=== PATIENT | female | born 1955 | race Caucasian/White ===

== ENCOUNTER 2020-09-27 16:06 | Outpatient (RCR) | payer OTHER, SELFPAY ==
[2015-06-11 10:28] VITALS: BMI 24.3
[2020-09-28] MEDS: COVID-19 VACC, MRNA(PFIZER)/PF 30 MCG/0.3 ML SYRINGE IM (13:00)
[2020-10-18] MEDS: COVID-19 VACC, MRNA(PFIZER)/PF 30 MCG/0.3 ML SYRINGE IM (11:33)
== END 2020-09-27 23:59 ==
LOC: IMMUN 16:06
PROVIDERS: Referring Provider Family Medicine; Visit Provider Family Medicine
DX: Z23 Encounter for immunization (principal)
CPT/HCPCS: 0001A; 0002A; 91300

== ENCOUNTER → 2022-02-03 | Outpatient (CLI) | payer MEDICARE, OTHER, SELFPAY ==
--- NOTE | 2022-02-03 18:32 | RAD_ITS ---
STUDY: X-RAY - LUMBAR SPINE REASON FOR EXAM: Female, 66 years old. Lower back pain for 3 weeks. Injured back while bulging [place]. Left radiculopathy. TECHNIQUE: 2 view(s) of the lumbar spine were obtained. COMPARISON: None FINDINGS: Mild exaggeration of lumbar lordosis. There is a mild levoscoliosis with the convexity at L3. There is a normal alignment of the vertebrae. There is multilevel endplate spondylosis of the lumbar vertebrae. There is multi-level degenerative disc disease with multi-level disc space narrowing. There is no evidence of acute fracture or loss of vertebral axial height. The soft tissue structures are unremarkable. RAD/Lumbar Spine 2 or 3 Views IMPRESSION: Degenerative changes and scoliosis of the lumbar spine. Electronically Signed: Zander Louis DO at 23:51 EDT ,
== END | disposition home or self-care (01) ==
LOC: RAD 18:23
PROVIDERS: Visit Provider Anesthesiology Pain Medicine
DX: M41.86 Other forms of scoliosis, lumbar region (principal); M51.36 Other intervertebral disc degeneration, lumbar region; M47.816 Spondylosis without myelopathy or radiculopathy, lumbar region; M54.16 Radiculopathy, lumbar region
CPT/HCPCS: 72100

== ENCOUNTER → 2022-02-11 | Outpatient (CLI) | payer MEDICARE, OTHER, SELFPAY ==
--- NOTE | 2022-02-11 14:22 | MRI_ITS ---
STUDY: MRI LUMBAR SPINE WITHOUT CONTRAST REASON FOR EXAM: Female, 66 years old. LBP TECHNIQUE: Standardized fat and water weighted pulse sequences were obtained in the sagittal and axial planes. COMPARISON: None FINDINGS: Mild grade 1 anterolisthesis of L4 on L5. Minimal retrolisthesis of L2 on L3 and L3-L4. Visualized spinal cord demonstrates no evidence of cord edema. Conus terminates at approximately L1 level. Cauda equina nerve roots follow spinal curvature. No evidence for spondylolysis. Heterogeneity of the marrow signal on T1-weighted imaging likely relate with osteopenia. No suspicious focal marrow lesions on STIR imaging. Minimal anterior wedging of the lower thoracic vertebrae. No evidence for acute lumbar spine compression fractures. Hypertrophy of this process processes. Anterior and posterior osteophytic spurring. Level by level segmental analysis: L1-L2 level: No significant central canal stenosis or neural foraminal narrowing. Mild facet arthrosis. L2-L3 level: Shallow disc bulge with bilateral facet arthrosis and mild left-sided neural foraminal narrowing without significant central canal stenosis. L3-4 level: Bilateral facet arthrosis with broad-based is bulge and a superimposed right paracentral disc herniation with caudal migration into the right lateral recess resulting in impingement of the descending right L4 nerve root and deformity of the right ventrolateral thecal sac. Overall size of the disc herniation below the disc margin is approximately 2.1 cm. Mild canal stenosis. Mild left-sided and moderate right-sided neural foraminal narrowing. L4-5 level: Grade 1 anterolisthesis of L4 on L5 with extensive facet arthrosis and ligamentum flavum thickening resulting in moderate bilateral neural foraminal narrowing. The L3-L4 disc herniation extends into the right neural foramen. Mild narrowing of the central canal. L5-S1 level: Bilateral facet arthrosis with broad-based disc bulge and grade 1 anterolisthesis of L5 on S1 with mild flattening of the ventral thecal sac. Left foraminal and extraforaminal disc herniation also seen resulting in impingement of the left L5 nerve root. No paraspinal soft tissue mass or fluid collections. MRI/Spine Lumbar (Routine) IMPRESSION: Lumbar spondylotic changes with a large disc herniation at L3-L4 with impingement of the right-sided L4 nerve root and a disc herniation at L5-S1 level with impingement of the left-sided L5 nerve root. Please see above level by level complete analysis and details No evidence for acute lumbar spine compression fractures. Electronically Signed: Jay Nascimento MD at 16:45 EDT ,
== END | disposition home or self-care (01) ==
LOC: MRI 14:15
PROVIDERS: Visit Provider Anesthesiology Pain Medicine
DX: M54.16 Radiculopathy, lumbar region (principal)
CPT/HCPCS: 72148

== ENCOUNTER → 2022-02-26 | Outpatient (CLI) | payer MEDICARE, OTHER, SELFPAY ==
--- NOTE | 2022-02-26 16:51 | RAD_ITS ---
EXAM: XR CHEST, 2 VIEWS CLINICAL INDICATION: SOB TECHNIQUE: Frontal and lateral views of the chest. This report was created using [employer] report generation technology. COMPARISON: None. FINDINGS: LUNGS AND PLEURAL SPACES: Unremarkable. No consolidation or edema. No pneumothorax. No effusion. HEART: Unremarkable. Cardiac silhouette not enlarged. MEDIASTINUM: Central airways and mediastinal contour are unremarkable. BONES/JOINTS: Unremarkable. SOFT TISSUES: Unremarkable. RAD/Chest PA and Lateral IMPRESSION: No radiographic evidence of acute cardiopulmonary disease. Electronically Signed: Dung Powers MD at 7:14 EDT ,
[2022-02-26 18:09] LABS: Absolute Lymphocyte Count 2.72 X10^3/uL (0.83-4.51); Absolute Neutrophil Count 6.4 X10^3/uL (2.0-7.7); Basophil# 0.05 X10^3/uL; Basophil% 0.5 % (0-1); Eosinophil# 0.06 X10^3/uL; Eosinophils% 0.6 % (0-5); Hematocrit 45.7 % (37-47); Hemoglobin 14.5 g/dL (12.0-15.0); Lymphocyte # 2.72 X10^3/ul (0.83-4.51); Mean Corp Hgb Conc 31.7 g/dL (32-36); Mean Corpuscular Hgb 30.1 pg (27.0-32.0); Mean Platelet Vol. 11.3 fl (6.2-12.0); Monocyte# 0.83 X10^3/uL; Monocyte% 8.2 % (0-10); NRBC Flagged by Analyzer 0 % (0-5); Neutrophil # 6.35 X10^3/uL (2.7-7.7); Neutrophil % 63.1 % (47-70); Platelet Count 249 K/mm3 (150-450); RBC Distribution Width CV 15.9 % (11.6-14.6); RBC Distribution Width SD 55.7 fl (35.1-43.9); Red Blood Count 4.81 M/mm3 (4.2-5.4); White Blood Count 10.1 K/mm3 (4.4-11.0)
[2022-02-26 18:18] LABS: International Normalized Ratio 0.9; Partial Thromboplast Time 23.1 Seconds (24.1-36.2); Prothrombin Time (Protime)PT. 11.8 SECONDS (11.7-14.9)
[2022-02-26 18:31] LABS: Color, Urine Yellow (Yellow); Glucose, Dipstick Normal (Normal); Ketone-Dipstick Negative (Negative); Leukocyte Esterase-Dipstick 25 /ul (Negative); Nitrite-Dipstick Negative (Negative); Occult Blood-Urine Negative /ul (Negative); Protein-Dipstick 15 mg/dl (Negative); Specific Gravity, Urine 1.015 (1.002-1.030); Urine Bilirubin Dipstick Negative (Negative); Urine Clarity Sl. Cloudy (Clear); Urine Urobilinogen Normal (Normal)
[2022-02-26 18:43] LABS: AST(SGOT) 32 U/L (15-37); Alanine Aminotransfer ALT/SGPT 52 U/L (13-56); Albumin, Serum 3.8 g/dL (3.2-5.0); Alkaline Phosphatase 74 U/L (45-117); Anion Gap 7 (5-15); BUN 17 mg/dL (7-18); BUN/Creat Ratio 18.7 RATIO (10-20); Calcium,Total 9.2 mg/dL (8.5-10.1); Chloride 102 mmol/L (98-107); Cholesterol 233 mg/dL (200); Creatinine, Serum 0.91 mg/dL (0.55-1.02); EST Glomerular Filtration Rate 66 mL/min (>60); Est Glom Filt Rate - Afr Amer 80 mL/min (>60); Globulin 3.7 g/dL (2.2-4.2); Glucose 93 mg/dL (74-106); High Density Lipoprotein 92 mg/dL; Potassium 3.6 mmol/L (3.5-5.1); Protein, Total 7.5 g/dL (6.4-8.2); Sodium Level 137 mmol/L (136-145); Thyroid Stim Hormone (TSH) 1.34 uIU/mL (0.358-3.74); Triglycerides 107 mg/dL; Very Low Density Lipoprotein 21 mg/dL (5-40)
[2022-02-26 18:54] LABS: Hemoglobin A1c 5.5 % (3.8-5.6)
== END | disposition home or self-care (01) ==
PROVIDERS: Referring Provider Family Medicine; Visit Provider Family Medicine
DX: Z01.818 Encounter for other preprocedural examination (principal); Z13.1 Encounter for screening for diabetes mellitus; Z13.29 Encounter for screening for other suspected endocrine disorder; Z13.220 Encounter for screening for lipoid disorders; K21.9 Gastro-esophageal reflux disease without esophagitis; M48.062 Spinal stenosis, lumbar region with neurogenic claudication; I10 Essential (primary) hypertension; R06.02 Shortness of breath
CPT/HCPCS: 71046; 80053; 80061; 81002; 83036; 84443; 85025; 85610; 85730

== ENCOUNTER → 2022-06-17 | Outpatient (CLI) | payer MEDICARE, OTHER, SELFPAY ==
--- NOTE | 2022-06-17 12:31 | CT_ITS ---
EXAM: CT LUMBAR SPINE WITH INTRAVENOUS CONTRAST CLINICAL INDICATION: HERNIATED DISC LSPINE TECHNIQUE: Helically acquired images were obtained of the lumbar spine with intravenous contrast. 2D reformats were reviewed. This CT exam was performed using one or more of the following dose reduction techniques: automated exposure control, adjustment of the mA and/or kV according to patient size, and/or use of iterative reconstruction technique. This report was created using [employer] report generation technology. CONTRAST: IV 100mL Isovue-300 COMPARISON: None. FINDINGS: VERTEBRAE: There is a right-sided laminectomy at L4. No fracture. No traumatic subluxation. No discrete lytic or blastic abnormality. Normal alignment. DISCS/SPINAL CANAL/NEURAL FORAMINA: There are postsurgical changes with posterior fusion of L4 and L5. There is dense material in the disc space at L4-5 possibly from a prior discogram. No critical stenosis. VASCULATURE: Visualized abdominal aorta is not dilated. LYMPH NODES: Unremarkable. No retroperitoneal adenopathy. OTHER FINDINGS: Hardware is in good position. CT/Spine Lumbar WITH Contrast IMPRESSION: Postsurgical changes at L4-5. Hardware is in good position. There are no acute osseous abnormalities identified. Electronically Signed: Miguel Osborn MD at 18:06 EST ,
[2022-06-17 12:55] LABS: CREATININE FINGERSTICK < 0.9 mg/dL (0.55-1.02); EGFR FINGERSTICK > 60.0000 mL/min (>60)
== END | disposition home or self-care (01) ==
LOC: CT 12:28
PROVIDERS: Referring Provider Orthopaedic Surgery; Visit Provider Orthopaedic Surgery
DX: M51.26 Other intervertebral disc displacement, lumbar region (principal)
CPT/HCPCS: 72132; Q9967

== ENCOUNTER → 2022-08-07 | Outpatient (CLI) | payer MEDICARE, OTHER, SELFPAY ==
--- NOTE | 2022-08-07 12:46 | MRI_ITS ---
EXAM: MR LUMBAR SPINE WITHOUT AND WITH INTRAVENOUS CONTRAST CLINICAL INDICATION: SPINAL STENOSIS TECHNIQUE: Multiplanar and multisequence MR images of the lumbar spine without and with intravenous contrast. This report was created using [employer] technology. CONTRAST: IV 13 cc clariscn COMPARISON: 02/11/2022. FINDINGS: VERTEBRAE: Unremarkable. Vertebral body heights are preserved. Normal vertebral bodies and posterior elements. Normal alignment. No spondylolisthesis. There is preservation of the normal lumbar lordosis. SPINAL CORD: Unremarkable. Normal position and signal intensity of the conus medullaris. SOFT TISSUES: Unremarkable. DISCS/SPINAL CANAL/NEURAL FORAMINA: No demonstrated fracture. Vertebral bodies are normal in height. T12-L1: Marked disc space narrowing. Normal bilateral facet joints. Normal central canal. Normal bilateral lateral recesses. Normal intervertebral neural foramina. L1-2: Disc dehydration and mild disc space narrowing. Normal bilateral facet joints. Normal central canal. Normal bilateral lateral recesses. Normal intervertebral neural foramina. L2-3: Disc dehydration. Normal bilateral facet joints. Normal central canal. Normal bilateral lateral recesses. Small, noncompressive left inferior foraminal disc protrusion. L3-4: Disc dehydration and moderate disc space narrowing. Normal bilateral facet joints. Normal central canal. Normal bilateral lateral recesses. Small, noncompressive inferior foraminal disc protrusions. L4-5: Disc spacer. Prior right laminectomy with posterior instrumentation. Normal central canal. Foramina are patent. L5-S1: Disc dehydration. Normal bilateral facet joints. Normal central canal. Normal bilateral lateral recesses. Small left inferior foraminal disc protrusion touches the exiting L5 nerve root. No enhancing lesion following the administration of contrast. MRI/Spine Lumbar W/WO Contrast IMPRESSION: L5-S1 left foraminal disc protrusion touching the L5 nerve root. Noncompressive foraminal disc protrusions at L2-3 and L3-4. Postsurgical changes at L4-5. Electronically Signed: Yamel Vidal MD at 23:01 EST Reading Location ID and State: [id number] / Tel , Service support ,
[2022-08-07 13:21] LABS: CREATININE FINGERSTICK < 0.9 mg/dL (0.55-1.02); EGFR FINGERSTICK > 60.0000 mL/min (>60)
== END | disposition home or self-care (01) ==
PROVIDERS: Referring Provider Orthopaedic Surgery; Visit Provider Orthopaedic Surgery
DX: M51.35 Other intervertebral disc degeneration, thoracolumbar region (principal); M51.26 Other intervertebral disc displacement, lumbar region; M48.062 Spinal stenosis, lumbar region with neurogenic claudication
CPT/HCPCS: 72158; A9575

== ENCOUNTER → 2023-05-19 | Outpatient (CLI) | payer MEDICARE, OTHER, SELFPAY ==
--- NOTE | 2023-05-18 17:11 | MRI_ITS ---
STUDY: MRI LUMBAR SPINE WITH AND WITHOUT CONTRAST REASON FOR EXAM: Female, 67 years old. Postlaminectomy syndrome, left leg pain,tingling, hx 2 prev surgeries- most recent 08/2022 TECHNIQUE: Standardized fat and water weighted pulse sequences were obtained in the sagittal and axial planes. IV 13cc clariscan was administered for the contrast portion of the examination. COMPARISON: August 07, 2022 FINDINGS: T12-L1: Normal endplates. Narrowed disc space with desiccation of disc and minimal annular bulge. Normal bilateral facet joints. Normal central canal and bilateral lateral recesses. Normal bilateral intervertebral neural foramina. Normal lumbar lordosis. There is mild levo scoliosis. Normal conus medullaris that terminates at T12-L1 L1-2: Schmorl''s node superior endplate of L2. Normal disc height, desiccation and minimal annular bulge.. Normal bilateral facet joints. Normal central canal and bilateral lateral recesses. Normal bilateral intervertebral neural foramina. L2-3: Normal endplates. Normal disc height, desiccation and minimal annular bulge with small tiny left foraminal disc protrusion. Normal bilateral facet joints. Normal central canal and bilateral lateral recesses. Mild left neural foraminal encroachment L3-4: Normal endplates. Narrowed disc space with desiccation of the disc and mild annular bulge.. Facet arthropathy and thickening of ligamenta flava. Normal central canal and bilateral lateral recesses. Mild to moderate bilateral neural foraminal encroachment L4-5: Postop change status post laminectomy and posterior fusion Normal endplates. Normal disc height, desiccation and normal morphology. Mild facet arthropathy and thickening of ligamenta flava more pronounced on the left mildly compressing the left posterior lateral thecal sac which is displaced slightly anteriorly and towards the right Normal central canal.. Normal bilateral intervertebral neural foramina. L5-S1: Normal endplates. Normal disc height, desiccation and small left posterolateral/foraminal disc protrusion. Facet arthropathy more pronounced on the left. Normal central canal and bilateral lateral recesses. Severe left neural foraminal stenosis. Normal visualized sacral ala. Normal visualized paraspinous soft tissue structures. No abnormal enhancement following contrast demonstrates MRI/Spine Lumbar W/WO Contrast IMPRESSION: Mild scoliosis and degenerative change.. Postop change status post laminectomy and posterior fusion at L4-5 No acute fracture or other significant bony pathology Spinal stenosis at L4-5 largely due to facet arthropathy and thickening of ligamenta flava which is more pronounced on the lef Severe left neural foraminal stenosis at L5-S1 secondary to small left posterolateral/foraminal disc protrusion and facet arthropathy t Electronically Signed: Mathieu Jalloh MD at 20:20 EDT ,
== END | disposition home or self-care (01) ==
LOC: MRI 11:48
PROVIDERS: Referring Provider Anesthesiology Pain Medicine; Visit Provider Anesthesiology Pain Medicine
DX: M96.1 Postlaminectomy syndrome, not elsewhere classified (principal)
CPT/HCPCS: 72158

== ENCOUNTER 2023-08-13 14:47 | Outpatient (CLI) | payer MEDICARE, OTHER, SELFPAY ==
[2023-08-13 18:02] LABS: Vitamin B12 331 pg/mL (211-911); Vitamin D,25 Hydroxy 62.5 ng/mL
[2023-08-13 18:14] LABS: ALB/GLOB Ratio 1.1 RATIO (0.9-2.4); AST(SGOT) 30 U/L (15-37); Alanine Aminotransfer ALT/SGPT 23 U/L (13-56); Albumin, Serum 3.6 g/dL (3.2-5.0); Alkaline Phosphatase 56 U/L (45-117); Anion Gap 6 (5-15); BUN 13 mg/dL (7-18); Calcium,Total 9.3 mg/dL (8.5-10.1); Chloride 106 mmol/L (98-107); Cholesterol 219 mg/dL (200); Creatinine, Serum 0.81 mg/dL (0.55-1.02); EST Glomerular Filtration Rate 75 mL/min (>60); Est Glom Filt Rate - Afr Amer 91 mL/min (>60); Globulin 3.3 g/dL (2.2-4.2); Glucose 77 mg/dL (74-106); High Density Lipoprotein 88 mg/dL; Potassium 4.1 mmol/L (3.5-5.1); Protein, Total 6.9 g/dL (6.4-8.2); Sodium Level 139 mmol/L (136-145); Triglycerides 62 mg/dL; Very Low Density Lipoprotein 12 mg/dL (5-40)
[2023-08-13 18:34] LABS: Microalbumin,Random Urine 9.1 mg/L (NO RANGE EST.); Microalbumin:Creatinine Ratio 10.2 mg/g CRE (<30 mg/g CRE)
== END 2023-08-13 23:59 | disposition home or self-care (01) ==
LOC: MFPLAB 14:48
PROVIDERS: PCP Family Medicine; Visit Provider Family Medicine
DX: I10 Essential (primary) hypertension (principal); E78.2 Mixed hyperlipidemia; K21.9 Gastro-esophageal reflux disease without esophagitis; E55.9 Vitamin D deficiency, unspecified
CPT/HCPCS: 36415; 80053; 80061; 82043; 82306; 82570; 82607

== ENCOUNTER → 2024-07-15 | Outpatient (CLI) | payer MEDICARE, OTHER, SELFPAY ==
--- NOTE | 2024-07-15 16:35 | MRI_ITS ---
HISTORY: Postlaminectomy syndrome. TECHNIQUE: Multiplanar and multisequence MR images of the lumbar spine were obtained before and after the intravenous administration of 13 cc Clariscan. 201 images. COMPARISON: 05/18/2023. FINDINGS: VERTEBRAE: Vertebral body heights maintained. Artifact from L4-5 posterior spinal fusion hardware. Mild degenerative endplate changes at multiple levels. ALIGNMENT: Chronic minimal anterolisthesis of L4-5. SPINAL CANAL: Normal morphology and position of the conus medullaris at L1. No gross epidural collection. INTERVERTEBRAL DISCS: T12-L1: Mild disc bulge and facet arthropathy without significant central canal stenosis or foraminal narrowing L1-2: Mild disc bulge and facet arthropathy without significant central canal stenosis or foraminal narrowing. L2-3: Mild disc bulge with a left foraminal component and facet arthropathy resulting in minimal narrowing of the thecal sac and mild left greater than right foraminal narrowing, similar to prior L3-4: Mild disc bulge and facet arthropathy resulting in minimal narrowing of the thecal sac and mild right greater than left foraminal narrowing, similar to prior. L4-5: Interbody fusion material and right decompressive laminectomy. No significant recurrent posterior disc protrusion or central canal stenosis. Residual degenerative change and facet arthropathy resulting in mild bilateral foraminal narrowing, similar to prior. L5-S1: Increased left paracentral/foraminal disc extrusion with superior migration abutting the left S1 nerve root in the lateral recess and the left L5 nerve root in the foramen with increased severe left foraminal narrowing. No significant central canal stenosis. Correlate with surgical history for left laminotomy. SOFT TISSUES: No paraspinal fluid collection. MRI/Spine Lumbar W/WO Contrast IMPRESSION: No significant interval change in appearance of L4-5 posterior spinal fusion. Increased size of left paracentral/foraminal disc extrusion with superior migration at L5-S1 resulting in nerve root abutment and severe left foraminal narrowing without significant spinal canal stenosis. Electronically Signed: Erika Schwartz MD at 15:27 EST ,
== END | disposition home or self-care (01) ==
PROVIDERS: PCP Family Medicine; Referring Provider Anesthesiology Pain Medicine; Visit Provider Anesthesiology Pain Medicine
DX: M96.1 Postlaminectomy syndrome, not elsewhere classified (principal)
CPT/HCPCS: 72158; A9575

== ENCOUNTER → 2024-09-03 | Outpatient (CLI) | payer MEDICARE, OTHER, SELFPAY ==
--- NOTE | 2024-09-03 08:21 | CT_ITS ---
PROCEDURE: SPINE LUMBAR WITHOUT CONTRAST REASON FOR EXAM: Pain TECHNIQUE: Lumbar spine CT without contrast. COMPARISON: Correlation made to more recent lumbar spine MRI from June 2024. FINDINGS: Vertebrae: Normal lumbar vertebral body heights. No evidence of fracture. No spondylolysis. Moderate multilevel degenerative changes with associated bilateral facet arthropathy more severe inferiorly with 3 mm anterolisthesis of L4 relative to L5. Intact posterior spinal fusion hardware traversing L4-L5 with unchanged severe left foraminal narrowing at L5-S1 unstable anterolisthesis of L4 relative to L5. Vertebral body heights are preserved. No acute fracture. Sacrum: Visualized upper sacrum and SI joints are unremarkable. Visualized retroperitoneal structures are unremarkable. CT/Spine Lumbar without Contrast IMPRESSION: No acute CT process. Intact relatively stable L4-5 posterior spinal fusion bishop nayeli. One or more dose reduction techniques were used (e.g., Automated exposure contr ol, adjustment of the mA and/or kV according to patient size, use of iterative reconstruction technique). Reading Location: [facility]
== END | disposition home or self-care (01) ==
LOC: CT 08:20
PROVIDERS: PCP Family Medicine; Referring Provider Orthopaedic Surgery Orthopaedic Surgery of the Spine; Visit Provider Orthopaedic Surgery Orthopaedic Surgery of the Spine
DX: Z98.1 Arthrodesis status (principal)
CPT/HCPCS: 72131

== ENCOUNTER 2024-10-25 13:35 | Inpatient (IN) | payer MEDICARE, OTHER, SELFPAY ==
--- NOTE | 2024-10-13 09:31 | EKG12_ITS ---
Test Reason : PREOP Blood Pressure : */* mmHG Vent. Rate : 71 BPM Atrial Rate : 71 BPM P-R Int : 178 ms QRS Dur : 78 ms QT Int : 380 ms P-R-T Axes : 52 33 41 degrees QTcB Int : 412 ms Normal sinus rhythm Possible Left atrial enlargement Low voltage QRS Septal infarct , age undetermined Abnormal ECG Confirmed by HALLIE LOPEZ, ROSSY ([id number]), assistant production editor ANGELA JIN ([id number]) on 10/14/2024 5:48:48 AM Referred By: JAZMYN Confirmed By: ROSSY STERLING MD
[2024-10-13 10:22] LABS: Absolute Lymphocyte Count 2.43 X10^3/uL (0.83-4.51); Absolute Neutrophil Count 2.5 X10^3/uL (2.0-7.7); Basophil# 0.05 X10^3/uL; Basophil% 0.9 % (0-1); Eosinophil# 0.12 X10^3/uL; Eosinophils% 2.2 % (0-5); Hematocrit 40.1 % (37-47); Hemoglobin 13.1 g/dL (12.0-15.0); Lymphocyte # 2.43 X10^3/ul (0.83-4.51); Lymphocyte % 43.7 % (19-41); Mean Corp Hgb Conc 32.7 g/dL (32-36); Mean Corpuscular Hgb 29.8 pg (27.0-32.0); Mean Corpuscular Volume 91.3 fL (81-99); Mean Platelet Vol. 11.5 fl (6.2-12.0); Monocyte# 0.48 X10^3/uL; Monocyte% 8.6 % (0-10); NRBC Flagged by Analyzer 0 % (0-5); Neutrophil # 2.46 X10^3/uL (2.7-7.7); Neutrophil % 44.2 % (47-70); Platelet Count 194 K/mm3 (150-450); RBC Distribution Width CV 14.4 % (11.6-14.6); RBC Distribution Width SD 48.2 fl (35.1-43.9); Red Blood Count 4.39 M/mm3 (4.2-5.4); White Blood Count 5.6 K/mm3 (4.4-11.0)
[2024-10-13 11:24] LABS: Anion Gap 10 (5-15); BUN 16 mg/dL (4-19); BUN/Creat Ratio 22.4 RATIO (10-20); Calcium,Total 9.4 mg/dL (7.6-11.0); Carbon Dioxide 24.9 mmol/L (21.0-32.0); Chloride 104 mmol/L (98-108); Creatinine, Serum 0.71 mg/dL (0.70-1.20); EST Glomerular Filtration Rate 93 (>60); Glucose 98 mg/dL (70-99); Magnesium 1.9 mg/dL (1.5-2.2); Potassium 4.4 mmol/L (3.3-5.1); Sodium Level 139 mmol/L (133-145)
[2024-10-13 11:44] LABS: Hepatitis B Surface Antibody REAC; Hepatitis C Antibody Nonreactive (Nonreactive)
[2024-10-14 05:07] LABS: Hepatitis A AB, Total Positive (Negative)
--- NOTE | 2024-10-14 08:20 | PAT.ANESEVAL ---
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 When Was Last Pacemaker Check QUESTION #4 FULL TEXT: You/Your Family Experience fever (hyperthermia) with Anesthesia Last Oral Intake Last Oral intake: Last Oral Intake NPO since Meds taken in AM with sips of water? 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 Female Yes 10/11/24 13:17 HX of Motion Sickness Yes 10/11/24 13:17 HX of N/V After Surgery Yes 10/11/24 13:17 Non-Smoker Yes 10/11/24 13:17 Duration of Surgery greater Yes 10/11/24 13:17 than 60 minutes Number of Risk Factors 5 10/11/24 13:17 PONV Score Severe Risk 10/11/24 13:17 Height & Weight Height & Weight: Anesthesia: Height & Weight Height 5 ft 3 in 08/19/24 07:34 Respiratory Assessment Respiratory Assessment - tube cleaning operator: Respiratory Tract Infection Hx - tube cleaning operator Hx Respiratory Tract Infection No 10/11/24 13:17 STOP Sleep Apnea STOP Sleep Apnea - tube cleaning operator: STOP Sleep Apnea - tube cleaning operator Hx Hypertension Yes: CONTROLLED WITH MED 10/11/24 13:17 Hx Sleep Apnea No 10/11/24 13:17 CPAP BIPAP Do you snore loudly (louder No 10/11/24 13:17 than talking or can be heard Do you often feel tired/ No 10/11/24 13:17 fatigued/ sleepy during daytime? Has anyone observed you stop No 10/11/24 13:17 breathing during sleep? STOP Results Negative 10/11/24 13:17 QUESTION #5 FULL TEXT : Do you snore loudly (louder than talking or can be heard through closed doors)? 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 Specify any problems Hx of Preganancy in last 3 N/A 10/11/24 13:17 Months Nurse Filling Out Transfusion NBUCHER 10/11/24 13:17 & Questions: Date: 10/11/24 10/11/24 13:17 Time: 13:23 10/11/24 13:17 Patient unable to answer at this time (ie. confused, unrespo /Reproduction History /Reproductive History - tube cleaning operator: /Reproductive Hx- tube cleaning operator Hx Now Gestational Age (in weeks): EDC: Hx Hx Para Hx Section SAB PFSH Medical History (Updated 10/11/24 @ 13:34 by Jessica Condon) Wears glasses Cancer Depression Anxiety Migraine headache GERD (gastroesophageal reflux disease) Microscopic colitis History of Mohs micrographic surgery for skin cancer (~2021) Non-smoker PONV (postoperative nausea and vomiting) Hypertension Home Medications ?Medication ?Instructions ?Recorded ?Last Taken ?Type duloxetine 30 mg capsule,delayed 30 - 60 mg PO QDAY ANTIDEPRESSENT 08/19/24 Unknown History release lisinopril 20 mg tablet 20 mg PO DAILY HTN 08/19/24 Unknown History pantoprazole 20 mg tablet,delayed 20 mg PO QDAY GERD 08/19/24 Unknown History release calcium 500 mg (as 2 tab PO DAILY SUPPLEMENT 10/11/24 Unknown History carbonate)-vitamin D3 3.125 mcg (125 unit) tablet gabapentin 100 mg capsule 200 - 300 mg PO TID PRN PAIN 10/11/24 Unknown History hydrocodone-acetaminophen 5-325mg 0.5 tab PO QHS PRN pain 03/18/25 Unknown History 5mg-325mg Allergy/AdvReac Type Severity Reaction Status Date / Time No Known Allergies Allergy Verified 10/11/24 13:12 Family History (Updated 08/19/24 @ 08:07 by Kalie Garcia) Mother Hypertension Lung cancer Scoliosis DJD (degenerative joint disease) Father COPD (chronic obstructive pulmonary disease) Surgical History (Updated 10/11/24 @ 13:34 by Jessica Condon) History of colonoscopy History of right hip replacement (~01/2011) S/P lumbar fusion Status post breast reduction History of lumbar laminectomy History of lumbar fusion Social History (Updated 08/19/24 @ 08:06 by Kalie Garcia) Smoking Status: Never smoker alcohol intake: current alcohol intake frequency: 0-2 drinks per day what type of physical activity do you participate in: other details: elias Audit: Pertinent Findings Pertinent Findings EKG Perinent findings: 10/13/24: Normal sinus rhythm Possible Left atrial enlargement Low voltage QRS Septal infarct , age undetermined Recommendation Anesthesia Recommendation Anesthesia recommendation: OPTIMIZED for anesthesia
[2024-10-21 04:07] LABS: HIV-1 RNA by PCR, Quant. < 20 copies/mL (.)
[2024-10-25] VITALS (18 sets, daily range): BP systolic 94–124; BP diastolic 57–82; PULSE 78–100; RESP 16–18; TEMP 36.2–37.2; O2SAT 18–100; BMI 26.5
[2024-10-25] MEDS: 0.9% Normal Saline (1000mL) 1,000 ML 15 ML IV (06:21)
[2024-10-25] MEDS: Acetaminophen 500 MG Tablet 1000 MG PO ×3 (06:22→21:10)
[2024-10-25] MEDS: Magnesium 2 GM for ERAS IV (06:22)
--- NOTE | 2024-10-25 06:32 | PCM.PRE.AN2 ---
ASA Classification* ASA Classification ASA Classification: 2 Assessment & Plan Anesthesia* Anesthesia Assessment Anesthesia Assessment: Discussed sedation and/or anesthesia options, risks, benefits, and alternatives with patient/parents/legal guardian/POA. Questions invited. The patient/parents/legal guardian/POA seems to understand and agrees to proceed with anesthesia plan. Reviewed the physical assessment, medical history, allergy history and patient home medications list prior to surgery/procedure/anesthetic and documented any changes. Performed airway and anesthesia risk assessments. Anesthesia Type Anesthesia Type: General (Consider GlideScope intubation) History Source History Obtained from:: Patient and Chart Anesthesia Focused Assessment* Temperature: 97.8 F Pulse Rate: 78 Blood Pressure: 121/77 Respiratory Rate: 16 Pulse Ox: 99 Oxygen Delivery Method: Room Air Airway Assessment Mouth opens: >3 cm Mallampati Score: IV Teeth Condition: Caps/Crowns (Patient has several crowns. They are all tight.) Neck Range of motion (ROM): Limited ROM (Somewhat decreased extension) Focused Labs Anesthesia Preop lab: CBC WBC 5.6 K/mm3 (4.4-11.0) 10/13/24 09:42 10/13/24 RBC 4.39 M/mm3 (4.2-5.4) 10/13/24 09:42 10/13/24 Hgb 13.1 g/dL (12.0-15.0) 10/13/24 09:42 10/13/24 Hct 40.1 % (37-47) 10/13/24 09:42 10/13/24 Plt Count 194 K/mm3 (150-450) 10/13/24 09:42 10/13/24 CHEMISTRY Potassium 4.4 mmol/L (3.3-5.1) 10/13/24 09:42 10/13/24 Sodium 139 mmol/L (133-145) 10/13/24 09:42 10/13/24 Magnesium 1.9 mg/dL (1.5-2.2) 10/13/24 09:42 10/13/24 BUN 16 mg/dL (4-19) 10/13/24 09:42 10/13/24 Creatinine 0.71 mg/dL (0.70-1.20) 10/13/24 09:42 10/13/24 Glucose 98 mg/dL (70-99) 10/13/24 09:42 10/13/24 TSH 1.34 uIU/mL (0.358-3.74) 02/26/22 16:54 02/26/22 COAG PT 11.8 SECONDS (11.7-14.9) 02/26/22 16:54 02/26/22 Pre-Assessment Diagnosis/Proposed Procedure Planned Operative Procedure(s): Anterior lumbar interbody fusion L5-S1, revision posterior lumbar fusion L4-5 and L5-S1, possible removal of hardware Anesthesia History 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 When Was Last Pacemaker Check QUESTION #4 FULL TEXT: You/Your Family Experience fever (hyperthermia) with Anesthesia Last Oral Intake Last Oral intake: Last Oral Intake NPO since 04:45 10/25/24 06:05 Meds taken in AM with sips of Yes 10/25/24 06:05 water? Meds patient instructed to take am of surgery Any additional information?: Yes NPO since: 04:45 (Patient took her preop Ensure at 4:45 AM.) Meds taken in AM with sips of water?: Yes PONV PONV - principal architectural firm: PONV - principal architectural firm Female Yes 10/11/24 13:17 HX of Motion Sickness Yes 10/11/24 13:17 HX of N/V After Surgery Yes 10/11/24 13:17 Non-Smoker Yes 10/11/24 13:17 Duration of Surgery greater Yes 10/11/24 13:17 than 60 minutes Number of Risk Factors 5 10/11/24 13:17 PONV Score Severe Risk 10/11/24 13:17 Height & Weight Height & Weight: Anesthesia: Height & Weight Height 5 ft 3 in 10/25/24 06:05 Weight: 68 kg 10/25/24 06:05 Body Mass Index (BMI) 26.5 10/25/24 06:05 Respiratory Assessment Respiratory Assessment - principal architectural firm: Respiratory Tract Infection Hx - principal architectural firm Hx Respiratory Tract Infection No 10/11/24 13:17 STOP Sleep Apnea STOP Sleep Apnea - principal architectural firm: STOP Sleep Apnea - principal architectural firm Hx Hypertension Yes: CONTROLLED WITH MED 10/11/24 13:17 Hx Sleep Apnea No 10/11/24 13:17 CPAP BIPAP Do you snore loudly (louder No 10/11/24 13:17 than talking or can be heard Do you often feel tired/ No 10/11/24 13:17 fatigued/ sleepy during daytime? Has anyone observed you stop No 10/11/24 13:17 breathing during sleep? STOP Results Negative 10/11/24 13:17 QUESTION #5 FULL TEXT : Do you snore loudly (louder than talking or can be heard through closed doors)? Tobacco Use History Tobacco Use History - principal architectural firm: Tobacco Use History - principal architectural firm Tobacco Use Smoking Status Never smoker 10/11/24 13:17 Hx Tobacco Use No 10/11/24 13:17 Years Smoking Packs Smoked per Day Smoking Cessation Date was within the last 15 years Hx Smoking Cessation Date Hx Smoking Cessation Counseling Hematologic Medial History Hematologic Hx - principal architectural firm: Hematologic Medical Hx - picker packer Hx of Blood Transfusion No 10/11/24 13:17 Hx of Transfusion in last 3 No 10/11/24 13:17 Months Date of Last Transfusion (if within last 3 months) Ever experience any problems No 10/11/24 13:17 with transfusion(s)? Specify any problems Hx of Preganancy in last 3 N/A 10/11/24 13:17 Months Nurse Filling Out Transfusion NBUCHER 10/11/24 13:17 & Questions: Date: 10/11/24 10/11/24 13:17 Time: 13:23 10/11/24 13:17 Patient unable to answer at this time (ie. confused, unrespo /Reproduction History /Reproductive History - principal architectural firm: /Reproductive Hx- principal architectural firm Hx Now Gestational Age (in weeks): EDC: Hx Hx Para Hx Section SAB Active Medications Active Medications: Current Medications Generic Name Dose Route Start Last Admin Trade Name Freq PRN Reason Stop Dose Admin Acetaminophen 1,000 mg 10/25/24 07:30 10/25/24 06:22 Acetaminophen 500 Mg Tablet PO 10/25/24 07:31 1,000 mg X1 ONE Administration Cefazolin Sodium 2 gm/ N/A 20 mls @ 400 mls/hr 10/25/24 07:30 IV 10/25/24 07:32 PREOP ONE Tranexamic Acid 1,000 mg/ 110 mls @ 440 mls/hr 10/25/24 07:30 Sodium Chloride IV 10/25/24 07:44 X1 ONE Tranexamic Acid 1,000 mg/ 110 mls @ 440 mls/hr 10/25/24 07:30 Sodium Chloride IV 10/25/24 07:44 X1 ONE Magnesium Sulfate 2 gm/ 104 mls @ 208 mls/hr 10/25/24 07:30 10/25/24 06:22 Dextrose IV 10/25/24 07:59 208 mls/hr X1 ONE Administration Sodium Chloride 1,000 mls @ 15 mls/hr 10/25/24 05:50 10/25/24 06:21 IV 10/30/24 19:09 15 mls/hr .Q48H MARY ANN Administration Insulin Human Lispro 1 - 6 unit 10/25/24 07:30 Insulin Lispro 100 Unit/Ml Insuln.Pen SC Q4H PRN PRN BG>/= 180, SEE PROTOCOL Protocol PFSH Medical History Wears glasses Cancer Depression Anxiety Migraine headache GERD (gastroesophageal reflux disease) Microscopic colitis History of Mohs micrographic surgery for skin cancer (~2021) Non-smoker PONV (postoperative nausea and vomiting) Hypertension Home Medications ?Medication ?Instructions ?Recorded ?Last Taken ?Type duloxetine 30 mg capsule,delayed 30 - 60 mg PO QDAY ANTIDEPRESSENT 08/19/24 10/25/24 04:45 History release lisinopril 20 mg tablet 20 mg PO DAILY HTN 08/19/24 10/25/24 04:45 History pantoprazole 20 mg tablet,delayed 20 mg PO QDAY GERD 08/19/24 10/25/24 04:45 History release calcium 500 mg (as 2 tab PO DAILY SUPPLEMENT 10/11/24 10/24/24 History carbonate)-vitamin D3 3.125 mcg (125 unit) tablet gabapentin 100 mg capsule 200 - 300 mg PO TID PRN PAIN 10/11/24 10/24/24 History hydrocodone-acetaminophen 5-325mg 0.5 tab PO QHS PRN pain 10/11/24 Unknown History 5mg-325mg ascorbic acid (vitamin C) 1,000 mg 1 g PO Q6H supplement 10/20/24 10/24/24 History capsule budesonide 3 mg 9 mg PO QDAY PRN colitis 10/20/24 Unknown History capsule,delayed,extended release cholecalciferol (vitamin D3) 25 25 mcg PO QDAY supplement 10/20/24 10/24/24 History mcg (1,000 unit) capsule cyclobenzaprine 10 mg tablet 10 mg PO TID PRN muscle spasm 10/20/24 Unknown History sumatriptan succinate 100 mg tablet 100 mg PO ONCE 10/20/24 Unknown History zolpidem 10 mg tablet 10 mg PO QHS sleep 10/20/24 10/25/24 History Allergy/AdvReac Type Severity Reaction Status Date / Time No Known Allergies Allergy Verified 10/25/24 06:02 Family History Mother Hypertension Lung cancer Scoliosis DJD (degenerative joint disease) Father COPD (chronic obstructive pulmonary disease) Surgical History History of colonoscopy History of right hip replacement (~01/2011) S/P lumbar fusion Status post breast reduction History of lumbar laminectomy History of lumbar fusion Social History Smoking Status: Never smoker alcohol intake: current alcohol intake frequency: 0-2 drinks per day what type of physical activity do you participate in: other details: pilates Review of Systems (Anesthesia) ROS Narrative System reviewed and no additional complaints, except as documented.
[2024-10-25 06:54] LABS: Bedside Glucose 140 mg/dL (74-106)
--- NOTE | 2024-10-25 07:23 | PCM.HP.BLA ---
History and Physical Date of Admission: 10/25/24 MR#: [id number] Acct: [id number] Name: IWONA ROSEN Rep #: [id number] : 1955 Provider: Dr. Terry Lang MD Age/Sex: 69/F Location: [facility] [place] Status: Signed Intake Vital Signs 08/19/2506:34 Height 5 ft 3 in Weight: 155 lb 6 oz BMI 27.5 Intake Visit Reasons: lumbar spine Allergies No Known Allergies Allergy (Verified 10/20/24 11:15) Medications ?Medication ?Instructions ?Recorded ?Confirmed ?Type duloxetine 30 mg capsule,delayed 30 - 60 mg PO QDAY ANTIDEPRESSENT 08/19/24 10/20/24 History release lisinopril 20 mg tablet 20 mg PO DAILY HTN 08/19/24 10/20/24 History pantoprazole 20 mg tablet,delayed 20 mg PO QDAY GERD 08/19/24 10/20/24 History release calcium 500 mg (as 2 tab PO DAILY SUPPLEMENT 10/11/24 10/20/24 History carbonate)-vitamin D3 3.125 mcg (125 unit) tablet gabapentin 100 mg capsule 200 - 300 mg PO TID PRN PAIN 10/11/24 10/20/24 History hydrocodone-acetaminophen 5-325mg 0.5 tab PO QHS PRN pain 10/11/24 10/11/24 History 5mg-325mg ascorbic acid (vitamin C) 1,000 mg 1 g PO Q6H 10/20/24 10/20/24 History capsule budesonide 3 mg 9 mg PO QDAY PRN 10/20/24 10/20/24 History capsule,delayed,extended release cholecalciferol (vitamin D3) 25 25 mcg PO QDAY 10/20/24 10/20/24 History mcg (1,000 unit) capsule cyclobenzaprine 10 mg tablet 10 mg PO TID PRN muscle spasm 10/20/24 10/20/24 History sumatriptan succinate 100 mg tablet 100 mg PO ONCE 10/20/24 10/20/24 History zolpidem 10 mg tablet 10 mg PO QHS 10/20/24 10/20/24 History Have you [facility] in the past year?: [facility] History Wears glasses Cancer Depression Anxiety Migraine headache GERD (gastroesophageal reflux disease) Microscopic colitis History of Mohs micrographic surgery for skin cancer (~2021) Non-smoker PONV (postoperative nausea and vomiting) Hypertension Surgical History History of colonoscopy History of right hip replacement (~01/2011) S/P lumbar fusion Status post breast reduction History of lumbar laminectomy History of lumbar fusion Family History Mother Hypertension Lung cancer Scoliosis DJD (degenerative joint disease)Father COPD (chronic obstructive pulmonary disease) Social History Smoking Status: Never smoker alcohol intake: current alcohol intake frequency: 0-2 drinks per day what type of physical activity do you participate in: other details: pilates HPI lumbar spine Details: This documentation accurately reflects the service provided and the decisions made by me, Dr. Terry Lang MD 10/20/24 1111. Part of today?s visit was documented by Niki GIBBS, acting as scribe. IWONA ROSEN is a 69 year old F here today for pre-op lumbar spine dos: 10/25/24. 08/19/24: IWONA ROSEN is a 68 year old F here today NEW patient for low back pain. She has had a prior fusion in 2021 that was done a L4-5. She had to have this surgery done after a fall that she had. Her second surgery she had a laminectomy of L5-S1 in 2022. Her surgeries was done by Dr. Owen Juan at . Her past surgeries were done on the right side but now her pain is on the left side. She complains of low back and left leg pain that she has been having since right before her fusion. She has numbness and tingling over the right side of her low back, in her left ankle/foot and sometimes her lateral calf. She does also get tingling in her foot. She does see Dr. Ordaz on a regular basis and had an injection yesterday that has helped with about 50% of the tingling. Her last MRI that she had done was on 07/15/24. She has done PT after both of her surgeries but she doesn't feel that it was very helpful. She states that before her first surgery she did have foot drop of the left foot but after the surgery and with the help of rehab it has gotten much better. Ortho Exam General General: Yes no acute distress Neurologic: Yes alert and Yes oriented x3 Spine SPINE TESTING CERVICAL THORACIC LUMBAR Musculoskeletal Strength 0=absent - 5=normal Details: Exam of the lower back shows paramedian incisions bilaterally in the lower lumbar region and also midline slightly to the left vertical incision lower down. Mild left paraspinal tenderness noticed. Neurologic evaluation of lower extremity shows grade 2 left EHL, grade 4+ left ankle dorsiflexion, all other muscles are 5 of 5 strength. Passive straight leg raise test is positive on the left. Coding Level of Care Code Off vis,est,level 4 Diagnoses S/P lumbar fusion Z98.1 Recurrent herniation of lumbar disc M51.26 Other secondary scoliosis, lumbar region M41.56 Scoliosis type: other secondary scoliosis Time Spent (min) 35 Assessment and Plan Assessment and Plan (1) S/P lumbar fusion: Status: Acute (2) Recurrent herniation of lumbar disc: Status: Acute (3) Lumbar scoliosis: Status: Acute Qualifiers: Scoliosis type: other secondary scoliosis Qualified Code(s): M41.56 - Other secondary scoliosis, lumbar region Plan Again reviewed previous imaging. These show L4-5 stable fusion. L5-S1 shows left paracentral large disc herniation causing lateral recess and foraminal stenosis. Postsurgical changes of left L5-S1 laminotomy noticed. Lumbar degenerative scoliosis with concavity to the right noticed. L3-4 shows reduced disc height with asymmetric collapse concave to the right. Mild L3-4 right foraminal stenosis noticed. X-rays show subtle anterolisthesis L5-S1 on flexion view which reduces in extension. Again explained imaging findings in detail. Patient has had initial L4-5 fusion, followed a year later with an L5-S1 possibly discectomy surgery. She continued to have significant weakness in the left foot and recently her pain has worsened over the last few months into the left lower extremity and recent MRI has shown his recurrent disc herniation at L5-S1. Discussed treatment options which include continued nonoperative treat measures versus surgery. Patient has a prolonged course with multiple numerous injections that seem to help temporarily with her left foot symptoms. She has significant paresthesia in the left L5 dermatome and significant toe drop on the left side. Recommend surgical treatment in the form of L5-S1 fusion with revision of posterior L4-S1 instrumentation. Explained that L3-4 has disc degeneration with asymmetric collapse and degenerative scoliosis which may worsen in the future, but at this time patient does not have any anterior thigh symptoms attributable to L3-4. Surgery will be L5-S1 ALIF with revision L4-S1 instrumentation. All risks benefits and alternatives were discussed in detail. The risks include but are not limited to infection, bleeding, injury to nerves and vessels, Vascular injury, visceral injury, ileus, hematoma formation, nerve root injury, foot drop, pseudoarthrosis, hardware failure, adjacent segment degeneration, DVT, pulm embolism, pneumonia, atelectasis, cardiopulmonary event. Patient understands and agrees to proceed with surgery. Consent was signed.
--- NOTE | 2024-10-25 07:30 | RAD_ITS ---
PROCEDURE: Intraoperative fluoroscopic services. REASON FOR EXAM: ANTERIOR FUSION L5-S1, REVISION POSTERIOR FUSION L4-5 L5-S1 TECHNIQUE: Intraoperative fluoroscopy provided for intraoperative fusion at the L4-L5 level. FINDINGS: 2 minutes and 41 seconds of fluoroscopy time. 81.05 mGy. RAD/Lumbar Spine 2 or 3 Views IMPRESSION: Intraoperative imaging provided for L4-L5 and L5 S1 fusion. Reading Location: [facility]
[2024-10-25] MEDS: Cefazolin 2 GM in Syringe 10 ML IV (07:48)
[2024-10-25] MEDS: TRANEXAMIC ACID 1,000 MG in 0.9% Normal Saline (100mL Bag) 100 ML 440 MG IV ×2 (07:50→12:52)
--- NOTE | 2024-10-25 10:08 | OP.PCM_ITS ---
Operative Report (Standard) Operative Information Date of Procedure: 10/25/24 Pre-Operative Diagnosis: L5-S1 degenerative disc disease Post-Operative Diagnosis: Same Surgery/Procedure Performed: Aborted anterior lumbar interbody fusion L5-S1 band cutter: No Type of Anesthesia: General RN Documented Start/Stop Times: Operation Date: 10/25/24 07:30 Case Time Into Pre-Op 10/25/24 05:44 Out of Pre-Op 10/25/24 07:38 Anesthesia Start 10/25/24 07:45 Into Room 10/25/24 07:45 Procedure Start 10/25/24 08:14 Procedure Start Time: 08:15 Procedure Stop Time: 09:30 Select all DRAINS/GRAFTS/IMPLANTS that apply: None Estimated Blood Loss: 15 Specimen collected: No Description of surgery: HPI: Patient is a 69-year-old female with L5-S1 degenerative disc disease and prior posterior instrumentation. She is felt to be appropriate for anterior lumbar interbody fusion in addition to revision of her posterior hardware. Vascular surgery services are requested to aid in exposure. Description of procedure: Upon obtaining form consent and verification correct patient procedure site patient was taken to the operating where she was placed under general anesthesia. She was then positioned prepped and draped in usual sterile fashion time was performed. Transverse incision was made 1 fingerbreadth superior to the pubic symphysis and Bovie electrocautery was dissect down through subcutaneous tissue to level the fascia. Hand-held retractors then put in the position and the fascia incised vertically just to the left of the midline. The rectus muscle was mobilized and retracted laterally entering into the preperitoneal space. Scar tissue from her prior tubal ligation which was done via low midline incision was encountered adhering the peritoneum to the posterior aspect of abdominal wall. Adjacent to this area of scar there was very thin peritoneum which unfortunately easily tore with gentle retraction and dissection. The peritoneal defect was repaired with 3-0 Vicryl in running fashion and the abdominal contents retracted superiorly allowing further blunt dissection into the preperitoneal space of the pelvis. With dissection deeper in the pelvis more significant dense scar was encountered likely further scarring from her tubal ligation which significantly anchored the peritoneum in the pelvis. Progress mobilizing the abdominal contents was very slow but we were able to identify the left iliac vessels and follow these cephalad toward the sacral promontory. With more retraction of the abdominal contents required there appeared to be a second peritoneal defect as there is now significant loops of small bowel in the retroperitoneal space. Self- retaining retractors were repositioned and we are able to visualize the peritoneal defect which was large and allowed multiple loops of bowel to egress into the operative field. Efforts were made to better retract the bowel into the peritoneal sac however this was unsuccessful despite multiple retractor repositions. We were able to further work towards mobilizing the abdominal contents however the dense scar in the pelvis continued to deter progress. It w as felt that the amount of scar was prohibitive and that we would abort to the anterior component of the surgery with plans to address the disc via the posterior approach. We were able to return the small bowel into the peritoneal sac and the peritoneal defect was large enough that it was felt that there was no significant risk for entrapment or obstruction subsequently. Self-retaining retractors were then withdrawn and the fascia closed with 1 Vicryl in running fashion. Superficial incision was then irrigated with saline and closed with 2- 0 Vicryl, 3-0 Vicryl, 4-0 Monocryl. Dry sterile dressings were then applied and the patient repositioned for posterior approach. Surgical Findings: Scar tissue from midline abdominal incision to pelvis with peritoneum anchored in the pelvis to her prior tubal ligation site. Complications Complications: Yes Complication Details: Unable to complete procedure from anterior approach.
[2024-10-25] MEDS: Cefazolin 2 GM in Syringe IV ×2 (11:50→18:03)
[2024-10-25] MEDS: Ropivacaine 0.5% 30 ML Vial (12:44)
--- NOTE | 2024-10-25 13:17 | PCM.OPRPT ---
Operative Report (Standard) Operative Information Date of Procedure: 10/25/24 Pre-Operative Diagnosis: L5-S1 disc degeneration, disc herniation, radiculopathy, prior L4-5 fusion Post-Operative Diagnosis: Same Surgery/Procedure Performed: L5-S1 attempted anterior lumbar interbody fusion special procedures technologist: Yes Bosom Presser: Alexander Fierro Tasks completed by or first assist registered nurse: Opening, Closing, Hemostasis: Electrocautery and Other (Co-surgeon for anterior approach, attempted ALIF) Additional administration assistant?: Yes Additional Cartridge Assembler #2: Nelda Maravilla Tasks completed by administration assistant #2: Closing, Removing tissue, Implanting device, Hemostasis: Electrocautery and Retracting Type of Anesthesia: General RN Documented Start/Stop Times: Operation Date: 10/25/24 07:30 Case Time Into Pre-Op 10/25/24 05:44 Out of Pre-Op 10/25/24 07:38 Anesthesia Start 10/25/24 07:45 Into Room 10/25/24 07:45 Procedure Start 10/25/24 08:14 Procedure Start Time: 08:14 Procedure Stop Time: 13:20 Select all DRAINS/GRAFTS/IMPLANTS that apply: None Estimated Blood Loss: 200 cc Specimen collected: No Description of surgery: Preoperative diagnosis: L5-S1 spondylolisthesis, L5-S1 disc degeneration, radiculopathy, prior L4-5 fusion Postoperative diagnosis: Same Name of procedures L5-S1 attempted anterior lumbar interbody fusion (ALIF),Supine: Aborted due to significant scarring and inability to reach the spine. Attending Surgeon: Dr. Terry Lang Co-surgeon: Dr. Alexander Fierro Estimated blood loss: 200 mL Anesthesia: General Complications: None Indications: Patient is a 69-year-old pleasant lady who has had a long history of low back pain and left lower extremity ideation. Xrays & MRI revealed L5-S1 spondylolisthesis, disc degeneration, left-sided paracentral disc herniation, prior L4-5 fusion. After undergoing a prolonged period of nonoperative treatment, the patient elected to undergo surgical decompression & fusion. All surgical options were discussed with the patient including anterior and posterior approaches. All risks and benefits associated with the procedure were explained to the patient. The risks include but are not limited to infection, bleeding, injury to nerves and vessels including major vessels like IVC and aorta, persistent paresthesia, persistent pain, dural tear, need for further procedures, adjacent segment degeneration, pseudoarthrosis, hardware failure, retrograde ejaculation, paralytic ileus, etc. Procedure: The patient was identified in the preoperative holding suite using Unique patient identifiers. Skin was marked, consent was reviewed, and all questions were answered. The patient was then brought back to the operative room. A surgical timeout was performed to make sure correct procedure was being done on the correct patient and all operative room staff were on the same page. General endotracheal anesthesia was then given to the patient. Delgadillo catheter was inserted. The patient was then carefully positioned in supine position with pillows below the knees on a regular OR table. The surgical area was prepped and draped in usual fashion. 2 g of Ancef was injected IV as preoperative antibiotic. A final timeout was then again done just before starting the procedure. A 2.5 inch transverse Pfannenstiel incision was taken in the suprapubic area along the skin crease. Sharp dissection with Bovie was carried out up to the anterior rectus sheath. Anterior rectus sheath was incised vertically close to the midline. Left rectus muscle was retracted laterally. Preperitoneal space was explored to identify inferior epigastric vessels on the left side. Sponge sticks were utilized to move the bowel and peritoneum [id number]-way staying within the retroperitoneal plane. Significant anterior preperitoneal scarring was noticed with adhesions between the parietal peritoneum and the undersurface of the anterior abdominal wall. Parietal peritoneum was fairly thin and despite blunt dissection defect through the parietal peritoneum were inadvertently creating bowel loops to come out of the peritoneum. Parietal peritoneum was attempted to be repaired with 3-0 Vicryl. Further deeper dissection was attempted. [employer] retractor system was positioned and the retractor blades were applied. However, since the parietal peritoneum was extremely thin, the repair did not take and bowel loops continue to come out of the peritoneal sac. At this point a decision was made to abandon the anterior exposure as significant scarring was anticipated and it was impossible to move the peritoneal sac towards the right to approach the L5-S1 disc space anteriorly. Parietal peritoneum defect was fairly large and was not repaired. Closure was done in layers with a continuous strand of # 1 Vicryl in the rectus muscle and anterior rectus sheath. 2-0 Vicryl was used for subcutaneous tissue and 4-0 for Monocryl for the skin. Steri-Strips were applied and 4 x 4 gauze and Tegaderm were applied. L5-S1 pathology was then treated through posterior approach using TLIF dictated separately. Surgical Findings: See operative note Complications Complications: No
--- NOTE | 2024-10-25 13:28 | PCM.OPRPT ---
Procedures Musculoskeletal 20xxx-29xxx: Other Procedure See Report Operative Report (Standard) Operative Information Date of Procedure: 10/25/24 Pre-Operative Diagnosis: L5-S1 spondylolisthesis, disc herniation, radiculopathy, prior L4-5 fusion Post-Operative Diagnosis: Same Surgery/Procedure Performed: L5-S1 TLIF, removal of previous hardware, L4-S1 revision posterior fusion sagger preparer: Yes Account Technician: Nelda Maravilla Tasks completed by assistant professor of education: Closing, Removing tissue, Implanting device, Hemostasis: Electrocautery and Retracting Type of Anesthesia: General RN Documented Start/Stop Times: Operation Date: 10/25/24 07:30 Case Time Into Pre-Op 10/25/24 05:44 Out of Pre-Op 10/25/24 07:38 Anesthesia Start 10/25/24 07:45 Into Room 10/25/24 07:45 Procedure Start 10/25/24 08:14 Procedure Start Time: 08:14 Procedure Stop Time: 13:20 Select all DRAINS/GRAFTS/IMPLANTS that apply: Graft Graft details: Allograft cancellous chips, DBX, [employer] infuse BMP sponge and Implanted device Implanted device details: DePuy XPac TLIF cage, Viper prime pedicle screw instrumentation Estimated Blood Loss: 200 cc Specimen collected: No Description of surgery: Preoperative diagnosis: L5-S1 spondylolisthesis, disc degeneration, prior L4-5 fusion Postoperative diagnosis: Same Name of procedure: L5-S1 transforaminal lumbar interbody fusion (TLIF), minimally invasive left side approach, removal of previous hardware, percutaneous L4-S1 pedicle screw instrumentation with revision posterior fusion. . L5-S1 posterior spinal fusion and interbody fusion 81326 ? L4-S1 posterior pedicle screw instrumentation 87675 . L5-S1 insertion of cage 99397 . L4-5 removal of posterior hardware 33735 . L4-5 exploration of posterior fusion . Local autograft . Cancellous allograft with DBX Attending Surgeon: Dr. Terry Lang Estimated blood loss: 200 mL Anesthesia: GA Complications: None Implants: DePuy [employer] X-PAC TLIF cage, Viper prime screws Indications: Patient is a 69-year-old lady who has had a history of low back pain that radiates into left lower extremity. X-rays and MRI revealed L5-S1 spondylolisthesis, disc degeneration, prior L4-5 fusion. Patient was explained all options of treatment which included continued nonoperative treatment measures like rest physical therapy, epidural steroidal injections. After a prolonged period of of nonoperative treatment, patient elected to undergo surgical decompression & fusion since the symptoms severely affected her quality of life. All risks and benefits associated with the procedure were explained to the patient. The risks include but are not limited to infection, bleeding, injury to nerves and vessels, persistent paresthesia, persistent pain, dural tear, need for further procedures, adjacent segment degeneration, pseudoarthrosis, hardware failure, etc. Procedure: The patient was identified in the preoperative holding suite using unique patient identifiers. Skin was marked, consent was reviewed, and all questions were answered. The patient was then brought back to the operative room. A surgical timeout was performed to make sure correct procedure was being done on the correct patient and all operative room staff were on the same page. General endotracheal anesthesia was then given to the patient. Patient underwent an attempted L5-S1 ALIF approach but this was aborted due to significant intra-abdominal scarring preventing access to L5-S1. Decision was then made to approach posteriorly and perform TLIF. The patient was then turned prone onto a Paul table. The back was prepped and draped in usual fashion. A final timeout was then again done just before starting the procedure. C-arm AP view was then taken. C-arm was positioned in a way that S1 was centralized and superior endplate of S1 and was parallel to the beam. Spinous process was centered between the pedicles. Midline was marked with skin marker and lateral borders of the pedicles were also marked. Skin marker was also utilized to avi longitudinally along the previous paramedian scars Going inferiorly up to the S1 pedicle line. 2 vertical incisions about 1 inch Over the previous scar were taken about 1/2 inch lateral to the pedicle line. The fascia was also incised vertically approximately the same length. Finger dissection was utilized to palpate the previous hardware starting on the left. Sequential tubes were then docked onto the left L5 screw. Muscle tissue was removed with pituitary and hemostasis achieved with Bovie. Setscrew was exposed. Setscrew was removed using the prior instrumentation. Similarly tubular retraction of the L4 screw was performed and the cyst was removed. The flaco was then removed. Left L5 screw was then removed to allow space for the L5-S1 TLIF. Sequential tubes were docked on the L5-S1 left facet joint and 70 mm length and 21 mm diameter tubular retractor was then placed and was attached to the arm attached to the OR table. Muscle tissue was removed with pituitaries and hemostasis was achieved with Bovie. L5 inferior articular process of the left and superior articular process of S1 were exposed with Bovie. Osteotome was utilized to remove a portion of the inferior articular process to expose the articular surface of L5. Some of this resected bone was used as autograft. Nishi was then utilized to remove the rest of the inferior articular process and part of the lamina of L5 up to the laminotomy defect. Superior articular process of S1 was resected with the help of a bur such that the cut was flush with the superior border of S1 pedicle. Significant epidural scarring was noticed. The traversing nerve root was carefully retracted to expose the disc. Hemostasis was achieved with bipolar cautery. Blunt spreaders were utilized to enter the disc space under C-arm visualization. Pituitary was used to remove disc material. Curettes of various sizes and angulations were utilized to remove as much of the disc material as possible. End plates were curetted to remove all cartilage. Angled curettes were used to remove disc material from the other side underneath the central annulus. Depuy X-PAC trials were inserted into position and checked under C- arm lateral view. The disc space was then filled with cancellous bone chips mixed with DBX which were then impacted with the trials. 2 strips of collagenous sponge which had infuse BMP sprinkle on them was also placed into the disc space. An 10 x 25 mm lordotic tall X-PAC cage filled with infuse BMP and DBX was then inserted into the disc space under x-ray control. Care was taken to make sure the cage was inserted deeper to the posterior longitudinal ligament. The expandable cage was then expanded to up to approximately 13 mm anterior height with approximately 15 degrees lordosis. The cage was found to be well fixed and not easily removable. Additional DBX was placed into the expandable cage. AP and lateral views showed good positioning of the cage. Depuy Viper Prime screw tower was docked onto the transverse processes at S1 on the left. This was then slowly moved medially to reach the superior articular process of S1. This was then confirmed on C-arm and then a mallet was utilized to drive the trocar and screw into the pedicle going up to the medial wall of the pedicle on AP view. This was performed both sides. C-arm lateral view confirmed both trocars to be inside vertebral body. The screws were advanced. Similar procedure was done at S1 on the right. Cannulated pedicle screws (Depuy Viper) sizes were 7 x 45 mm bilaterally at S1. The lateral view showed good positioning of the screws and cage. Right sided L4 and L5 setscrews previous flaco and pedicle screws were then removed through a vertical incision using the prior scar through which the new S1 screw was also placed. Guidewire was then inserted into the screw holes and new Viper prime 7 oh by 45 mm screws were placed at L4 and L5 bilaterally under C-arm control. 65 mm precontoured titanium 5.5 mm lordotic flaco on both sides was then passed through the screw extensions and reduced down to the L4-S1 screws with the help of Depuy Viper Prime instrumentation system. AP and lateral views of the C-arm showed good positioning of the screws and cage. Final tightening with the torque screwdriver was then completed. Broadus was utilized to decorticate the right L5-S1 facet joint and bone graft was placed over this. Hemostasis was achieved with the help of Bovie and FloSeal. Closure was done in layers with 0 Vicryls for the fascia, 2-0 Vicryls for the subcutaneous tissue, and Monocryl for the skin. Dressings were applied covered with Tegaderm. The patient was then turned supine onto a hospital bed. The patient was extubated and taken to PACU in stable condition. The patient tolerated the procedure well and no complications occurred. [employer] X-PAC cage & Viper Prime minimally invasive pedicle screw instrumentation system was utilized in this case. No dural tear was identified in this case. I was present for the entirety of the case and performed the surgery myself. Surgical Findings: See operative note Complications Complications: No
--- NOTE | 2024-10-25 13:48 | PCM.POST.ANE ---
Anesthesia: Postop Eval I Current Vital Signs Temperature: 97.2 F Pulse Rate: 84 Blood Pressure: 124/82 Respiratory Rate: 16 Pulse Ox: 100 Oxygen Delivery Method: Simple Mask Oxygen Flow Rate (L/min): 6 Assessment Airway patent: Yes Spontaneous unlabored respirations: Yes Mental status: Awake and Calm nausea: No Vomiting: No Anesthesia Complication: No Fluid Hydration Crystalloid volume administer (ml): 2,000 Total IV fluid infused: 2,000 Progress Note Anesthesia document: Postop Eval 1 completed: Yes
[2024-10-25] MEDS: Lactated Ringers 1,000 ML 15 ML IV (14:06)
[2024-10-25] MEDS: Methocarbamol 500 MG Tablet 1000 MG PO ×2 (16:08→21:10)
--- NOTE | 2024-10-25 17:28 | PN_ITS ---
Subjective Subjective Patient is a 69-year-old female with a past medical history as outlined including hypertension who was admitted to the service of orthopedics on 10/25/2024 for elective lumbar fusion. Hospitalist service was consulted for medical management. Patient was seen after the surgery. She had no active complaints. She said the pain was fairly well-controlled. She denied any shortness of breath, fever, chills, palpitations, dizziness, nausea or vomiting. Review of systems otherwise negative. Vitals showed blood pressure of 107/76, pulse rate of 100, respirate rate of 16 and temp of 98.9 Fahrenheit. Oxygen saturation was 100% on room air. Objective Data Objective Data Vital Signs: Vital Signs Temp Pulse Resp BP Pulse Ox O2 Del Method O2 Flow Rate 98.6 F 92 18 116/81 H 95 Nasal Cannula 4 10/25/24 16:00 10/25/24 16:00 10/25/24 16:00 10/25/24 16:00 10/25/24 16:00 10/25/24 16:16 10/25/24 16:16 Oxygen Flow Rate (L/min) 4 Oxygen Delivery Method Nasal Cannula Weight: 149 lb 14.629 oz Body Mass Index (BMI) 26.5 Intake & Output: Intake and Output for Last 24 Hours 10/23/24 10/24/24 10/25/24 23:59 23:59 23:59 Intake Total 2406 / 2406 Output Total 825 / 825 Balance 1581 / 1581 Lab / Micro Data 10/13/24 09:42 10/13/24 09:42 Labs: Laboratory Results - last 24 hr 10/25/24 06:10: POC Glucose 140 H Micro: Microbiology 10/13/24 09:42 Swab (Method) Nasal Screen MRSA/MSSA - Final Radiography Diagnostic Testing: Radiology Impression Lumbar Spine X-Ray 10/25/24 07:30 IMPRESSION: Intraoperative imaging provided for L4-L5 and L5 S1 fusion. Reading Location: [id number] Physical Exam Const alert, oriented x3, no apparent distress and well nourished General Appearance: cooperative and well developed HEENT normocephalic, head/scalp atraumatic and moist oral mucous membranes Eyes PERRL and EOMs intact bilaterally Neck no lymphadenopathy and supple Lymph Lymphatic: no lymphadenopathy noted and no lymphedema noted Resp normal respiratory effort, normal air movement and clear to auscultation bilaterally Cardio regular rate, regular rhythm, S1 normal heart sound, S2 normal heart sound and no murmurs GI normal to inspection, nondistended, normoactive bowel sounds, soft to palpation, non-tender and non-distended Extremity normal capillary refill, no clubbing, cyanosis or edema and no calf tenderness General Extremity: no tenderness to palpation of joints or extremities Skin Skin Narrative: intact dressing over lower abdomen and lower back, at site of surgery Neuro CN's II-XII intact bilaterally, no focal motor deficits and no sensory deficits noted Motor Exam: strength 5/5 throughout and general weakness Psych thought process normal, cooperative and affect normal Appearance: appropriate Assessment & Plan Assessment/Plan (1) Lumbar scoliosis: QUALIFIERS: Scoliosis type: other secondary scoliosis Qualified Code(s): M41.56 - Other secondary scoliosis, lumbar region (2) S/P lumbar fusion: PLAN: Plan #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 * Incentive spirometry. Patient encouraged to use the incentive spirometer 10- 12 times each hour. * PT OT on board. Fall precautions. * On cyclobenzaprine for muscle spasms. #Hypertension: On lisinopril. #Depression: On duloxetine and zolpidem. DVT prophylaxis: As per primary service spine surgery Thank you for the courtesy of the consult. Hospitalist service will continue to follow with you. Charges/Coding Visit Charges Inpatient E&M: 06038 Subs Hosp L2
[2024-10-25] MEDS: 0.9% Saline Lock 10 ML Syringe IV (18:04)
[2024-10-25] MEDS: Ketorolac 15 MG/ML Vial IV (18:46)
[2024-10-25] MEDS: oxyCODONE 5 MG Tablet PO (19:53)
--- NOTE | 2024-10-25 20:02 | POSTOPAN2_ITS ---
Anesthesia Postop Eval I Sum Postop Eval Completion status Anesthesia document: Postop Eval 1 completed: Yes Anesthesia Postop Eval I Summary Anesthesia Postop Eval I Summary: Anesthesia Postop Eval I: Assessment Summary Airway patent Yes 10/25/24 13:50 [email or web address] Spontaneous unlabored Yes 10/25/24 13:50 [email or web address] respirations Mental status Awake,Calm 10/25/24 13:50 [email or web address] nausea No 10/25/24 13:50 [email or web address] Vomiting No 10/25/24 13:50 [email or web address] Anesthesia Postop Eval I: Fluid Summary Crystalloid volume administer 2,000 10/25/24 13:50 [email or web address] (ml) Colloids volume administered ( ml) Blood Product volume administered (ml) Total IV fluid infused 2,000 10/25/24 13:50 [email or web address] Anesthesia Postop Eval I: Summary Notes Anesthesia Complication No 10/25/24 13:50 [email or web address] Anesthesia Complication Comment: Post-operative progress note Anesthesia: Postop Eval II Evaluation Mental status: Awake and Calm Pain Level: 2 nausea: No Vomiting: No Complications Anesthesia Complication: No
--- NOTE | 2024-10-25 20:02 | PCM.POSTANE2 ---
Anesthesia Postop Eval I Sum Postop Eval Completion status Anesthesia document: Postop Eval 1 completed: Yes Anesthesia Postop Eval I Summary Anesthesia Postop Eval I Summary: Anesthesia Postop Eval I: Assessment Summary Airway patent Yes 10/25/24 13:50 [email or web address] Spontaneous unlabored Yes 10/25/24 13:50 [email or web address] respirations Mental status Awake,Calm 10/25/24 13:50 [email or web address] nausea No 10/25/24 13:50 [email or web address] Vomiting No 10/25/24 13:50 [email or web address] Anesthesia Postop Eval I: Fluid Summary Crystalloid volume administer 2,000 10/25/24 13:50 [email or web address] (ml) Colloids volume administered ( ml) Blood Product volume administered (ml) Total IV fluid infused 2,000 10/25/24 13:50 [email or web address] Anesthesia Postop Eval I: Summary Notes Anesthesia Complication No 10/25/24 13:50 [email or web address] Anesthesia Complication Comment: Post-operative progress note Anesthesia: Postop Eval II Evaluation Mental status: Awake and Calm Pain Level: 2 nausea: No Vomiting: No Complications Anesthesia Complication: No
[2024-10-25] MEDS: Senna/Docusate Sodium 1 Tablet 2 TABLET PO (21:10)
[2024-10-26] VITALS: BP 123/79; PULSE 84; RESP 17; TEMP 36.9; O2SAT 95
[2024-10-26] MEDS: Ketorolac 15 MG/ML Vial IV (01:14)
[2024-10-26] MEDS: Ondansetron 4 MG/2 ML Vial IV (01:14)
[2024-10-26] MEDS: Cefazolin 2 GM in Syringe IV (01:14)
[2024-10-26] MEDS: 0.9% Saline Lock 10 ML Syringe IV (01:14)
[2024-10-26 04:20] VITALS: BP 123/79; PULSE 84; RESP 17; TEMP 36.9; O2SAT 95
[2024-10-26] MEDS: Acetaminophen 500 MG Tablet 1000 MG PO ×2 (04:22→13:55)
--- NOTE | 2024-10-26 06:19 | NURSING ---
pt passing gas at this time. Advanced her diet this am
[2024-10-26 06:59] LABS: Hematocrit 32.8 % (37-47); Hemoglobin 10.8 g/dL (12.0-15.0); Mean Corp Hgb Conc 32.9 g/dL (32-36); Mean Corpuscular Hgb 29.8 pg (27.0-32.0); Mean Corpuscular Volume 90.6 fL (81-99); Mean Platelet Vol. 11.4 fl (6.2-12.0); Platelet Count 189 K/mm3 (150-450); RBC Distribution Width CV 14.7 % (11.6-14.6); RBC Distribution Width SD 49.7 fl (35.1-43.9); Red Blood Count 3.62 M/mm3 (4.2-5.4); White Blood Count 11.1 K/mm3 (4.4-11.0)
--- NOTE | 2024-10-26 07:00 | RAD_ITS ---
PROCEDURE: LUMBAR SPINE 2 OR 3 VIEWS 10/26/2024 REASON FOR EXAM: S/P LUMBAR FUSION TECHNIQUE: 2 view(s) of the lumbar spine COMPARISON: CT 09/03/2024 FINDINGS: No acute appearing fracture identified. Previous L4-5 posterior fusion with transpedicular screws now extended from L4 through S1 with L5-S1 intervertebral disc spacer now present and appears anatomic. Previous right L4 hemilaminectomy and mild anterolisthesis L4 on L5 again seen. L3-4 spondylosis/discogenic change again noted. Mild left spinal curvature again noted. Partially imaged right hip replacement. RAD/Lumbar Spine 2 or 3 Views IMPRESSION: Previous L4-5 posterior fusion with transpedicular screws now extended from L4 through S1 with L5-S1 intervertebral disc spacer now present and appears anatomic. Reading Location: [id number]
[2024-10-26 07:30] LABS: Anion Gap 10 (5-15); BUN 12 mg/dL (4-19); BUN/Creat Ratio 14.6 RATIO (10-20); Calcium,Total 8.4 mg/dL (7.6-11.0); Carbon Dioxide 22.4 mmol/L (21.0-32.0); Chloride 104 mmol/L (98-108); Creatinine, Serum 0.79 mg/dL (0.70-1.20); EST Glomerular Filtration Rate 82 (>60); Estimated Creatinine Clearance 62.31 ml/min (50-250); Glucose 104 mg/dL (70-99); Potassium 4.4 mmol/L (3.3-5.1); Sodium Level 136 mmol/L (133-145)
[2024-10-26] MEDS: Ensure Surgery 237 ML LIQUID PO (08:00)
[2024-10-26 08:20] VITALS: BP 111/65; PULSE 88; RESP 16; TEMP 37.2; O2SAT 99
--- NOTE | 2024-10-26 08:26 | PCM.PN.HOSP ---
Reason for Visit Reason for Visit: Diagnoses Other secondary scoliosis, lumbar region (10/25/24) Encounter for other preprocedural examination (10/25/24) Arthrodesis status (10/25/24) Objective Data Objective Data Vital Signs: Vital Signs Temp Pulse Resp BP Pulse Ox O2 Del Method O2 Flow Rate 98.4 F 84 17 123/79 H 95 Room Air 4 10/26/24 04:20 10/26/24 04:20 10/26/24 04:20 10/26/24 04:20 10/26/24 04:20 10/26/24 04:20 10/25/24 16:16 Oxygen Flow Rate (L/min) 4 Oxygen Delivery Method Room Air Weight: 149 lb 14.629 oz Body Mass Index (BMI) 26.5 Intake & Output: Intake and Output for Last 24 Hours 10/24/24 10/25/24 10/26/24 23:59 23:59 23:59 Intake Total 3226 / 3226 520 / 520 Output Total 825 / 825 Balance 2401 / 2401 520 / 520 Lab / Micro Data 10/26/24 06:17 10/26/24 06:17 Labs: Laboratory Results - last 24 hr 10/26/24 06:17: WBC 11.1 H, RBC 3.62 L, Hgb 10.8 L, Hct 32.8 L, MCV 90.6, MCH 29.8, MCHC 32.9, RDW Std Deviation 49.7 H, RDW Coeff of Lio 14.7 H, Plt Count 189, MPV 11.4, Sodium 136, Potassium 4.4, Chloride 104, Carbon Dioxide 22.4, Anion Gap 10, BUN 12, Creatinine 0.79, Estim Creat Clear Calc 62.31, Est GFR (MDRD) Non-Af 82, BUN/Creatinine Ratio 14.6, Glucose 104 H, Calcium 8.4 Micro: Microbiology 10/13/24 09:42 Swab (Method) Nasal Screen MRSA/MSSA - Final Radiography Diagnostic Testing: Radiology Impression Lumbar Spine X-Ray 10/25/24 07:30 IMPRESSION: Intraoperative imaging provided for L4-L5 and L5 S1 fusion. Reading Location: [id number] Lumbar Spine X-Ray 10/26/24 07:00 IMPRESSION: Previous L4-5 posterior fusion with transpedicular screws now extended from L4 through S1 with L5-S1 intervertebral disc spacer now present and appears anatomic. Reading Location: [facility] Physical Exam Narrative Seen and examined Patient history of microscopic colitis when she moves her bowels every other day. This is her third back surgery. She had 360 fusion through anterior abdominal and posterior spine approach Physical exam General: Alert, Oriented x3, Cooperative. BMI 26.6 kg/m? HEENT: Atraumatic, PERRLA, EOMI, Normocephalic Oral: No Gingival or Mucosal Lesions/ Ulcerations Neck: Supple, No JVD, Negative Carotid Bruits Chest wall/Lungs: Air entry equal in bilateral lung bases. No crepitation/rhonchi Cardiovascular: Regular rate, Regular Rhythm, Normal S1, Normal S2, No M/G/R Abdomen: Bowel Sounds Present, Soft, Non Tender, Non-Distended : No dysuria. No renal angle tenderness. No suprapubic tenderness. Extremities: No edema, Capillary Refill Less than 3 Seconds Skin: Surgical dressing on paraspinal lumbar area dry. Abdominal surgical dressing also dry. Musculoskeletal: Mild tenderness in stiffness in lumbar spine. Wearing lumbar belt Neurological: Cranial nerves II-XII grossly intact, DTR 2+/4. No acute focal neurological deficit. Psych/Mental Status: Normal Affect, Appropriate. Assessment & Plan Assessment/Plan (1) Lumbar scoliosis: QUALIFIERS: Scoliosis type: other secondary scoliosis Qualified Code(s): M41.56 - Other secondary scoliosis, lumbar region (2) S/P lumbar fusion: PLAN: Plan 69-year-old female was admitted for elective lumbar fusion surgery on 10/25/2024. #Degenerative disc disease of L5-S1 with spondylolisthesis and radiculopathy S/p L5-S1 total lumbar interbody fusion and removal of previous hardware as well as L4-S1 revision of the posterior fusion Management as per primary service spine surgery. Incentive spirometry. Patient encouraged to use the incentive spirometer 10-12 times each hour. PT OT on board. Fall precautions. On cyclobenzaprine for muscle spasms. 10/26: Patient evaluated by PT and OT. H&H 10.8/32.8%. Electrolytes in normal range. Glucose 104. #Hypertension: On lisinopril at home. /2: Blood pressure is controlled. 123/79. It was low normal 91/58 preoperatively still recovering from postop anesthetic medication. Hold antihypertensive medications #Depression: On duloxetine and zolpidem. DVT prophylaxis: As per primary service spine surgery Patient is being discharged by orthopedic service. Follow with primary care Charges/Coding Visit Charges Inpatient E&M: 65158 Subs Hosp L2
[2024-10-26] MEDS: Meloxicam 15 MG Tablet PO ×2 (09:33→09:34)
[2024-10-26] MEDS: Methocarbamol 500 MG Tablet 1000 MG PO ×2 (09:33→13:55)
[2024-10-26] MEDS: oxyCODONE 5 MG Tablet PO (09:33)
[2024-10-26] MEDS: Senna/Docusate Sodium 1 Tablet 2 TABLET PO (09:33)
[2024-10-26] MEDS: Pantoprazole Sodium 20 MG Tablet PO (09:33)
[2024-10-26] MEDS: Lisinopril 20 MG Tablet PO (09:33)
[2024-10-26] MEDS: DULoxetine Hcl 30 MG Capsule PO (09:36)
[2024-10-26 09:54] LABS: Bacteria 0 SEEN /hpf (None Seen); Mucous, Urine 0 SEEN /hpf (<or=2+)
[2024-10-26 10:09] LABS: Color, Urine Yellow (Yellow); Glucose, Dipstick Normal (Normal); Ketone-Dipstick Negative (Negative); Leukocyte Esterase-Dipstick 25 /ul (Negative); Nitrite-Dipstick Negative (Negative); Occult Blood-Urine 10 /ul (Negative); Protein-Dipstick 30 mg/dl (Negative); Specific Gravity, Urine 1.015 (1.002-1.030); Urine Bilirubin Dipstick Negative (Negative); Urine Clarity Sl. Cloudy (Clear); Urine Urobilinogen Normal (Normal)
[2024-10-26 10:28] LABS: Squamous Epithelial Cells - UA 0-5 SEEN /hpf (5-10)
[2024-10-26 10:29] LABS: Red Blood Cells-Urine 0-5 SEEN /hpf (0-5); White Blood Cells 0-5 SEEN /hpf (0-5)
--- NOTE | 2024-10-26 10:49 | PN.ORTHO_ITS ---
Subjective Subjective POD 1 L5-S1 TLIF, removal of previous hardware, L4-S1 revision posterior fusion. She is doing relatively well post operatively with her pin being well managed with Toradol and Tylenol. Says that she has only had to take 1 oxycodone tablet last evening. Says that this did make her slightly nauseous. No vomiting. Hx of UTI after having catheter placed. Says that she has been up to the bathroom multiple times and feels a frequency with her urination, denies any burning. She has passed gas and will attempt a solid meal. The patient has been up with therapy today who is cleared her for home discharge most likely with a walker. Seen with Dr. Lang. Objective Data Objective Data Vital Signs: Vital Signs Temp Pulse Resp BP Pulse Ox O2 Del Method O2 Flow Rate 99 F 88 16 111/65 99 Room Air 4 10/26/24 08:20 10/26/24 08:20 10/26/24 08:20 10/26/24 08:20 10/26/24 08:20 10/26/24 08:20 10/25/24 16:16 Oxygen Flow Rate (L/min) 4 Oxygen Delivery Method Room Air Weight: 149 lb 14.629 oz Body Mass Index (BMI) 26.5 Intake & Output: Intake and Output for Last 24 Hours 10/24/24 10/25/24 10/26/24 23:59 23:59 23:59 Intake Total 3226 / 3226 520 / 520 Output Total 825 / 825 Balance 2401 / 2401 520 / 520 Lab / Micro Data 10/26/24 06:17 10/26/24 06:17 Labs: Laboratory Results - last 24 hr 10/26/24 06:17: WBC 11.1 H, RBC 3.62 L, Hgb 10.8 L, Hct 32.8 L, MCV 90.6, MCH 29.8, MCHC 32.9, RDW Std Deviation 49.7 H, RDW Coeff of Lio 14.7 H, Plt Count 189, MPV 11.4, Sodium 136, Potassium 4.4, Chloride 104, Carbon Dioxide 22.4, Anion Gap 10, BUN 12, Creatinine 0.79, Estim Creat Clear Calc 62.31, Est GFR (MDRD) Non-Af 82, BUN/Creatinine Ratio 14.6, Glucose 104 H, Calcium 8.4 10/26/24 09:40: Urine Color Yellow, Urine Clarity Sl. Cloudy, Urine pH 6.0, Ur Specific [place] 1.015, Urine Protein 30 H, Urine Glucose (UA) Normal, Urine Ketones Negative, Urine Occult Blood 10 H, Urine Nitrite Negative, Urine Bilirubin Negative, Urine Urobilinogen Normal, Ur Leukocyte Esterase 25 H, Urine RBC 0-5 SEEN, Urine WBC 0-5 SEEN, Ur Squamous Epith Cells 0-5 SEEN, Urine Bacteria 0 SEEN, Urine Mucus 0 SEEN Micro: Microbiology 10/13/24 09:42 Swab (Method) Nasal Screen MRSA/MSSA - Final Radiography Diagnostic Testing: Radiology Impression Lumbar Spine X-Ray 10/25/24 07:30 IMPRESSION: Intraoperative imaging provided for L4-L5 and L5 S1 fusion. Reading Location: [id number] Lumbar Spine X-Ray 10/26/24 07:00 IMPRESSION: Previous L4-5 posterior fusion with transpedicular screws now extended from L4 through S1 with L5-S1 intervertebral disc spacer now present and appears anatomic. Reading Location: [id number] Physical Exam Narrative Physical exam of the belly and back shows intact and dry dressings. Neurological examination of the lower extremity shows grade 2 left EHL all other muscle groups show 5X5 power. Stable from preop strength. Normal sensation across all dermatomes. Const alert, oriented x3 and no apparent distress Assessment & Plan Assessment/Plan (1) S/P lumbar fusion: PLAN: Plan Postop day 1 L5-S1 TLIF, removal of previous hardware, L4-S1 revision posterior fusion. Due to the patient's history of UTI after having a catheter, urinalysis and urine culture is ordered. Pending results. Patient has walked with therapy and is cleared for home discharge. Patient has passed gas and has tolerated a solid meal. X-rays done today show hardware and bone graft in good position. Patient ready for home discharge. Home meds include oxycodone, acetaminophen, meloxicam, methocarbamol, senna. Discussed with the patient that if she thinks the oxycodone is too strong for her or is causing nausea as she can resume to take the [place] that she has at home however she should not take these medications at the same time. Patient understands. She will follow-up in 2 weeks in the office. Patient is in agreement.
--- NOTE | 2024-10-26 12:03 | CASEMGMT ---
RICH SHIPLEY Assessment: Face to Face with pt for initial transition planning/care coordination assessment. RICH SHIPLEY introduced self and role at [facility], pt voices understanding and consents to assessment. Pt is A&O x4 and answers all questions appropriately at this time. Pt sitting up in chair in no distress. Care providers, pharmacy, and demographics verified/updated. Strata: 1 Admitting Dx: Anterior Lumbar Interbody Fusion L5-S1, revision PCP: Marcos Specialists: Elsai, pain management; [facility]erred [facility]acy: [facility] Prescription Benefit: yes LNOK: Sig other, Dr. Alonso Living Arrangements: Pt lives in a 2 story home with significant other. ADLs: Pt states I at baseline with ADLs and IADLs. Transportation: Pt drives self and denies concerns with transportation. DME: Shower seat, walker, grabber HHC/SNF: Denies Hx of Pt states no concerns with going home at time of dc. Pt would like to get a FWW, RICH SHIPLEY provided verbal list of DME providers, pt chose [facility] as DME provider of choice. RN VIOLETTA notified RN VIOLETTA on floor. Pt states no further concerns/needs. CM to follow. Advised pt to ask CM if any further question/concerns/needs arise, voices understanding. Pt Goal: Home Plan: Home with family support and DME. Vita VILLANUEVA CM
--- NOTE | 2024-10-26 13:15 | CASEMGMT ---
Addendum entered by Isrrael Vera 10/26/24 14:16: Cyril from [facility] has delivered the FWW at this time. No further needs identified. Original Note: This RN CM was notified that the pt would like a FWW through [facility]. Rx signed by Dr Bowman. Rx sent to [facility] via [employer] at this time. Rx placed in pt chart.
[2024-10-26 14:00] VITALS: BP 91/58; PULSE 103; RESP 14; TEMP 36.6; O2SAT 95
--- NOTE | 2024-10-26 15:54 | PHA.DC.MC.R ---
Pharmacy [facility] has performed discharge medication reconciliation and counseling for this patient. 1. ACETAMINOPHEN 500MG PO Q6 2. MELOXICAM 15MG PO DAILY 3. METHOCARBAMOL 750MG PO TID PRN MUSCLE PAIN/SPASMS 4. OXYCODONE 2.5-5MG PO Q6H PRN PAIN 5. SENNA/DOCUSATE 2T PO BID PRN CONSTIPATION 6. STOP FLEXERIL AND NORCO The patient's discharge medication list was reviewed for discrepancies and discrepancies were resolved. The patient was counseled on the following discharge medications and changes in medications for homegoing were reviewed. The Reason for Use, instructions for use, and potential side effects were reviewed for all new medications. The patient's questions regarding all of their medications were answered. The patient was able to verbally demonstrate an understanding of their discharge medications. Medications at Discharge Home Medications duloxetine 30 mg capsule,delayed release 30 - 60 mg PO QDAY ANTIDEPRESSENT 08/19/24 lisinopril 20 mg tablet 20 mg PO DAILY HTN 08/19/24 pantoprazole 20 mg tablet,delayed release 20 mg PO QDAY GERD 08/19/24 calcium 500 mg (as carbonate)-vitamin D3 3.125 mcg (125 unit) tablet 2 tab PO DAILY SUPPLEMENT 10/11/24 gabapentin 100 mg capsule 200 - 300 mg PO TID PRN PAIN 10/11/24 ascorbic acid (vitamin C) 1,000 mg capsule 1 g PO Q6H supplement 10/20/24 budesonide 3 mg capsule,delayed,extended release 9 mg PO QDAY PRN colitis 10/20/24 cholecalciferol (vitamin D3) 25 mcg (1,000 unit) capsule 25 mcg PO QDAY supplement 10/20/24 sumatriptan succinate 100 mg tablet 100 mg PO ONCE 10/20/24 zolpidem 10 mg tablet 10 mg PO QHS sleep 10/20/24 acetaminophen 500 mg tablet 500 mg PO Q6H #30 tabs 10/26/24 meloxicam 15 mg tablet 15 mg PO DAILY #30 tabs 10/26/24 methocarbamol 500 mg tablet 750 mg (1.5 x 500 mg) PO TID PRN pain/spasms #60 tabs 10/26/24 oxycodone 5 mg tablet 2.5 - 5 mg (0.5 - 1 x 5 mg) PO Q6H PRN pain 7 days #28 tabs 10/26/24 sennosides 8.6 mg-docusate sodium 50 mg tablet (Stimulant Laxative Plus) 2 tab PO BID PRN constipation #30 tabs 10/26/24
--- NOTE | 2024-10-26 15:57 | NURSING ---
All documentation by practical nursing teacher Sherrell Ulloa reviewed by vocational nursing instructor Ceci SHELTONN, RN.
== END 2024-10-26 15:47 | disposition home or self-care (01) | DRG 402 ==
LOC: MS3 15:39
PROVIDERS: Nurse Practitioner Family; Student in an Organized Health Care Education/Training Program; Admitting Provider Orthopaedic Surgery Orthopaedic Surgery of the Spine; PCP Family Medicine; Referring Provider Orthopaedic Surgery Orthopaedic Surgery of the Spine; Visit Provider Orthopaedic Surgery Orthopaedic Surgery of the Spine
PROC: 0SG30AJ Fusion of Lumbosacral Joint with Interbody Fusion Device, Posterior Approach, Anterior Column, Open Approach (ICD-10-PCS; principal; 2024-10-25 07:00)
DX: M51.26 Other intervertebral disc displacement, lumbar region (principal); M41.56 Other secondary scoliosis, lumbar region; F32.A Depression, unspecified; I10 Essential (primary) hypertension; L90.5 Scar conditions and fibrosis of skin; K21.9 Gastro-esophageal reflux disease without esophagitis; M48.061 Spinal stenosis, lumbar region without neurogenic claudication; M48.07 Spinal stenosis, lumbosacral region; M43.17 Spondylolisthesis, lumbosacral region; M51.17 Intervertebral disc disorders with radiculopathy, lumbosacral region; Z98.1 Arthrodesis status
CPT/HCPCS: 36415; 72100; 76000; 80048; 81001; 82962; 83735; 85025; 85027; 86706; 86708; 86803; 86850; 86900; 86901; 87081; 87086; 87536; 93005; 94668; 97161; 97166; A4648; C1713; A4216; J2405

== ENCOUNTER → 2024-12-13 | Outpatient (CLI) | payer MEDICARE, OTHER, SELFPAY ==
[2024-12-13 13:25] LABS: Magnesium 1.9 mg/dL (1.5-2.2); Vitamin B12 537 pg/mL (180-914)
== END | disposition home or self-care (01) ==
LOC: VSLAB 11:39
PROVIDERS: PCP Family Medicine; Visit Provider Family Medicine
DX: E53.8 Deficiency of other specified B group vitamins (principal)
CPT/HCPCS: 36415; 82607; 83735

== ENCOUNTER 2025-01-12 12:30 | Outpatient (RCR) | payer MEDICARE, OTHER, SELFPAY ==
--- NOTE | 2024-11-15 14:57 | HP.PTEVAL_ITS ---
Patient's Visit Information Visit Information Visit Information: IWONA ROSEN is a 69 year old F referred to Physical Therapy by Dr. Terry Lang MD with a diagnosis of S/P LUMBAR FUSION 10/25/24. Date of Evaluation: 11/15/24 Physical Therapist: Nicolasa Hebert PT, Cert MDT Visit Plan Frequency: 2x /Week Duration: 2-4 Weeks Plan: CURRENT PHYSICIAN RESTRICTIONS: NO BENDING, LIFTING OR TWISTING. 5 LB LIFTING LIMIT. PHYSICIAN FOLLOW UP AT 6 WKS PO. 2X'S A WK X 4 WKS LEFT LOWER LEG MANUAL SOFT TISSUE MOBILIZATION AND DESENSITIZATION FOR PAIN RELIEF. TRIAL OF TENS TO LEFT LOWER LEG AND FOOT FOR PAIN RELIEF WITH COLD PACK ALONG WITH HOME TENS INSTRUCTION WITH UNIT OBTAINED BY PATIENT IF BENEFICIAL. PATIENT AGREEABLE. Subjective Subjective: Work/Leisure: RETIRED Present symptoms: LOW BACK PAIN, INTERMITTENT R LE SPASMS AND R HIP PAIN, L HIP PAIN, L LOWER LEG PAIN, L ANKLE PAIN AND LEFT FOOT PAIN. N&T FROM CALF DOWN PRIMARILY IN FOOT ON LEFT. DENIES R LE N&T. Present since: CHRONIC Pain Scale: WORST 8/10, LEAST 1/10 Currently: 3/10 Is it getting better, worse or staying the same: GETTING BETTER Commenced as a result of: EXCESSIVE MULCHING THEN HARD FALL JANUARY 2022 ON LEFT SIDE Worse: LYING DOWN AND SITTING Better: CHANGE OF POSITION, ICE, POLAR MACHINE ON FOOT, HEAT ON BACK, PAIN MEDICINE Disturbed sleep: YES - BUT PAIN RELIEVED WITH MEDICAITON Previous history/Previous treatment: 3RD BACK SURGERY IN 3 YEARS. FIRST [address] SURGER[address] BY DR[address] GATICA. Treatment this episode: S/P LUMBAR FUSION BY DR. LANG 10/25/24 Coughing/sneezing/straining: NEGATIVE FOR INCREASED PAIN Gait: NORMAL. NOT USING ANY AD'S. Bowel or Bladder Dysfunction: CHRONIC PELVIC FLOOR ISSUES. PMH/Recent major surgery: HTN, INSOMNIA, REFLUX, H/O COLITIS 2022 OTHER: CURRENT PHYSICIAN RESTRICTIONS: NO BENDING, LIFTING OR TWISTING. 5 LB LIFTING LIMIT. Objective Objective: THIS PATIENT AMBULATES INDEP'LY INTO PT X APPROX 300 FEET WITH GOOD CADANCE WITHOUT ANY AD'S OR GROSS DEVIATIONS NOTED. SHE IS PLEASANT AND COOPERATIVE TO WORK WITH. HER CHIEF COMPLAINT IS LEFT LOWER LEG, FOOT AND ANKLE PAIN AND TINGLING. SHE IS ABLE TO INDEP'LY TRANSFER FROM SIT TO STAND WITHOUT UE ASSIST. ABDOMINAL AND BACK INCISIONS ARE WELL HEALED WITHOUT ANY SIGNS OF INFECTION. PATIENT OBSERVED DOING SOME BENDING AND TWISTING WHILE MOVING ABOUT IN TREATMENT ROOM (FOR EXAMPLE POINTING TO LEFT LOWER LEG AND ANKLE, PULLING R KNEE TO CHEST WHILE IN CHAIR TO SHOW THIS PT WHAT CAUSES R HIP TO HURT) BUT NOT SPECIFICALLY TESTED DUE TO CURRENT NO BLT RESTRICTIONS. Sensory deficit: MARY LE LIGHT TOUCH SENSATION GROSSLY INTACT BUT ALTERED/TINGLY LEFT LOWER LEG, FOOT AND ANKLE COMPARED TO R. Motor deficit: PATIENT ABLE TO TRANSFER SIT TO STAND INDEP'LY WITHOUT UE ASSIST. Lumbar mvmt loss: NT Sitting Posture: FAIR. PATIENT ABLE TO ACTIVELY CORRECT WITH CUEING AND RESPONDS WELL TO PASSIVE SUPPORT IN CLINIC. Palpation: RESPONDS WELL TO PRESSURE APPLIED TO LEFT LOWER LEG AND FOOT FOR DESENSITIZATION. Balance/Special Test Scores Oswestry Low Back Score: 9 Goals Goal 1:: DECREASE C/O LLE PAIN BY AT LEAST 50%. Goal Time Frame: 4-6 Weeks Goal 2:: IMPROVE SITTING, LYING, SLEEP, AND EVENTUALLY BENDING, LIFTING, PUSHING, PULLING AND RECREATIONAL FUNCTION TO HELP PATIENT RETURN TO PRIOR LEVEL OF FUNCTION RESTRICTIONS ARE LIFTED BY SURGEON. Goal Time Frame: 8-12 Weeks Goal 3:: INSTRUCT IN PROPHYLAXIS Goal Time Frame: 8-12 Weeks Rehabilitation Potential Physical Therapy Diagnosis: LEFT LOWER LEG, ANKLE AND FOOT TINGLING AND PAIN. Rehabilitation Potential: Good Anticipated Interventions Patient/Client Instruction: Educate patient on: Condition, Plan of Care and Risk Factors For the Purpose of:: To improve self management Manual Therapy Techniques to Include: Soft tissue mobilization and Other Comment: DESENSITIZATION L LOWER LEG, FOOT AND ANKLE For the Purpose of:: To decrease pain TENS: Yes Cryotherapy (ice pack, ice massage): Yes Comment: DESENSITIZATION L LOWER LEG, ANKLE AND FOOT For the Purpose of:: To decrease pain Text: Thank you for the opportunity to evaluate your patient. For Medicare and Medicare HMO plans, please review the plan of care and approve it. It will need to be FAXED BACK to us at [phone] for Medicare purposes. For Medicare only, by signing this I certify the plan of care. Please let me know if there are questions or concerns regarding this plan of care. Physician Signature: Date :
--- NOTE | 2024-12-29 15:29 | HP.PTREVAL ---
Re-Evaluation Intro: Dr. Terry Eldridge MD, It has been my pleasure to treat IWONA ROSEN over the last 9 visits for S/P LUMBAR FUSION 10/25/24. Please see the progress note below for an update on the physical therapy plan of care! Subjective Subjective: PATIENT REPORTS HER R BACK PAIN IS 99% BETTER SINCE SURGERY AND HER LLE NERVE PAIN IS 25% BETTER SINCE SUGERY AND REHAB. REPORTS HAVING FOLLOW UP WITH DR. ELDRIDGE 12/08/24 AND HE RECOMMENDED SHE CONTINUE PT AND FOLLOW BACK UP WITH HIM AT 3 MO PO. SHE STATES SHE INQUIRED ABOUT AQUATIC THERAPY AND HE WAS IN AGREEMENT. Objective Objective/Function: THIS PATIENT AMBULATES INDEP'LY INTO PT X APPROX 300 FEET WITH GOOD CADANCE WITHOUT ANY AD'S OR GROSS DEVIATIONS NOTED. HER CHIEF COMPLAINT REMAINS LEFT LOWER LEG, FOOT AND ANKLE PAIN AND TINGLING. SHE IS ABLE TO INDEP'LY TRANSFER FROM SIT TO STAND WITHOUT UE ASSIST. PATIENT IS OBSERVED DOING SOME BENDING AND TWISTING WHILE MOVING ABOUT IN TREATMENT ROOM (FOR EXAMPLE BENDING IN CHAIR TO PICK THINGS UP OFF OF FLOOR AND SQUATTING TO PICK SHOES UP OFF FLOOR IN STANDING) BUT STILL NOT SPECIFICALLY TESTED DUE TO RESTRCICTIONS ON BENDING AND TWISTING UNTIL 3 MONTHS PO. PATIENT VERBALIZED UNDERSTANDING AND DIFFICULTY FOLLOWING DUE TO NOT HAVING LBP AND HAVING ABILITY TO BENDING AND TWIST. Sensory deficit: MARY LE LIGHT TOUCH SENSATION GROSSLY INTACT BUT ALTERED/TINGLY LEFT LOWER LEG, FOOT AND ANKLE COMPARED TO R. PATIENT REPORTS DECREASED SX'S WITH STM AND TRIGGER POINT RELEASE. Motor deficit: PATIENT ABLE TO TRANSFER SIT TO STAND INDEP'LY WITHOUT UE ASSIST AND EVEN SQUAT TO PICK SHOES UP FROM FLOOR AND RETURN TO STAND WITHOUT UE ASSIST. PATIENT IS ABLE TO WALK ON TOES WITHOUT UE ASSIST BUT PARTIAL FOOT DROP LEFT EVIDENT WITH ATTEMPS TO HEEL WALK. Lumbar mvmt loss: NT CORE STRENGTH: FAIR. WOULD RECOMMEND AQUATIC THERAPY FOR DLS WITH NEUTRAL SPINE AND FOR THE BENEFITS TO LLE OF HYDROSTATIC PRESSURE AND DESENSITIZATION FROM WATER ALONG WITH SPINE BENEFITS OF DECOMPRESSION IN REDUCED WEIGHT BEARING ENVIRONMENT. PATIENT IS AGREEABLE. DISCUSSED CONTINUING ONE DAY A WEEK ON LAND FOR LLE MANUAL THERAPY AND PATIENT EXPRESSING PREFERENCE FOR AQUATIC VS LAND PT. Plan Plan Plan: *15 LBS LIFTING LIMIT UNTIL AT LEAST FOLLOW UP WITH DR. ELDRIDGE AT 3 MONTHS PO* AQUATIC THERAPY 2X'S A WK X 4-6 WKS FOR LLE PAIN RELIEF WITH LUMBAR DECOMPRESSION AND USE OF HYDROSTATIC PRESSURE, POSTURE CORRECTION/STRENGTHENING, INSTRUCTION IN APPROPRIATE BODY MECHANICS AND ACTIVITY MODIFICATIONS. DLS STARTING WITH A NEUTRAL SPINE UNTIL 3 MONTHS PO THEN PROGRESSING ROM TOLERATED. MARY LE ROM, STRETCHING AND STRENGTHENING. HEP INSTRUCTION. Balance/Gait/Functional tests Balance/Special Test Scores Oswestry Low Back Score: 5 Goals Goals Goal 1:: DECREASE C/O LLE PAIN BY AT LEAST 50%. Goal Time Frame: 4-6 Weeks Goal Progress: Progressing Goal 2:: IMPROVE SITTING, LYING, SLEEP, AND EVENTUALLY BENDING, LIFTING, PUSHING, PULLING AND RECREATIONAL FUNCTION TO HELP PATIENT RETURN TO PRIOR LEVEL OF FUNCTION RESTRICTIONS ARE LIFTED BY SURGEON. Goal Time Frame: 8-12 Weeks Goal Progress: Progressing Goal 3:: INSTRUCT IN PROPHYLAXIS Goal Time Frame: 8-12 Weeks Goal Progress: Progressing Anticipated Interventions Anticipated Interventions Patient/Client Instruction: Educate patient on: Condition, Plan of Care and Risk Factors For the Purpose of:: To improve self management Manual Therapy Techniques to Include: Soft tissue mobilization and Other Comment: DESENSITIZATION L LOWER LEG, FOOT AND ANKLE For the Purpose of:: To decrease pain TENS: Yes Cryotherapy (ice pack, ice massage): Yes Comment: DESENSITIZATION L LOWER LEG, ANKLE AND FOOT For the Purpose of:: To decrease pain Re-Evaluation Ending Re-evaluation ending: Please do not hesitate to contact me at [phone] by phone or if you have questions or concerns regarding this new plan of care! Sincerely, Nicolasa Hebert, PT, Cert MDT
== END 2025-01-12 19:00 | disposition home or self-care (01) ==
LOC: PT 12:30
PROVIDERS: PCP Family Medicine; Referring Provider Orthopaedic Surgery Orthopaedic Surgery of the Spine; Visit Provider Orthopaedic Surgery Orthopaedic Surgery of the Spine
DX: Z98.1 Arthrodesis status (principal)
CPT/HCPCS: 97113; 97140; 97162; 97530

== ENCOUNTER → 2025-02-09 | Outpatient (CLI) | payer MEDICARE, OTHER, SELFPAY ==
--- NOTE | 2025-02-09 17:43 | MRI_ITS ---
PROCEDURE: SPINE CERVICAL (ROUTINE) 02/09/2025 REASON FOR EXAM: RADICULOPATHY TECHNIQUE: SPINE CERVICAL (ROUTINE) Multiplanar and multisequence images were obtained without IV contrast administration. FINDINGS: Normal cervical vertebral body height and alignment. No compression deformity. No Chiari deformity. Cervical spinal cord normal in both caliber and signal. No marrow abnormality. C2-3 within normal limits. At C3-4 there is no spinal stenosis but there is mild foraminal narrowing bilaterally from uncinate spurring. At C4-5, no central or foraminal compromise. At C5-6, no central spinal stenosis but there is moderate left and moderate right C6 foraminal narrowing from uncinate spur At C6-7 there is uauk-pz-hzutsvbw central spinal stenosis without cord compression. Severe ltjq-yvzynor-xuar-right foraminal stenosis with potential nerve root compression from osteophyte and associated left paracentral disc protrusion. Correlate for left or right C7 radiculopathy. At C7-T1 facet arthrosis with grade 1 subluxation. No spinal stenosis. MRI/Spine Cervical (Routine) IMPRESSION: 1. Moderate bilateral C6 foraminal stenosis. 2. Vskv-kn-yzzjujci spinal stenosis at C6-7. Severe brdw-bstacqy-ixhc-right fo raminal stenosis with potential nerve root compression. Reading Location: [id number]
--- OUTSIDE RECORDS SUMMARY | 2025-02-09 20:52 | XMS RPT_ITS | CCD ---
Author Organization [facility]ini[facility] Care Team Providers Care Windows Consultant Name Role Phone Wanda Mejia Unavailable Unavailable PROVIDER, UNKNOWN Unavailable Unavailable No, PCP Unavailable Unavailable BICAKODAK, VERA Admitting Unavailable BICAKODAK, VERA Attending Unavailable BICAKODAK, VERA Primary Care Unavailable Unavailable Primary Care Provider Unavailabl e Unavailable Primary Care Provider Unavailabl e Unavailable Primary Care Provider Unavailabl e Unavailable Primary Care Provider Unavailabl e SHERINE PERLA Referring Unavailable RONNIE RODRÍGUEZ Primary Care Unavailable Ronnie Rodríguez DO Primary Care Provider Ronnie Rodríguez DO Primary Care Provider [phone] Ronnie Rodríguez DO Primary Care Provider [phone] DIANE HUMMEL Referring Unavailable RONNIE RODRÍGUEZ Primary Care Unavailable DIANE HUMMEL Attending Unavailable RONNIE RODRÍGUEZ Primary Care Unavailable JANET CORTES Admitting Unavailable JANET CORTES Attending Unavailable JANET CORTES Referring Unavailable RONNIE RODRÍGUEZ Primary Care Unavailable Dr. Luis Alberto Ordaz MD Attending Provider Dr. Luis Alberto Ordaz MD Referring Provider Shanelle Rodríguez DO Primary Care Provider Shanelle Rodríguez DO Referring Provider Rickey LOPEZ, Dr. Stewart Attending Provider Yoli LOPEZ, Dr. Daly Attending Provider Dr. Terry Lang MD Referring Provider Dr. Terry Lang MD Admit Provider Dr. Terry Lang MD Other Provider Vadim LOPEZ, Dr. Munoz Attending Provider Kristal LOPEZ, Dr. Amanda Lockett Other Provider Colby LOPEZ, Dr. Yeung Other Provider Kristal LOPEZ, Dr. Amanda Lockett Attending Provider Nelda Rangel Attending Provider Marcos DO, Shanelle Primary Care Provider Colby LOPEZ, Dr. Yeung Attending Provider Marcos DO, Shanelle Primary Care Provider Rickey LOPEZ, Dr. Stewart Attending Provider Yoli LOPEZ, Dr. Daly Attending Provider Marcos DO, Shanelle Referring Provider Marcos DO, Shanelle Attending Provider Marcos DO, Shanelle Primary Care Provider Rickey LOPEZ, Dr. Stewart Referring Provider Rickey LOPEZ, Dr. Stewart Attending Provider Marcos VSC, Shanelle Primary Care Unavailable Addy Kent Attending Unavailable Marcos VSC, Shanelle Referring Unavailable Marcos VSC, Shanelle Primary Care Unavailable Lang, Terry Attending Unavailable Marcos VSC, Shanelle Primary Care Unavailable Amanda Giraldo Consulting Unavailable Rickey Terry Attending Unavailable Lang, Terry Admitting Unavailable Lang, Terry Referring Unavailable Gamal Bowman Consulting Unavailable Marcos VSC, Shanelle Referring Unavailable Lang, Terry Attending Unavailable Marcos VSC, Shanelle Primary Care Unavailable Marcos VSC, Shanelle Primary Care Unavailable Marcos VSC, Shanelle Referring Unavailable Lang, Terry Attending Unavailable Marcos VSC, Shanelle Primary Care Unavailable Neeraj Kentril Attending Unavailable Marcos VSC, Shanelle Primary Care Unavailable Basali, Ayman Referring Unavailable Basali, Ayman Attending Unavailable Lang, Terry Referring Unavailable Lang, Terry Attending Unavailable Marcos VSC, Shanelle Primary Care Unavailable Marcos VSC, Shanelle Primary Care [facility] Referring Unavailable Lang, Terry Attending [facility]available [facility], [facility] Referring Unavailable Lang, Terry Attending Unavailable [facility], Shanelle Primary Care Un[facility], Shanelle Attending Unavailable [facility] Shan[facility] Primary Care [facility] Shan[facility] Primary Care Unavailable Lang, Terry Attending Unavailable Lang, Terry Referring Unavailable [facility], Shanelle Primary Care Unavailable Basali, Ayman Referring Unavailable Basali, Ayman Attending Unavailable [facility], Shanelle Primary Care Unavailable Yoli, Addy Attending Unavailable Yoli, Arabi Attending Unavailable [facility], Shanelle Primary Care Unavailable [facility], Shanelle Primary Care Unavailable Lang, Terry Attending Unavailable Lang, Terry Consulting Unavailable Lang, Terry Referring Unavailable Lang, Terry Admitting Unavailable Alexander Fierro Attending Unavailable [facility], Shanelle Primary Care Unavailable Koram, Amanda Cathryn Attending Unavailable Koram, Amanda Cathryn Consulting Unavailable Lang, Terry Referring Unavailable Lang, Terry Admitting Unavailable Lang, Terry Consulting Unavailable Nelda Maravilla Attending Unavailable Colby, Gamal Consulting Unavailable Colby, Gamal Attending Unavailable [facility], [facility] Primary Care Unavailable Lang, Terry Referring Unavailable Yoli, Addy Attending Unavailable Medications Current Medications Medication Drug Class(es) Dates Sig (Normalized) Sig (Original) acetaminophen 500 mg oral tablet (20 sources) Start: 10-26-2024 take 1 tablet by mouth every six hours Acetaminophen 500 mg Tablet Active 500 mg PO EVERY 6 HOURS October 26, 2024 12:00am acetaminophen (T YLENOL) 325 mg cap Take by mouth. 0 Active Comment on above: Take by mouth. amoxicillin 500 mg oral tablet (20 sources) Penicillin-class Antibacterial take 1 tablet by mouth twice daily Amoxicillin 500 mg tablet Take 500 mg by mouth twice daily. 0 Active Comment on above: Take 500 mg by mouth twice daily. ascorbic acid 1000 mg oral capsule (20 sources) Vitamin C Start: take 1 g by mouth every six hours Ascorbic Acid (Vitamin C) 1,000 mg capsule Active 1 g PO EVERY 6 HOURS October 20, 2024 12:00am take 1 tablet by mouth once se y Ascorbic Acid (VITAMIN C) 1,000 mg tablet Take 1,000 mg by mouth once daily. 0 Active Comment on above: Take 1,000 mg by mavis th once daily. biotin 5 mg disintegrating oral tablet (20 sources) biotin 5,000 mcg ODT Take by mouth. 0 Active Comment on above: Take by mouth. budesonide 3 mg delayed release oral capsule (12 sources) Corticosteroid Start: 10-21-19 take 3 capsules by mouth once daily as needed Budesonide 3 mg capsule,delayed,e xtend.release Active 9 mg PO daily as needed for colitis October 20, 2024 12:00am Start: 08-19-2024 End: 10-11-2024 take 1 capsule by mouth once daily Budesonide 3 mg capsule,delayed,extend.release Discontinued 3 mg PO daily August 19, 2024 1:00am October 11, 2024 1:12pm calcium carbonate 1000 mg oral tablet (20 sources) calcium carbonat e (CALCIUM 500 ORAL) Take 1,000 mg by mouth. 0 Active Comment on above: Take 1,000 mg by mavis . calcium carbonate 1250 mg / cholecalciferol 125 unt oral tablet (6 sources) Vitamin D Start: 10-12-19 Calcium Carbonate-Vitamin D3 500 mg-3.125 mcg (125 unit) tablet Active 2 {tbl} PO DAILY October 11, 2024 12:00am cholecalciferol 0.025 mg oral capsule (20 sources) Vitamin D Start: 10-21-19 take 1 capsule by mouth once daily Cholecalciferol (Vitamin D3) 25 mcg (1,000 unit) capsule Active 25 ug PO daily October 20, 2024 12:00am Start: 08-19-2024 End: 10-11-2024 take 1 capsule by mouth once daily Cholecalciferol (Vitamin D3) 25 mcg (1,000 unit) capsule Discontinued 25 ug PO daily August 19, 2024 1:00am October 11, 2024 1:13pm Cholecalciferol, Vitamin D3, (D3-2000) 2,000 unit cap Take by mouth. 0 Active Comment on above: Take by mouth. DULoxetine 30 mg delayed release oral capsule (6 sources) Serotonin and Norepinephrine Reuptake Inhibitor Start: take 30-60 mg by mouth once daily Duloxetine 30 mg capsule,delayed release(DR/EC) Active 30 - 60 mg PO daily August 19, 2024 1:00am estradiol 0.1 mg/ml vaginal cream (20 sources) Estrogen Start: 4 estradiol (ESTRACE) 0.01 % (0.1 mg/gram) vaginal cream Use 1 g vaginally two times a week. 42.5 g 4 03/11/2024 Active Start: 12-02-2019 End: 03-11-2024 estradiol (ESTRACE) 1 mg tab let TAKE ONE-HALF (1/2) TABLET EVERY OTHER DAY 45 tablet 4 11/15/2021 03/11/2024 Discontinued Start: 06-11-2015 End: 08-19-2024 take 1 tablet by mouth once daily Estradiol 1 MG tablet Discontinued 1 mg PO DAILY June 11, 2015 1:00am August 19, 2024 8:58am Comment on above: TAKE ONE-HALF (1/2) TABLET EVERY OTHER DAY Take 0.5 tablets by mouth every other day. gabapentin 100 mg oral capsule (6 sources) Anti-epileptic Agent Start: 5 take 200-300 mg by mouth three times daily as needed for pain Gabapentin 100 mg capsule Active 200 - 300 mg PO THREE TIMES A DAY as needed for PAIN October 11, 2024 12:00am ibuprofen 200 mg oral capsule (20 sources) Nonsteroidal Anti-inflammatory Drug Ibuprofen 200 mg cap Take 600 mg by mouth as needed (for pain). 0 Active Comment on above: Take 600 mg by mouth as needed (for pain). lisinopril 20 mg oral tablet (9 sources) Angiotensin Converting Enzyme Inhibitor Start: 5 take 1 tablet by mouth once daily Lisinopril 20 mg tablet Active 20 mg PO DAILY August 19, 2024 1:00am Start: 07-31-2023 lisinopril (ZE STRIL) 20 mg tablet melatonin 3 mg oral tablet (20 sources) melatonin 3 mg t ablet Take 3 mg by mouth. 0 Active Comment on above: Take 3 mg by mouth. pantoprazole 20 mg delayed release oral tablet (9 sources) Proton Pump Inhibitor Start: 5 take 1 tablet by mouth once daily Pantoprazole 20 mg tablet,delayed release (DR/EC) Active 20 mg PO daily August 19, 2024 1:00am Start: 08-01-2023 pantoprazole D R (PROTONIX) 40 mg tablet PARoxetine hydrochloride 10 mg oral tablet (20 sources) Serotonin Reuptake Inhibitor Start: 12-02-2019 End: 11-21-2021 take 1 tablet by mouth once daily PARoxetine (PAXIL) 10 mg tablet Indications: Depression with anxiety Take 1 tablet by mouth once daily. 90 tablet 4 11/21/2021 Active Comment on above: Take 1 tablet by mavis once daily. polyethylene glycol 3350 605266 mg / potassium chloride 2970 mg / sodium bicarbonate 6740 mg / sodium chloride 5860 mg / sodium sulfate 79937 mg powder for oral solution (3 sources) Osmotic Laxative Start: 08-02-2023 End: 08-02-2023 peg 3350-Electrolytes (GOLYTELY) 236-22.74-6.74 -5.86 gram suspension Indications: Diarrhea, unspecified type Take 4,000 mL by mouth one time only for 1 dose. Refer to printed prep instructions from your provider. 4000 mL 0 08/02/2023 08/02/2023 Active Comment on above: Take 4,[facility] for 1 dose. Refer to printed prep instructions from your provider. progesterone 100 mg oral capsule (20 sources) Progesterone Start: 02-27-2020 End: 11-15-2021 take 1 capsule by mouth once daily progesterone micronized (PROMETRIUM) 100 mg capsule Take 1 capsule by mouth once daily. 90 capsule 4 11/15/2021 Active Comment on above: TAKE 1 CAPSULE DAILY Take 1 capsule by [facility] once daily. SUMAtriptan 100 mg oral tablet (20 sources) Serotonin-1b and Serotonin-1d Receptor Agonist Start: 10-20-2024 take 1 tablet by mouth once Sumatriptan Succinate 100 mg tablet Active 100 mg PO ONCE October 20, 2024 12:00am SUMAtriptan (IMI TREX) 100 mg tablet Take 100 mg by mouth as needed for Migraine Headache (see administration instructions) (for migraine headaches). 0 Active Comment on above: Take 100 mg by mouth as needed for Migraine Headache (see administration instructions) (for migraine headaches). zolpidem tartrate 10 mg oral tablet (6 sources) gamma-Aminobutyric Acid-ergic Agonist Start: 10-20-2024 take 1 tablet by mouth at bedtime Zolpidem 10 mg tablet Active 10 mg PO AT BEDTIME October 20, 2024 12:00am Completed/Discontinued Medications Medication Drug Class(es) Dates Sig (Normalized) Sig (Original) acetaminophen 325 mg / HYDROcodone bitartrate 5 mg oral tablet (9 sources) Opioid Agonist Start: 10-11-2024 End: 10-26-2024 Hydrocodone-Acetami nophen 5-325 mg tablet Discontinued 0.5 {tbl} PO AT BEDTIME as needed for pain October 11, 2024 12:00am October 26, 2024 1:54pm Start: 06-12-2023 take 0.5 tablet by m outh every six hours as needed for pain HYDROcodone-acetaminophen (NORCO) 5-325 mg per tablet TAKE ONE-HALF (1/2) TABLET BY MOUTH EVERY 6 HOURS NEEDED FOR PAIN 0 06/12/2023 Active ALPRAZolam 1 mg oral tablet (2 sources) Benzodiazepine End: 08-17-2020 take 1 tablet by mouth every twenty-four hours as needed ALPRAZolam (XANAX) 1 mg tablet Take 1 mg by mouth at bedtime as needed. 0 08/17/2020 Discontinued Comment on above: Take 1 mg by mouth a t bedtime as needed. cyclobenzaprine hydrochloride 10 mg oral tablet (20 sources) Muscle Relaxant Start: 10-20-2024 End: 10-26-2024 take 1 tablet by mouth three times daily as needed for muscle spasms Cyclobenzaprine 10 mg tablet Discontinued 10 mg PO THREE TIMES A DAY as needed for muscle spasm October 20, 2024 12:00am October 26, 2024 1:54pm take 1 tablet by mavis once daily as needed cyclobenzaprine (FLEXERIL) 10 mg tablet Take 10 mg by mouth once daily as needed. 0 Active Comment on above: Take 10 mg by mouth once daily as needed. docusate sodium 50 mg / sennosides, chcf 8.6 mg oral tablet (6 sources) Start: 2024 End: 2024 Sennosides-Docusate Sodium (Stimulant Laxative Plus) 8.6-50 mg Tablet Discontinued 2 {tbl} PO TWICE A DAY as needed for constipation October 26, 2024 1:55pm December 08, 2024 1:04pm medroxyPROGESTERone acetate 2.5 mg oral tablet (14 sources) Progestin Start: 2014 End: 2024 take 1 tablet by mouth every other day Medroxyprogesterone 2.5 MG tablet Discontinued 2.5 mg PO EVERY OTHER DAY June 11, 2015 1:00am August 19, 2024 8:58am meloxicam 15 mg oral tablet (6 sources) Nonsteroidal Anti-inflammatory Drug Start: 2024 End: 2024 take 1 tablet by mouth once daily Meloxicam 15 mg Tablet Discontinued 15 mg PO DAILY October 26, 2024 12:00am December 08, 2024 1:04pm take once a day methocarbamol 500 mg oral tablet (6 sources) Muscle Relaxant Start: 2024 End: 2024 Methocarbamol 500 mg Tablet Discontinued 750 mg PO THREE TIMES A DAY as needed for pain/spasms October 26, 2024 1:54pm December 08, 2024 1:04pm omeprazole 40 mg delayed release oral capsule (14 sources) Proton Pump Inhibitor Start: 2014 End: 2024 take 1 capsule by mouth once daily Omeprazole (Prilosec) 40 MG capsule Discontinued 40 mg PO DAILY June 11, 2015 1:00am August 19, 2024 8:58am oxyCODONE hydrochloride 5 mg oral tablet (6 sources) Opioid Agonist Start: 2024 End: 2024 take 2.5-5 mg by mouth every six hours as needed for pain Oxycodone 5 mg Tablet Discontinued 2.5 - 5 mg PO EVERY 6 HOURS as needed for pain 28 7 October 26, 2024 December 08, 2024 1:04pm rizatriptan 5 mg oral tablet (14 sources) Serotonin-1b and Serotonin-1d Receptor Agonist Start: 2014 End: 2024 take 1 tablet by mouth once daily as needed Rizatriptan 5 MG tablet Discontinued 5 mg PO DAILY as needed for Migraine Symptoms June 11, 2015 1:00am August 19, 2024 8:57am Problems Active Problems Problem Classification Problem Date Documented Da te Episodic/Chronic Anxiety disorders (1 source) Mixed anxiety and depressive disorder; Translations: [Other specified anxiety disorders] Chronic Diseases of white blood cells (2 sources) Neutropenia, unspecified; Translations: [Neutropenia, unspecified (HCC)] Onset: 07-29-2023 Chronic Intestinal infection (3 sources) Infectious gastroenteritis and colitis, unspecified; Translations: [Gastrointestinal infection] Onset: 07-29-2023 Episodic Menopausal disorders (2 sources) Menopausal syndrome; Translations: [Menopausal and female climacteric states] Chronic Noninfectious gastroenteritis (2 sources) Indeterminate colitis; Translations: [Indeterminate colitis] Onset: 07-29-2023 Chronic Noninfectious gastroenteritis (2 sources) Other specified noninfective gastroenteritis and colitis; Translations: [Other specified noninfective gastroenteritis and colitis] Onset: 07-29-2023 Episodic Nutritional deficiencies (1 source) Deficiency of other specified B group vitamins; Translations: [Deficiency of other specified B group vitamins] Onset: 12-20-2024 Episodic Other acquired deformities (20 sources) Scoliosis of lumbar spine; Translations: [Scoliosis, unspecified] 08-19-2024 Chronic Other acquired deformities (1 source) Other secondary scoliosis, lumbar region; Translations: [Other secondary scoliosis, lumbar region] Onset: 10-31-2024 Chronic Other connective tissue disease (20 sources) History of lumbar fusion; Translations: [Arthrodesis status] 08-19-2024 Episodic Other connective tissue disease (2 sources) Arthrodesis status; Translations: [Arthrodesis status] Onset: 01-19-2025 Episodic Other gastrointestinal disorders (2 sources) Change in bowel habit; Translations: [Change in bowel habit] Onset: 07-29-2023 Episodic Other nutritional; endocrine; and metabolic disorders (1 source) Overweight; Translations: [Overweight] Episodic Residual codes; unclassified (1 source) Other general symptoms and signs; Translations: [Other general symptoms] Episodic Spondylosis; intervertebral disc disorders; other back problems (17 sources) Prolapsed lumbar intervertebral disc; Translations: [Other intervertebral disc displacement, lumbar region] Onset: 08-18-2024 08-19-2024 Chronic Spondylosis; intervertebral disc disorders; other back problems (1 source) Radiculopathy, cervical region; Translations: [Radiculopathy, cervical region] Onset: 02-06-2025 Episodic Unclassified (2 sources) Patient encounter status; Translations: [Encounter for gynecological examination (general) (routine) without abnormal findings] Unclassified (10 sources) Status post lumbar spinal fusion; Translations: [Z98.1 - Arthrodesis status] Unclassified (1 source) Low back pain, unspecified; Translations: [Low back pain, unspecified] Onset: 08-19-2024 Past or Other Problems Problem Classification Problem Date Documented Da te Episodic/Chronic Other gastrointestinal disorders (5 sources) Diarrhea; Translations: [Diarrhea, unspecified] Onset: 08-06-2023 08-02-2023 Episodic Other gastrointestinal disorders (3 sources) Diarrhea, unspecified; Translations: [Diarrhea, unspecified] Onset: 07-29-2023 Episodic Residual codes; unclassified (3 sources) Postmenopausal state; Translations: [Asymptomatic menopausal state] Onset: 06-07-2015 Episodic Residual codes; unclassified (1 source) Menopause present; Translations: [Asymptomatic menopausal state] Onset: 06-07-2015 05-08-2022 Episodic Residual codes; unclassified (1 source) History of endometrial ablation; Translations: [Other specified postprocedural states] Onset: 06-07-2015 05-08-2022 Episodic Unclassified (9 sources) Encounter for screening for lipoid disorders; Translations: [Encounter for screening for diabetes mellitus] Onset: 06-12-2017 Episodic Results Test Name Value Interpretation Reference Range Facility Lumbar Spine 2 or 3 [facility] 01-19-2025 Lumbar Spine 2 or 3 Views [facility] [address], [place] [address] Lumbar Spine 2 or 3 Views MR#: [id number] Acct: [id number] Name: MAYNOR ROSEN Rep #: [id number] : [id number] F 69 From: Sherine Blanton MD PCP: Shanelle Rodríguez DO Status: DEP AMB Study: Lumbar Spine 2 or 3 Views Date of Exam: Exam# [id number] Ordering Dr: Nelda Maravilla EXAM: XR Lumbosacral Spine, 2 or 3 Views CLINICAL INDICATION: S/P LUMBAR FUSION TECHNIQUE: Frontal and lateral views of the lumbar spine and sacrum. COMPARISON: No relevant prior studies available. FINDINGS: VERTEBRAE: Status post posterior fusion of L4 the S1. Intact hardware. Moderate endplate degenerative changes of L4-S1. No acute fracture. Normal alignment. SACRUM/COCCYX: Unremarkable as visualized. No acute fracture. DISC SPACES: No acute findings. No significant narrowing. SOFT TISSUES: Unremarkable. RAD/Lumbar Spine 2 or 3 Views IMPRESSION: Postoperative changes as above. Reading Location: [id number] CC: LUCIA Menjivar; Shanelle Rodríguez DO Sandfill Operator Surface: Signed Normal [facility] Orthopedic Visit Reporton Orthopedic Visit Report [facility] [address] [place] [address] [place] [address] OFFICE VISIT Date of Service: 01/19/25 MR#: [id number] Acct: [id number] Name: MAYNOR ROSNE Rep #: [id number] : [id number] Provider: Dr. Terry Lang MD Age/Sex: 69/F Location: [facility] [place] Status: Signed Intake Vital Signs 10/25/24 16:00 Height 5 ft 3 in Intake Visit Reasons: LUMBAR SPINE Chief Complaint: 3 month post-op Allergies No Known Allergies Allergy (Verified 01/19/25 11:09) Medications ???Medication ???Instructions ???Recorded ???Confirmed ???Type duloxetine 30 mg capsule,delayed 30 - 60 mg PO QDAY ANTIDEPRESSENT 08/19/24 01/19/25 History release lisinopril 20 mg tablet 20 mg PO DAILY HTN 08/19/24 History pantoprazole 20 mg tablet,delayed 20 mg PO QDAY GERD 08/19/2401/19 History release calcium 500 mg (as 2 tab PO DAILY SUPPLEMENT 10/11/24 01/19/25 History carbonate)-vitamin D3 3.125 mcg (125 unit) tablet gabapentin 100 mg capsule 200 - 300 mg PO TID PRN PAIN 10/1101/19/25 History ascorbic acid (vitamin C) 1,000 mg 1 g PO Q6H supplement 10/20/24 0 01/19/25 History capsule budesonide 3 mg 9 mg PO QDAY PRN colitis 10/20/24 01/19/25 History capsule,delayed,exte nded release cholecalciferol (vitamin D3) 25 25 mcg PO QDAY supplement 10/20/24 01/19/25 History mcg (1,000 unit) capsule sumatriptan succinate 100 mg tablet 100 mg PO ONCE 10/20/24 5 History zolpidem 10 mg tablet 10 mg PO QHS sleep 10/20/24 History acetaminophen 500 mg tablet 500 mg PO Q6H #30 tabs 10/26/24 Rx Have you fallen in the past year?: No PFSH Medical History Wears glasses Cancer Depression Anxiety Migraine headache GERD (gastroesophageal reflux disease) Microscopic colitis History of Mohs micrographic surgery for skin cancer ( 2021) Non-smoker PONV (postoperative nausea and vomiting) Hypertension Surgical History History of colonoscopy History of right hip replacement ( 01/2011) S/P lumbar fusion Status post breast reduction History of lumbar laminectomy History of lumbar fusion Family History Mother Hypertension Lung cancer Scoliosis DJD (degenerative joint disease) Father COPD (chronic obstructive pulmonary disease) Social History Smoking Status: Never smoker alcohol intake: current alcohol intake frequency: 0-2 drinks per day what type of physical activity do you participate in: other details: pilates HPI LUMBAR SPINE Details: This documentation accurately reflects the service provided and the decisions made by me, Dr. Terry Lang MD 01/19/25 1104. Part of today???s visit was documented by Niki GIBBS and Shanelle David RN, acting as scribe. MAYNOR ROSEN is a 69 year old F here today for 3 months post-op s/p L5-S1 TLIF, removal of previous hardware, L4-S1 revision posterior fusion DOS 10/25/2024. She states that she is doing well and has minimal pain. When she gets pain it is more of an aching pain that seems to be worse at night. She does still have the left foot pain that starts at the hip and radiates down but is mainly is the calf into the foot. The foot pain in anterior and is intermittent. She describes the pain as nerve pain. The pain does make it difficult to sleep. She has been having this pain for 3 years so this is not a new issues for her. She takes Tylenol or Advil if she needs it for pain. She also does have a prescription for hydrocodone from Dr. Ordaz in June that she will take at times for the foot pain and thinks she should follow-up with him to talk more about it. She did finish PT and has been doing the pool exercises in her neighborhood pool. The patient is a 69-year-old female presenting with persistent foot symptoms and follow-up for spinal fusion. She reports sensations of pins and needles, numbness, and tingling in her foot, primarily affecting the big toe, top of the foot, and ankle, with symptoms exacerbating at night. The patient has a history of foot drop, which has improved over time, and she is actively participating in pool therapy and home exercises. Following spinal fusion, the patient has noted improved spinal alignment and stability, although some nerve-related symptoms persist. - Neurological: Reports intermittent numbness and tingling in the foot, primarily at night. Denies weakness in the foot. - Musculoskeletal: Reports improved spinal alignment post-fusion. Denies pain during physical activities. Attestation: Documentation on this patient encounter was supported using ambient scribe t (more content not included)... Normal [facility] Re-Evaluation - PT (1)on Re-Evaluation - PT (1) [facility] [address] [place] [address] [address] [place] [address] / REEVALUATION / MEDICARE RECERTIFICATION PHYSICAL THERAPY MR#: [id number] Acct: [id number] Name: MAYNOR ROSEN Rep #: [id number] : 1955 69 From: Nicolasa Hebert PT, Cert. MDT Referring Dr.: Dr. Terry Lang MD Status:REG RCR Insurance: RR MEDICARE AAR Re-Evaluation Intro: Dr. Terry Lang MD, It has been my pleasure to treat MAYNOR ROSEN over the last 9 visits for S/P LUMBAR FUSION 10/25/24. Please see the progress note below for an update on the physical therapy plan of care! Subjective Subjective: PATIENT REPORTS HER R BACK PAIN IS 99% BETTER SINCE SURGERY AND HER LLE NERVE PAIN IS 25% BETTER SINCE SUGERY AND REHAB. REPORTS HAVING FOLLOW UP WITH DR. LANG 12/08/24 AND HE RECOMMENDED SHE CONTINUE PT AND FOLLOW BACK UP WITH HIM AT 3 MO PO. SHE STATES SHE INQUIRED ABOUT AQUATIC THERAPY AND HE WAS IN AGREEMENT. Objective Objective/Function: THIS PATIENT AMBULATES INDEP'LY INTO PT X APPROX 300 FEET WITH GOOD CADANCE WITHOUT ANY AD'S OR GROSS DEVIATIONS NOTED. HER CHIEF COMPLAINT REMAINS LEFT LOWER LEG, FOOT AND ANKLE PAIN AND TINGLING. SHE IS ABLE TO INDEP'LY TRANSFER FROM SIT TO STAND WITHOUT UE ASSIST. PATIENT IS OBSERVED DOING SOME BENDING AND TWISTING WHILE MOVING ABOUT IN TREATMENT ROOM (FOR EXAMPLE BENDING IN CHAIR TO PICK THINGS UP OFF OF FLOOR AND SQUATTING TO PICK SHOES UP OFF FLOOR IN STANDING) BUT STILL NOT SPECIFICALLY TESTED DUE TO RESTRCICTIONS ON BENDING AND TWISTING UNTIL 3 MONTHS PO. PATIENT VERBALIZED UNDERSTANDING AND DIFFICULTY FOLLOWING DUE TO NOT HAVING LBP AND HAVING ABILITY TO BENDING AND TWIST. Sensory deficit: MARY LE LIGHT TOUCH SENSATION GROSSLY INTACT BUT ALTERED/TINGLY LEFT LOWER LEG, FOOT AND ANKLE COMPARED TO R. PATIENT REPORTS DECREASED SX'S WITH STM AND TRIGGER POINT RELEASE. Motor deficit: PATIENT ABLE TO TRANSFER SIT TO STAND INDEP'LY WITHOUT UE ASSIST AND EVEN SQUAT TO PICK SHOES UP FROM FLOOR AND RETURN TO STAND WITHOUT UE ASSIST. PATIENT IS ABLE TO WALK ON TOES WITHOUT UE ASSIST BUT PARTIAL FOOT DROP LEFT EVIDENT WITH ATTEMPS TO HEEL WALK. Lumbar mvmt loss: NT CORE STRENGTH: FAIR. WOULD RECOMMEND AQUATIC THERAPY FOR DLS WITH NEUTRAL SPINE AND FOR THE BENEFITS TO LLE OF HYDROSTATIC PRESSURE AND DESENSITIZATION FROM WATER ALONG WITH SPINE BENEFITS OF DECOMPRESSION IN REDUCED WEIGHT BEARING ENVIRONMENT. PATIENT IS AGREEABLE. DISCUSSED CONTINUING ONE DAY A WEEK ON LAND FOR LLE MANUAL THERAPY AND PATIENT EXPRESSING PREFERENCE FOR AQUATIC VS LAND PT. Plan Plan Plan: *15 LBS LIFTING LIMIT UNTIL AT LEAST FOLLOW UP WITH DR. LANG AT 3 MONTHS PO* AQUATIC THERAPY 2X'S A WK X 4-6 WKS FOR LLE PAIN RELIEF WITH LUMBAR DECOMPRESSION AND USE OF HYDROSTATIC PRESSURE, POSTURE CORRECTION/STRENGTHE ANGELO, INSTRUCTION IN APPROPRIATE BODY MECHANICS AND ACTIVITY MODIFICATIONS. DLS STARTING WITH A NEUTRAL SPINE UNTIL 3 MONTHS PO THEN PROGRESSING ROM TOLERATED. MARY LE ROM, STRETCHING AND STRENGTHENING. HEP INSTRUCTION. Balance/Gait/Functio nal tests Balance/Special Test Scores Oswestry Low Back Score: 5 Goals Goals Goal 1:: DECREASE C/O LLE PAIN BY AT LEAST 50%. Goal Time Frame: 4-6 Weeks Goal Progress: Progressing Goal 2:: IMPROVE SITTING, LYING, SLEEP, AND EVENTUALLY BENDING, LIFTING, PUSHING, PULLING AND RECREATIONAL FUNCTION TO HELP PATIENT RETURN TO PRIOR LEVEL OF FUNCTION RESTRICTIONS ARE LIFTED BY SURGEON. Goal Time Frame: 8-12 Weeks Goal Progress: Progressing Goal 3:: INSTRUCT IN PROPHYLAXIS Goal Time Frame: 8-12 Weeks Goal Progress: Progressing Anticipated Interventions Anticipated Interventions Patient/Client Instruction: Educate patient on: Condition, Plan of Care and Risk Factors For the Purpose of:: To improve self management Manual Therapy Techniques to Include: Soft tissue mobilization and Other Comment: DESENSITIZATION L LOWER LEG, FOOT AND ANKLE For the Purpose of:: To decrease pain TENS: Yes Cryotherapy (ice pack, ice massage): Yes Comment: DESENSITIZATION L LOWER LEG, ANKLE AND FOOT For the Purpose of:: To decrease pain Re-Evaluation Ending Re-evaluation ending: Please do not hesitate to contact me at [phone] by phone or if you have questions or concerns regarding this new plan of care! Sincerely, Nicolasa Hebert, PT, Cert MDT 12/29/24 1529 CC: Dr. Terry Lang MD; Shanelle Rodríguez DO DEREK Signed For Medicare only, by signing this I certify the plan of care. Physicians Signature Date Normal [facility] Magnesiumon 12-13-2024 Magnesium [Mass/Vol] 1.9 mg/dL Normal 1.5-2.2 [facility] Comment on above: Performed By: #### L 501.5200, L503.0106 ####[facility] [address] [place], [address] Magnesium measurement (mass/ volume)Ordered By: Shanelle Rodríguez on 12-13-2024 Magnesium (Unsp spec) [Mass/Vol] 1.9 mg/dL 1.5-2.2 [facility] Vitamin B12on 12-13-2024 Cobalamin (Vitamin B12) [Mass/Vol] 537 pg/mL Normal 180-914 [facility] Comment on above: Performed By: #### L 501.5200, L503.0106 ####[facility] [address] [facility] [place], [place], [address] Vitamin B12 ser/plasOrdered By: Shanelle Rodríguez on 12-13-2024 Cobalamin (Vitamin B12) [Mass/Vol] 537 pg/mL 180-914 [facility] Lumbar Spine 2 or 3 Viewson 12-08-2024 Lumbar Spine 2 or 3 Views [facility] Imaging Services [address], [place] [address] Lumbar Spine 2 or 3 Views MR#: [id number] Acct: [id number] Name: MAYNOR ROSEN Rep #: [id number] : 1955 F 69 From: Álvaro Tam MD PCP: Shanelle Rodríguez DO Status: DEP AMB Study: Lumbar Spine 2 or 3 Views Date of Exam: Exam# [id number] Ordering Dr: Terry Lang MD PROCEDURE: LUMBAR SPINE 2 OR 3 VIEWS 12/08/2024 REASON FOR EXAM: STATUS POST LUMBAR FUSION TECHNIQUE: 2 view(s) of the lumbar spine COMPARISON: 11/10/2024 FINDINGS: Status post intervertebral disc spacer L5-S1 and bilateral posterior fusion L4 through S1 again noted appears intact and anatomic. No fracture or change in alignment. There is again note of anterolisthesis L4 on L5, unchanged. Severe appearing disc space narrowing with degenerative endplate changes T12-L1 and L3-4 again noted. L1-2 disc space narrowing and degenerative endplate changes again seen. Partially imaged right hip replacement. Mild leftward spinal lumbar curvature again noted. RAD/Lumbar Spine 2 or 3 Views IMPRESSION: No significant interval change in appearance of the lumbar spine as above. Reading Location: [id number] CC: Dr. Terry Lang MD; Shanelle Rodríguez DO Sandfill Operator Surface: Signed Normal [facility] Orthopedic Visit Reporton Orthopedic Visit Report [facility] [address] [place] [address] OFFICE VISIT Date of Service: 12/08/24 MR#: [id number] Acct: [id number] Name: MAYNOR ROSEN Rep #: [id number] : 1955 Provider: Dr. Terry Lang MD Age/Sex: 69/F Location: [facility] Status: Signed Intake Vital Signs 08/19/24 07:34 10/25/24 16:00 Height 5 ft 3 in 5 ft 3 in Intake Visit Reasons: lumbar spine Chief Complaint: 6 week post-op Accompanied by: Self Is patient in pain?: No Allergies No Known Allergies Allergy (Verified 12/08/24 13:03) Medications ???Medication ???Instructions ???Recorded ???Confirmed ???Type duloxetine 30 mg capsule,delayed 30 - 60 mg PO QDAY ANTIDEPRESSENT 08/19/24 12/08/24 History release lisinopril 20 mg tablet 20 mg PO DAILY HTN 08/19/24 History pantoprazole 20 mg tablet,delayed 20 mg PO QDAY GERD 08/19/2412/08 History release calcium 500 mg (as 2 tab PO DAILY SUPPLEMENT 10/11/24 12/08/24 History carbonate)-vitamin D3 3.125 mcg (125 unit) tablet gabapentin 100 mg capsule 200 - 300 mg PO TID PRN PAIN 10/1112/08/24 History ascorbic acid (vitamin C) 1,000 mg 1 g PO Q6H supplement 10/20/24 0 12/08/24 History capsule budesonide 3 mg 9 mg PO QDAY PRN colitis 10/20/24 12/08/24 History capsule,delayed,exte nded release cholecalciferol (vitamin D3) 25 25 mcg PO QDAY supplement 10/20/24 12/08/24 History mcg (1,000 unit) capsule sumatriptan succinate 100 mg tablet 100 mg PO ONCE 10/20/24 5 History zolpidem 10 mg tablet 10 mg PO QHS sleep 10/20/24 History acetaminophen 500 mg tablet 500 mg PO Q6H #30 tabs 10/26/24 Rx Have you fallen in the past year?: No PFSH Medical History Wears glasses Cancer Depression Anxiety Migraine headache GERD (gastroesophageal reflux disease) Microscopic colitis History of Mohs micrographic surgery for skin cancer ( 2021) Non-smoker PONV (postoperative nausea and vomiting) Hypertension Surgical History History of colonoscopy History of right hip replacement ( 01/2011) S/P lumbar fusion Status post breast reduction History of lumbar laminectomy History of lumbar fusion Family History Mother Hypertension Lung cancer Scoliosis DJD (degenerative joint disease) Father COPD (chronic obstructive pulmonary disease) Social History Smoking Status: Never smoker alcohol intake: current alcohol intake frequency: 0-2 drinks per day what type of physical activity do you participate in: other details: [facility] lumbar spine Details: This documentation accurately reflects the service provided and the decisions made by me, Dr. Terry Lang MD 12/08/24 4913. Part of today???s visit was documented by Huong Walker ATC, acting as scribe. MAYNOR ROSEN is a 69 year old F here today for s/p L5-S1 TLIF, removal of previous hardware, L4- S1 revision posterior fusion DOS 10/25/2024. Patient still has nerve pain in the left leg. She states this pain is better but still there. She states the back pain is good and she doesn't have much pain in the back. She states all she is taking Tylenol and occasionally she will take 1/2 of her hydrocodone at night if she has overdone anything during the day. Ortho Exam General General: Yes no acute distress and Yes well groomed Neurologic: Yes alert and Yes oriented x3 Psychologic: Yes reasonable and appropriate Spine SPINE TESTING CERVICAL THORACIC LUMBAR Musculoskeletal Strength 0=absent - 5=normal Details: Examination of the back and belly show incisions well-healed. Neurologic patient lower extremity shows 5 x 5 symmetric power in all muscle groups and normal sensations are all dermatomes. Coding Level of Care Code Global Post Op Diagnoses S/P lumbar fusion Z98.1 Assessment and Plan Assessment and Plan (1) S/P lumbar fusion: Status: Acute Plan: Patient is here for a 6 week post op. I examined the patient today. I went over the xray results with the patient. X-rays show hardware and bone graft in good position. I advise patient that she can drive, and she is alowed to increase her lifting to 2 gallons of milk. I advise patient to continue physical therapy. Okay to do isometric core strengthening, and resume lumbar range of motion at 3-month timeframe. Patient will follow up in a month and a half for her 3-month appointment. Orders: Orders Lumbar Spine 2 or 3 Views Today Z98.1 - Arthrodesis status Clinical Quality Measures Falls Risk Screening/Assistive Devices Have you fallen in the past year?: No (more content not included)... Normal [facility] Inital Evaluation (1) - PTon 11-15-2024 Inital Evaluation (1) - PT [facility] [address] [address]. [address] [place] [address] / REHABILITATION SERVICES INITIAL EVALUATION MR#: [id number] Acct: [id number] Name: MAYNOR ROSEN Rep #: [id number] : 1955 69 From: Nicolasa Hebert PT Cert. MDT Referring Dr.: Dr. Terry Lang MD Status: REG RCR Insurance: RR MEDICARE AARP Patient's Visit Information Visit Information Visit Information: MAYNOR ROSEN is a 69 year old F referred to Physical Therapy by Dr. Terry Lang MD with a diagnosis of S/P LUMBAR FUSION 10/25/24. Date of Evaluation: 11/15/24 Physical Therapist: Nicolasa Hebert PT, Cert MDT Visit Plan Frequency: 2x /Week Duration: 2-4 Weeks Plan: CURRENT PHYSICIAN RESTRICTIONS: NO BENDING, LIFTING OR TWISTING. 5 LB LIFTING LIMIT. PHYSICIAN FOLLOW UP AT 6 WKS PO. 2X'S A WK X 4 WKS LEFT LOWER LEG MANUAL SOFT TISSUE MOBILIZATION AND DESENSITIZATION FOR PAIN RELIEF. TRIAL OF TENS TO LEFT LOWER LEG AND FOOT FOR PAIN RELIEF WITH COLD PACK ALONG WITH HOME TENS INSTRUCTION WITH UNIT OBTAINED BY PATIENT IF BENEFICIAL. PATIENT AGREEABLE. Subjective Subjective: Work/Leisure: RETIRED Present symptoms: LOW BACK PAIN, INTERMITTENT R LE SPASMS AND R HIP PAIN, L HIP PAIN, L LOWER LEG PAIN, L ANKLE PAIN AND LEFT FOOT PAIN. N T FROM CALF DOWN PRIMARILY IN FOOT ON LEFT. DENIES R LE N T. Present since: CHRONIC Pain Scale: WORST 8/10, LEAST 1/10 Currently: 10 Is it getting better, worse or staying the same: GETTING BETTER Commenced as a result of: EXCESSIVE MULCHING THEN HARD FALL JANUARY 2022 ON LEFT SIDE Worse: LYING DOWN AND SITTING Better: CHANGE OF POSITION, ICE, POLAR MACHINE ON FOOT, HEAT ON BACK, PAIN MEDICINE Disturbed sleep: YES - BUT PAIN RELIEVED WITH MEDICAITON Previous history/Previous treatment: 3RD BACK SURGERY IN 3 YEARS. FIRST [address] SURGER[address] BY [address] JUAN. Treatment this episode: S/P LUMBAR FUSION BY DR. LANG 10/25/24 Coughing/sneezing/st raining: NEGATIVE FOR INCREASED PAIN Gait: NORMAL. NOT USING ANY AD'S. Bowel or Bladder Dysfunction: CHRONIC PELVIC FLOOR ISSUES. PMH/Recent major surgery: HTN, INSOMNIA, REFLUX, H/O COLITIS 2022 OTHER: CURRENT PHYSICIAN RESTRICTIONS: NO BENDING, LIFTING OR TWISTING. 5 LB LIFTING LIMIT. Objective Objective: THIS PATIENT AMBULATES INDEP'LY INTO PT X APPROX 300 FEET WITH GOOD CADANCE WITHOUT ANY AD'S OR GROSS DEVIATIONS NOTED. SHE IS PLEASANT AND COOPERATIVE TO WORK WITH. HER CHIEF COMPLAINT IS LEFT LOWER LEG, FOOT AND ANKLE PAIN AND TINGLING. SHE IS ABLE TO INDEP'LY TRANSFER FROM SIT TO STAND WITHOUT UE ASSIST. ABDOMINAL AND BACK INCISIONS ARE WELL HEALED WITHOUT ANY SIGNS OF INFECTION. PATIENT OBSERVED DOING SOME BENDING AND TWISTING WHILE MOVING ABOUT IN TREATMENT ROOM (FOR EXAMPLE POINTING TO LEFT LOWER LEG AND ANKLE, PULLING R KNEE TO CHEST WHILE IN CHAIR TO SHOW THIS PT WHAT CAUSES R HIP TO HURT) BUT NOT SPECIFICALLY TESTED DUE TO CURRENT NO BLT RESTRICTIONS. Sensory deficit: MARY LE LIGHT TOUCH SENSATION GROSSLY INTACT BUT ALTERED/TINGLY LEFT LOWER LEG, FOOT AND ANKLE COMPARED TO R. Motor deficit: PATIENT ABLE TO TRANSFER SIT TO STAND INDEP'LY WITHOUT UE ASSIST. Lumbar mvmt loss: NT Sitting Posture: FAIR. PATIENT ABLE TO ACTIVELY CORRECT WITH CUEING AND RESPONDS WELL TO PASSIVE SUPPORT IN CLINIC. Palpation: RESPONDS WELL TO PRESSURE APPLIED TO LEFT LOWER LEG AND FOOT FOR DESENSITIZATION. Balance/Special Test Scores Oswestry Low Back Score: 9 Goals Goal 1:: DECREASE C/O LLE PAIN BY AT LEAST 50%. Goal Time Frame: 4-6 Weeks Goal 2:: IMPROVE SITTING, LYING, SLEEP, AND EVENTUALLY BENDING, LIFTING, PUSHING, PULLING AND RECREATIONAL FUNCTION TO HELP PATIENT RETURN TO PRIOR LEVEL OF FUNCTION RESTRICTIONS ARE LIFTED BY SURGEON. Goal Time Frame: 8-12 Weeks Goal 3:: INSTRUCT IN PROPHYLAXIS Goal Time Frame: 8-12 Weeks Rehabilitation Potential Physical Therapy Diagnosis: LEFT LOWER LEG, ANKLE AND FOOT TINGLING AND PAIN. Rehabilitation Potential: Good Anticipated Interventions Patient/Client Instruction: Educate patient on: Condition, Plan of Care and Risk Factors For the Purpose of:: To improve self management Manual Therapy Techniques to Include: Soft tissue mobilization and Other Comment: DESENSITIZATION L LOWER LEG, FOOT AND ANKLE For the Purpose of:: To decrease pain TENS: Yes Cryotherapy (ice pack, ice massage): Yes Comment: DESENSITIZATION L LOWER LEG, ANKLE AND FOOT For the Purpose of:: To decrease pain Text: Thank you for the opportunity to evaluate your patient. For Medicare and Medicare HMO plans, please review the plan of care and approve it. It will need to be FAXED BACK to us at [phone] for Medicare purposes. For Medicare only, by signing this I certify the plan of care. Please let me know if there are questions or concerns regarding this plan of care. Physician Signature: (more content not included)... Normal [facility] Lumbar Spine 2 or 3 Viewson 11-10-2024 Lumbar Spine 2 or 3 Views [facility] Imaging Services [address], [place] [address] Lumbar Spine 2 or 3 Views MR#: [id number] Acct: [id number] Name: MAYNOR ROSEN Rep #: [id number] : 1955 F 69 From: Honorio Aguayo i DO PCP: Shanelle Rodríguez DO Status: DEP AMB Study: Lumbar Spine 2 or 3 Views Date of Exam: Exam# [id number] Ordering Dr: Nelda Maravilla PROCEDURE: Lumbar spine radiographs, two views 11/10/2024 REASON FOR EXAM: 2 weeks status post fusion TECHNIQUE: 2 view(s) of the lumbar spine COMPARISON: 10/26/2024 FINDINGS: Two views of the lumbar spine were obtained. The bones are osteopenic. Included portions of the pelvis and SI joints are intact. There are bilateral intrapedicular screws from L4-S1. Similar position of an L5-S1 interbody spacer device. Posterior fusion rods extend from L4-S1. No acute lumbar vertebral body fracture. There is similar grade 1 anterolisthesis of L4 relative to L3 and L5. Moderate multilevel degenerative disc and facet disease in the lumbar spine is similar. Mild leftward curvature of the lower lumbar spine on the AP view is similar. RAD/Lumbar Spine 2 or 3 Views IMPRESSION: Osteopenia. No acute bony abnormality of the lumbar spine. Grossly intact fusion hardware from L4-S1. Similar position of L5-S1 interbody spacer device. Moderate multilevel degenerative disc and facet disease in the lumbar spine is relatively similar. Reading Location: [facility] CC: LUCIA Menijvar; Shanelle Rodríguez DO Sandfill Operator Surface: Signed Normal [facility] Orthopedic Visit Reporton Orthopedic Visit Report [facility] [address] [place] [address] OFFICE VISIT Date of Service: 11/10/24 MR#: [id number] Acct: [id number] Name: MAYNOR ROSEN Rep #: [id number] : 1955 Provider: Dr. Terry Lang MD Age/Sex: 69/F Location: [facility] Status: Signed Intake Vital Signs 08/19/24 07:34 10/25/24 16:00 Height 5 ft 3 in 5 ft 3 in Intake Visit Reasons: lumbar spine Is patient in pain?: Yes Allergies No Known Allergies Allergy (Verified 10/25/24 06:02) Have you fallen in the past year?: No [facility] Medical History Wears glasses Cancer Depression Anxiety Migraine headache GERD (gastroesophageal reflux disease) Microscopic colitis History of Mohs micrographic surgery for skin cancer ( 2021) Non-smoker PONV (postoperative nausea and vomiting) Hypertension Surgical History History of colonoscopy History of right hip replacement ( 01/2011) S/P lumbar fusion Status post breast reduction History of lumbar laminectomy History of lumbar fusion Family History Mother Hypertension Lung cancer Scoliosis DJD (degenerative joint disease) Father COPD (chronic obstructive pulmonary disease) Social History Smoking Status: Never smoker alcohol intake: current alcohol intake frequency: 0-2 drinks per day what type of physical activity do you participate in: other details: pilates HPI lumbar spine Details: This documentation accurately reflects the service provided and the decisions made by me, Dr. Terry Lang MD 11/10/24 8833. Part of today???s visit was documented by Niki GIBBS, acting as scribe. MAYNOR ROSEN is a 69 year old F here today for 2 week post op, lumbar spine, dos 10/25/24. She states that she is doing very well. She is still having some pain and is still having the neuropathy in the left leg/foot. She is no longer have the muscle spasms in her legs. Her neuropathy pain increases when she lays down and had been taking .5 an oxycodone and .5 a methocarbamol. For her back pain she is taking Tylenol and Meloxicam. She only had to use her walker one time. The first couple days following surgery she did have bad constipation and experienced bad stomach pains. She took stool softeners which eventually helped. Ortho Exam General General: Yes no acute distress and Yes well groomed Neurologic: Yes alert and Yes oriented x3 Psychologic: Yes reasonable and appropriate Spine SPINE TESTING CERVICAL THORACIC LUMBAR Musculoskeletal Strength 0=absent - 5=normal Details: Examination of the back and belly show incisions well-healed. Neurologic patient lower extremity shows 5 x 5 symmetric power in all muscle groups and normal sensations are all dermatomes. Coding Level of Care Code Global Post Op Diagnoses S/P lumbar fusion Z98.1 Assessment and Plan Assessment and Plan (1) S/P lumbar fusion: Status: Acute Orders: Orders Lumbar Spine 2 or 3 Views Today LUCIA Menjivar Z98.1 - Arthrodesis status Referrals Physical Therapy Referral Dr. Terry Lang MD Z98.1 - Arthrodesis status Plan Obtained and reviewed lumbar spine x-rays today in the office. X-rays done today show hardware and bone graft in good position with good maintenance of alignment. Explained that the hardware is in good positioning and looks good. Her incision is looking good and have no concerns. She is able to continue walking as much as she wants but shouldn't push herself too much. As for the left foot pain and neuropathy she should continue taking the gabapentin for that pain. Recommend she follow-up with Dr. Ordaz if she feels like she needs pain medication for the foot pain. Recommend she get into out-patient physical therapy for the back as well as a trial of electrical stimulation for the left lower leg and foot. She should try to rub/massage the foot/ankle to stimulate the area to desensitize the nerves in the foot. She should continue to avoid any lifting, bending or twisting. Follow up in 4 weeks for her 6 week post-op appointment or sooner if pain, swelling, numbness or associated symptoms, or concerns develop. All questions answered. Patient in agreement of plan. Clinical Quality Measures Falls Risk Screening/Assistive Devices Have you fallen in the past year?: No 11/10/24 1402 Date Terry Lang MD [facility] Signature: Date (if applicable) CC: Shanelle Rodríguez, DO Normal [facility] Urine Cultureon 10-27-2024 URC Culture exhibits no growth. Normal [facility] Comment on above: Performed By: #### M 100.5369 ####[facility] [address] [place], [address] Anion gap in Serum or Plasma Ordered By: Nelda Maravilla on 10-26-2024 Anion gap [Moles/Vol] 10 mmol/L - [facility] BUN/creatinine ratioOrdered By: Nelda Maravilla on 10-26-2024 Urea nitrogen/Creatinine [Mass ratio] 14.6 mg/mg - [facility] Basic Metabolic Profile (BMP )on 10-26-2024 BUN/CRE 14.6 RATIO Normal - [facility] Comment on above: Performed By: #### L 500.2500, L100.0500 ####[facility] [address] [place], [address] Calcium [Mass/Vol] 8.4 mg/dL Normal 7.6-11.0 [facility] Comment on above: Performed By: #### L 500.2500, L100.0500 ####[facility] [address] [place], [address] Chloride [Moles/Vol] 104 mmol/L Normal 98-108 [facility] Comment on above: Performed By: #### L 500.2500, L100.0500 ####[facility] [address] [place], [address] CO2 [Moles/Vol] 22.4 mmol/L Normal 21.0-32.0 [facility] Comment on above: Performed By: #### L 500.2500, L100.0500 ####[facility] [address] [place], [address] Creatinine [Mass/Vol] 0.79 mg/dL Normal 0.70-1.20 [facility] Comment on above: Performed By: #### L 500.2500, L100.0500 ####[facility] [address] [place], [address] ECRCL 62.31 ml/min Normal 50-250 [facility] Comment on above: Performed By: #### L 500.2500, L100.0500 ####[facility] [address] [place], [address] GAP 10 Normal 5-15 [facility] Comment on above: Performed By: #### L 500.2500, L100.0500 ####[facility] [address] [place], [address] GFR/1.73 sq M.predicted among non-blacks MDRD (S/P/Bld) [Vol rate/Area] 82 mL/min/{1.73_m2} Normal >60 [facility] [facility] [place] Comment on above: Result Comment: mL/m in/1.73m2 CKD-EPI Creatinine Equation (2020) Performed By: #### L 500.2500, L100.0500 ####[facility] [address] [place], [address] Glucose [Mass/Vol] 104 mg/dL High 70-99 [facility] Comment on above: Performed By: #### L 500.2500, L100.0500 ####[facility] [address] [place], [address] Potassium [Moles/Vol] 4.4 mmol/L Normal 3.3-5.1 [facility] Comment on above: Performed By: #### L 500.2500, L100.0500 ####[facility] [address] [place], [address] Sodium [Moles/Vol] 136 mmol/L Normal 133-145 [facility] Comment on above: Performed By: #### L 500.2500, L100.0500 ####[facility] [address] [place], [address] Urea nitrogen [Mass/Vol] 12 mg/dL Normal 4-19 [facility] Comment on above: Performed By: #### L 500.2500, L100.0500 ####[facility] [address] [place], [address] Bilirubin Test strip Ql (U)O rdered By: Re Raines on 10-26-2024 Bilirubin Ql (U) Negative Negative [facility] CBC-Complete Blood Cnt No Di ffon 10-26-2024 Erythrocyte distribution width (RBC) [Ratio] 14.7 % High 11.6-14.6 [facility] Comment on above: Performed By: #### L 500.2500, L100.0500 ####[facility] [address] [place], [address] Hematocrit (Bld) [Volume fraction] 32.8 % Low 37-47 [facility] Comment on above: Performed By: #### L 500.2500, L100.0500 ####[facility] [address] [place], [address] Hemoglobin (Bld) [Mass/Vol] 10.8 g/dL Low 12.0-15.0 [facility] Comment on above: Performed By: #### L 500.2500, L100.0500 ####[facility] [address] [place], [address] MCH (RBC) [Entitic mass] 29.8 pg Normal 27.0-32.0 [facility] Comment on above: Performed By: #### L 500.2500, L100.0500 ####[facility] [address] [place], [address] MCHC (RBC) [Mass/Vol] 32.9 g/dL Normal 32-36 [facility] Comment on above: Performed By: #### L 500.2500, L100.0500 ####[facility] [address] [place], [address] MCV (RBC) [Entitic vol] 90.6 fL Normal 81-99 [facility] Comment on above: Performed By: #### L 500.2500, L100.0500 ####[facility] [address] [place], [address] Platelet mean volume (Bld) [Entitic vol] 11.4 fL Normal 6.2-12.0 [facility] Comment on above: Performed By: #### L 500.2500, L100.0500 ####[facility] [address] [place], [address] Platelets (Bld) [#/Vol] 189 10*3/uL Normal 150-450 [facility] Comment on above: Performed By: #### L 500.2500, L100.0500 ####[facility] [address] [place], [address] RBC (Bld) [#/Vol] 3.62 10*6/uL Low 4.2-5.4 [facility] Comment on above: Performed By: #### L 500.2500, L100.0500 ####[facility] [address] [place], [address] RDW SD 49.7 fl High 35.1-43.9 [facility] Comment on above: Performed By: #### L 500.2500, L100.0500 ####[facility] [address] [place], [address] WBC (Bld) [#/Vol] 11.1 10*3/uL High 4.4-11.0 [facility] Comment on above: Performed By: #### L 500.2500, L100.0500 ####[facility] [address] [place], [address] Carbon dioxide, total [Moles /volume] in Central venous bloodOrdered By: Nelda Maravilla on 10-26-2024 CO2 [Moles/Vol] 22.4 mmol/L 21.0-32.0 [facility] Chloride assayOrdered By: Melody Maravilla on 10-26-2024 Chloride [Moles/Vol] 104 mmol/L 98-108 [facility] Epithelial cells.squamous LM Ql (Urine sed)Ordered By: Re Raines on 10-26-2024 Epithelial cells.squamous LM.HPF (Urine sed) [#/Area] 0 /[HPF] 5-10 [facility] Erythrocyte distribution wid th (RBC) [Ratio]Ordered By: Nelda Maravilla on 10-26-2024 Erythrocyte distribution width (RBC) [Entitic vol] 49.7 fL High 35.1-43.9 [facility] Erythrocyte distribution wid th ratioOrdered By: Nelda Maravilla on 10-26-2024 Erythrocyte distribution width (RBC) [Ratio] 14.7 % High 11.6-14.6 [facility] Erythrocyte distribution wid th standard deviationOrdered By: Nelda Maravilla on 10-26-2024 Erythrocyte distribution width (RBC) [Ratio] 49.7 fl High 35.1-43.9 [facility] Estimation of creatinine anibal aranceOrdered By: Nelda Maravilla on 10-26-2024 Estimated Creatinine Clearance Calc 62.31 ml/min 50-250 [facility] GFR/1.73 sq M.predicted john g non-blacks MDRD (S/P/Bld) [Vol rate/Area]Ordered By: Nelda Maravilla on 10-26-2024 Estimated GFR (MDRD) Non-Af Amer 82 >60 [facility] Comment on above: mL/min/1.73m2 CKD-EP I Creatinine Equation (2020) Glomerular filtration rate ( GFR) estimation/1.73 sq m using serum, plasma, or whole bOrdered By: Nelda Maravilla on 10-26-2024 GFR/1.73 sq M.predicted among non-blacks MDRD (S/P/Bld) [Vol rate/Area] 82 mL/min/{1.73_m2} >60 [facility] [place] Comment on above: mL/min/1.73m2 CKD-EP I Creatinine Equation (2020) Glucose Ql (U)Ordered By: Lara Raines on 10-26-2024 Urine Glucose (UA) Normal mg/dl Normal [facility] Hematocrit Auto (Bld) [Volum e fraction]Ordered By: Nelda Maravilla on 10-26-2024 Hematocrit (Bld) [Volume fraction] 32.8 % Low 37-47 [facility] Hemoglobin measurementOrdere d By: Nelda Maravilla on 10-26-2024 Hemoglobin (Bld) [Mass/Vol] 10.8 g/dL Low 12.0-15.0 [facility] Ketones Test strip Ql (U)Ord ered By: Re Raines on 10-26-2024 Ketones Ql (U) Negative Negative [facility] Lumbar Spine 2 or 3 Viewson 10-26-2024 Lumbar Spine 2 or 3 Views [facility] Imaging Services [address] [place], [place] [id number] Lumbar Spine 2 or 3 Views MR#: [id number] Acct: [id number] Name: MAYNOR ROSEN Rep #: [id number] : 1955 F 69 From: Álvaro Tam MD PCP: Shanelle Rodríguez DO Status: ADM IN Study: Lumbar Spine 2 or 3 Views Date of Exam: Exam# [id number] Ordering Dr: Nelda Maravilla PROCEDURE: LUMBAR SPINE 2 OR 3 VIEWS 10/26/2024 REASON FOR EXAM: S/P LUMBAR FUSION TECHNIQUE: 2 view(s) of the lumbar spine COMPARISON: CT 09/03/2024 FINDINGS: No acute appearing fracture identified. Previous L4-5 posterior fusion with transpedicular screws now extended from L4 through S1 with L5-S1 intervertebral disc spacer now present and appears anatomic. Previous right L4 hemilaminectomy and mild anterolisthesis L4 on L5 again seen. L3-4 spondylosis/discogen ic change again noted. Mild left spinal curvature again noted. Partially imaged right hip replacement. RAD/Lumbar Spine 2 or 3 Views IMPRESSION: Previous L4-5 posterior fusion with transpedicular screws now extended from L4 through S1 with L5-S1 intervertebral disc spacer now present and appears anatomic. Reading Location: [facility] CC: LUCIA Menjivar; Shanelle Rodríguez DO Sandfill Operator Surface: Signed Normal [facility] MCV (mean corpuscular volume ) determinationOrdered By: Nelda Maravilla on 10-26-2024 MCV (RBC) [Entitic vol] 90.6 fL 81-99 [facility] Mean corpuscular hemoglobin (MCH) determinationOrdered By: Nelda Maravilla on 10-26-2024 MCH (RBC) [Entitic mass] 29.8 pg 27.0-32.0 [facility] Mean corpuscular hemoglobin concentration (MCHC) determinationOrdered By: Nelda Maravilla on 10-26-2024 MCHC (RBC) [Mass/Vol] 32.9 g/dL 32-36 [facility] Mean platelet volume determi nationOrdered By: Nelda Maravilla on 10-26-2024 Platelet mean volume (Bld) [Entitic vol] 11.4 fL 6.2-12.0 [facility] Microscopic analysis of urin e for red blood cells (RBC)Ordered By: Re Raines on 10-26-2024 Microscopic analysis of urine for red blood cells (RBC) 0-5 SEEN /hpf 0-5 [facility] Urine RBC 0-5 SEEN /hpf 0-5 [facility] Mucus LM Ql (Urine sed)Order ed By: Re Raines on 10-26-2024 Mucus Ql (Urine sed) 0 SEEN /hpf [facility] Nitrite Test strip Ql (U)Ord ered By: Re Raines on 10-26-2024 Nitrite Ql (U) Negative Negative [facility] Platelet countOrdered By: Melody Maravilla on 10-26-2024 Platelets (Bld) [#/Vol] 189 10*3/uL 150-450 [facility] Potassium (Unsp spec) [Mass/ Vol]Ordered By: Nelda Maravilla on 10-26-2024 Potassium [Moles/Vol] 4.4 mmol/L 3.3-5.1 [facility] Potassium measurement (mass/ volume)Ordered By: Nelda Maravilla on 10-26-2024 Potassium (Unsp spec) [Mass/Vol] 4.4 mmol/L 3.3-5.1 [facility] Protein Test strip Ql (U)Ord ered By: Re Raines on 04-02-2025 Protein Ql (U) 30 mg/dl High Negative [facility] RBC Auto (Bld) [#/Vol]Ordere d By: Nelda Maravilla on 10-26-2024 RBC (Bld) [#/Vol] 3.62 10*6/uL Low 4.2-5.4 [facility] Serum creatinine measurement (mass/volume)Ordered By: Nelda Maravilla on 10-26-2024 Creatinine [Mass/Vol] 0.79 mg/dL 0.70-1.20 [facility] Serum glucose measurement (m ass/volume)Ordered By: Nelda Maravilla on 10-26-2024 Glucose [Mass/Vol] 104 mg/dL High 70-99 [facility] Serum or plasma calcium franklyn urement (mass/volume)Ordered By: Nelda Maravilla on 10-26-2024 Calcium [Mass/Vol] 8.4 mg/dL 7.6-11.0 [facility] Serum or plasma urea nitroge n measurement (mass/volume)Ordered By: Nelda Maravilla on 10-26-2024 Urea nitrogen [Mass/Vol] 12 mg/dL 4-19 [facility] Sodium levelOrdered By: Petra Maravilla on 10-26-2024 Sodium [Moles/Vol] 136 mmol/L 133-145 [facility] Squamous epithelial cells de tection in urine sediment by light microscopyOrdered By: Re Raines on 10-26-2024 Epithelial cells.squamous LM Ql (Urine sed) 0-5 SEEN /hpf 5-10 [facility] Urinalysis, Completeon 10-26 RBC 0-5 SEEN Normal 0-5 [facility] Comment on above: Order Comment: CLEAN CATCH Performed By: #### L 400.0001 ####[facility] [address] [place], [place], [id number] WBC 0-5 SEEN Normal 0-5 [facility] Comment on above: Order Comment: CLEAN CATCH Performed By: #### L 400.0001 ####[facility] [address] [place], [place], [id number] EPI,SQUAMOUS 0-5 SEEN Normal 5-10 [facility] Comment on above: Order Comment: CLEAN CATCH Performed By: #### L 400.0001 ####[facility] [address] [place], [address] BACTERIA 0 SEEN Normal None Seen [facility] Comment on above: Order Comment: CLEAN CATCH Performed By: #### L 400.0001 ####[facility] [address] [place], [address] Mucus Ql (Urine sed) [address] [facility] Comment on above: Order Comment: CLEAN CATCH Performed By: #### L 400.0001 ####[facility] [address] [place], [place], [id number] Urine blood detectionOrdered By: Re Raines on 10-26-2024 Urine Occult Blood 10 /ul High Negative [facility] Urine clarityOrdered By: Tiffanie Raines on 10-26-2024 Clarity (U) Sl. Cloudy Clear [facility] Urine color determinationOrd ered By: Re Raines on 10-26-2024 Color (U) Yellow Yellow [facility] Urine cultureOrdered By: Tiffanie Raines on 10-26-2024 Bacteria identified Cx Nom (U) Culture exhibits no growth. [facility] Urine glucose detectionOrder ed By: Re Raines on 10-26-2024 Glucose Ql (U) Normal mg/dl Normal [facility] Urine leukocyte esterase det ection by dipstickOrdered By: Re Raines on 10-26-2024 Leukocyte esterase Test strip Ql (U) 25 /ul High Negative [facility] Urine pHOrdered By: Re Raines on 10-26-2024 pH (U) 6.0 [pH] 5.0 - 8.0 [facility] Urine sediment bacteria coun t by microscopy (number/high power field)Ordered By: Re Raines on 10-26-2024 Bacteria LM.HPF (Urine sed) [#/Area] 0 /[HPF] None Seen [facility] Urine specific gravity measu rementOrdered By: Re Raines on 10-26-2024 Specific gravity (U) [Rel density] 1.015 1.002-1.030 [facility] Urine urobilinogen measureme ntOrdered By: Re Raines on 10-26-2024 Urobilinogen Ql (U) Normal mg/dl Normal [facility] Urobilinogen Ql (U)Ordered B y: Re Raines on 10-26-2024 Urine Urobilinogen Normal mg/dl Normal [facility] White blood cell (WBC) count Ordered By: Nelda Maravilla on 10-26-2024 WBC (Bld) [#/Vol] 11.1 10*3/uL High 4.4-11.0 [facility] White blood cell countOrdere d By: Re Raines on 10-26-2024 Urine WBC 0-5 SEEN /hpf 0-5 [facility] White blood cell count 0-5 SEEN /hpf 0-5 [facility] Bedside Glucoseon 10-25-2024 FINGERSTICK GLU 140 mg/dL High [address] [place] [address] Comment on above: Result Comment: [place] MAEHR OF PATIENT CARE PER NURSING PROTOCOL Performed By: #### L 501.080 #### [facility] [address] [place], [place], [id number] Gl[facility] measurement at [facility] deOrdered By: Terry Lang on 10-25-2024 Bedside Glucose (Misc Panel) 140 mg/dL High [address] [place] [address] Comment on above: MANAGEMENT OF PATIEN T CARE PER NURSING PROTOCOL Glucose [Mass/Vol] 140 mg/dL High [address] [place] [address] Comment on above: MANAGEMENT OF PATIEN T CARE PER NURSING PROTOCOL Lumbar Spine 2 or 3 Viewson 10-25-2024 Lumbar Spine 2 or 3 Views [facility] Imaging Services [address] [place] [address] Lumbar Spine 2 or 3 Views MR#: [id number] Acct: [id number] Name: MAYNOR ROSEN Rep #: [id number] : 1955 F 69 From: Maynor boyd MD PCP: Shanelle Rodríguez DO Status: ADM IN Study: Lumbar Spine 2 or 3 Views Date of Exam: Exam# [id number] Ordering Dr: Terry Lang MD PROCEDURE: Intraoperative fluoroscopic services. REASON FOR EXAM: ANTERIOR FUSION L5-S1, REVISION POSTERIOR FUSION L4-5 L5-S1 TECHNIQUE: Intraoperative fluoroscopy provided for intraoperative fusion at the L4-L5 level. FINDINGS: 2 minutes and 41 seconds of fluoroscopy time. 81.05 mGy. RAD/Lumbar Spine 2 or 3 Views IMPRESSION: Intraoperative imaging provided for L4-L5 and L5 S1 fusion. Reading Location: [id number] CC: Dr. Terry Lang MD; Shanelle Rodríguez DO Sandfill Operator Surface: Signed [facility] MR/POSTOP.[facility] 10-25-2024 MR/POSTOP.[facility] Medical Records Department [address] [place] [address] Anesthesia Postop Eval I 10/25/24 1348 MR#: [id number] Acct: [id number] Name: MAYNOR ROSEN Rep #: [id number] : 1955 69 From: Valerie Rockwell CRNA PCP: Shanelle Rodríguez DO Status:ADM IN Y Race: C Location: [place] [address] Anesthesia: Postop Eval I Current Vital Signs Temperature: 97.2 F Pulse Rate: 84 Blood Pressure: 124/82 Respiratory Rate: 16 Pulse Ox: 100 Oxygen Delivery Method: Simple Mask Oxygen Flow Rate (L/min): 6 Assessment Airway patent: Yes Spontaneous unlabored respirations: Yes Mental status: Awake and Calm nausea: No Vomiting: No Anesthesia Complication: No Fluid Hydration Crystalloid volume administer (ml): 2,000 Total IV fluid infused: 2,000 Progress Note Anesthesia document: Postop Eval 1 completed: Yes 10/25/24 1350 Date Valerie Rockwell CRNA Cosigner Signature: Date CC: Signed Normal [facility] MR/QBTVNNND2gz 10-25-2024 MR/POSTOPAN2 [facility] Medical Records Department [address] [place] [address] Anesthesia Postop Eval II 10/25/242001 MR#: [id number] Acct: [id number] Name: MAYNOR ROSEN Rep #: [id number] : 1955 69 From: Thien Grijalva MD PCP: Shanelle Rodríguez DO Status:ADM IN Y Race: C Location: ID3 [id number] Anesthesia Postop Eval I Sum Postop Eval Completion status Anesthesia document: Postop Eval 1 completed: Yes Anesthesia Postop Eval I Summary Anesthesia Postop Eval I Summary: Anesthesia Postop Eval I: Assessment Summary Airway patent Yes 10/25/24 13:50 SAND [email or web address] Spontaneous unlabored Yes 10/25/24 13:50 SAND BOBBER.[email or web address] respirations Mental status Awake,Calm 10/25/24 13:50 SAND BOBBER.[email or web address] nausea No 10/25/24 13:50 SAND BOBBER.SKOBY Vomiting No 10/25/24 13:50 SAND BOBBER.SKOBY Anesthesia Postop Eval I: Fluid Summary Crystalloid volume administer 2,000 10/25/24 13:50 SAND BOBBER.SKOBY (ml) Colloids volume administered ( ml) Blood Product volume administered (ml) Total IV fluid infused 2,000 10/25/24 13:50 SAND BOBBER.SKOBY Anesthesia Postop Eval I: Summary Notes Anesthesia Complication No 10/25/24 13:50 SAND BOBBER.SKOBY Anesthesia Complication Comment: Post-operative progress note Anesthesia: Postop Eval II Evaluation Mental status: Awake and Calm Pain Level: 2 nausea: No Vomiting: No Complications Anesthesia Complication: No 10/25/242001 Date Thien Grijalva MD Cosigner Signature: Date CC: Signed Normal [facility] Operative Reporton Operative Report [facility] Medical Records Department [address] [place] [address] Operative Report 10/25/24 1328 MR#: [id number] Acct: [id number] Name: MAYNOR ROSEN Rep #: [id number] : 1955 69 From: Terry Lang MD PCP: Shanelle Rodríguez DO Status:ADM IN Location: [facility] AC-TBA-2 Procedures Musculoskeletal 20xxx-29xxx: Other Procedure See Report Operative Report (Standard) Operative Information Date of Procedure: 10/25/24 Pre-Operative Diagnosis: L5-S1 spondylolisthesis, disc herniation, radiculopathy, prior L4-5 fusion Post-Operative Diagnosis: Same Surgery/Procedure Performed: L5-S1 TLIF, removal of previous hardware, L4-S1 revision posterior fusion forestry patrolman: Yes Production Or Plant Engineer: Nelda Maravilla Tasks completed by engineer first assistant: Closing, Removing tissue, Implanting device, Hemostasis: Electrocautery and Retracting Type of Anesthesia: General RN Documented Start/Stop Times: Operation Date: 10/25/24 07:30 Case Time Into Pre-Op 10/25/24 05:44 Out of Pre-Op 10/25/24 07:38 Anesthesia Start 10/25/24 07:45 Into Room 10/25/24 07:45 Procedure Start 10/25/24 08:14 Procedure Start Time: 08:14 Procedure Stop Time: 13:20 Select all DRAINS/GRAFTS/IMPLAN TS that apply: Graft Graft details: Allograft cancellous chips, DBX, Medtronic infuse BMP sponge and Implanted device Implanted device details: DePuy XPac TLIF cage, Viper prime pedicle screw instrumentation Estimated Blood Loss: 200 cc Specimen collected: No Description of surgery: Preoperative diagnosis: L5-S1 spondylolisthesis, disc degeneration, prior L4-5 fusion Postoperative diagnosis: Same Name of procedure: L5-S1 transforaminal lumbar interbody fusion (TLIF), minimally invasive left side approach, removal of previous hardware, percutaneous L4-S1 pedicle screw instrumentation with revision posterior fusion. . L5-S1 posterior spinal fusion and interbody fusion [id number] ??? L4-S1 posterior pedicle screw instrumentation . L5-S1 insertion of cage . L4-5 removal of posterior hardware . L4-5 exploration of posterior fusion . Local autograft . Cancellous allograft with DBX Attending Surgeon: Dr. Terry Lang Estimated blood loss: 200 mL Anesthesia: GA Complications: None Implants: DePuy Synthes X-PAC TLIF cage, Viper prime screws Indications: Patient is a 69-year-old lady who has had a history of low back pain that radiates into left lower extremity. X-rays and MRI revealed L5-S1 spondylolisthesis, disc degeneration, prior L4-5 fusion. Patient was explained all options of treatment which included continued nonoperative treatment measures like rest physical therapy, epidural steroidal injections. After a prolonged period of of nonoperative treatment, patient elected to undergo surgical decompression fusion since the symptoms severely affected her quality of life. All risks and benefits associated with the procedure were explained to the patient. The risks include but are not limited to infection, bleeding, injury to nerves and vessels, persistent paresthesia, persistent pain, dural tear, need for further procedures, adjacent segment degeneration, pseudoarthrosis, hardware failure, etc. Procedure: The patient was identified in the preoperative holding suite using unique patient identifiers. Skin was marked, consent was reviewed, and all questions were answered. The patient was then brought back to the operative room. A surgical timeout was performed to make sure correct procedure was being done on the correct patient and all operative room staff were on the same page. General endotracheal anesthesia was then given to the patient. Patient underwent an attempted L5-S1 ALIF approach but this was aborted due to significant intra- abdominal scarring preventing access to L5-S1. Decision was then made to approach posteriorly and perform TLIF. The patient was then turned prone onto a Paul table. The back was prepped and draped in usual fashion. A final timeout was then again done just before starting the procedure. C-arm AP view was then taken. C-arm was positioned in a way that S1 was centralized and superior endplate of S1 and was parallel to the beam. Spinous process was centered between the pedicles. Midline was marked with skin marker and lateral borders of the pedicles were also marked. Skin marker was also utilized to sherine longitudinally along the previous paramedian scars Going inferiorly up to the S1 pedicle line. 2 vertical incisions about 1 inch Over the previous scar were taken about 1/2 inch lateral to the pedicle line. The fascia was also incised vertically approximately the same length. Finger dissection was utilized to palpate the previous hardware starting on the left. Sequential tubes were then docked onto the left L5 screw. Muscle tissue was louie (more content not included)... Normal [facility] Operative Report [facility] Medical Records Department [address] [place] [address] Operative Report 10/25/24 1317 MR#: [id number] Acct: [id number] Name: MAYNOR ROSEN Rep #: [id number] : 1955 69 From: Terry Lang MD PCP: Shanelle Rodríguez DO Status:ADM IN Location: [facility] AC-TBA-2 Operative Report (Standard) Operative Information Date of Procedure: 10/25/24 Pre-Operative Diagnosis: L5-S1 disc degeneration, disc herniation, radiculopathy, prior L4-5 fusion Post-Operative Diagnosis: Same Surgery/Procedure Performed: L5-S1 attempted anterior lumbar interbody fusion forestry patrolman: Yes Production Or Plant Engineer: Alexander Fierro Tasks completed by engineer first assistant: Opening, Closing, Hemostasis: Electrocautery and Other (Co-surgeon for anterior approach, attempted ALIF) Additional speech and language assistant?: Yes Additional Carpet Renovator #2: Nelda Maravilla Tasks completed by speech and language assistant #2: Closing, Removing tissue, Implanting device, Hemostasis: Electrocautery and Retracting Type of Anesthesia: General RN Documented Start/Stop Times: Operation Date: 10/25/24 07:30 Case Time Into Pre-Op 10/25/24 05:44 Out of Pre-Op 10/25/24 07:38 Anesthesia Start 10/25/24 07:45 Into Room 10/25/24 07:45 Procedure Start 10/25/24 08:14 Procedure Start Time: 08:14 Procedure Stop Time: 13:20 Select all DRAINS/GRAFTS/IMPLAN TS that apply: None Estimated Blood Loss: 200 cc Specimen collected: No Description of surgery: Preoperative diagnosis: L5-S1 spondylolisthesis, L5-S1 disc degeneration, radiculopathy, prior L4-5 fusion Postoperative diagnosis: Same Name of procedures L5-S1 attempted anterior lumbar interbody fusion (ALIF),Supine: Aborted due to significant scarring and inability to reach the spine. Attending Surgeon: Dr. Terry Lang Co-surgeon: Dr. Alexander Fierro Estimated blood loss: 200 mL Anesthesia: General Complications: None Indications: Patient is a 69-year-old pleasant lady who has had a long history of low back pain and left lower extremity ideation. Xrays MRI revealed L5-S1 spondylolisthesis, disc degeneration, left-sided paracentral disc herniation, prior L4-5 fusion. After undergoing a prolonged period of nonoperative treatment, the patient elected to undergo surgical decompression fusion. All surgical options were discussed with the patient including anterior and posterior approaches. All risks and benefits associated with the procedure were explained to the patient. The risks include but are not limited to infection, bleeding, injury to nerves and vessels including major vessels like IVC and aorta, persistent paresthesia, persistent pain, dural tear, need for further procedures, adjacent segment degeneration, pseudoarthrosis, hardware failure, retrograde ejaculation, paralytic ileus, etc. Procedure: The patient was identified in the preoperative holding suite using Unique patient identifiers. Skin was marked, consent was reviewed, and all questions were answered. The patient was then brought back to the operative room. A surgical timeout was performed to make sure correct procedure was being done on the correct patient and all operative room staff were on the same page. General endotracheal anesthesia was then given to the patient. Delgadillo catheter was inserted. The patient was then carefully positioned in supine position with pillows below the knees on a regular OR table. The surgical area was prepped and draped in usual fashion. 2 g of Ancef was injected IV as preoperative antibiotic. A final timeout was then again done just before starting the procedure. A 2.5 inch transverse Pfannenstiel incision was taken in the suprapubic area along the skin crease. Sharp dissection with Bovie was carried out up to the anterior rectus sheath. Anterior rectus sheath was incised vertically close to the midline. Left rectus muscle was retracted laterally. Preperitoneal space was explored to identify inferior epigastric vessels on the left side. Sponge sticks were utilized to move the bowel and peritoneum [id number]-[id number]-way staying within the retroperitoneal plane. Significant anterior preperitoneal scarring was noticed with adhesions between the parietal peritoneum and the undersurface of the anterior abdominal wall. Parietal peritoneum was fairly thin and despite blunt dissection defect through the parietal peritoneum were inadvertently creating bowel loops to come out of the peritoneum. Parietal peritoneum was attempted to be repaired with 3-0 Vicryl. Further deeper dissection was attempted. [employer] retractor system was positioned and the retractor blades were applied. However, since the parietal peritoneum was extremely thin, the repair did not take and bowel loops continue to come out of the peritoneal sac. At this point a decision was made to abandon the anterior exposure as significant scarring was anticipated and it wa (more content not included)... Normal [facility] Operative Report [facility] Medical Records Department [address] [place] [address] Operative Report 10/25/24 1008 MR#: [id number] Acct: [id number] Name: MAYNOR ROSEN Rep #: [id number] : 1955 69 From: Alexander Fierro MD PCP: Shanelle Rodríguez DO Status:ADM IN Location: [place] [address] Operative Report (Standard) Operative Information Date of Procedure: 10/25/24 Pre-Operative Diagnosis: L5-S1 degenerative disc disease Post-Operative Diagnosis: Same Surgery/Procedure Performed: Aborted anterior lumbar interbody fusion L5-S1 forestry patrolman: No Type of Anesthesia: General RN Documented Start/Stop Times: Operation Date: 10/25/24 07:30 Case Time Into Pre-Op 10/25/24 05:44 Out of Pre-Op 10/25/24 07:38 Anesthesia Start 10/25/24 07:45 Into Room 10/25/24 07:45 Procedure Start 10/25/24 08:14 Procedure Start Time: 08:15 Procedure Stop Time: 09:30 Select all DRAINS/GRAFTS/IMPLAN TS that apply: None Estimated Blood Loss: 15 Specimen collected: No Description of surgery: HPI: Patient is a 69-year-old female with L5-S1 degenerative disc disease and prior posterior instrumentation. She is felt to be appropriate for anterior lumbar interbody fusion in addition to revision of her posterior hardware. Vascular surgery services are requested to aid in exposure. Description of procedure: Upon obtaining form consent and verification correct patient procedure site patient was taken to the operating where she was placed under general anesthesia. She was then positioned prepped and draped in usual sterile fashion time was performed. Transverse incision was made 1 fingerbreadth superior to the pubic symphysis and Bovie electrocautery was dissect down through subcutaneous tissue to level the fascia. Hand-held retractors then put in the position and the fascia incised vertically just to the left of the midline. The rectus muscle was mobilized and retracted laterally entering into the preperitoneal space. Scar tissue from her prior tubal ligation which was done via low midline incision was encountered adhering the peritoneum to the posterior aspect of abdominal wall. Adjacent to this area of scar there was very thin peritoneum which unfortunately easily tore with gentle retraction and dissection. The peritoneal defect was repaired with 3-0 Vicryl in running fashion and the abdominal contents retracted superiorly allowing further blunt dissection into the preperitoneal space of the pelvis. With dissection deeper in the pelvis more significant dense scar was encountered likely further scarring from her tubal ligation which significantly anchored the peritoneum in the pelvis. Progress mobilizing the abdominal contents was very slow but we were able to identify the left iliac vessels and follow these cephalad toward the sacral promontory. With more retraction of the abdominal contents required there appeared to be a second peritoneal defect as there is now significant loops of small bowel in the retroperitoneal space. Self-retaining retractors were repositioned and we are able to visualize the peritoneal defect which was large and allowed multiple loops of bowel to egress into the operative field. Efforts were made to better retract the bowel into the peritoneal sac however this was unsuccessful despite multiple retractor repositions. We were able to further work towards mobilizing the abdominal contents however the dense scar in the pelvis continued to deter progress. It was felt that the amount of scar was prohibitive and that we would abort to the anterior component of the surgery with plans to address the disc via the posterior approach. We were able to return the small bowel into the peritoneal sac and the peritoneal defect was large enough that it was felt that there was no significant risk for entrapment or obstruction subsequently. Self- retaining retractors were then withdrawn and the fascia closed with 1 Vicryl in running fashion. Superficial incision was then irrigated with saline and closed with 2-0 Vicryl, 3-0 Vicryl, 4-0 Monocryl. Dry sterile dressings were then applied and the patient repositioned for posterior approach. Surgical Findings: Scar tissue from midline abdominal incision to pelvis with peritoneum anchored in the pelvis to her prior tubal ligation site. Complications Complications: Yes Complication Details: Unable to complete procedure from anterior approach. 10/25/24 1020 Cosigner Signature (if applicable): CC: Dr. Terry Lang MD; Dr. Alexander Fierro MD; Shanelle Rodríguez DO Signed Normal [facility] HIV Viral Load Quanton 10-21 HIV-1 RNA, PCR < 20 Normal . [facility] Comment on above: Order Comment: Reaso n for Laboratory Test PREOP Result Comment: HIV- 1 RNA not detected The reportable range for this assay is 20 to 10,000,000 copies HIV-1 RNA/mL. Performed By: #### L 100.0100, L501.5200, M100.651, L3890.4000, L3890.6202, L3890.6301, L3100.0300, L500.2500, BTSPAT ####[facility] [address] [place], [place], [id number] log10 HIV-1 RNA TNP Normal . [facility] Comment on above: Order Comment: Reaso n for Laboratory Test PREOP Result Comment: Resu lt Units: irs96wsul/mL Unable to calculate result since non-numeric result obtained for component test. Performed By: #### L 100.0100, L501.5200, M100.651, L3890.4000, L3890.6202, L3890.6301, L3100.0300, L500.2500, BTSPAT ####[facility] [address] [place], [place], [id number] Orthopedic Visit Reporton Orthopedic Visit Report [facility] [address] [place] [address] [address] [place], [place] [address] OFFICE VISIT Date of Service: 10/20/24 MR#: [id number] Acct: [id number] Name: MAYNOR ROSEN Rep #: [id number] : 1955 Provider: Dr. Terry Lang MD Age/Sex: 69/F Location: [facility] Status: Signed Intake Vital Signs 08/19/24 07:34 Height 5 ft 3 in Weight: 155 lb 6 oz BMI 27.5 Intake Visit Reasons: lumbar spine Allergies No Known Allergies Allergy (Verified 10/20/24 11:15) Medications ???Medication ???Instructions ???Recorded ???Confirmed ???Type duloxetine 30 mg capsule,delayed 30 - 60 mg PO QDAY ANTIDEPRESSENT 08/19/24 10/20/24 History release lisinopril 20 mg tablet 20 mg PO DAILY HTN 08/19/24 History pantoprazole 20 mg tablet,delayed 20 mg PO QDAY GERD 08/19/2410/20 History release calcium 500 mg (as 2 tab PO DAILY SUPPLEMENT 10/11/24 10/20/24 History carbonate)-vitamin D3 3.125 mcg (125 unit) tablet gabapentin 100 mg capsule 200 - 300 mg PO TID PRN PAIN 10/1110/20/24 History hydrocodone-acetamin ophen 5-325mg 0.5 tab PO QHS PRN pain 10/11/24 10/11/24 History 5mg-325mg ascorbic acid (vitamin C) 1,000 mg 1 g PO Q6H 10/20/24 10/20/24 His tory capsule budesonide 3 mg 9 mg PO QDAY PRN 10/20/24 10/20/24 History capsule,delayed,exte nded release cholecalciferol (vitamin D3) 25 25 mcg PO QDAY 10/20/24 10/20/24 H istory mcg (1,000 unit) capsule cyclobenzaprine 10 mg tablet 10 mg PO TID PRN muscle spasm 09/2510/20/24 History sumatriptan succinate 100 mg tablet 100 mg PO ONCE 10/20/24 5 History zolpidem 10 mg tablet 10 mg PO QHS 10/20/24 10/20/24 His tory Have you fallen in the past year?: Yes PFSH Medical History Wears glasses Cancer Depression Anxiety Migraine headache GERD (gastroesophageal reflux disease) Microscopic colitis History of Mohs micrographic surgery for skin cancer ( 2021) Non-smoker PONV (postoperative nausea and vomiting) Hypertension Surgical History History of colonoscopy History of right hip replacement ( 01/2011) S/P lumbar fusion Status post breast reduction History of lumbar laminectomy History of lumbar fusion Family History Mother Hypertension Lung cancer Scoliosis DJD (degenerative joint disease) Father COPD (chronic obstructive pulmonary disease) Social History Smoking Status: Never smoker alcohol intake: current alcohol intake frequency: 0-2 drinks per day what type of physical activity do you participate in: other details: elias [facility] lumbar spine Details: This documentation accurately reflects the service provided and the decisions made by me, Dr. Terry Lang MD 10/20/24 1111. Part of today???s visit was documented by Niki GIBBS, acting as scribe. MAYNOR ROSEN is a 69 year old F here today for pre-op lumbar spine dos: 10/25/24. 08/19/24: MAYNOR ROSEN is a 68 year old F here today NEW patient for low back pain. She has had a prior fusion in 2021 that was done a L4-5. She had to have this surgery done after a fall that she had. Her second surgery she had a laminectomy of L5-S1 in 2022. Her surgeries was done by Dr. Sherine Juan at . Her past surgeries were done on the right side but now her pain is on the left side. She complains of low back and left leg pain that she has been having since right before her fusion. She has numbness and tingling over the right side of her low back, in her left ankle/foot and sometimes her lateral calf. She does also get tingling in her foot. She does see Dr. Ordaz on a regular basis and had an injection yesterday that has helped with about 50% of the tingling. Her last MRI that she had done was on 07/15/24. She has done PT after both of her surgeries but she doesn't feel that it was very helpful. She states that before her first surgery she did have foot drop of the left foot but after the surgery and with the help of rehab it has gotten much better. Ortho Exam General General: Yes no acute distress Neurologic: Yes alert and Yes oriented x3 Spine SPINE TESTING CERVICAL THORACIC LUMBAR Musculoskeletal Strength 0=absent - 5=normal Details: Exam of the lower back shows paramedian incisions bilaterally in the lower lumbar region and also midline slightly to the left vertical incision lower down. Mild left paraspinal tenderness noticed. Neurologic evaluation of lower extremity shows grade 2 left EHL, grade 4+ left ankle dorsiflexion, all other muscles are 5 of 5 strength. Passive straight leg raise test is positive on the left. Coding Level (more content not included)... Normal [facility] Electrocardiogram reportOrde red By: Addy Kent on 10-14-2024 EKG study [facility] Cardiovascular Services [address] [place] [address] 12 Lead EKG 10/13/24 0935 MR#: [id number] Acct: [id number] Name: MAYNOR ROSEN Rep #:[id number] : 1955 69 From: Addy Kent MD Attending Dr: Dr. Terry Lang MD Status: PRE IN Ordering Dr: Terry Lang MD Date: Location: [facility] Sex: F C Admitted: Test Reason : PREOP Blood Pressure : */* mmHG Vent. Rate : 71 BPM Atrial Rate : 71 BPM P-R Int : 178 ms QRS Dur : 78 ms QT Int : 380 ms P-R-T Axes : 52 33 41 degrees QTcB Int : 412 ms Normal sinus rhythm Possible Left atrial enlargement Low voltage QRS Septal infarct , age undetermined Abnormal ECG Confirmed by ADDY KENT MD ([id number]), loan expeditor ANGELA JIN ([id number]) on 55:48:48 AM Referred By: RICKEY Confirmed By: ADDY KENT MD 10/14/24 0548 Date _ Addy Kent MD CC: Dr. Terry Lang MD; Shanelle Rodríguez DO ~ Signed [facility] Work Phone: [phone] Hepatitis A AB, Totalon 09-25 HEPATITIS A,TOT Positive Abnormal Negative [facility] Comment on above: Result Comment: Comm ent: The HAV total antibody assay detects both IgG and IgM but does not differentiate between them. A negative result suggests susceptibility to infection. A positive result could be due to vaccination, previously resolved infection or active infection. Testing for HAV IgM should be performed if active HAV infection is suspected. [facility] offers profiles that will automatically reflex positive HAV total antibody results to IgM (e.g., panel #[id number] HAV Antibody w/ Rfx). Performed at: [address] [id number] Windows Deployment Technician: Walter Dsouza PhD, Phone: [phone] Performed By: #### L 100.0100, L501.5200, M100.651, L3890.4000, L3890.6202, L3890.6301, L3100.0300, L500.2500, BTSPAT ####[facility] [address] [place], [place], [id number] MR/NYAon 10-14-2024 MR/PAT.[facility] Medical Records Department [address] [place] [address] PAT - Anesthesia 10/14/24 0820 MR#: [id number] Acct: [id number] Name: MAYNOR ROSEN Rep #: [id number] : 1955 69 From: Tmiothy Sloan MD PCP: Shanelle Rodríguez DO Status:PRE IN Y Race: C Location: [facility] Pre-Assessment Diagnosis/Proposed Procedure Planned Operative Procedure(s): Anterior lumbar interbody fusion L5-S1, revision posterior lumbar fusion L4-5 and L5-S1, possible removal of hardware Anesthesia History Anesthesia History - communications attendant: Anesthesia History - communications attendant Hx Hospitalization No 10/11/24 13:17 Any Problems With Anesthesia Yes 10/11/24 13:17 Cholinesterase deficiency No 10/11/24 13:17 You/Your Family Experience No 10/11/24 13:17 fever (hyperthermia) with Relationship Recent Exposure to Contagious Disease Does patient have nerve No 10/11/24 13:17 stimulator Patient instructed to have device shut off --Does patient have Pacemaker or ICD? When Was Last Pacemaker Check QUESTION #4 FULL TEXT: You/Your Family Experience fever (hyperthermia) with Anesthesia Last Oral Intake Last Oral intake: Last Oral Intake NPO since Meds taken in AM with sips of water? Meds patient instructed to take am of surgery PONV PONV - communications attendant: PONV - communications attendant Female Yes 10/11/24 13:17 HX of Motion Sickness Yes 10/11/24 13:17 HX of N/V After Surgery Yes 10/11/24 13:17 Non-Smoker Yes 10/11/24 13:17 Duration of Surgery greater Yes 10/11/24 13:17 than 60 minutes Number of Risk Factors 5 10/11/24 13:17 PONV Score Severe Risk 10/11/24 13:17 Height Weight Height Weight: Anesthesia: Height Weight Height 5 ft 3 in 08/19/24 07:34 Respiratory Assessment Respiratory Assessment - communications attendant: Respiratory Tract Infection Hx - communications attendant Hx Respiratory Tract Infection No 10/11/24 13:17 STOP Sleep Apnea STOP Sleep Apnea - communications attendant: STOP Sleep Apnea - communications attendant Hx Hypertension Yes: CONTROLLED WITH MED 10/11/24 13:17 Hx Sleep Apnea No 10/11/24 13:17 CPAP BIPAP Do you snore loudly (louder No 10/11/24 13:17 than talking or can be heard Do you often feel tired/ No 10/11/24 13:17 fatigued/ sleepy during daytime? Has anyone observed you stop No 10/11/24 13:17 breathing during sleep? STOP Results Negative 10/11/24 13:17 QUESTION #5 FULL TEXT : Do you snore loudly (louder than talking or can be heard through closed doors)? 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 Specify any problems Hx of Preganancy in last 3 N/A 10/11/24 13:17 Months Nurse Filling Out Transfusion NBUCHER 10/11/24 13:17 Questions: Date: 10/11/24 10/11/24 13:17 Time: 13:23 10/11/24 13:17 Patient unable to answer at this time (ie. confused, unrespo /Reproducti on History /Reproducti ve History - communications attendant: /Reproducti ve Hx- communications attendant Hx Now Gestational Age (in weeks): EDC: Hx Hx Para Hx Section [facility] Medical History (Updated 10/11/24 @ 13:34 by Jessica Condon) Wears glasses Cancer Depression Anxiety Migraine headache GERD (gastroesophageal reflux disease) Microscopic colitis History of Mohs micrographic surgery for skin cancer ( 2021) Non-smoker PONV (postoperative nausea and vomiting) Hypertension Home Medications ???Medication ???Instructions ???Recorded ???Last Taken ???Type duloxetine 30 mg capsule,delayed 30 - 60 mg PO QDAY ANTIDEPRESSENT 08/19/24 Unknown History release lisinopril 20 mg tablet 20 mg PO DAILY HTN 08/19/24 Unknow n History pantoprazole 20 mg tablet,delayed 20 mg PO QDAY GERD 08/19/24 Unkno wn History release calcium 500 mg (as 2 tab PO DAILY SUPPLEMENT 10/11/24 Unknown History carbonate)-vitamin D3 3.125 mcg (125 unit) tablet gabapentin 100 mg capsule 200 - 300 mg PO TID PRN PAIN 10/11 Unknown History hydro (more content not included)... Normal [facility] MRSA/SAID NASAL SCREENon MRSA+SAID SCRN Reason for Exam: PREOP MRSA MRSA Negative S. AUREUS S. aureus Negative Normal [facility] Comment on above: Performed By: #### L 100.0100, L501.5200, M100.651, L3890.4000, L3890.6202, L3890.6301, L3100.0300, L500.2500, BTSPAT ####[facility] [address] [place], [place], [id number] 12 Lead EKGon 10-13-2024 12 Lead EKG [facility] Cardiovascular Services [address] [place] [address] 12 Lead EKG 10/13/24 0935 MR#: [id number] Acct: [id number] Name: MAYNOR ROSEN Rep #: [id number] : 1955 69 From: Addy Kent MD Attending Dr: Dr. Terry Lang MD Status: PRE IN Ordering Dr: Terry Lang MD Date: 10/13/24 Location: [facility] Sex: F C Admitted: Test Reason : PREOP Blood Pressure : */* mmHG Vent. Rate : 71 BPM Atrial Rate : 71 BPM P-R Int : 178 ms QRS Dur : 78 ms QT Int : 380 ms P-R-T Axes : 52 33 41 degrees QTcB Int : 412 ms Normal sinus rhythm Possible Left atrial enlargement Low voltage QRS Septal infarct , age undetermined Abnormal ECG Confirmed by YOLI LOPEZ, ADDY ([id number]), loan expeditor ANGELA JIN ([id number]) on 10/14/2024 5:48:48 AM Referred By: RICKEY Confirmed By: ADDY KENT MD 10/14/24 0548 Date Addy Kent MD CC: Dr. Terry Lang MD; Shanelle Rodríguez DO Signed Normal [facility] Absolute lymphocyte countOrd ered By: Terry Lang on 10-13-2024 Lymphocytes Auto (Unsp spec) [#/Vol] 2.43 10*3/uL 0.83-4.51 [facility] Absolute neutrophil countOrd ered By: Terry Lang on 10-13-2024 Neutrophils (Bld) [#/Vol] 2.5 10*3/uL 2.0-7.7 [facility] Automated lymphocyte count a s percentage of total leukocytesOrdered By: Terry Lang on 10-13-2024 Lymphocytes/100 WBC Auto (Unsp spec) 43.7 % High 19-41 [facility] Basic Metabolic Profile (BMP )on 10-13-2024 BUN/CRE 22.4 RATIO High 10-20 [facility] Comment on above: Performed By: #### L 100.0100, L501.5200, M100.651, L3890.4000, L3890.6202, L3890.6301, L3100.0300, L500.2500, BTSPAT #### [facility] [address] [place], [address] Calcium [Mass/Vol] 9.4 mg/dL Normal 7.6-11.0 [facility] Comment on above: Performed By: #### L 100.0100, L501.5200, M100.651, L3890.4000, L3890.6202, L3890.6301, L3100.0300, L500.2500, BTSPAT #### [facility] [address] [place], [address] Chloride [Moles/Vol] 104 mmol/L Normal 98-108 [facility] Comment on above: Performed By: #### L 100.0100, L501.5200, M100.651, L3890.4000, L3890.6202, L3890.6301, L3100.0300, L500.2500, BTSPAT #### [facility] [address] [place], [address] CO2 [Moles/Vol] 24.9 mmol/L Normal 21.0-32.0 [facility] Comment on above: Performed By: #### L 100.0100, L501.5200, M100.651, L3890.4000, L3890.6202, L3890.6301, L3100.0300, L500.2500, BTSPAT #### [facility] [address] [place], [address] Creatinine [Mass/Vol] 0.71 mg/dL Normal 0.70-1.20 [facility] Comment on above: Performed By: #### L 100.0100, L501.5200, M100.651, L3890.4000, L3890.6202, L3890.6301, L3100.0300, L500.2500, BTSPAT #### [facility] [address] [place], [address] GAP 10 Normal 5-15 [facility] Comment on above: Performed By: #### L 100.0100, L501.5200, M100.651, L3890.4000, L3890.6202, L3890.6301, L3100.0300, L500.2500, BTSPAT #### [facility] [address] [place], [address] GFR/1.73 sq M.predicted among non-blacks MDRD (S/P/Bld) [Vol rate/Area] 93 mL/min/{1.73_m2} Normal >60 [facility] Comment on above: Result Comment: mL/m in/1.73m2 CKD-EPI Creatinine Equation (2020) Performed By: #### L 100.0100, L501.5200, M100.651, L3890.4000, L3890.6202, L3890.6301, L3100.0300, L500.2500, BTSPAT #### [facility] [address] [place], [address] Glucose [Mass/Vol] 98 mg/dL Normal 70-99 [facility] Comment on above: Performed By: #### L 100.0100, L501.5200, M100.651, L3890.4000, L3890.6202, L3890.6301, L3100.0300, L500.2500, BTSPAT #### [facility] [address] [place], [address] Potassium [Moles/Vol] 4.4 mmol/L Normal 3.3-5.1 [facility] Comment on above: Performed By: #### L 100.0100, L501.5200, M100.651, L3890.4000, L3890.6202, L3890.6301, L3100.0300, L500.2500, BTSPAT #### [facility] [address] [place], [address] Sodium [Moles/Vol] 139 mmol/L Normal 133-145 [facility] Comment on above: Performed By: #### L 100.0100, L501.5200, M100.651, L3890.4000, L3890.6202, L3890.6301, L3100.0300, L500.2500, BTSPAT #### [facility] [address] [place], [place], [id number] [phone] Urea nitrogen [Mass/Vol] 16 mg/dL Normal 4-19 [facility] Comment on above: Performed By: #### L 100.0100, L501.5200, M100.651, L3890.4000, L3890.6202, L3890.6301, L3100.0300, L500.2500, BTSPAT #### [facility] [address] [place], [place], [phone] Basophil percentageOrdered B y: Terry Lang on 10-13-2024 Basophils/100 WBC (Bld) 0.9 % 0-1 [facility] CBC W/Diff, Automatedon 09-25 0 Absolute Lymph 2.43 X10 3/uL Normal 0.83-4.51 [facility] Comment on above: Performed By: #### L 100.0100, L501.5200, M100.651, L3890.4000, L3890.6202, L3890.6301, L3100.0300, L500.2500, BTSPAT #### [facility] [address] [place], [address] Absolute Neut 2.5 X10 3/uL Normal 2.0-7.7 [facility] Comment on above: Performed By: #### L 100.0100, L501.5200, M100.651, L3890.4000, L3890.6202, L3890.6301, L3100.0300, L500.2500, BTSPAT #### [facility] [address] [place], [address] Basophils/100 WBC (Bld) 0.9 % Normal 0-1 [facility] Comment on above: Performed By: #### L 100.0100, L501.5200, M100.651, L3890.4000, L3890.6202, L3890.6301, L3100.0300, L500.2500, BTSPAT #### [facility] [address] [place], [address] Eosinophils/100 WBC (Bld) 2.2 % Normal 0-5 [facility] Comment on above: Performed By: #### L 100.0100, L501.5200, M100.651, L3890.4000, L3890.6202, L3890.6301, L3100.0300, L500.2500, BTSPAT #### [facility] [address] [place], [place], [phone] ([phone]) Erythrocyte distribution width (RBC) [Ratio] 14.4 % Normal 11.6-14.6 [facility] Comment on above: Performed By: #### L 100.0100, L501.5200, M100.651, L3890.4000, L3890.6202, L3890.6301, L3100.0300, L500.2500, BTSPAT #### [facility] [address] [place], [place], [phone] Hematocrit (Bld) [Volume fraction] 40.1 % Normal 37-47 [facility] Comment on above: Performed By: #### L 100.0100, L501.5200, M100.651, L3890.4000, L3890.6202, L3890.6301, L3100.0300, L500.2500, BTSPAT #### [facility] [address] [place], [address] Hemoglobin (Bld) [Mass/Vol] 13.1 g/dL Normal 12.0-15.0 [facility] Comment on above: Performed By: #### L 100.0100, L501.5200, M100.651, L3890.4000, L3890.6202, L3890.6301, L3100.0300, L500.2500, BTSPAT #### [facility] [address] [place], [address] IG% 0.400 Normal 0.0-0.9 [facility] Comment on above: Result Comment: IG% - Immature Granulocytes (promyelocytes, myelocytes and metamyelocytes) > 1% indicates that a LEFT SHIFT is Present. Performed By: #### L 100.0100, L501.5200, M100.651, L3890.4000, L3890.6202, L3890.6301, L3100.0300, L500.2500, BTSPAT #### [facility] [address] [place], [address] Lymphocytes/100 WBC (Bld) 43.7 % High 19-41 [facility] Comment on above: Performed By: #### L 100.0100, L501.5200, M100.651, L3890.4000, L3890.6202, L3890.6301, L3100.0300, L500.2500, BTSPAT #### [facility] [address] [place], [address] MCH (RBC) [Entitic mass] 29.8 pg Normal 27.0-32.0 [facility] Comment on above: Performed By: #### L 100.0100, L501.5200, M100.651, L3890.4000, L3890.6202, L3890.6301, L3100.0300, L500.2500, BTSPAT #### [facility] [address] [place], [address] MCHC (RBC) [Mass/Vol] 32.7 g/dL Normal 32-36 [facility] Comment on above: Performed By: #### L 100.0100, L501.5200, M100.651, L3890.4000, L3890.6202, L3890.6301, L3100.0300, L500.2500, BTSPAT #### [facility] [address] [place], [address] MCV (RBC) [Entitic vol] 91.3 fL Normal 81-99 [facility] Comment on above: Performed By: #### L 100.0100, L501.5200, M100.651, L3890.4000, L3890.6202, L3890.6301, L3100.0300, L500.2500, BTSPAT #### [facility] [address] [place], [address] Monocytes/100 WBC (Bld) 8.6 % Normal 0-10 [facility] Comment on above: Performed By: #### L 100.0100, L501.5200, M100.651, L3890.4000, L3890.6202, L3890.6301, L3100.0300, L500.2500, BTSPAT #### [facility] [address] [place], [address] Neutrophils/100 WBC (Bld) 44.2 % Low 47-70 [facility] Comment on above: Performed By: #### L 100.0100, L501.5200, M100.651, L3890.4000, L3890.6202, L3890.6301, L3100.0300, L500.2500, BTSPAT #### [facility] [address] [place], [address] Nucleated RBC (Bld) [#/Vol] 0 10*3/uL Normal 0-5 [facility] Comment on above: Performed By: #### L 100.0100, L501.5200, M100.651, L3890.4000, L3890.6202, L3890.6301, L3100.0300, L500.2500, BTSPAT #### [facility] [address] [place], [address] Platelet mean volume (Bld) [Entitic vol] 11.5 fL Normal 6.2-12.0 [facility] Comment on above: Performed By: #### L 100.0100, L501.5200, M100.651, L3890.4000, L3890.6202, L3890.6301, L3100.0300, L500.2500, BTSPAT #### [facility] [address] [place], [place], [phone] (112) Platelets (Bld) [#/Vol] 194 10*3/uL Normal 150-450 [facility] Comment on above: Performed By: #### L 100.0100, L501.5200, M100.651, L3890.4000, L3890.6202, L3890.6301, L3100.0300, L500.2500, BTSPAT #### [facility] [address] [place], [place], [phone] (091) RBC (Bld) [#/Vol] 4.39 10*6/uL Normal 4.2-5.4 [facility] Comment on above: Performed By: #### L 100.0100, L501.5200, M100.651, L3890.4000, L3890.6202, L3890.6301, L3100.0300, L500.2500, BTSPAT #### [facility] [address] [place], [address] RDW SD 48.2 fl High 35.1-43.9 [facility] Comment on above: Performed By: #### L 100.0100, L501.5200, M100.651, L3890.4000, L3890.6202, L3890.6301, L3100.0300, L500.2500, BTSPAT #### [facility] [address] [place], [address] WBC (Bld) [#/Vol] 5.6 10*3/uL Normal 4.4-11.0 [facility] Comment on above: Performed By: #### L 100.0100, L501.5200, M100.651, L3890.4000, L3890.6202, L3890.6301, L3100.0300, L500.2500, BTSPAT #### [facility] [address] [place], [place], [address] Eosinophil percentageOrdered By: Terry Lang on 10-13-2024 Eosinophils/100 WBC (Bld) 2.2 % 0-5 [facility] HBV surface Ab Ql (S)Ordered By: Terry Lang on 10-13-2024 Hepatitis B Surface Antibody REAC [facility] Comment on above: <8.5 mIU/mL: Non-Crystal ctive8.5<= x <11.5 mIU/mL: Indeterminate>=11.5 mIU/mL: Reactive Non Reactive: Inconsistent with immunity less than <10 mIU/mL Reactive: Consistent with immunity greater than or equal to 10 mIU/mL HIV 1 RNA KULDEEP+probe [Log #/V ol]Ordered By: Terry Lang on 10-13-2024 HIV-1 RNA (PCR) log10 Value TNP [facility] Comment on above: Test not performedRe sult Units: [id number]/mLUnable to calculate result since non-numeric resultobtained for component test. Hepatitis A virus total anti body assayOrdered By: Terry Lang on 10-13-2024 Hepatitis A Antibody Total Positive High Negative [facility] Comment on above: Comment: The HAV tot al antibody assay detects both IgG andIgM but does not differentiate between them. A negativeresult suggests susceptibility to infection. A positiveresult could be due to vaccination, previously resolvedinfection or active infection. Testing for HAV IgM shouldbe performed if active HAV infection is suspected. [facility] that will automatically reflex positive HAVtotal antibody results to IgM (e.g., panel #[id number] HAVAntibody w/ Rfx).Performed at: [facility] [address] [id number] Director: Walter Dsouza PhD, Phone: [phone] Hepatitis C antibodyOrdered By: Terry Lang on 10-13-2024 Hepatitis C Antibody Non-Reactive Nonreactive [facility] Comment on above: Reactive: Presumptiv e evidence of antibodies to HCV. Follow CDC recommendations for supplemental testing.Non-Reactive: Antibodies to HCV were not detected; does not exclude the possibility of exposure to HCVReactive Results are presumptive evidence of antibodies to HCV. Follow CDC recommendations for supplemental testing.Order confirmation testing: HCV Quant by PCR testing - HCVPCR #[id number] Non Reactive: < 0.8 Equivocal: >/= 0.8 to < 1.0 Reactive: >/= 1.0The CDC requires that a reactive/equivocal HCV antibody result be sent out for confirmation. HCV Quant by PCR testing. Immature granulocytes/100 WB C Auto (Bld)Ordered By: Terry Lang on 10-13-2024 Immature granulocytes/100 WBC (Bld) 0.400 % 0.0-0.9 [facility] Comment on above: IG% - Immature Granu locytes (promyelocytes, myelocytes and metamyelocytes) > 1% indicates that a LEFT SHIFT is Present. L3890.6202on 10-13-2024 HEP B Surf Ab REAC Normal [facility] Comment on above: Result Comment: <8.5 mIU/mL: Non-Reactive 8.5<= x <11.5 mIU/mL: Indeterminate >=11.5 mIU/mL: Reactive Non Reactive: Inconsistent with immunity less than <10 mIU/mL Reactive: Consistent with immunity greater than or equal to 10 mIU/mL Performed By: #### L 100.0100, L501.5200, M100.651, L3890.4000, L3890.6202, L3890.6301, L3100.0300, L500.2500, BTSPAT ####[facility] [address] [place], [place], [address] L3890.6301on 10-13-2024 Hepatitis C Ab Non-Reactive Normal Nonreactive [facility] Comment on above: Result Comment: Reac tive: Presumptive evidence of antibodies to HCV. Follow CDC recommendations for supplemental testing. Non-Reactive: Antibodies to HCV were not detected; does not exclude the possibility of exposure to HCV Reactive Results are presumptive evidence of antibodies to HCV. Follow CDC recommendations for supplemental testing. Order confirmation testing: HCV Quant by PCR testing - HCVPCR lc#[id number] Non Reactive: < 0.8 Equivocal: >/= 0.8 to < 1.0 Reactive: >/= 1.0 The [facility] requires that a reactive/equivocal HCV antibody result be sent out for confirmation. HCV Quant by PCR testing. Performed By: #### L 100.0100, L501.5200, M100.651, L3890.4000, L3890.6202, L3890.6301, L3100.0300, L500.2500, BTSPAT ####[facility] [address] [place], [place], [phone] Lymphocytes Auto (Unsp spec) [#/Vol]Ordered By: Terry Lang on 10-13-2024 Lymphocytes (Bld) [#/Vol] 2.43 10*3/uL 0.83-4.5 1 [facility] Lymphocytes/100 WBC Auto (Un sp spec)Ordered By: Terry Lang on 10-13-2024 Lymphocytes/100 WBC (Bld) 43.7 % High 19-41 [facility] MRSA screenOrdered By: Jumana Lang on 10-13-2024 MRSA DNA KULDEEP+probe Ql (Unsp spec) [facility] Nasal Screen MRSA/MSSA [facility] Magnesiumon 10-13-2024 Magnesium [Mass/Vol] 1.9 mg/dL Normal 1.5-2.2 [facility] Comment on above: Performed By: #### L 100.0100, L501.5200, M100.651, L3890.4000, L3890.6202, L3890.6301, L3100.0300, L500.2500, BTSPAT #### [facility] [address], [address] Magnesium (Unsp spec) [Mass/ Vol]Ordered By: Terry Lang on 10-13-2024 Magnesium [Mass/Vol] 1.9 mg/dL 1.5-2.2 [facility] Magnesium measurement (mass/ volume)Ordered By: Terry Lang on 10-13-2024 Magnesium (Unsp spec) [Mass/Vol] 1.9 mg/dL 1.5-2.2 [facility] Monocyte percentageOrdered B y: Terry Lang on 10-13-2024 Monocytes/100 WBC (Bld) 8.6 % 0-10 [facility] Neutrophil percentageOrdered By: Terry Lang on 10-13-2024 Neutrophils/100 WBC (Bld) 44.2 % Low 47-70 [facility] Nucleated red blood cell per centageOrdered By: Terry Lang on 10-13-2024 Nucleated RBC/100 WBC (Bld) [Ratio] 0 % 0-5 [facility] Plasma HIV 1 RNA viral load by probe and target amplification method (log number/voluOrdered By: Terry Lang on 10-13-2024 HIV 1 RNA KULDEEP+probe [Log #/Vol] [facility] Comment on above: Test not performedRe sult Units: [id number]/mLUnable to calculate result since non-numeric resultobtained for component test. Quantitative HIV-1 RNA measu rement by PCROrdered By: Terry Lang on 10-13-2024 HIV-1 RNA Ultraquantitative (PCR) < 20 copies/mL . [facility] Comment on above: HIV-1 RNA not detect edThe reportable range for this assay is 20 to 10,000,000copies HIV-1 RNA/mL. Serum hepatitis B virus surf lucila antibody detectionOrdered By: Terry Lang on 10-13-2024 HBV surface Ab Ql (S) REAC [facility] Comment on above: <8.5 mIU/mL: Non-Crystal ctive8.5<= x <11.5 mIU/mL: Indeterminate>=11.5 mIU/mL: Reactive Non Reactive: Inconsistent with immunity less than <10 mIU/mL Reactive: Consistent with immunity greater than or equal to 10 mIU/mL Type AND Screen - PAT ONLYon 10-13-2024 ABO and Rh group Nom (Bld) Blood group O Rh(D) positive Normal [facility] Comment on above: Order Comment: Reaso n for Laboratory Test [id number] LUMBAR FUSION Performed By: #### L 100.0100, L501.5200, M100.651, L3890.4000, L3890.6202, L3890.6301, L3100.0300, L500.2500, BTSPAT ####[facility] [address] [place], [address] Spine Lumbar without Contras ton 09-03-2024 Spine Lumbar without Contrast [facility] [address] [place], [place] [address] Spine Lumbar without Contrast MR#: [id number] Acct: [id number] Name: MAYNOR ROSEN Rep #: [id number] : 1955 F 68 From: Adarsh Hood MD PCP: Shanelle Rodríguez DO Status: DEP CLI Study: Spine Lumbar without Contrast Date of Exam: Exam# [id number] Ordering Dr: Terry Lang MD PROCEDURE: SPINE LUMBAR WITHOUT CONTRAST REASON FOR EXAM: Pain TECHNIQUE: Lumbar spine CT without contrast. COMPARISON: Correlation made to more recent lumbar spine MRI from June 2024. FINDINGS: Vertebrae: Normal lumbar vertebral body heights. No evidence of fracture. No spondylolysis. Moderate multilevel degenerative changes with associated bilateral facet arthropathy more severe inferiorly with 3 mm anterolisthesis of L4 relative to L5. Intact posterior spinal fusion hardware traversing L4-L5 with unchanged severe left foraminal narrowing at L5-S1 unstable anterolisthesis of L4 relative to L5. Vertebral body heights are preserved. No acute fracture. Sacrum: Visualized upper sacrum and SI joints are unremarkable. Visualized retroperitoneal structures are unremarkable. CT/Spine Lumbar without Contrast IMPRESSION: No acute CT process. Intact relatively stable L4-5 posterior spinal fusion hardware. One or more dose reduction techniques were used (e.g., Automated exposure control, adjustment of the mA and/or kV according to patient size, use of iterative reconstruction technique). Reading Location: [facility] CC: Dr. Terry Lang MD; Shanelle Rodríguez DO Sandfill Operator Surface: Signed Normal [facility] L/S Spine Min 4 Viewson 07-28 L/S Spine Min [address] [facility] [address] [place] [address] L/S Spine Min 4 Views MR#: [id number] Acct: [id number] Name: MAYNOR ROSEN Rep #: [id number] : 1955 F 68 From: Brody Ruffin DO PCP: Shanelle Rodríguez DO Status: DEP AMB Study: L/S Spine Min 4 Views Date of Exam: 08/19/24 Exam# [id number] Ordering Dr: Nelda Maravilla [id number] STUDY: X-RAY - LUMBAR SPINE REASON FOR EXAM: Female, 68 years old. pain -- please do upright AP, LAT, flex./ext TECHNIQUE: 4 view(s) of the lumbar spine were obtained. COMPARISON: None FINDINGS: Minimal lordosis. There is no substantial scoliosis. There is a grade 1 spondylolisthesis at L4-5. Normal vertebral bodies with spurring at the endplates. Posterior surgical fusion at L4-5. Slightly narrowed disc space heights. Limited flexion. The soft tissue structures are unremarkable. There is a partially visualized right hip prosthesis. RAD/L/S Spine Min 4 Views IMPRESSION: Degenerative changes and postsurgical changes of the lumbar spine. Grade 1 spondylolisthesis at L4-5. Electronically Signed: Brody Ruffin DO at 17:17 EST Reading Location ID and State: [facility] / [place] Tel [phone], Service support , CC: LUCIA Menjivar; Shanelle Rodríguez DO Sandfill Operator Surface: Signed Normal [facility] Orthopedic Visit Reporton Orthopedic Visit Report [facility] [address] [place] [address] [address] [place] [address] OFFICE VISIT Date of Service: 08/19/24 MR#: [id number] Acct: [id number] Name: MAYNOR ROSEN Rep #: [id number] : 1955 Provider: Dr. Terry Lang MD Age/Sex: 68/F Location: [facility] Status: Signed Intake Vital Signs 08/19/24 07:34 Height 5 ft 3 in Weight: 155 lb 6 oz BMI 27.5 Intake Visit Reasons: LUMBAR SPINE Allergies No Known Allergies Allergy (Verified 08/19/24 07:53) Medications ???Medication ???Instructions ???Recorded ???Confirmed ???Type budesonide 3 mg 3 mg PO QDAY 08/19/24 08/19/24 History capsule,delayed,exte nded release cholecalciferol (vitamin D3) 25 25 mcg PO QDAY 08/19/24 08/19/24 History mcg (1,000 unit) capsule duloxetine 30 mg capsule,delayed 30 - 60 mg PO QDAY 08/19/24 08/19/24 History release lisinopril 20 mg tablet mg PO DAILY 08/19/24 08/19/24 History pantoprazole 20 mg tablet,delayed 20 mg PO QDAY 08/19/24 08/19/24 History release Have you fallen in the past year?: No PFSH Medical History (Updated 08/19/24 @ 09:[address] Terry Lang MD) Hypertension Surgical History (Updated 08/19/24 @ 08:53 by Teresa Fuentes) S/P lumbar fusion Status post breast reduction History of lumbar laminectomy History of lumbar fusion Family History (Updated 08/19/24 @ 08:07 by Kalie Garcia) Mother Hypertension Lung cancer Scoliosis DJD (degenerative joint disease) Father COPD (chronic obstructive pulmonary disease) Social History (Updated 08/19/24 @ 08:06 by Kalie Garcia) Smoking Status: Never smoker alcohol intake: current alcohol intake frequency: 0-2 drinks per day what type of physical activity do you participate in: other details: pilates HPI LUMBAR SPINE Details: This documentation accurately reflects the service provided and the decisions made by me, Dr. Terry Lang MD 08/19/24 0731. Part of today???s visit was documented by Niki GIBBS, acting as scribe. MAYNOR ROSEN is a 68 year old F here today NEW patient for low back pain. She has had a prior fusion in 2021 that was done a L4-5. She had to have this surgery done after a fall that she had. Her second surgery she had a laminectomy of L5-S1 in 2022. Her surgeries was done by Dr. Sherine Juan at . Her past surgeries were done on the right side but now her pain is on the left side. She complains of low back and left leg pain that she has been having since right before her fusion. She has numbness and tingling over the right side of her low back, in her left ankle/foot and sometimes her lateral calf. She does also get tingling in her foot. She does see Dr. Ordaz on a regular basis and had an injection yesterday that has helped with about 50% of the tingling. Her last MRI that she had done was on 07/15/24. She has done PT after both of her surgeries but she doesn't feel that it was very helpful. She states that before her first surgery she did have foot drop of the left foot but after the surgery and with the help of rehab it has gotten much better. Ortho Exam General General: Yes no acute distress Neurologic: Yes alert and Yes oriented x3 Spine SPINE TESTING CERVICAL THORACIC LUMBAR Musculoskeletal Strength 0=absent - 5=normal Details: Exam of the lower back shows paramedian incisions bilaterally in the lower lumbar region and also midline slightly to the left vertical incision lower down. Mild left paraspinal tenderness noticed. Neurologic evaluation of lower extremity shows grade 2 left EHL, grade 4+ left ankle dorsiflexion, all other muscles are 5 of 5 strength. Passive straight leg raise test is positive on the left. Coding Level of Care Code Off vis,new,level 4 Diagnoses S/P lumbar fusion Z98.1 Recurrent herniation of lumbar disc M51.26 Other secondary scoliosis, lumbar region M41.56 Scoliosis type: other secondary scoliosis Time Spent (min) 45 Assessment and Plan Assessment and Plan (1) S/P lumbar fusion: Status: Acute (2) Recurrent herniation of lumbar disc: Status: Acute (3) Lumbar scoliosis: Status: Acute Qualifiers: Scoliosis type: other secondary scoliosis Qualified Code(s): M41.56 - Other secondary scoliosis, lumbar region Orders: Orders L/S Spine Min 4 Views Today LUCIA Menjivar M54.50 - Low back pain, unspecified Spine Lumbar W/WO Contrast Today Dr. Terry Lang MD Z98.1 - Arthrodesis status Plan Obtain x-rays of lumbar spine today in the clinic. Also reviewed recently done MRI last month. These show L4-5 stable fusion. L5-S1 shows left paracentral large disc herniation causing lateral recess and foraminal stenosis. Postsurgical changes of left L5-S1 laminotomy noticed. Lumbar degenerative scoliosis with concavity to the right noticed. L3-4 shows (more content not included)... Normal [facility] Spine Lumbar W/WO Contraston 07-15-2024 Spine Lumbar W/WO Contrast [facility] Imaging Services [address], [place] [address] Spine Lumbar W/WO Contrast MR#: [id number] Acct: [id number] Name: MAYNOR ROSEN Rep #: [id number] : 1955 F 68 From: Erika gillette MD PCP: Shanelle Rodríguez DO Status: REG CLI Study: Spine Lumbar W/WO Contrast Date of Exam: 06/27 Exam# [id number] Ordering Dr: Luis Alberto Ordaz MD [id number] HISTORY: Postlaminectomy syndrome. TECHNIQUE: Multiplanar and multisequence MR images of the lumbar spine were obtained before and after the intravenous administration of 13 cc Clariscan. 201 images. COMPARISON: 05/18/2023. FINDINGS: VERTEBRAE: Vertebral body heights maintained. Artifact from L4-5 posterior spinal fusion hardware. Mild degenerative endplate changes at multiple levels. ALIGNMENT: Chronic minimal anterolisthesis of L4-5. SPINAL CANAL: Normal morphology and position of the conus medullaris at L1. No gross epidural collection. INTERVERTEBRAL DISCS: T12-L1: Mild disc bulge and facet arthropathy without significant central canal stenosis or foraminal narrowing L1-2: Mild disc bulge and facet arthropathy without significant central canal stenosis or foraminal narrowing. L2-3: Mild disc bulge with a left foraminal component and facet arthropathy resulting in minimal narrowing of the thecal sac and mild left greater than right foraminal narrowing, similar to prior L3-4: Mild disc bulge and facet arthropathy resulting in minimal narrowing of the thecal sac and mild right greater than left foraminal narrowing, similar to prior. L4-5: Interbody fusion material and right decompressive laminectomy. No significant recurrent posterior disc protrusion or central canal stenosis. Residual degenerative change and facet arthropathy resulting in mild bilateral foraminal narrowing, similar to prior. L5-S1: Increased left paracentral/foramina l disc extrusion with superior migration abutting the left S1 nerve root in the lateral recess and the left L5 nerve root in the foramen with increased severe left foraminal narrowing. No significant central canal stenosis. Correlate with surgical history for left laminotomy. SOFT TISSUES: No paraspinal fluid collection. MRI/Spine Lumbar W/WO Contrast IMPRESSION: No significant interval change in appearance of L4-5 posterior spinal fusion. Increased size of left paracentral/foramina l disc extrusion with superior migration at L5-S1 resulting in nerve root abutment and severe left foraminal narrowing without significant spinal canal stenosis. Electronically Signed: Erika Schwartz MD at 15:27 EST , CC: Dr. Luis Alberto Ordaz MD; Shanelle Rodríguez DO Sandfill Operator Surface: Signed Normal [facility] CNOVon 03-11-2024 OV Office Visit (OBGWMA) MAYNOR ROSEN ([id number]) 1955 F Date Time Provider Department 03/11/24 11:00 AM DIANE HUMMELGTIA During your visit today, we recorded the following information about you: Blood pressure Weight 122/81 64 kg Diane Hummel MD 03/11/2024 11:17 AM Signed Maynor is a 68 year old who presents for an annual gynecologic exam with complaints, vaginal dryness. Postmenopausal: Yes HRT use: No. 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 Estate Accountant History Comments: Sexual Activity: Yes; Male Contraception: Tubal Ligation PAST MEDICAL HISTORY No date: History of migraine headachesPAST SURGICAL HISTORY No date: ENDOMETRIAL ABLTJ THERMAL W/O HYSTEROSCOPIC GUID No date: HIP SURGERY HX Comment: Right Hip replacement No date: SKIN BIOPSY HX Comment: Basel cell No date: TUBAL LIGATION HX FAMILY HISTORY Problem Relation Age of Onset Cancer Mother Lung Osteoporosis Mother COPD Father No Known Problems Sister Colon Cancer Maternal Grandmother No Known Problems Maternal Grandfather No Known Problems Paternal Grandmother No Known Problems Paternal Grandfather SOCIAL HISTORY Social History Tobacco Use Smoking status: Former Smokeless tobacco: Never Substance Use Topics Alcohol use: Yes Comment: Social Drug use: No REVIEW OF SYSTEMS Abdomen: No abdominal pain, nausea, vomiting, diarrhea, or constipation. No bloating, early satiety, indigestion, or increased flatulence. Bladder: No dysuria, gross hematuria, urinary frequency, urinary urgency, or incontinence Breast: No breast lumps, nipple d/c, overlying skin changes, redness or skin retraction Allergies and current medication updated:Yes EXAM: BP 122/81 Wt 141 lb (64.0kg) GENERAL: pleasant, female in no apparent distress HEENT: Normocephalic, atraumatic, mucus membranes moist, and no lesions NECK: Supple, full range of motion, no adenopathy, and thyroid normal DERMATOLOGY: Normal, without lesions, non-icteric, and non-hirsute BREAST: soft, non-tender, symmetric, no dominant mass, normal nipple-areolar complex, no lymphadenopathy, and no nipple discharge CHEST: Normal inspiratory effort ABDOMEN: soft, non-tender, and no masses PELVIC: external genitalia normal, normal Bartholin's glands, urethra, Farber's glands, no vulvar lesions, no cervical lesions, physiologic discharge present, normal appearing perineal body and perianal region BIMANUAL: uterus normal size, shape and consistency, midposition, no adnexal masses, and non-tender RECTOVAGINAL: rectovaginal exam negative for any masses or nodularity. NEURO: alert and oriented x3,exam grossly non-focal EXTREMITIES: normal ASSESSMENT/PLAN: 1) Health maintenance: Pap done with HPV. Mammogram up to date Colon cancer screening: patient to discuss with PCP BMD: followed by PCP Kitty pv twice weekly rx sent 2) Follow up one year or sooner as needed Diane Hummel MD Allergies As of Date: 03/11/2024 (Not on File) Date Reviewed: 03/11/2024 Reviewed by: Sheri Jamison LPN - Fully Assessed Reason for Visit: Well Woman [1463] Primary Visit Diagnosis:Encounter for gynecological examination (general) (routine) without abnormal findings [Z01.419] Order(s):PAP TEST [[id number]] Order #: [id number] estradiol (ESTRACE) 0.01 % (0.1 mg/gram) vaginal creamUse 1 g vaginally two times a week.Disp: 42.5 gRfl: 4 Prescriptions as of 03/11/2024 - estradiol (ESTRACE) 0.01 % (0.1 mg/gram) vaginal cream Use 1 g vaginally two times a week. - lisinopril (ZESTRIL) 20 mg tablet - pantoprazole DR (PROTONIX) 40 mg tablet - HYDROcodone-acetamin ophen (NORCO) 5-325 mg per tablet TAKE ONE-HALF (1/2) TABLET BY MOUTH EVERY 6 HOURS NEEDED FOR PAIN - PARoxetine (PAXIL) 10 mg tablet Take 1 tablet by mouth once daily. - progesterone micronized (PROMETRIUM) 100 mg capsule Take 1 capsule by mouth once daily. - cyclobenzaprine (FLEXERIL) 10 mg tablet Take 10 mg by mouth once daily as needed. - Amoxicillin 500 mg tablet Take 500 mg by mouth twice daily. - SUMAtriptan (IMITREX) 100 mg tablet Take 100 mg by mouth as needed for Migraine Headache (see administration instructions) (for migraine headaches). - Ibuprofen 200 mg cap Take 600 mg by mouth as needed (for pain). - melatonin 3 mg tablet Take 3 mg by mouth. - acetaminophen (TYLENOL) 325 mg cap Take by mouth. - Ascorbic Acid (VITAMIN C) 1,000 mg tablet Take 1,000 mg by mouth once daily. - Cholecalciferol, Vitamin D3, (D3-2000) 2,000 unit cap Take by mouth. (more content not included)... Normal [facility] HIGH RISK HUMAN PAPILLOMA CROW (HPV), PCR FOR DETECTION AND GENOTYPINGon 03-11-2024 HPV 16 Ag Ql (Unsp spec) Not detected Normal Not detec [facility] Comment on above: Order Comment: Speci men Type: FLUID SPECIMEN Ordering Facility: [facility] Address: [address] [place] [address] Performed By: #### L [id number] #### [facility] CLIA [id number] [address] [place] [address] [place] #### HPVHRT #### [facility] CLIA [id number] [address] [place] [address] [place] HPV 18 Ag Ql (Unsp spec) Not detected Normal Not detec [facility] Comment on above: Order Comment: Speci men Type: FLUID SPECIMEN Ordering Facility: [facility] Address: [address] [place] [address] Performed By: #### L [id number] #### [facility] CLIA [id number] [address] [place] [address] [place] #### HPVHRT #### [facility] CLIA [id number] [address] [place] [address] [place] HPV 31+33+35+39+45+51+52+56+58 +59+66+68 DNA KULDEEP+probe Ql (Cvx) Not detected Normal Not detected [facility] Comment on above: Order Comment: Speci men Type: FLUID SPECIMEN Ordering Facility: [facility] Address: [address] [place] [address] Result Comment: High Risk HPV Other Type includes HPV types 31, 33, 35, 39, 45, 51, 52, 56, 58, 59, 66 and 68. Performed By: #### L [id number] #### [facility] CLIA [id number] [address] [place] [address] [place] #### HPVHRT #### [facility] CLIA [id number] [address] [place] [address] [place] PAP TESTon 03-11-2024 ADEQUACY Normal [facility] Comment on above: Order Comment: Speci men Type: FLUID SPECIMEN Ordering Facility: [facility] Address: [address] [place] [address] Result Comment: Sati sfactory for interpretation. Transformation zone present Performed By: #### L [id number] #### [facility] CLIA [id number] [address] [place] [address] [place] #### HPVHRT #### [facility] CLIA [id number] [address] [place] [address] [place] CASE REPORT Normal [facility] Comment on above: Order Comment: Speci men Type: FLUID SPECIMEN Ordering Facility: [facility] Address: [address] [place] [address] Result Comment: Gyne cologic Cytology Report Case: [id number] Authorizing Provider: Diane Hummel MD Collected: 03/11/2024 11:20 AM Ordering Location: [facility] Received: 03/14/2024 05:17 AM General Obstetrics and Gynecology First Screen: Feciuch, Nia, CT, ASCP Specimen: Pap Test, ThinPrep, Cervix Performed By: #### L [id number] #### [facility] CLIA [id number] [address] [place] #### HPVHRT #### [facility] CLIA [id number] [address] [place] [address] [place] CLINICAL HISTORY, CYTOLOGY, MUNICIPAL COURT MAGISTRATE Menopausal Normal [facility] Comment on above: Order Comment: Speci men Type: FLUID SPECIMEN Ordering Facility: [facility] Address: [address] [place] [address] Performed By: #### L [id number] #### [facility] CLIA [id number] [address] [place] [address] [place] #### HPVHRT #### [facility] CLIA [id number] [address] [place] [address] [place] FINAL PERFORMING LAB Normal [facility] Comment on above: Order Comment: Speci men Type: FLUID SPECIMEN Ordering Facility: [facility] Address: [address] [place] [address] Result Comment: Tech nical component, automotive collision repair instructor screening performed at [facility], [address] [place] [address] CLIA# [id number] Diagnostic interpretation performed at [facility], [address] [address] CLIA# [id number] Mess Attendant Crew: Michael Carlos M.D. Performed By: #### L [id number] #### [facility] CLIA [id number] [address] [place] #### HPVHRT #### [facility] CLIA [id number] [address] [place] [address] [place] HPV REFLEX Yes HPV Normal [facility] Comment on above: Order Comment: Speci men Type: FLUID SPECIMEN Ordering Facility: [facility] Address: [address] [place] [address] Performed By: #### L [id number] #### [facility] CLIA [id number] [address] [place] #### HPVHRT #### [facility] CLIA [id number] [address] [place] [address] [place] INTERPRETATION, CYTOLOGY, MUNICIPAL COURT MAGISTRATE Normal [facility] Comment on above: Order Comment: Speci men Type: FLUID SPECIMEN Ordering Facility: [facility] Address: [address] [place] [address] Result Comment: Nega tive for intraepithelial lesion or malignancy. Performed By: #### L [id number] #### [facility] CLIA [id number] [address] [place] [address] [place] #### HPVHRT #### [facility] CLIA [id number] [address] [place] [address] [place] PAP DISCLAIMER COMMENT The Pap Smear is a screening test for cervical cancer. False negative results occur with all screening tests, emphasizing the need for rescreening at recommended intervals, and clinical correlation. Normal [facility] Comment on above: Order Comment: Speci men Type: FLUID SPECIMEN Ordering Facility: [facility] Address: [address] [place] [address] Performed By: #### L [id number] #### [facility] CLIA [id number] [address] [place] [address] [place] #### HPVHRT #### [facility] CLIA [id number] [address] [place] [address] [place] [facility]: [id number] Author: COORDINATOR, MAMMOGRAPHY, ? Service: ? Author Type: Physician Type: Letter Filed: 11/26/2023 09:22 Note Text: [place] [id number] November 26, 2023 PID: [id number] Maynor Rosen [address] [place] [id number] Dear Ms. Rosen, We are pleased to inform you that the results of your recent breast imaging exam on 11/25/2023 are normal. Early detection of cancer is very important. We also understand recommendations regarding breast cancer screening are controversial. Please discuss with your primary care provider which strategy is best for you and whether a mammogram is right for you. Your imaging studies and report will be kept on file at [facility] as part of your permanent medical record and are available for your continuing care. Thank you for allowing us to help in meeting your health care needs. Sincerely, Dr. Kitchen Interpreting Radiologist [facility] (Normal over 40) Normal [facility] ARELIS SCREENING W TOMOon 11-24 ARELIS SCREENING W GREG * * *Final Report* * * DATE OF EXAM: Nov 25 2023 12:16PM [id number] - [facility] SCREENING W GREG / PROCEDURE REASON: mammogram screening * * * * Physician Interpretation * * * * #[id number] - [facility] SCREENING W GREG BILATERAL DIGITAL SCREENING MAMMOGRAM TOMOSYNTHESIS WITH CAD: 11/25/2023 HISTORY: Mammogram Screening / Screening Mammogram-Patient reports NO symptoms. /SEE TECH NOTE. RESULT: TECHNIQUE: The study was acquired using full field digital technology and interpreted from soft copy. Digital Breast Tomosynthesis (DBT) images were obtained and used to assist in the interpretation of this examination. Current study was also evaluated with a Computer Aided Detection (CAD). Comparison is made to exams dated: 01/17/2022 mammogram - [facility] and 12/18/2020 mammogram - [facility]. There are scattered areas of fibroglandular density. The patient is status post reduction both breasts. Both breasts have post-operative findings. No significant masses, calcifications, or other findings are seen in either breast. IMPRESSION: NEGATIVE There is no mammographic evidence of malignancy. A 1 year screening mammogram is recommended. Sathya brown/reanna:11/26/2023 09:22:55 Filler Shredding Machine Loader(s): Misael Pascal)(M), [facility] letter sent: Normal over 40 Mammogram BI-RADS: 1 Negative Multiple national specialty organizations have released breast cancer screening guidelines for women at average risk for developing breast cancer - guidelines that are based on both evidence and opinion, yet differ on when to start and how often to screen for breast cancer. With representation from Breast Imaging, Internal Medicine, Women's Health, Family Medicine, and Medical/Surgical Oncology, the [facility] has carefully reviewed the data and reached the following consensus: 1) All women should engage in shared decision-making with their providers to decide when to start and how often to screen; 2) All women should have the opportunity to start screening mammography at age 40; 3) For women ages 45-55, we recommend annual screening mammograms; 4) For women ages 55 and over, we support both the transition from an annual to a biennial interval if this aligns more with patient's values and preferences, or continuation with annual screening; 5) All women should discuss with their providers when to stop screening mammograms. Sandfill Operator Surface: Reanna Transcribe Date/Time: Nov 25 2023 12:02P Dictated by : SATHYA KITCHEN MD This examination was interpreted and the report reviewed and electronically signed by: SATHYA KITCHEN MD on Nov 26 2023 9:22AM EST [id number] Normal [facility] Basophil percentageOrdered B y: Ronnie Rodríguez on 08-13-2023 Bilirubin [Mass/Vol] 0.50 mg/dL 0.20-1.00 [facility] Comment on above: For patients on eltr ombopag therapy, use of Dimension [place] TBIL is not recommended. Chloride [Moles/Vol] 106 mmol/L 98-107 [facility] Cholesterol [Mass/Vol] 219 mg/dL <200 [facility] Comment on above: <200 mg/dL Desirable 200-240 mg/dL Borderline >240 mg/dL High Risk Glucose [Mass/Vol] 77 mg/dL 74-106 [facility] Potassium [Moles/Vol] 4.1 mmol/L 3.5-5.1 [facility] Protein [Mass/Vol] 6.9 g/dL 6.4-8.2 [facility] Sodium [Moles/Vol] 139 mmol/L 136-145 [facility] Triglyceride [Mass/Vol] 62 mg/dL <199 [facility] Comment on above: The drugs N-Acetylcy steine and Metamizole may falsely depress this assay.Serum Triglycerides Reference Interval Normal <150 mg/dL Borderline high 150 - 199 mg/dL High 200 - 499 mg/dL Very High > or = 500 mg/dL High density lipoprotein (HD L) measurementOrdered By: Ronnie Rodríguez on 08-13-2023 Cholesterol in HDL (Body fld) [Mass/Vol] 88 mg/dL >40 [facility] Comment on above: The drugs N-Acetylcy steine and Metamizole may falsely depress this assay. Reference Range HDL <40 mg/dL Low HDL Cholesterol HDL >or= 60 mg/dL High HDL Cholesterol Laboratory - Chemistry and C hemistry - challengeOrdered By: Ronnie Rodríguez on 08-13-2023 Albumin/Globulin [Mass ratio] 1.1 {ratio} 0.9-2.4 [facility] ALP [Catalytic activity/Vol] 56 U/L 45-117 [facility] ALT [Catalytic activity/Vol] 23 U/L 13-56 [facility] CO2 [Moles/Vol] 27.0 mmol/L 21.0-32.0 [facility] Cobalamin (Vitamin B12) [Mass/Vol] 331 pg/mL 211-911 [facility] Globulin (S) [Mass/Vol] 3.3 g/dL 2.2-4.2 [facility] Urea nitrogen/Creatinine [Mass ratio] 16.0 mg/mg 10-20 [facility] Low density lipoprotein (LDL ) cholesterol measurementOrdered By: Ronnie Rodríguez on 08-13-2023 Cholesterol in LDL (Body fld) [Moles/Vol] 119 mg/dL 0-130 [facility] No Panel InformationOrdered By: Ronnie Rodríguez on 08-13-2023 Estimated GFR (MDRD) Amer 91 mL/min >60 [facility] Comment on above: GFR Calc Estimated GFR (MDRD) Non-Af Amer 75 mL/min >60 [facility] Comment on above: Non- GFR Calc Vitamin D 25-Hydroxy 62.5 ng/mL [facility] Comment on above: Vitamin D 25(OH) Sta tus Range Deficiency <20 ng/mL (50nmol/L) Insufficiency 20 - 30 ng/mL (50 - 75 nmol/L) Sufficiency 30 - 100 ng/mL (75 - 250 nmol/L) Toxicity >100 ng/mL (>250 nmol/L) Serum or plasma calcium franklyn urement (mass/volume)Ordered By: Ronnie Rodríguez on 08-13-2023 Calcium [Mass/Vol] 9.3 mg/dL 8.5-10.1 [facility] Serum or plasma creatinine m easurement (mass/volume)Ordered By: Ronnie Rodríguez on 08-13-2023 Creatinine [Mass/Vol] 0.81 mg/dL 0.55-1.02 [facility] Comment on above: The validity of the calculated GFR & GFRAA in patients over 70 years has not been determined. Clinical correlation is essential. Serum or plasma urea nitroge n measurement (mass/volume)Ordered By: Ronnie Rodríguez on 08-13-2023 Urea nitrogen [Mass/Vol] 13 mg/dL 7-18 [facility] Thin prep Papanicolaou smear with manual screeningOrdered By: Ronnie Rodríguez on 08-13-2023 Thin prep Papanicolaou smear with manual screening 3.6 g/dL 3.2-5.0 [facility] Thin prep Papanicolaou smear with manual screening 30 U/L 15-37 [facility] Thin prep Papanicolaou smear with manual screening 6 5-15 [facility] Thin prep Papanicolaou smear with manual screening 9.1 mg/L NO RANGE EST. [facility] Urine albumin/creatinine rat io for detection of microalbuminuriaOrdered By: Ronnie Rodríguez on 08-13-2023 Albumin/Creatinine DL <= 1.0 mg/L (24H U) [Ratio] 10.2 mg/g CRE <30 [facility] Urine creatinine measurement (mass/volume)Ordered By: Ronnie Rodríguez on 08-13-2023 Creatinine (U) [Mass/Vol] 89.10 mg/dL NO RANGE EST. [facility] Very low density lipoprotein (VLDL) cholesterol measurementOrdered By: Ronnie Rodríguez on 08-13-2023 Cholesterol in VLDL Calc [Moles/Vol] 12 mg/dL 5-40 [facility] MAYNOR ROS[facility] ([id number]) 1955 F Date Time Provider Department 08/10/23 JANET CORTES During your visit today, we recorded the following information about you: Janet Cortes MD 08/10/2023 2:55 PM Signed Told patient's SO, path report [facility] Allergies As of Date: 08/10/2023 (Not on File) Date Reviewed: 08/06/2023 Reviewed by: Laura Crocker, RICH - Fully Assessed Reason for Visit: Results [95] Order(s):budesonide, enteric coated (ENTOCORT EC) 3 mg 24 hr capsuleTake 3 capsules by mouth once daily.Disp: 90 capsuleRfl: 0 Prescriptions as of 08/10/2023 - budesonide, enteric coated (ENTOCORT EC) 3 mg 24 hr capsule Take 3 capsules by mouth once daily. - lisinopril (ZESTRIL) 20 mg tablet - pantoprazole DR (PROTONIX) 40 mg tablet - HYDROcodone-acetamin ophen (NORCO) 5-325 mg per tablet TAKE ONE-HALF (1/2) TABLET BY MOUTH EVERY 6 HOURS NEEDED FOR PAIN - PARoxetine (PAXIL) 10 mg tablet Take 1 tablet by mouth once daily. - progesterone micronized (PROMETRIUM) 100 mg capsule Take 1 capsule by mouth once daily. - estradiol (ESTRACE) 1 mg tablet TAKE ONE-HALF (1/2) TABLET EVERY OTHER DAY - cyclobenzaprine (FLEXERIL) 10 mg tablet Take 10 mg by mouth once daily as needed. - Amoxicillin 500 mg tablet Take 500 mg by mouth twice daily. - SUMAtriptan (IMITREX) 100 mg tablet Take 100 mg by mouth as needed for Migraine Headache (see administration instructions) (for migraine headaches). - Ibuprofen 200 mg cap Take 600 mg by mouth as needed (for pain). - melatonin 3 mg tablet Take 3 mg by mouth. - acetaminophen (TYLENOL) 325 mg cap Take by mouth. - Ascorbic Acid (VITAMIN C) 1,000 mg tablet Take 1,000 mg by mouth once daily. - Cholecalciferol, Vitamin D3, (D3-2000) 2,000 unit cap Take by mouth. - calcium carbonate (CALCIUM 500 ORAL) Take 1,000 mg by mouth. - biotin 5,000 mcg ODT Take by mouth. Problem List As Of Date 08/10/2023 Noted Resolved Diarrhea [R19.7] 08/06/2023 Prescriptions ordered this encounter Disp Refills Start End BUDESONIDE DR - ER 3 MG CAPSULE,TANA* 90 c* 0 08/10/2023 09/09/2023 Route: ORAL Sig: Take 3 capsules by mouth once daily. Encounter Status:Closed by JANET CORTES on 08/10/23 [facility] ANES POSTPROC EVALon 024 ANES POSTPROC EVAL HNO ID: [id number] Author: IVANA SPRAGUE MD Service: Anesthesiology Author Type: Physician Type: Anesthesia Postprocedure Evaluation Filed: 08/06/2023 10:03 Note Text: POST ANESTHESIA EVALUATION NOTE : 1955 Procedure Summary Date: 08/06/23 Room / Location: SURGERY Anesthesia Start: 929 Anesthesia Stop: Procedure: COLONOSCOPY DIAGNOSTIC Diagnosis: Diarrhea, unspecified type Diarrhea, unspecified type Scheduled Providers: Janet Cortes MD; Ivana Sprague MD; Shea Mullen ST; Cottingham, Patrick, RN Responsible Provider: Ivana Sprague MD Anesthesia Type: MAC ASA Status: 2 Anesthesia Type: MAC Last Vitals Vitals Value Taken Time BP 112/64 08/06/23 1002 Temp 98.1 08/06/23 1002 Pulse 109 08/06/23 1002 Resp 25 08/06/23 1002 SpO2 97% 08/06/23 1002 Post Anesthesia Patient Status Patient Evaluation: bedside. Anticipated Disposition: phase 2 then home. Neurological Status: aware and responsive. Pulmonary Status: breathing comfortably on room air Airway Control: returned to baseline unsupported. Cardiovascular Status: stable. Pain Management: clinically adequate Postoperative Hydration: acceptable. Intraoperative Events: no significant anesthesia events Post Operative Nausea/Vomiting Status: no significant post operative nausea or vomiting Recommendation: continue current plan of care. Anesthesia Observations No Documentation SIGNATURE: Ivana Sprague MD PATIENT NAME: Maynor Rosen DATE: August 06, 2023 TIME: 10:02 AM CSN: [id number] [facility] ANES PRE-OPon 08-06-2023 ANES PRE-OP HNO ID: [id number] Author: IVANA SPRAGUE MD Service: Anesthesiology Author Type: Physician Type: Anesthesia Preprocedure Evaluation Filed: 08/06/2023 09:28 Note Text: ANESTHESIOLOGY DAY OF SURGERY NOTE : 1955 Procedure Information Date/Time: 08/06/23 0945 Scheduled providers: Janet Cortes MD; Ivana Sprague MD; Shea Mullen ST; Cottingham, Patrick, RN Procedure: COLONOSCOPY DIAGNOSTIC Location: LD SURGERY Estimated body mass index is 26.22 kg/m? as calculated from the following: Height as of 08/03/23: 160 cm (5' 3). Weight as of 08/03/23: 67.1 kg (148 lb). Most recent hematocrit and potassium results: Hematocrit 41.8 09/04/2022 Potassium 4.1 09/04/2022 Relevant Problems No relevant active problems I - PHYSICAL EVALUATION AIRWAY Patient intubated: No. Tracheostomy tube not present Mallampati: III. TM distance: <3 FB. Neck ROM: full ROM without neurological symptoms. Mouth opening: adequate. Short neck: no. Thick neck: no Serrano present: no Microretrognathia/Mi cronagthia/Recessed Chin: No DENTAL Dental findings: teeth intact. Additional exam findings: yes. CARDIOVASCULAR Normal cardiovascular observations. PULMONARY Normal pulmonary observations. II - ANESTHESIA PLAN ASA Score: 2 Anesthetic Plan: MAC The patient is not a current smoker. NPO Status: adequate Beta Oleksandr Monitoring Plan Monitoring plan: standard ASA. Post Procedure Analgesic Plan Informed Consent Anesthetic risks, benefits, alternatives, personnel and consent discussed: yes. Patient / Responsible [employer] Party agrees to proceed: yes Patient / Surrogate agrees to blood products: Yes DNR status not reviewed with patient and/or family prior to surgery. Significant changes in the patient condition since the History and Physical, not otherwise documented in primary service progress note: no. Potential Anesthesia issues that may suggest increased risk of complications or contraindication to planned procedure: other. Hx. HTN Vitals Value Taken Time BP 121/74 08/06/23906 Pulse 94 08/06/23906 Resp 14 08/06/23906 Temp 36.1 ?C (96.9 ?F) 08/06/23906 SpO2 97 % 08/06/23906 Facility-Administere d Medications as of 08/06/2023 Medication Dose Route Frequency - lidocaine (PF) 10 mg/mL (1 %) 1-2 mg injection (XYLOCAINE) 0.1-0.2 mL INTRADERMAL PRN - lactated ringers iv infusion 75 mL/hr INTRAVENOUS CONTINUOUS Outpatient Medications as of 08/06/2023 Medication Sig - lisinopril (ZESTRIL) 20 mg tablet - pantoprazole DR (PROTONIX) 40 mg tablet - HYDROcodone-acetamin ophen (NORCO) 5-325 mg per tablet TAKE ONE-HALF (1/2) TABLET BY MOUTH EVERY 6 HOURS NEEDED FOR PAIN - PARoxetine (PAXIL) 10 mg tablet Take 1 tablet by mouth once daily. - acetaminophen (TYLENOL) 325 mg cap Take by mouth. - progesterone micronized (PROMETRIUM) 100 mg capsule Take 1 capsule by mouth once daily. - estradiol (ESTRACE) 1 mg tablet TAKE ONE-HALF (1/2) TABLET EVERY OTHER DAY - cyclobenzaprine (FLEXERIL) 10 mg tablet Take 10 mg by mouth once daily as needed. - Amoxicillin 500 mg tablet Take 500 mg by mouth twice daily. - SUMAtriptan (IMITREX) 100 mg tablet Take 100 mg by mouth as needed for Migraine Headache (see administration instructions) (for migraine headaches). - Ibuprofen 200 mg cap Take 600 mg by mouth as needed (for pain). - melatonin 3 mg tablet Take 3 mg by mouth. - Ascorbic Acid (VITAMIN C) 1,000 mg tablet Take 1,000 mg by mouth once daily. - Cholecalciferol, Vitamin D3, (D3-2000) 2,000 unit cap Take by mouth. - calcium carbonate (CALCIUM 500 ORAL) Take 1,000 mg by mouth. - biotin 5,000 mcg ODT Take by mouth. I have interviewed and examined the patient. I have reviewed the medical record and/or the pre-anesthesia evaluation, pertinent labs, and test results. This contains updated information obtained within 48 hours of Surgery/Procedure. SIGNATURE: Ivana Sprague MD PATIENT NAME: Maynor Rosen DATE: August 06, 2023 TIME: 9:17 AM CSN: [id number] [facility] BRIEF OP NOTon 08-06-2023 BRIEF OP NOT HNO ID: [id number] Author: JANET CORTES MD Service: General Surgery Author Type: Physician Type: Brief Op Note Filed: 08/06/2023 10:00 Note Text: BRIEF OPERATIVE NOTE SURGERY DATE: 08/06/2023 Incision/Procedure Start Time: 9:37 cecal intubation time:9:41 Incision Close/Procedure End Time: 9:54 Surgeon(s)/Procedura list(s) and Carpet Renovator(s): neil Procedures: Colonoscopy with random mucosal biopsies Anesthesia: MAC Findings: normal colon except for hemorrhoids Estimated Blood Loss: minimal Specimens: random mucosal biopsies throughout colon Complications: None Closure Technique: Non-primary Preop Diagnosis: diarrhea - unexplained Postop Diagnosis: diarrhea, hemorrhoidal disease SIGNATURE: Janet Cortes MD PATIENT NAME: Maynor Rosen DATE: August 06, 2023 TIME: 9:57 AM Acct: [id number] [facility] HISTORY PHYSICALon HISTORY PHYSICAL HNO ID: [id number] Author: JANET CORTES MD Service: General Surgery Author Type: Physician Type: H&P Filed: 08/06/2023 08:53 Note Text: HISTORY AND PHYSICAL Maynor Rosen 1955 REFERRING PHYSICIAN: Janet Cortes MD CHIEF COMPLAINT: No chief complaint on file. HPI: The patient is a 67 year old female referred for endoscopy. Maynor notes diarrhea (for the past two months), denies blood No family medical history of inflammatory bowel disease or colon cancer PAST MEDICAL HISTORY Diagnosis Date History of migraine headaches PAST SURGICAL HISTORY Procedure Laterality Date ENDOMETRIAL ABLTJ THERMAL W/O HYSTEROSCOPIC GUID HIP SURGERY HX Right Hip replacement SKIN BIOPSY HX Basel cell TUBAL LIGATION HX No current facility-administere d medications for this encounter. ALLERGIES: Patient has no known allergies. PERSONAL HISTORY: Social History Tobacco Use Smoking status: Former Smokeless tobacco: Never Substance Use Topics Alcohol use: Yes Comment: Social Drug use: No FAMILY HISTORY: FAMILY HISTORY Problem Relation Age of Onset Cancer Mother Lung Osteoporosis Mother COPD Father No Known Problems Sister Colon Cancer Maternal Grandmother No Known Problems Maternal Grandfather No Known Problems Paternal Grandmother No Known Problems Paternal Grandfather REVIEW OF SYSTEMS: Denies fevers Denies chest pain Denies shortness of breath Physical examination: Vital signs in chart, reviewed and noted by me General - WD/WN in no apparent distress, alert and oriented Head - Normocephalic. EOM intact with sclera clear. Mouth with mucus membranes moist. Neck - supple with no jugular venous distention noted. Trachea is midline. Lungs - normal breath sounds, normal respiratory motion, no adventitial sounds noted. Heart - normal heart sounds. Regular rate. Abdomen - soft and benign. Extremities - no pitting edema noted. Skin - Normal skin integrity. Neurological - non focal Psych - calm and appropriate Impression: diarrhea Discussion/Plan/Edilberto mmendations: I have discussed the above with the patient. I have offered colonoscopy with biopsies I have explained the procedure to the patient. I have counseled the patient as to the risks of the procedure, including but not limited to: infection, bleeding, injury to any intrabdominal organs such as liver/spleen, perforation of the GI tract, inability to complete the procedure, complications of anesthesia, etc. - the patient understands. The patient wishes to proceed. I have answered all questions to the patient?s satisfaction and the patient has no further questions. . Janet Cortes MD [facility] NURSING PROGon 08-06-2023 NURSING PROG HNO ID: [id number] Author: EMIR ABURTO RN Service: ? Author Type: Registered Nurse Type: Nursing Progress Note Filed: 08/06/2023 09:21 Note Text: Patient 3/4 to 1 inch laceration to left palm which she states is from her hobby working with glass. Area is open to air. No redness or swelling or drainage noted. Normal [facility] OPERATIVE NOon 08-06-2023 OPERATIVE NO HNO ID: [id number] Author: JANET CORTES MD Service: General Surgery Author Type: Physician Type: Operative Report Filed: 08/06/2023 15:00 Note Text: [facility] - Operative Report - MAYNOR Noble : 1955 AGE: 67. SEX: F PATIENT TYPE: O [facility]: [facility] LOCATION: [facility] ATTENDING PHYSICIAN: Janet Cortes MD CSN NUMBER: [id number] DATE OF SURGERY/PROCEDURE: 08/06/2023 INCISION/PROCEDURE START TIME: 9:37 AM INCISION CLOSE/PROCEDURE END TIME: 9:54 AM PREOPERATIVE DIAGNOSIS: Unexplained diarrhea. POSTOPERATIVE DIAGNOSIS: Hemorrhoidal disease. SURGEON: Janet Cortes MD CUBE CUTTER: No Additional Staff SURGERY/PROCEDURE: Colonoscopy with random mucosal biopsies. ANESTHESIA: MAC LOCATION: [facility]. INDICATIONS: Maynor Rosen is a 67-year-old white female, who presents with unexplained diarrhea. She has been noticing this for the past 2 months. She last had a colonoscopy about 5 years ago. She notes no family history of inflammatory bowel disease or colon cancer. She presents for colonoscopy. She has been counseled of the risks of procedure including, but not limited to infection, bleeding, perforation of GI tract, inability to complete the procedure, etc. The patient understands and agrees to proceed. DESCRIPTION OF PROCEDURE: After informed consent was given, the patient was brought to the endoscopy suite. Appropriate time-out protocol was followed. The patient was placed in the left lateral decubitus position. The patient was given IV anesthesia by the Anesthesia provider. The endoscope was carefully lubricated and carefully inserted into the patient's anus and advanced into the rectum. It was then advanced into the sigmoid colon, then left colon, past the splenic flexure into transverse colon, past hepatic flexure down the right colon to the cecum. The cecum was identified by transillumination, confluence of teniae coli, identification of ileocecal valve, appendiceal orifice, and external palpation. The colon cleansing preparation was adequate. Because of the patient's complaint, random mucosal biopsies were taken throughout the colon using cold grasper forceps. However, there was no evidence of any inflammatory changes of the mucosa that was noted throughout the colon. There was no evidence of any masses, polyps, lesions in the right colon. There was no evidence of any masses, polyps, lesions in the transverse colon. There was no evidence of any masses, polyps, lesions in the left colon. There was no evidence of any masses, polyps, lesions in the sigmoid colon. There was no evidence of any masses or polyps in the rectum. Retroflexed view in the rectum revealed hemorrhoidal changes, but no active inflammation or bleeding. The endoscope was removed intact. Digital examination of the anal canal revealed no palpable masses. The patient was brought to recovery room in stable condition. SPECIMENS: Random mucosal biopsies throughout the colon. ESTIMATED BLOOD LOSS: Minimal. COMPLICATIONS: None. RECOMMENDATIONS: Screening colonoscopy in 10 years. Janet Cortes MD LW:[id number] Normal [facility] SURGICAL PATHOLOGYon CASE REPORT Normal [facility] Comment on above: Order Comment: Gal mclain Type: TISSUE SPECIMEN Ordering Facility: [facility] Address: [address] [place] [address] Result Comment: Surg ical Pathology Report Case: [id number] Authorizing Provider: Janet Cortes MD Collected: 08/06/2023 09:46 AM Ordering Location: SURGERY Received: 08/07/2023 11:57 AM Pathologist: Honorio Kenny MD Specimen: COLON BIOPSY, Random Colon Biopsies Performed By: #### S #### [facility] CLIA [id number] [address] [place] [address] CLINICAL HISTORY Unexplained diarrhea Normal [facility] Comment on above: Order Comment: Gal mclain Type: TISSUE SPECIMEN Ordering Facility: [facility] Address: [address] [place] [address] Performed By: #### S #### [employer] [facility] CLIA [id number] [address] [place] [address] [place] DIAGNOSIS COMMENT No granulomas, significant acute inflammation or thickened subepithelial collagen band is identified. The findings would be compatible with lymphocytic colitis in the appropriate clinical setting. Normal [facility] Comment on above: Order Comment: Speci men Type: TISSUE SPECIMEN Ordering Facility: [facility] Address: [address] [place] [address] Performed By: #### S #### [facility] CLIA [id number] [address] [place] [address] FINAL DIAGNOSIS Normal [facility] Comment on above: Order Comment: Speci men Type: TISSUE SPECIMEN Ordering Facility: [facility] Address: [address] [place] [address] Result Comment: Sherrie barnes, random, biopsy: - Colonic mucosa with increased intraepithelial lymphocytes, (see comment). Performed By: #### S #### [facility] CLIA [id number] [address] [place] [address] FINAL PERFORMING LAB Normal [facility] Comment on above: Order Comment: Speci men Type: TISSUE SPECIMEN Ordering Facility: [facility] Address: [address] [place] [address] Result Comment: Diag nostic interpretation performed at [facility], [address] [place] [address] CLIA# [id number] Mess Attendant Crew: Alexander Noble M.D. Performed By: #### S #### [facility] CLIA [id number] [address] [place] [address] GROSS DESCRIPTION A. COLON BIOPSY Normal [facility] Comment on above: Order Comment: Speci men Type: TISSUE SPECIMEN Ordering Facility: [facility] Address: [address] [place] [address] Result Comment: Rece ived in formalin labeled random colon biopsies are multiple irregular walter soft tissue fragments aggregating to 1 x 1 x 0.2 cm. The specimen is submitted entirely in A1. Gross examination performed at [facility], [address] [place] [address] CLIA#[id number] OLS August 07, 2023 3:08 PM Performed By: #### S #### [facility] CLIA [id number] [address] [place] [address] [place] NURSING PROGon 08-03-2023 NURSING PROG HNO ID: [id number] Author: GASTON AUSTIN, RN Service: ? Author Type: Registered Nurse Type: Nursing Progress Note Filed: 08/03/2023 12:55 Note Text: Pre-Procedure Checklist Maynor Rosen [phone] (home) 1955 67 year old Body mass index is 26.22 kg/m?. 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 No Recent EKG/Cardiac Testing: No Chest pain in the last 6 months (<6 months cardiac clearance needed): No History of: Heart Attack/Stroke/Blood Clot?: no Shortness of Breath: No Asthma: No Inhalers: No Any Outstanding Consults?: No If yes, list: Additional Notes: Normal [facility] Ova and parasite examination on 08-01-2023 Ova and parasites identified LM Nom (Stl) Negative Negative [facility] Comment on above: INTERPRETIVE INFORMATION: Ova and Parasite, Fecal Method for identification of Ova and Parasites includes wet mount and trichrome stains. Due to the various shedding cycles of many parasites, three separate stool specimens collected over a 5-7-day period are recommended for ova and parasite examination. A single negative result does not rule out the possibility of a parasitic infection. The ova and parasite exam does not specifically detect Cryptosporidium, Cyclospora, Cystoisospora, and Microsporidia. For additional test information refer to [employer] consult, [email or web address] Performed By: [facility] [address] [place] [id number] Mess Attendant Crew: Jonn Reyes MD, PhD CLIA Number: [id number] [facility] C. DIFFICILE BY PCR WITH REF MYA TO EIAon 07-29-2023 C. DIFFICILE BY PCR WITH REFLEX TO EIA C. DIFFICILE TOXIN PCR Reference Not Detected Not Detected ORDER COMMENTS: C. difficile infection is unlikely to be present. Methodology: Real-time PCR Normal [facility] Comment on above: Performed By: #### L [id number], [id number], [id number] #### Platform Power Technician: ESTER KUMAR ([id number]) [facility] ([facility]) [address] [place] [address] C. difficile toxin genes KULDEEP +probe Ql (Stl)on 07-29-2023 C. difficile toxin B tcdB gene KULDEEP+probe Ql (Stl) Not detected Not Detected [facility] Interpretation and review of laboratory results Normal [facility] C. difficile infection is unlikely to be present. Methodology: Real-time PCR [facility] FECAL LACTOFERRINon 07-29-19 24 FECAL LACTOFERRIN LACTOFERRIN, FECAL (A) Reference Positive Negative ORDER COMMENTS: (A) Methodology: Enzyme Immunoassay [facility] Comment on above: Performed By: #### L [id number], [id number], [id number] #### Platform Power Technician: ESTER KUMAR ([id number]) [facility] ([facility]) [address] [place] [address] GASTROINTESTINAL PCR PANELon 07-29-2023 GASTROINTESTINAL PCR PANEL CAMPYLOBACTER Reference Not Detected Not Detected PLESIOMONAS SHIGELLOIDES Reference Not Detected Not Detected SALMONELLA Reference Not Detected Not Detected VIBRIO SPECIES Reference Not Detected Not Detected VIBRIO CHOLERAE Reference Not Detected Not Detected YERSINIA ENTEROCOLITICA Reference Not Detected Not Detected ENTEROTOXIGENIC E COLI (ETEC) Reference Not Detected Not Detected SHIGA TOXIN-PRODUCING E COLI (STEC) Reference Not Detected Not Detected ESCHERICHIA COLI O157 Reference N/A Not Detected SHIGELLA/ENTEROINVAS JORDAN E COLI (EIEC) Reference Not Detected Not Detected CRYPTOSPORIDIUM Reference Not Detected Not Detected CYCLOSPORA CAYETANENSIS Reference Not Detected Not Detected ENTAMOEBA HISTOLYTICA Reference Not Detected Not Detected GIARDIA LAMBLIA Reference Not Detected Not Detected ADENOVIRUS F 40/41 Reference Not Detected Not Detected ASTROVIRUS Reference Not Detected Not Detected NOROVIRUS GI/GII Reference Not Detected Not Detected ROTAVIRUS A Reference Not Detected Not Detected SAPOVIRUS Reference Not Detected Not Detected ORDER COMMENTS: Methodology: Multiplex PCR Normal [facility] Comment on above: Performed By: #### L [id number], [id number], [id number] #### Platform Power Technician: ESTER KUMAR ([id number]) [facility] ([facility]) [address] OVA AND PARASITE EXAMINATION on 07-29-2023 OVA AND PARASITE EXAMINATION OVA PARASITE, INTERP Reference Negative Negative INTERPRETIVE INFORMATION: Ova and Parasite, Fecal Method for identification of Ova and Parasites includes wet mount and trichrome stains. Due to the various shedding cycles of many parasites, three separate stool specimens collected over a 5-7-day period are recommended for ova and parasite examination. A single negative result does not rule out the possibility of a parasitic infection. The ova and parasite exam does not specifically detect Cryptosporidium, Cyclospora, Cystoisospora, and Microsporidia. For additional test information refer to [employer] consult, [email or web address]/content/diarrhea Performed By: [facility] [address] [place] [address] Mess Attendant Crew: Jonn Reyes MD, PhD CLIA Number: [id number] [facility] Comment on above: Performed By: #### L [id number] #### [facility] ([facility]) [address] [place] [id number] [facility] Basophil percentageOrdered B y: Luis Alberto Ordaz on 05-18-2023 Creatinine [Mass/Vol] 1.0 mg/dL 0.55-1.02 [facility] - Chemistry and C hemistry - challengeOrdered By: Luis Alberto Ordaz on 05-18-2023 GFR/1.73 sq M.predicted among non-blacks MDRD (S/P/Bld) [Vol rate/Area] 60.0000 mL/min/{1.73_m2} >60 [facility] Basophil percentageOrdered B y: Dr. Juan on 08-07-2022 Basophil percentage < 0.9 mg/dL 0.55-1.02 [facility] No Panel InformationOrdered By: Dr. Juan on 08-07-2022 Bedside Estimated GFR (eGFR) > 60.0000 mL/min >60 [facility] Basophil percentageOrdered B y: Dr. Juan on 06-17-2022 Basophil percentage < 0.9 mg/dL 0.55-1.02 [facility] No Panel InformationOrdered By: Dr. Juan on 06-17-2022 Bedside Estimated GFR (eGFR) > 60.0000 mL/min >60 [facility] CBC with Diffon 03-07-2022 AB IMMATURE NEUT 0.06 K/UL Normal 0.0-0.1 [facility] ABS BASO 0.01 K/UL Normal 0.00-0.22 [facility] ABS EOS 0.01 K/UL Normal 0-0.45 [facility] ABS NEUTROPHILS 8.24 K/UL High 1.8-7.7 [facility] ABS.NEUT.CALCULATED 8.24 K/UL Normal [facility] Comment on above: Result Comment: Perf ormed at [facility] [address] [address] [facility] [address] Basophils/100 WBC (Bld) 0.10 % Normal 0-1 [facility] DIFF TYPE AUTO DIFF Normal [facility] Eosinophils/100 WBC (Bld) 0.10 % Normal 0-3 [facility] Erythrocyte distribution width (RBC) [Ratio] 14.9 % Normal 11.7-15.0 [facility] Hematocrit (Bld) [Volume fraction] 33.1 % Low 36-44 [facility] Hemoglobin (Bld) [Mass/Vol] 11.0 g/dL Low 12.0-15.0 [facility] Lymphocytes (Bld) [#/Vol] 1.73 10*3/uL Normal 1.2-3.2 [facility] Lymphocytes/100 WBC (Bld) 15.50 % Low 20-40 [facility] MCH (RBC) [Entitic mass] 30.6 pg Normal 26-34 [facility] MCHC 33.2 % Normal 31-37 [facility] MCV (RBC) [Entitic vol] 92.2 fL Normal 80-100 [facility] MEAN PLT VOL 10.3 CU Normal 7.0-12.6 [facility] Monocytes (Bld) [#/Vol] 1.10 10*3/uL High 0-0.8 [facility] Monocytes/100 WBC (Bld) 9.90 % High 0-8 [facility] Neutrophils/100 WBC (Bld) 0.50 % Normal 0.0-1.0 [facility] Neutrophils/100 WBC (Bld) 73.90 % High 50-70 [facility] Platelets (Bld) [#/Vol] 176 10*3/uL Normal 150-450 [facility] RBC (Bld) [#/Vol] 3.59 10*6/uL Low 4.0-4.9 [facility] RDW-SD 51.3 FL Normal 37.0-54.0 [facility] WBC (Bld) [#/Vol] 11.2 10*3/uL High 4.5-11.0 [facility] COMPREHENSIVE METABOLIC PANE Gabo 03-07-2022 Albumin [Mass/Vol] 3.3 g/dL Low 3.5-5.0 [facility] Albumin/Globulin [Mass ratio] 1.5 {ratio} Normal 1.5-3.0 [facility] ALP [Catalytic activity/Vol] 53 U/L Normal 35-125 [facility] ALT [Catalytic activity/Vol] 26 U/L Normal 5-40 [facility] Anion gap [Moles/Vol] 8 mmol/L Normal 0-19 [facility] AST [Catalytic activity/Vol] 28 U/L Normal 5-40 [facility] Bilirubin [Mass/Vol] 0.3 mg/dL Normal 0.1-1.2 [facility] Calcium [Mass/Vol] 8.5 mg/dL Normal 8.5-10.4 [facility] Chloride [Moles/Vol] 104 mmol/L Normal 97-107 [facility] CO2 [Moles/Vol] 28 mmol/L Normal 24-31 [facility] Creatinine [Mass/Vol] 0.7 mg/dL Normal 0.4-1.6 [facility] ESTIMATED GFR 96 mL/min/1.73 m2 Normal [facility] Comment on above: Result Comment: CALCULATIONS OF ESTIMATED GFR ARE PERFORMED USING THE 2020 CKD-EPI STUDY REFIT EQUATION WITHOUT THE RACE VARIABLE FOR THE IDMS-TRACEABLE CREATININE METHODS. https://jasn.asnjournals.org/content//ASN.2 404518773 Performed at [facility] [address] [facility] [address] Globulin (S) [Mass/Vol] 2.2 g/dL Normal 1.9-3.7 [facility] Glucose [Mass/Vol] 124 mg/dL High 65-99 [facility] Potassium [Moles/Vol] 3.9 mmol/L Normal 3.4-5.1 [facility] Protein [Mass/Vol] 5.5 g/dL Low 5.9-7.9 [facility] Sodium [Moles/Vol] 140 mmol/L Normal 133-145 [facility] Urea nitrogen [Mass/Vol] 12 mg/dL Normal 8-25 [facility] Urea nitrogen/Creatinine [Mass ratio] 17.1 mg/mg Normal 8-21 [facility] SARS-CoV-2,INFLUENZA A/B NUC LEIC ACID TESTon 03-06-2022 EUA DISCLAIMER [facility] Comment on above: Result Comment: This test has been authorized by FDA under an EUA for use by CLIA Certified Moderate and High-Complexity laboratories and Point of Care (POC), i.e., in patient care settings operating under a CLIA Certificate of Waiver, Certificate of Compliance, or Certificate of Accreditation. This test has been authorized only for the simultaneous qualitative detection and differentiation of nucleic acid from SARS-CoV-2, influenza A virus, and influenza B virus and not for any other viruses or pathogens. This test is only authorized for the duration of the declaration that circumstances exist justifying the authorization of emergency use of in vitro diagnostic tests for the detection and/or diagnosis of COVID-19, unless the authorization is terminated or revoked sooner. Performed at [facility] [address] [facility] [address] FLU A by PCR Negative [facility] FLU B by PCR Negative [facility] SARS-CoV-2 (COVID-19) RNA KULDEEP+probe Ql (Unsp spec) Negative Normal NEG [facility] Absolute lymphocyte counton 02-26-2022 Lymphocytes Auto (Unsp spec) [#/Vol] 2.72 10*3/uL 0.83-4.51 [facility] Work Phone: Basophil percentageon 2021 Basophils/100 WBC (Bld) 0.5 % 0-1 [facility] Work Phone: Bilirubin [Mass/Vol] 0.30 mg/dL 0.20-1.00 [facility] Work Phone: Comment on above: For patients on eltr ombopag therapy, use of Dimension [place] TBIL is not recommended. Chloride [Moles/Vol] 102 mmol/L 98-107 [facility] Work Phone: Cholesterol [Mass/Vol] 233 mg/dL <200 Wo malissa [facility] Work Phone: Comment on above: <200 mg/dL Desirable 200-240 mg/dL Borderline >240 mg/dL High Risk Eosinophils/100 WBC (Bld) 0.6 % 0-5 [facility] Work Phone: Glucose [Mass/Vol] 93 mg/dL 74-106 [facility] Work Phone: Neutrophils (Bld) [#/Vol] 6.4 10*3/uL 2.0-7.7 [facility] Work Phone: Neutrophils/100 WBC (Bld) 63.1 % 47-70 [facility] Work Phone: Potassium [Moles/Vol] 3.6 mmol/L 3.5-5.1 [facility] Work Phone: Protein [Mass/Vol] 7.5 g/dL 6.4-8.2 [facility] Work Phone: Sodium [Moles/Vol] 137 mmol/L 136-145 [facility] Work Phone: [phone] Triglyceride [Mass/Vol] 107 mg/dL <199 [facility] Work Phone: Comment on above: The drugs N-Acetylcy steine and Metamizole may falsely depress this assay.Serum Triglycerides Reference Interval Normal <150 mg/dL Borderline high 150 - 199 mg/dL High 200 - 499 mg/dL Very High > or = 500 mg/dL WBC (Bld) [#/Vol] 10.1 10*3/uL 4.4-11.0 [facility] Work Phone: Bilirubin Test strip Ql (U)o n 02-26-2022 Bilirubin Ql (U) Negative Negative [facility] Work Phone: Blood erythrocytes count (nu mber/volume)on 02-26-2022 RBC (Bld) [#/Vol] 4.81 10*6/uL 4.2-5.4 [facility] Work Phone: Blood hemoglobin measurement (mass/volume)on 02-26-2022 Hemoglobin (Bld) [Mass/Vol] 14.5 g/dL 12.0-15.0 [facility] Work Phone: Blood lymphocytes/100 leukoc yteson 02-26-2022 Lymphocytes/100 WBC (Bld) 27.0 % 19-41 [facility] Work Phone: Blood monocytes/100 leukocyt eson 02-26-2022 Monocytes/100 WBC (Bld) 8.2 % 0-10 [facility] Work Phone: Blood platelet mean volumeon 02-26-2022 Platelet mean volume (Bld) [Entitic vol] 11.3 fL 6.2-12.0 [facility] Work Phone: Determination of erythrocyte mean corpuscular volume (MCV)on 02-26-2022 MCV (RBC) [Entitic vol] 95.0 fL 81-99 [facility] Work Phone: Hematocrit Auto (Bld) [Volum e fraction]on 02-26-2022 Hematocrit (Bld) [Volume fraction] 45.7 % 37-47 [facility] Work Phone: INR in Blood by Coagulation assayon 02-26-2022 INR Coag (Bld) [Relative time] 0.9 {INR} [facility] Work Phone: Ketones Test strip Ql (U)on 02-26-2022 Ketones Ql (U) Negative Negative [facility] Work Phone: Laboratory - Chemistry and C hemistry - challengeon 02-26-2022 ALP [Catalytic activity/Vol] 74 U/L 45-117 [facility] Work Phone: ALT [Catalytic activity/Vol] 52 U/L 13-56 [facility] Work Phone: CO2 [Moles/Vol] 28.0 mmol/L 21.0-32.0 [facility] Work Phone: Globulin (S) [Mass/Vol] 3.7 g/dL 2.2-4.2 [facility] Work Phone: Urea nitrogen/Creatinine [Mass ratio] 18.7 mg/mg 10-20 [facility] Work Phone: Laboratory - Coagulationon 0 02-26-2022 aPTT Coag (Bld) [Time] 23.1 s 24.1-36.2 Wo malissa [facility] Work Phone: PT Coag (PPP) [Time] 11.8 s 11.7-14.[address] [facility] Work Phone: Laboratory - Hematology and Cell countson 02-26-2022 Erythrocyte distribution width (RBC) [Entitic vol] 55.7 fL 35.1-43.9 [facility] Work Phone: Erythrocyte distribution width (RBC) [Ratio] 15.9 % 11.6-14.6 [facility] Work Phone: Immature granulocytes/100 WBC (Bld) 0.600 % 0.0-0.9 [facility] Work Phone: Comment on above: IG% - Immature Granu locytes (promyelocytes, myelocytes and metamyelocytes) > 1% indicates that a LEFT SHIFT is Present. MCH (RBC) [Entitic mass] 30.1 pg 27.0-32.0 [facility] Work Phone: Nucleated RBC/100 WBC (Bld) [Ratio] 0 % 0-5 [facility] Work Phone: MCHC Auto (RBC) [Mass/Vol]on 02-26-2022 MCHC (RBC) [Mass/Vol] 31.7 g/dL 32-36 [facility] Work Phone: Nitrite Test strip Ql (U)on 02-26-2022 Nitrite Ql (U) Negative Negative [facility] Work Phone: No Panel Informationon 02-26 Estimated GFR (MDRD) Amer 80 mL/min >60 [facility] Work Phone: Comment on above: GFR Calc Estimated GFR (MDRD) Non-Af Amer 66 mL/min >60 [facility] Work Phone: Comment on above: Non- GFR Calc Thyroid Stimulating Hormone (TSH) 1.34 uIU/mL 0.358-3.74 [facility] Work Phone: Platelets bldon 02-26-2022 Platelets (Bld) [#/Vol] 249 10*3/uL 150-450 [facility] Work Phone: Protein Test strip Ql (U)on 02-26-2022 Protein Ql (U) 15 mg/dl Negative [facility] Work Phone: Serum or plasma albumin franklyn urement (mass/volume)on 02-26-2022 Albumin [Mass/Vol] 3.8 g/dL 3.2-5.0 [facility] Work Phone: Serum or plasma albumin/glob ulin mass ratioon 02-26-2022 Albumin/Globulin [Mass ratio] 1.0 {ratio} 0.9-2.4 [facility] Work Phone: Serum or plasma calcium franklyn urement (mass/volume)on 02-26-2022 Calcium [Mass/Vol] 9.2 mg/dL 8.5-10.1 [facility] Work Phone: Serum or plasma cholesterol in HDL measurement (mass/volume)on 02-26-2022 Cholesterol in HDL [Mass/Vol] 92 mg/dL >40 [facility] Work Phone: Comment on above: The drugs N-Acetylcy steine and Metamizole may falsely depress this assay. Reference Range HDL <40 mg/dL Low HDL Cholesterol HDL >or= 60 mg/dL High HDL Cholesterol Serum or plasma cholesterol in VLDL measurement (mass/volume)on 02-26-2022 Cholesterol in VLDL [Mass/Vol] 21 mg/dL 5-40 [facility] Work Phone: Serum or plasma creatinine m easurement (mass/volume)on 02-26-2022 Creatinine [Mass/Vol] 0.91 mg/dL 0.55-1.02 [facility] Work Phone: Comment on above: The validity of the calculated GFR & GFRAA in patients over 70 years has not been determined. Clinical correlation is essential. Serum or plasma low density lipoprotein (LDL) cholesterol measurement (mass/volume)on 02-26-2022 Cholesterol in LDL [Mass/Vol] 120 mg/dL 0-130 [facility] Work Phone: Serum or plasma urea nitroge n measurement (mass/volume)on 02-26-2022 Urea nitrogen [Mass/Vol] 17 mg/dL 7-18 [facility] Work Phone: Thin prep Papanicolaou smear with manual screeningon 02-26-2022 Thin prep Papanicolaou smear with manual screening 32 U/L 15-37 [facility] Work Phone: Thin prep Papanicolaou smear with manual screening 7 5-15 [facility] Work Phone: Urine blood detectionon 08-0 RBC Ql (U) Negative Negative [facility] Work Phone: Urine clarityon 02-26-2022 Clarity (U) Sl. Cloudy Clear [facility] Work Phone: Urine color determinationon 02-26-2022 Color (U) Yellow Yellow [facility] Work Phone: Urine glucose detectionon Glucose Ql (U) Normal mg/dl Normal [facility] Work Phone: Urine leukocyte esterase det ection by dipstickon 02-26-2022 Leukocyte esterase Test strip Ql (U) 25 /ul Negative [facility] Work Phone: Urine pHon 02-26-2022 pH (U) 7.0 [pH] 5.0 - 8.0 [facility] Work Phone: Urine specific gravity measu rementon 02-26-2022 Specific gravity (U) [Rel density] 1.015 1.002-1.030 [facility] Work Phone: Urobilinogen Auto test strip Ql (U)on 02-26-2022 Urobilinogen Ql (U) Normal mg/dl Normal [facility] Work Phone: Whole blood hemoglobin A1c/t otal hemoglobin ratio (mass fraction)on 02-26-2022 HbA1c (Bld) [Mass fraction] 5.5 % 3.8-5.6 [facility] Work Phone: Comment on above: Normal < 5.7 % Predi abetic 5.7 - 6.4 % Diabetic >or= 6.5 % Please note range changes. [facility] SCREENING W TOMOon 01-17 [facility] No Panel Informationon 12-18 [facility] ARELIS SCREENINGon 08-12-2019 ARELIS SCREENING * * *Final Report* * * DATE OF EXAM: Aug 12 2019 12:06PM AWW [id number] - [facility] SCREENING / PROCEDURE REASON: screening * * * * Physician Interpretation * * * * #[id number] - [facility] SCREENING BILATERAL DIGITAL SCREENING MAMMOGRAM WITH CAD: 08/12/2019 HISTORY: Routine screening mammogram. Patient reports no breast problems. RESULT: TECHNIQUE: The study was acquired using full field digital technology and interpreted from soft copy. Current study was also evaluated with a Computer Aided Detection (CAD). Comparison is made to exam dated: 03/15/2018 mammogram - [facility]. The tissue of both breasts is heterogeneously dense. This may lower the sensitivity of mammography. No significant masses, calcifications, or other findings are seen in either breast. There has been no significant interval change. IMPRESSION: NEGATIVE There is no mammographic evidence of malignancy. A 1 year screening mammogram is recommended. Yassine Staley M.D. tab/penrad:08/12/2019 13:11:57 Filler Shredding Machine Loader(s): Callum Green(Denise)(M), [facility] letter sent: Normal over 40 Mammogram BI-RADS: 1 Negative Multiple national specialty organizations have released breast cancer screening guidelines for women at average risk for developing breast cancer - guidelines that are based on both evidence and opinion, yet differ on when to start and how often to screen for breast cancer. With representation from Breast Imaging, Internal Medicine, Women's Health, Family Medicine, and Medical/Surgical Oncology, the [facility] has carefully reviewed the data and reached the following consensus: 1) All women should engage in shared decision-making with their providers to decide when to start and how often to screen; 2) All women should have the opportunity to start screening mammography at age 40; 3) For women ages 45-55, we recommend annual screening mammograms; 4) For women ages 55 and over, we support both the transition from an annual to a biennial interval if this aligns more with patient's values and preferences, or continuation with annual screening; 5) All women should discuss with their providers when to stop screening mammograms. Sandfill Operator Surface: Reanna Transcribe Date/Time: Aug 12 2019 11:51A Dictated by : YASSINE STALEY MD This examination was interpreted and the report reviewed and electronically signed by: YASSINE STALEY MD on Aug 12 2019 1:11PM EST Normal [facility] Glucoseon 07-25-2019 Glucose [Mass/Vol] 80 mg/dL Normal 74-106 [facility] Comment on above: Performed By: #### L IPID, GLUC #### [facility] [address] [place] [id number] Lipid Profileon 07-25-2019 Cholesterol [Mass/Vol] 221 mg/dL High <=200 [facility] Comment on above: Performed By: #### L IPID, GLUC #### [facility] [address] [place] [id number] Cholesterol in HDL [Mass/Vol] 97 mg/dL High 40-[address] [facility] Comment on above: Performed By: #### L IPID, GLUC #### [facility] [address] [place] [address] Cholesterol in LDL [Mass/Vol] 108 mg/dL High <=[address] [facility] Comment on above: Performed By: #### L IPID, GLUC #### [facility] [address] [place] [address] Triglyceride [Mass/Vol] 81 mg/dL Normal <=150 [facility] Comment on above: Performed By: #### L IPID, GLUC #### [facility] [address], [place] [address] VLDL Calc 16 mg/dL Normal 14-[address] [facility] Comment on above: Performed By: #### L IPID, GLUC #### [facility] [address] [place] [id number] Vital Signs Date Time Vital Sign Value Performing Clinician Faci lity 10-26-2024 14:00-0400 Body temperature 97.8 [degF] Dr. Luis Alberto Ordaz MD Work Phone: [facility] 10-26-2024 14:00-0400 Diastolic blood pressure 58 mm[Hg] Dr. Luis Alberto Ordaz MD Work Phone: [facility] 10-26-2024 14:00-0400 Heart rate 103 /min Dr. Luis Alberto Ordaz MD Work Phone: [facility] 10-26-2024 14:00-0400 Respiratory rate 14 /min Dr. Luis Alberto Ordaz MD Work Phone: [facility] 10-26-2024 14:00-0400 SaO2% (BldA) [Mass fraction] 95 % Dr. Luis Alberto Ordaz MD Work Phone: [facility] 10-26-2024 14:00-0400 Systolic blood pressure 91 mm[Hg] Dr. Luis Alberto Ordaz MD Work Phone: [facility] 10-25-2024 16:16-0400 Inhaled oxygen flow rate 4 L/min Dr. Luis Alberto Ordaz MD Work Phone: [facility] 10-25-2024 16:00-0400 Body height 160.[address] Luis Alberto Ordaz MD Work Phone: [facility] 10-25-2024 16:00-0400 Body mass index (BMI) [Ratio] 26.5 kg/m2 Dr. Luis Alberto Ordaz MD Work Phone: [facility] 10-25-2024 16:00-0400 Body weight [address] Luis Alberto Ordaz MD Work Phone: [facility] 08-19-2024 07:34-0500 Body mass index (BMI) [Ratio] 27.5 kg/m2 Dr. Luis Alberto Ordaz MD Work Phone: [facility] 08-19-2024 07:34-0500 Body weight 70.[address] Luis Alberto Ordaz MD Work Phone: [facility] 03-11-2024 10:51-0400 Body mass index (BMI) [Ratio] 24.98 kg/m2 Diane Hummel MD Work Phone: [facility] 03-11-2024 10:51-0400 Body weight 63.96 kg Diane Hummel MD Work Phone: [facility] 03-11-2024 10:51-0400 Diastolic blood pressure 81 mm[Hg] Diane Hummel MD Work Phone: [facility] 03-11-2024 10:51-0400 Systolic blood pressure 122 mm[Hg] Diane Hummel MD Work Phone: [facility] 01-17-2022 13:00-0400 Body height 160 cm Bone Bath [facility] 11-15-2021 10:38-0400 Body height 162.6 cm Diane Hummel MD Work Phone: [facility] 11-15-2021 10:38-0400 Body weight 68.4 kg Diane Hummel MD Work Phone: [facility] 11-15-2021 10:38-0400 Diastolic blood pressure 60 mm[Hg] Diane Hummel MD Work Phone: [facility] 11-15-2021 10:38-0400 Systolic blood pressure 108 mm[Hg] Diane Hummel MD Work Phone: [facility] 08-17-2020 13:57-0500 Body weight 69.85 kg Diane Hummel [facility] 08-17-2020 13:57-0500 BP Diastolic 88 mm[Hg] Diane Hummel [facility] 08-17-2020 13:57-0500 BP Systolic 140 mm[Hg] Diane Hummel [facility] 08-17-2020 13:57-0500 Height 162.6 cm Diane Hummel [facility] Encounters Encounter Date Encounter Type Care Provider Facility Start: 02-09-2025 ambulatory Shanelle Marcos VSC Faci lity:[facility] Start: 01-19-2025 End: 01-19-[address] Addy Kent MD -[facility] Start: 01-19-2025 End: 01-19-2025 ambulatory Shanelle Marcos DO Work Phone: [facility] Work Phone: Start: 01-12-[facility] Start: 01-12-[address] Terry bueno MD -Physical Therapy Work Phone: Start: 01-06-2025 Encounter for other preprocedural examination [facility] Start: 12-13-[address] Terry bueno MD -Physical Therapy Work Phone: Start: 12-13-2024 End: 12-13-2024 ambulatory Shanelle Marcos DO Work Phone: [facility] Work Phone: Start: 12-13-2024 End: 12-13-2024 Patient encounter procedure Shanelle Marcos DO -[facility] Start: 12-13-2024 End: 12-13-2024 ambulatory Shanelle Marcos VSC Facility:[facility] Start: 12-08-2024 End: 12-08-[address] Addy Kent MD -[facility] Start: 12-08-2024 End: 12-08-2024 ambulatory Shanelle Marcos DO Work Phone: [facility] Work Phone: Start: 12-08-[address] Terry bueno MD -Physical Therapy Work Phone: Start: 11-10-2024 End: 11-10-[address] Terry Lang MD -[facility] Work Phone: Start: 11-10-2024 End: 11-10-2024 ambulatory Shanelle Marcos VSC Facility:[facility] Start: 10-26-2024 Non-patient / Non-visit Nelda MYERS -[facility] Start: 10-26-2024 Non-patient / Non-visit Dr. Gamal Bowman MD -[facility] Work Phone: Start: 10-25-2024 Non-patient / Non-visit Dr. Amanda Giraldo MD -[facility] Work Phone: Start: 10-25-2024 ambulatory Shanelle Marcos VSC Faci lity:[facility] Start: 10-25-2024 End: 10-26-2024 Evaluation and management of inpatient Dr. Terry Lang MD -[facility] 3 Work Phone: Start: 10-25-2024 Non-patient / Non-visit Dr. Alexander hutchins MD -[facility] Start: 10-25-2024 Non-patient / Non-visit Dr. Terry foley MD -[facility] Start: 10-25-2024 ambulatory Shanelle Marcos VSC Faci lity:[facility] Start: 10-20-2024 End: 10-20-[address] Terry Lang MD -[facility] Work Phone: Start: 10-20-2024 End: 10-20-2024 ambulatory Shanelle Marcos VSC Facility:[facility] Start: 10-13-2024 End: 10-13-2024 ambulatory Shanelle Marcos VSC Facility:[facility] Start: 10-13-2024 End: 10-13-2024 Non-patient / Non-visit Dr. Addy Kent MD -[facility] Work Phone: Start: 09-03-2024 End: 09-03-[address] Terry Lang MD -[facility] Work Phone: Start: 09-03-2024 End: 09-03-2024 ambulatory Shanelle Marcos VSC Facility:[facility] Start: 08-19-2024 End: 08-19-[address] Terry Lang MD -[facility] Work Phone: Start: 08-19-2024 End: 08-19-2024 [facility] Start: 07-15-2024 End: 07-15-[address] Luis Alberto Ordaz MD -[facility] Work Phone: Start: 07-15-2024 End: 07-15-2024 ambulatory [facility] Facility:[facility] Start: 03-11-2024 End: 03-11-2024 Patient encounter procedure Diane Hummel MD Work Phone: [facility] Comment on above: Encounter for gyneco logical examination (general) (routine) without abnormal findings (Primary Dx) Start: 03-11-2024 End: 03-11-2024 Patient encounter status Diane Hummel MD Work Phone: [facility] Work Phone: Start: 03-11-2024 End: 03-11-2024 ambulatory DIANE HUMMEL Facility:[facility] Start: 03-11-2024 Encounter for gynecological examination (general) (routine) without abnormal findings DIANE HUMMEL [facility] Start: 11-26-2023 Documentation procedure Mammog hollie Coordinator [facility] NOT [facility] Start: 11-26-2023 Letter encounter Mammography Coordinator [facility] NOT [facility]IST[facility] Start: 11-25-2023 ambulatory DIANE HUMMEL Facili ty:[facility] Start: 11-25-2023 End: 11-25-2023 Subsequent hospital visit by physician Screen Mammo [place] [facility] Comment on above: Encounter for screen ing mammogram for malignant neoplasm of breast [Z12.31] Start: 08-13-2023 End: 08-13-2023 ambulatory [facility] Work Phone: Start: 08-13-2023 End: 08-13-2023 Patient encounter procedure [facility] Start: 08-06-2023 End: 08-06-2023 ambulatory JANET CORTES Facility:[facility] Start: 08-02-2023 Orders Only Janet peralta MD Work Phone: General Surgery Comment on above: Diarrhea, unspecifie d type (Primary Dx) Start: 07-29-2023 End: 07-30-2023 ambulatory [facility] Comment on above: Infectious gastroent eritis and colitis, unspecified (Primary Dx) Start: 05-19-2023 End: 05-19-2023 ambulatory [facility] Work Phone: Start: 05-19-2023 End: 05-19-2023 Patient encounter procedure [facility] Work Phone: Start: 05-12-2023 End: 05-12-2023 ambulatory [facility] Work Phone: Start: 05-12-2023 End: 05-12-[address] [facility] Work Phone: Start: 02-02-2023 End: 02-02-2023 Subsequent hospital visit by physician Xr Bath 2 [facility] GENER[facility] Comment on above: Spinal stenosis, lum bar region with neurogenic claudication [M48.062] Start: 08-07-2022 End: 08-07-2022 [facility] Work Phone: Start: 08-07-2022 End: 08-07-2022 Patient encounter procedure [facility] Start: 06-17-2022 End: 06-17-2022 ambulatory [facility] Work Phone: Start: 06-17-2022 End: 06-17-2022 Patient encounter procedure [facility]-Cat Scan, [facility] Start: 06-07-2022 End: 06-07-2022 Subsequent hospital visit by physician Xr [place] [facility] Comment on above: Lumbar herniated dis c [M51.26] Start: 03-15-2022 End: 03-15-2022 Subsequent hospital visit by physician Xr [place] [facility] Comment on above: Other intervertebral disc displacement, lumbar region [M51.26] Start: 02-26-2022 End: 02-26-2022 Patient encounter procedure [facility]-Laboratory, [place] Start: 02-11-2022 End: 02-11-2022 Patient encounter procedure [facility]-MRI - [facility] Start: 02-03-2022 End: 02-03-2022 Patient encounter procedure [facility]-Radiology, [facility] Start: 01-21-2022 Telephone encounter Diane Hummel MD Work Phone: [facility] Comment on above: Results Start: 01-17-2022 Documentation procedure Mammog hollie Coordinator [facility] Start: 01-17-2022 Letter encounter Mammography Coordinator [facility] NOT LISTED Start: 01-17-2022 End: 01-17-2022 Subsequent hospital visit by physician Bone Density [place] [facility] BONE DENSITY [facility] Comment on above: Asymptomatic postmen opausal status [Z78.0] Encounter for screen ing mammogram for breast cancer [Z12.31] Start: 11-21-2021 Refill Diane morse MD Work Phone: [facility] Comment on above: Refill Request Start: 11-15-2021 End: 11-15-2021 Patient encounter procedure Diane Hummel MD Work Phone: [facility] Comment on above: Well woman exam ([place]ena [place] Dx); Encounter for gynecological examination (general) (routine) without abnormal findings; Encounter for screening mammogram for breast cancer; Menopausal state; Asymptomatic postmenopausal status; Other general symptoms and signs ; Overweight Start: 11-15-2021 End: 11-15-2021 Patient encounter status Diane Hummel MD Work Phone: [facility] Start: 09-13-2021 Refill Diane morse MD Work Phone: [facility] Comment on above: Refill Request Start: 06-23-2021 Refill Diane morse MD Work Phone: [facility] Comment on above: Refill Request Start: 12-18-2020 End: 12-18-2020 Documentation procedure Mammography Coordinator [facility] Start: 12-18-2020 Letter encounter Mammography Coordinator [facility] NOT LISTED Start: 12-18-2020 End: 12-18-2020 Subsequent hospital visit by physician Screen Mammo [place] [facility] Comment on above: arelis screen Start: 08-17-2020 End: 08-17-2020 Patient encounter procedure Diane Hummel Work Phone: [facility] Comment on above: Encounter for gyneco logical examination (general) (routine) without abnormal findings; Encounter for screening mammogram for breast cancer; Menopausal state Start: 06-06-2020 End: 06-06-2020 Refill Diane Hummel Work Phone: [facility] Comment on above: Refill Request Start: 07-25-2019 End: 07-26-2019 Patient encounter procedure [facility] Start: 06-12-2017 Ambulatory [facility] Procedures Date Procedure Procedure Detail Performing Clinician Start: 12-08-2024 X-ray of lumbar spin e, two or three views Shanelle Juareznger DO Work Phone: Start: 11-10-2024 X-ray of lumbar spin e, two or three views Shanelle Rodríguez DO Work Phone: Start: 10-26-2024 Urine culture Shanellejerod moreno DO Work Phone: Start: 10-26-2024 Urnls dip stick/tabl et reagent auto microscopy Shanelle Rodríguez DO Work Phone: Start: 10-26-2024 X-ray of lumbar spin e, two or three views Dr. Luis Alberto Ordaz MD Work Phone: Start: 10-26-2024 Estimated creatinine clearance Shanelle Marcos DO Work Phone: Start: 10-25-2024 Fluoroscopic guidance Dolly Ordaz MD Work Phone: Start: 10-25-[address] Alex Ordaz MD Work Phone: Start: 10-25-2024 X-ray of lumbar spin e, two or three views Dr. Luis Alberto Ordaz MD Work Phone: Start: 10-13-2024 Methicillin resistan t Staphylococcus aureus screening test Dr. Luis Alberto Ordaz MD Work Phone: Start: 10-13-2024 Hepatitis A virus an tibody, total measurement Shanelle Rodríguez [employer] Work Phone: Comment on above: Comment: The HAV tot al antibody assay detects both IgG andIgM but does not differentiate between them. A negativeresult suggests susceptibility to infection. A positiveresult could be due to vaccination, previously resolvedinfection or active infection. Testing for HAV IgM shouldbe performed if active HAV infection is suspected. [facility] profiles that will automatically reflex positive HAVtotal antibody results to IgM (e.g., panel #[id number] HAVAntibody w/ Rfx).Performed at: [facility] [id number] Director: Walter Dsouza PhD, Phone: [phone] Start: 10-13-2024 Hepatitis C antibody measurement Shanelle Rodríguez DO Work Phone: Comment on above: Reactive: Presumptiv e evidence of antibodies to HCV. Follow CDC recommendations for supplemental testing.Non-Reactive: Antibodies to HCV were not detected; does not exclude the possibility of exposure to HCVReactive Results are presumptive evidence of antibodies to HCV. Follow CDC recommendations for supplemental testing.Order confirmation testing: HCV Quant by PCR testing - HCVPCR #[id number] Non Reactive: < 0.8 Equivocal: >/= 0.8 to < 1.0 Reactive: >/= 1.0The CDC requires that a reactive/equivocal HCV antibody result be sent out for confirmation. HCV Quant by PCR testing. Start: 10-13-2024 PCR test for HIV 1 Giuliano Rodríguez [employer] Work Phone: Comment on above: HIV-1 RNA not detect edThe reportable range for this assay is 20 to 10,000,000copies HIV-1 RNA/mL. Start: 09-03-2024 CT of lumbar spine Dr. Luis Alberto Ordaz MD Work Phone: Start: 08-19-2024 X-ray of lumbosacral spine Dr. Luis Alberto Ordaz MD Work Phone: Start: 07-15-2024 MRI of lumbar spine with contrast Dr. Luis Alberto Ordaz MD Work Phone: Start: 05-18-2023 MRI of lumbar spine with contrast Start: 08-07-2022 MRI of lumbar spine with contrast Start: 06-17-2022 Computerized axial t omography of lumbar spine with contrast Start: 02-26-2022 Plain chest X-ray Start: 02-11-2022 MRI of lumbar spine Start: 02-03-2022 X-ray of lumbar spin e, two or three views Start: 01-17-2022 Dxa bone density dean dy 1/> sites axial skel Diane Hummel MD Work Phone: Start: 01-17-2022 ARELIS SCREENING W GREG Da wn Beth Hummel MD Work Phone: Start: 01-17-2022 Mammography [facility] Start: 12-18-2020 End: 12-18-2020 Screening mammography bi 2-view breast inc cad Diane Hummel MD Work Phone: Start: 08-12-2019 Mammography Diane Hummel Start: 06-11-2015 Colonoscopy Diane Hummel Plan of Treatment Date Care Activity Detail Author Start: 09-04-2025 DIABETES SCREEN DIABETES SCREEN [facility] Start: 09-04-2025 Diabetes Screening Diabetes Screening [facility] Start: 06-11-2025 Colonoscopy COLONOSCOPY [facility] Start: 06-11-2025 COLORECTAL CANCER SCREENING COLORECTAL CANCER SCREENING [facility] Start: 06-11-2025 Screening for malignant neoplasm of colon [facility] Start: 01-19-2025 X-ray of lumbar spine, two or three views Lumbar Spine 2 or 3 Views [facility] Start: 01-19-2025 XR Lumbar spine 2 or 3 Views [facility] Start: 12-08-2024 X-ray of lumbar spine, two or three views Lumbar Spine 2 or 3 Views [facility] Start: 12-08-2024 XR Lumbar spine 2 or 3 Views [facility] Start: 11-24-2024 Screening for malignant neoplasm of breast Mammogram Screening [facility] Start: 11-10-2024 Patient referral [facility] Work Phone: Start: 10-26-2024 Bacteria identified in Urine by Culture Urine Culture [facility] Start: 10-26-2024 Patient discharge [facility] Start: 10-26-2024 Catheterization of vein [facility] Start: 10-26-2024 [facility] Start: 10-25-2024 Application of intermittent pneumatic compression device [facility] Start: 10-25-2024 Following clinical pathway protocol [facility] Start: 10-25-2024 Application of device [facility] Start: 10-25-2024 Assessment of risk of venous thromboembolism [facility] Start: 10-25-2024 Consultation [facility] Start: 10-25-2024 Following clinical pathway protocol [facility] Start: 10-25-2024 Incentive spirometry [facility] Start: 10-25-2024 Introduction of urinary catheter [facility] Start: 10-25-2024 Measuring intake and output [facility] Start: 10-25-2024 Neurovascular assessment [facility] Start: 10-25-2024 Oxygen therapy [facility] Start: 10-25-2024 Patient education [facility] Start: 10-25-2024 Provision of activity privileges [facility] Start: 10-25-2024 Referral to occupational therapist [facility] Start: 10-25-2024 Taking patient vital signs [facility] Start: 10-25-2024 End: 10-25-2024 [facility] Start: 10-25-2024 Admission procedure [facility] Start: 10-25-2024 Referral to service [facility] Start: 10-25-2024 Verification routine [facility] Start: 10-11-2024 Electrocardiographic procedure [facility] Start: 03-27-2024 Influenza vaccination [facility] Start: 03-11-2024 End: 03-11-2024 Patient encounter procedure 03/11/2024 11:00 AM EDT Office Visit [facility] [address] [place] [address] Diane Hummel MD [address] [place], [place] [address] annual [facility] Comment on above: annual Start: 07-27-2023 Advance Directive Discussion Advance Directive Discussion [facility] Start: 07-27-2023 Behavioral Health Screening Behavioral Health Screening [facility] Start: 07-27-2023 Depression Assessment Depression Assessment [facility] Start: 03-27-2023 Covid-19 Vaccine () Covid-19 Vaccine () [facility] Start: 03-27-2023 Influenza vaccination [facility] Start: 03-19-2023 HPV TESTING HPV TESTING [facility] Start: 03-19-2023 PAP TESTING PAP TESTING [facility] Start: 01-17-2023 Mammography MAMMOGRAM [facility] Start: 01-17-2023 Screening for malignant neoplasm of breast Mammogram Screening [facility] Start: 07-27-2022 ADVANCE DIRECTIVE DISCUSSION ADVANCE DIRECTIVE DISCUSSION [facility] Start: 07-27-2022 DEPRESSION ASSESSMENT DEPRESSION ASSESSMENT [facility] Start: 03-27-2022 Influenza vaccination INFLUENZA (#1) [facility] Start: 12-18-2021 Mammography MAMMOGRAM [facility] Start: 11-15-2021 End: 01-15-2022 CBC panel - Blood by Automated count CBC Lab Routine Well woman exam Expected: 11/15/2021, Expires: 01/15/2022 [facility] Work Phone: Comment on above: Expected: 11/15/2021, Expires: 2 Start: 11-15-2021 End: 01-15-2022 Comprehensive metabolic 2000 panel - Serum or Plasma COMP METABOLIC PANEL Lab Routine Well woman exam Expected: 11/15/2021, Expires: 01/15/2022 [facility] Work Phone: Comment on above: Expected: 11/15/2021, Expires: 2 Start: 11-15-2021 End: 01-15-2022 LIPID PANEL BASIC LIPID PANEL BASIC Lab Routine Well woman exam Overweight Expected: 11/15/2021, Expires: 01/15/2022 [facility] Work Phone: Comment on above: Expected: 11/15/2021, Expires: 2 Start: 11-15-2021 End: 01-15-2022 Thyrotropin [Units/volume] in Serum or Plasma TSH BLD Lab Routine Well woman exam Other general symptoms and signs Expected: 11/15/2021, Expires: 01/15/2022 [facility] Work Phone: Comment on above: Expected: 11/15/2021, Expires: 2 Start: 10-23-2021 COVID-19 VACCINE (4 - Booster for Pfizer series) COVID-19 VACCINE (4 - Booster for Pfizer series) [facility] Start: 2021 ADVANCE DIRECTIVE DISCUSSION ADVANCE DIRECTIVE DISCUSSION [facility] Start: 2021 BONE DENSITY BONE DENSITY [facility] Start: 2021 Pneumococcal Vaccine: 65+ (2 of 2 - PCV) Pneumococcal Vaccine: 65+ (2 of 2 - PCV) [facility] Start: 2021 Pneumococcal Vaccine: 65+ Years (2 of 2 - PCV) Pneumococcal Vaccine: 65+ Years (2 of 2 - PCV) [facility] Start: 2021 PNEUMOCOCCAL: 65+ (1 - PCV) PNEUMOCOCCAL: 65+ (1 - PCV) [facility] Start: 2021 PNEUMOVAX AGE 65 AND OVER WITH 5YR LOOKBACK (#1) PNEUMOVAX AGE 65 AND OVER WITH 5YR LOOKBACK (#1) [facility] Start: 08-20-2021 COVID-19 VACCINE (4 - Booster for Pfizer series) COVID-19 VACCINE (4 - Booster for Pfizer series) [facility] Start: 08-20-2021 COVID-19 VACCINE (4 - Pfizer series) COVID-19 VACCINE (4 - Pfizer series) [facility] Start: 07-27-2021 DEPRESSION ASSESSMENT DEPRESSION ASSESSMENT [facility] Start: 04-20-2021 COVID-19 VACCINE (3 - Booster for Pfizer series) COVID-19 VACCINE (3 - Booster for Pfizer series) [facility] Start: 03-27-2021 Influenza vaccination INFLUENZA (#1) [facility] Start: 03-20-2021 COVID-19 VACCINE (3 - Booster for Pfizer series) COVID-19 VACCINE (3 - Booster for Pfizer series) [facility] Start: 08-12-2020 Mammography MAMMOGRAM [facility] Start: 03-27-2020 Influenza vaccination INFLUENZA (#1) [facility] Start: 2016 RSV Immunization aged 60 or older (1 - 1-dose 60+ series) RSV Immunization aged 60 or older (1 - 1-dose 60+ series) [facility] Start: 2016 RSV Vaccine (1 - 1-dose 60+ series) RSV Vaccine (1 - 1-dose 60+ series) [facility] Start: 2006 Screening for malignant neoplasm of colon [facility] Start: 2006 SHINGRIX VACCINE (1 of 2) SHINGRIX VACCINE (1 of 2) [facility] Start: 2001 COLOGUARD (FIT-DNA) COLOGUARD (FIT-DNA) [facility] Start: [address] COLONOGRAPHY [facility] Start: 2001 DIABETES SCREEN DIABETES SCREEN [facility] Start: 2001 FECAL OCCULT BLOOD FECAL OCCULT BLOOD [facility] Start: 2001 Lipid panel Lipid Screening [facility] Start: 2001 LIPID SCREEN LIPID SCREEN [facility] Start: 2001 Screening for malignant neoplasm of colon [facility] Start: 2001 SIGMOIDOSCOPY SIGMOIDOSCOPY [facility] Start: 1996 Screening for malignant neoplasm of breast Mammogram [facility] Start: 10-03-1975 DTaP/Tdap/Td Vaccines (1 - Tdap) DTaP/Tdap/Td Vaccines (1 - Tdap) [facility] Start: 10-03-1975 Urine microalbumin profile [facility] Start: 1974 Anxiety Screening Anxiety Screening [facility] Start: 1974 Depression Screening Depression Screening [facility] Start: 1974 HEPATITIS C SCREENING HEPATITIS C SCREENING [facility] Start: 1974 Hepatitis C screening Hepatitis C Screening [facility] Start: 1974 HIV SCREENING HIV SCREENING [facility] Start: 1968 Adult depression screening assessment DEPRESSION SCREENING [facility] Start: 1956 Screening for malignant neoplasm of colon [facility] Start: 1956 Screening for osteoporosis Bone Density Scan [facility] End: 08-02-2024 COLONOSCOPY DIAGNOSTIC COLONOSCOPY DIAGNOSTIC Endoscopy Routine Diarrhea, unspecified type 1 Occurrences starting 08/02/2023 until 08/02/2024 [facility] Work Phone: Comment on above: 1 Occurrences starting 08/02/2023 until 08/02/2024 End: 12-15-2022 Dxa bone density study 1/> sites axial skel DXA-AXIAL [facility] Radiology Routine Asymptomatic postmenopausal status 1 Occurrences starting 11/15/2021 until 12/15/2022 [facility] Work Phone: Comment on above: 1 Occurrences starting 11/15/2021 until 12/15/2022 Dxa bone density dean dy 1/> sites axial skel DXA-AXIAL [facility]LE[facility] Radiology Routine Asymptomatic postmenopausal status 01/17/2022 2:02 PM EDT [facility] Work Phone: End: 12-15-2022 ARELIS SCREENING W GREG ARELIS SCREENING W GREG Radiology Routine Encounter for screening mammogram for breast cancer 1 Occurrences starting 11/15/2021 until 12/15/2022 [facility] Work Phone: Comment on above: 1 Occurrences starting 11/15/2021 until 12/15/2022 OUTSIDE PROCEDURE SCAN OUTSIDE P ROCEDURE SCAN Procedures Ordered: 07/29/2023 [facility] Comment on above: Ordered: 07/29/2023 PAP TEST PAP TEST Lab [facility] Encounter for gynecological examination (general) (routine) without abnormal findings Ordered: 03/11/2024 [facility] Work Phone: Comment on above: Ordered: 03/11/2024 Patient Education Lumbar Fusion [facility] Work Phone: Patient referral [facility] Work Phone: End: 09-16-2021 Screening mammography bi 2-view breast inc cad ARELIS SCREENING Radiology Routine Encounter for screening mammogram for breast cancer 1 Occurrences starting 08/17/2020 until 09/16/2021 [facility] Comment on above: 1 Occurrences starting 08/17/2020 until 09/16/[address] [facility] Immun[facility] Immunization Date Immunization Notes Care Provider Fa cility 07-05-2023 influenza virus vaccine, unspecified formulation Diane Hummel MD Work Phone: [facility] 05-21-2022 influenza virus vaccine, unspecified formulation Janet Cortes MD Work Phone: [facility] 06-25-2021 Covid (Pfizer) [facility] 10-18-2020 Covid (Pfizer) [facility] 09-28-2020 Covid (Pfizer) [facility] Payers Date Payer Category Payer Self-pay [id number] 2023 Unknown 2021 Medicare [id number] 2021 Medicare [id number] 2021 Private Health Insurance [facility] AARP SUPPLEMENT [id number] 2021-Present [phone] [address] [place] [address] Indemnity [id number] 2021 Private Health Insurance [facility] AARP SUPPLEMENT [id number] 2021-Present [phone] [address] [place] [address] Indemnity [id number] 2021 Medicare [id number] 2021 Medicare [id number] 2021 Unknown [id number] 2018 Unknown [id number] 1959 Unknown [id number] 1956 Unknown [id number] .598 Unknown [id number] Unknown [id number] 2.16.840.1.779329.3.579.2 .462 Unknown [id number] 2.16.840.1.121622.3.579.2 .462 Unknown [id number] 2.16.840.1.659616.3.579.2 .462 Unknown [id number] 2.16.840.1.115461.3.579.2 .462 Unknown [id number] 2.16.840.1.263105.3.579.2 .462 Unknown [id number] 2.16.840.1.805720.3.579.2 .462 Unknown [id number] 2.16.840.1.564661.3.579.2 .462 Unknown [id number] 2.16.840.1.662255.3.579.2 .462 Unknown [id number] 2.16.840.1.465460.3.579.2 .462 Unknown [id number] 2.16.840.1.316212.3.579.2 .462 Unknown [id number] 2.16.840.1.048311.3.579.2 .462 Unknown [id number] 2.16.840.1.049601.3.579.2 .462 Unknown [id number] 2.16.840.1.882049.3.579.2 .462 Unknown [id number] 2.16.840.1.674916.3.579.2 .462 Unknown [id number] 2.16.840.1.671385.3.579.2 .462 Unknown [id number] 2.16.840.1.384516.3.579.2 .462 Unknown [id number] 2.16.840.1.740884.3.579.2 .462 Unknown [id number] 2.16.840.1.480244.3.579.2 .462 Unknown [id number] 2.16.840.1.886289.3.579.2 .462 Unknown [id number] 2.16.840.1.377919.3.579.2 .462 Unknown [id number] 2.16.840.1.051560.3.579.2 .462 Social History Date Type Detail Facility Start: 03-19-2018 End: 08-12-2019 Tobacco smoking status NHIS Former smoker [facility] Start: 03-19-2018 End: 08-12-2019 Tobacco use and exposure Never used [facility] Start: 08-12-2019 End: 03-11-2024 Alcohol intake Current drinker of alcohol (finding) [facility] Start: 03-19-2018 Alcohol Comment Social [facility] Start: 1955 Sex Assigned At Female [facility] Start: 11-05-2021 End: 06-07-2022 Exposure to SARS-CoV-2 (event) Not sure [facility] History of tobacco use Current smoker [facility] Start: 11-15-2021 End: 11-25-2023 History of Social function [facility] Start: 11-15-2021 End: 11-25-2023 Tobacco use panel [facility] National Score (1-10 0), lower number is lower risk 38 [facility] Start: 08-05-2019 Gender identity Identifies as female gender (finding) [facility] Start: 08-05-2019 Sexual orientation Heterosexual (fin ding) [facility] Start: 10-11-2024 Tobacco smoking stat us TNIS Never smoked tobacco [facility] Start: 1955 Sex Assigned At Not on file [facility] Start: 10-26-2024 Sex Female (finding) [facility] Medical Equipment Procedure Code Equipment Code Equipment Origin al Text Equipment Identifier Dates Fusion, spine, lumbar, 360 degree, starting in supine position transitioning to prone 65mm rods FDA Start: 10-25-2024 Fusion, spine, lumbar, 360 degree, starting in supine position transitioning to prone PUTTY, 2.5CC STD DBX FDA Start: 10-25-2024 Fusion, spine, lumbar, 360 degree, starting in supine position transitioning to prone PUTTY, 2.5CC STD DBX FDA Start: 10-25-2024 Fusion, spine, lumbar, 360 degree, starting in supine position transitioning to prone set screws FDA Start: 10-25-2024 Fusion, spine, lumbar, 360 degree, starting in supine position transitioning to prone set screws FDA Start: 10-25-2024 Fusion, spine, lumbar, 360 degree, starting in supine position transitioning to prone set screws FDA Start: 10-25-2024 Fusion, spine, lumbar, 360 degree, starting in supine position transitioning to prone set screws FDA Start: 10-25-2024 Fusion, spine, lumbar, 360 degree, starting in supine position transitioning to prone set screws FDA Start: 10-25-2024 Fusion, spine, lumbar, 360 degree, starting in supine position transitioning to prone set screws FDA Start: 10-25-2024 Fusion, spine, lumbar, 360 degree, starting in supine position transitioning to prone xpac FDA Start: 10-25-2024 Fusion, spine, lumbar, 360 degree, starting in supine position transitioning to prone Collagen haemostatic agent, non-antimicrobial ()[id number] FDA Start: 10-25-2024 Fusion, spine, lumbar, 360 degree, starting in supine position transitioning to prone 65mm rods FDA Start: 10-25-2024 Fusion, spine, lumbar, 360 degree, starting in supine position transitioning to prone Spinal fusion graft kit ()[id number] FDA Start: 10-25-2024 Fusion, spine, lumbar, 360 degree, starting in supine position transitioning to prone Ligation clip, metallic ()[id number] FDA Start: 10-25-2024 Fusion, spine, lumbar, 360 degree, starting in supine position transitioning to prone 7x45mm screws FDA Start: 10-25-2024 Fusion, spine, lumbar, 360 degree, starting in supine position transitioning to prone 7x45mm screws FDA Start: 10-25-2024 Fusion, spine, lumbar, 360 degree, starting in supine position transitioning to prone 7x45mm screws FDA Start: 10-25-2024 Fusion, spine, lumbar, 360 degree, starting in supine position transitioning to prone 7x45mm screws FDA Start: 10-25-2024 Fusion, spine, lumbar, 360 degree, starting in supine position transitioning to prone 7x45mm screws FDA Start: 10-25-2024 Fusion, spine, lumbar, 360 degree, starting in supine position transitioning to prone 7x45mm screws FDA Start: 10-25-2024 Fusion, spine, lumbar, 360 degree, starting in supine position transitioning to prone BONE,30CC CRUSH CANC FDA Start: 10-25-2024 Fusion, spine, lumbar, 360 degree, starting in supine position transitioning to prone 65mm rods FDA Start: 10-25-2024 Fusion, spine, lumbar, 360 degree, starting in supine position transitioning to prone PUTTY, 2.5CC STD DBX FDA Start: 10-25-2024 Fusion, spine, lumbar, 360 degree, starting in supine position transitioning to prone PUTTY, 2.5CC STD DBX FDA Start: 10-25-2024 Fusion, spine, lumbar, 360 degree, starting in supine position transitioning to prone set screws FDA Start: 10-25-2024 Fusion, spine, lumbar, 360 degree, starting in supine position transitioning to prone set screws FDA Start: 10-25-2024 Fusion, spine, lumbar, 360 degree, starting in supine position transitioning to prone set screws FDA Start: 10-25-2024 Fusion, spine, lumbar, 360 degree, starting in supine position transitioning to prone set screws FDA Start: 10-25-2024 Fusion, spine, lumbar, 360 degree, starting in supine position transitioning to prone set screws FDA Start: 10-25-2024 Fusion, spine, lumbar, 360 degree, starting in supine position transitioning to prone set screws FDA Start: 10-25-2024 Fusion, spine, lumbar, 360 degree, starting in supine position transitioning to prone xpac FDA Start: 10-25-2024 Fusion, spine, lumbar, 360 degree, starting in supine position transitioning to prone 65mm rods FDA Start: 10-25-2024 Fusion, spine, lumbar, 360 degree, starting in supine position transitioning to prone 7x45mm screws FDA Start: 10-25-2024 Fusion, spine, lumbar, 360 degree, starting in supine position transitioning to prone 7x45mm screws FDA Start: 10-25-2024 Fusion, spine, lumbar, 360 degree, starting in supine position transitioning to prone 7x45mm screws FDA Start: 10-25-2024 Fusion, spine, lumbar, 360 degree, starting in supine position transitioning to prone 7x45mm screws FDA Start: 10-25-2024 Fusion, spine, lumbar, 360 degree, starting in supine position transitioning to prone 7x45mm screws FDA Start: 10-25-2024 Fusion, spine, lumbar, 360 degree, starting in supine position transitioning to prone 7x45mm screws FDA Start: 10-25-2024 Fusion, spine, lumbar, 360 degree, starting in supine position transitioning to prone BONE,30CC CRUSH CANC FDA Start: 10-25-2024 Fusion, spine, lumbar, 360 degree, starting in supine position transitioning to prone 65mm rods FDA Start: 10-25-2024 Fusion, spine, lumbar, 360 degree, starting in supine position transitioning to prone PUTTY, 2.5CC STD DBX FDA Start: 10-25-2024 Fusion, spine, lumbar, 360 degree, starting in supine position transitioning to prone PUTTY, 2.5CC STD DBX FDA Start: 10-25-2024 Fusion, spine, lumbar, 360 degree, starting in supine position transitioning to prone set screws FDA Start: 10-25-2024 Fusion, spine, lumbar, 360 degree, starting in supine position transitioning to prone set screws FDA Start: 10-25-2024 Fusion, spine, lumbar, 360 degree, starting in supine position transitioning to prone set screws FDA Start: 10-25-2024 Fusion, spine, lumbar, 360 degree, starting in supine position transitioning to prone set screws FDA Start: 10-25-2024 Fusion, spine, lumbar, 360 degree, starting in supine position transitioning to prone set screws FDA Start: 10-25-2024 Fusion, spine, lumbar, 360 degree, starting in supine position transitioning to prone set screws FDA Start: 10-25-2024 Fusion, spine, lumbar, 360 degree, starting in supine position transitioning to prone xpac FDA Start: 10-25-2024 Fusion, spine, lumbar, 360 degree, starting in supine position transitioning to prone 65mm rods FDA Start: 10-25-2024 Fusion, spine, lumbar, 360 degree, starting in supine position transitioning to prone 7x45mm screws FDA Start: 10-25-2024 Fusion, spine, lumbar, 360 degree, starting in supine position transitioning to prone 7x45mm screws FDA Start: 10-25-2024 Fusion, spine, lumbar, 360 degree, starting in supine position transitioning to prone 7x45mm screws FDA Start: 10-25-2024 Fusion, spine, lumbar, 360 degree, starting in supine position transitioning to prone 7x45mm screws FDA Start: 10-25-2024 Fusion, spine, lumbar, 360 degree, starting in supine position transitioning to prone 7x45mm screws FDA Start: 10-25-2024 Fusion, spine, lumbar, 360 degree, starting in supine position transitioning to prone 7x45mm screws FDA Start: 10-25-2024 Fusion, spine, lumbar, 360 degree, starting in supine position transitioning to prone BONE,30CC CRUSH CANC FDA Start: 10-25-2024 Fusion, spine, lumbar, 360 degree, starting in supine position transitioning to prone 65mm rods FDA Start: 10-25-2024 Fusion, spine, lumbar, 360 degree, starting in supine position transitioning to prone PUTTY, 2.5CC STD DBX FDA Start: 10-25-2024 Fusion, spine, lumbar, 360 degree, starting in supine position transitioning to prone PUTTY, 2.5CC STD DBX FDA Start: 10-25-2024 Fusion, spine, lumbar, 360 degree, starting in supine position transitioning to prone set screws FDA Start: 10-25-2024 Fusion, spine, lumbar, 360 degree, starting in supine position transitioning to prone set screws FDA Start: 10-25-2024 Fusion, spine, lumbar, 360 degree, starting in supine position transitioning to prone set screws FDA Start: 10-25-2024 Fusion, spine, lumbar, 360 degree, starting in supine position transitioning to prone set screws FDA Start: 10-25-2024 Fusion, spine, lumbar, 360 degree, starting in supine position transitioning to prone set screws FDA Start: 10-25-2024 Fusion, spine, lumbar, 360 degree, starting in supine position transitioning to prone set screws FDA Start: 10-25-2024 Fusion, spine, lumbar, 360 degree, starting in supine position transitioning to prone xpac FDA Start: 10-25-2024 Fusion, spine, lumbar, 360 degree, starting in supine position transitioning to prone 65mm rods FDA Start: 10-25-2024 Fusion, spine, lumbar, 360 degree, starting in supine position transitioning to prone 7x45mm screws FDA Start: 10-25-2024 Fusion, spine, lumbar, 360 degree, starting in supine position transitioning to prone 7x45mm screws FDA Start: 10-25-2024 Fusion, spine, lumbar, 360 degree, starting in supine position transitioning to prone 7x45mm screws FDA Start: 10-25-2024 Fusion, spine, lumbar, 360 degree, starting in supine position transitioning to prone 7x45mm screws FDA Start: 10-25-2024 Fusion, spine, lumbar, 360 degree, starting in supine position transitioning to prone 7x45mm screws FDA Start: 10-25-2024 Fusion, spine, lumbar, 360 degree, starting in supine position transitioning to prone 7x45mm screws FDA Start: 10-25-2024 Fusion, spine, lumbar, 360 degree, starting in supine position transitioning to prone BONE,30CC CRUSH CANC FDA Start: 10-25-2024 Fusion, spine, lumbar, 360 degree, starting in supine position transitioning to prone 65mm rods FDA Start: 10-25-2024 Fusion, spine, lumbar, 360 degree, starting in supine position transitioning to prone PUTTY, 2.5CC STD DBX FDA Start: 10-25-2024 Fusion, spine, lumbar, 360 degree, starting in supine position transitioning to prone PUTTY, 2.5CC STD DBX FDA Start: 10-25-2024 Fusion, spine, lumbar, 360 degree, starting in supine position transitioning to prone set screws FDA Start: 10-25-2024 Fusion, spine, lumbar, 360 degree, starting in supine position transitioning to prone set screws FDA Start: 10-25-2024 Fusion, spine, lumbar, 360 degree, starting in supine position transitioning to prone set screws FDA Start: 10-25-2024 Fusion, spine, lumbar, 360 degree, starting in supine position transitioning to prone set screws FDA Start: 10-25-2024 Fusion, spine, lumbar, 360 degree, starting in supine position transitioning to prone set screws FDA Start: 10-25-2024 Fusion, spine, lumbar, 360 degree, starting in supine position transitioning to prone set screws FDA Start: 10-25-2024 Fusion, spine, lumbar, 360 degree, starting in supine position transitioning to prone xpac FDA Start: 10-25-2024 Fusion, spine, lumbar, 360 degree, starting in supine position transitioning to prone 65mm rods FDA Start: 10-25-2024 Fusion, spine, lumbar, 360 degree, starting in supine position transitioning to prone 7x45mm screws FDA Start: 10-25-2024 Fusion, spine, lumbar, 360 degree, starting in supine position transitioning to prone 7x45mm screws FDA Start: 10-25-2024 Fusion, spine, lumbar, 360 degree, starting in supine position transitioning to prone 7x45mm screws FDA Start: 10-25-2024 Fusion, spine, lumbar, 360 degree, starting in supine position transitioning to prone 7x45mm screws FDA Start: 10-25-2024 Fusion, spine, lumbar, 360 degree, starting in supine position transitioning to prone 7x45mm screws FDA Start: 10-25-2024 Fusion, spine, lumbar, 360 degree, starting in supine position transitioning to prone 7x45mm screws FDA Start: 10-25-2024 Fusion, spine, lumbar, 360 degree, starting in supine position transitioning to prone BONE,30CC CRUSH CANC FDA Start: 10-25-2024 Goals Date Patient Goal Desired Activity /State Functional Status Date Assessment Result Facility 10-26-2024 Functional status Ambulates;Bathroom [facility] Work Phone: Mental Status Date Assessment Result Facility 10-26-2024 Cognitive function Appropriate;[facility] Work Phone: 10-25-2024 Cognitive function Arousable To Voice/Nam e [facility] Work Phone: Clinical Notes 12-18-2020 to 10-26-2024 Note Date & Type Note Facility 10-26-2024 Progress note [facility] 10-26-2024 Progress note Note Date/Time October 26, 2024 2:01pm [facility] Medical Records Department [address] [place] [address] Progress Note - Orthopedic 10/26/24 1049 MR#: [id number] Acct: [id number] Name: MAYNOR ROSEN Rep #:[id number] : 1955 69 From: Nelda MYERS PCP: Shanelle Rodríguez DO Status:ADM IN Location: [facility] [id number] Subjective Subjective POD 1 L5-S1 TLIF, removal of previous hardware, L4-S1 revision posterior fusion.She is doing relatively well post operatively with her pin being well managed with Toradol and Tylenol. Says that she has only had to take 1 oxycodone tablet last evening. Says that this did make her slightly nauseous. No vomiting. Hx of UTI after having catheter placed. Says that she has been up to the bathroom multiple times and feels a frequency with her urination, denies any burning. She has passed gas and will attempt a solid meal. The patient has been up with therapy today who is cleared her for home discharge most likely with a walker. Seen with Dr. Lang. Objective Data Objective Data Vital Signs: Vital Signs Temp Pulse Resp BP Pulse Ox O2 Del Method O2 Flow Rate 99 F 88 16 111/65 99 Room Air 4 10/26/24 08:20 10/26/24 08:20 10/26/24 08:20 10/26/24 08:20 10/26/24 08:20 10/26/24 08:20 10/25/24 16:16 Oxygen Flow Rate (L/min) 4 Oxygen Delivery Method Room Air Weight: 149 lb 14.629 oz Body Mass Index (BMI) 26.5 Intake & Output: Intake and Output for Last 24 Hours 10/24/24 10/25/24 10/26/24 23:59 23:59 23:59 Intake Total 3226 / 3226 520 / 520 Output Total 825 / 825 Balance 2401 / 2401 520 / 520 Lab / Micro Data 10/26/24 06:17 10/26/24 06:17 Labs: Laboratory Results - last 24 hr 10/26/24 06:17: WBC 11.1 H, RBC 3.62 L, Hgb 10.8 L, Hct 32.8 L, MCV 90.6, MCH 29.8, MCHC 32.9, RDW Std Deviation 49.7 H, RDW Coeff of Lio 14.7 H, Plt Count 189, MPV 11.4, Sodium 136, Potassium 4.4, Chloride 104, Carbon Dioxide 22.4, Anion Gap 10, BUN 12, Creatinine 0.79, Estim Creat Clear Calc 62.31, Est GFR (MDRD) Non-Af 82, BUN/Creatinine Ratio 14.6, Glucose 104 H, Calcium 8.4 10/26/24 09:40: Urine Color Yellow, Urine Clarity Sl. Cloudy, Urine pH 6.0, Ur Specific [place] 1.015, Urine Protein 30 H, Urine Glucose (UA) Normal, Urine Ketones Negative, Urine Occult Blood 10 H, Urine Nitrite Negative, Urine Bilirubin Negative, Urine Urobilinogen Normal, Ur Leukocyte Esterase 25 H, UrineRBC 0-5 SEEN, Urine WBC 0-5 SEEN, Ur Squamous Epith Cells 0-5 SEEN, Urine Bacteria 0 SEEN, Urine Mucus 0 SEEN Micro: Microbiology 10/13/24 09:42 Swab (Method) Nasal Screen MRSA/MSSA - Final Radiography Diagnostic Testing: Radiology Impression Lumbar Spine X-Ray 10/25/24 07:30 IMPRESSION: Intraoperative imaging provided for L4-L5 and L5 S1 fusion. Reading Location: [id number] Lumbar Spine X-Ray 10/26/24 07:00 IMPRESSION: Previous L4-5 posterior fusion with transpedicular screws now extended from L4 through S1 with L5-S1 intervertebral disc spacer now present and appears anatomic. Reading Location: [id number] Physical Exam Narrative Physical exam of the belly and back shows intact and dry dressings. Neurological examination of the lower extremity shows grade 2 left EHL all othermuscle groups show 5X5 power. Stable from preop strength. Normal sensation across all dermatomes. Const alert, oriented x3 and no apparent distress Assessment & Plan Assessment/Plan (1) S/P lumbar fusion: PLAN: Plan Postop day 1 L5-S1 TLIF, removal of previous hardware, L4-S1 revision posterior fusion. Due to the patient's history of UTI after having a catheter, urinalysis and urine culture is ordered. Pending results. Patient has walked with therapy and is cleared for home discharge. Patient has passed gas and has tolerated a solid meal. X-rays done today show hardware and bone graft in good position. Patient ready for home discharge. Home meds include oxycodone, acetaminophen, meloxicam, methocarbamol, senna. Discussed with the patient that if she thinks the oxycodone is too strong for her or is causing nausea as she can resume to take the Amonate that she has at home however she should not take these medications at the same time. Patient understands. She will follow-up in 2 weeks in the office. Patient is in agreement. 10/26/24 1401 <Electronically signed by Nelda MYERS> Cosigner Signature (if applicable): CC: ~ Signed [facility] Work Phone: 1(653) 342-584904-02-2025 Radiology Diagnostic study note [facility] Imaging Services [address] [place], [place] [id number] Lumbar Spine 2 or 3 Views MR#: [id number] Acct: [id number] Name: MAYNOR ROSEN Rep #: [id number] : 1955 F 69 From: Tushar Tam MD PCP: Shanelle Rodríguez DO Status: ADM IN Study:Lumbar Spine 2 or 3 Views Date of Exam: 10/26/24 Exam# [id number] Ordering Dr: Salo Maravilla PROCEDURE: LUMBAR SPINE 2 OR 3 VIEWS 10/26/2024 REASON FOR EXAM: S/P LUMBAR FUSION TECHNIQUE: 2 view(s) of the lumbar spine COMPARISON: CT 09/03/2024 FINDINGS: No acute appearing fracture identified. Previous L4-5 posterior fusion with transpedicular screws now extended from L4 through S1 with L5-S1 intervertebral disc spacer now present and appears anatomic. Previous right L4 hemilaminectomy and mild anterolisthesis L4 on L5 again seen. L3-4 spondylosis/discogenic change again noted. Mild left spinal curvature again noted. Partially imaged right hip replacement. RAD/Lumbar Spine 2 or 3 Views IMPRESSION: Previous L4-5 posterior fusion with transpedicular screws now extended from L4 through S1 with L5-S1 intervertebral disc spacer now present and appears anatomic. Reading Location: [id number] CC: LUCIA Menjivar; Shanelle Rodríguez DO ~ Sandfill Operator Surface: Signed [facility]04-01-2025 Consult note Author Thien Dameron Hospital Note Date/Time October 25, 2024 8:02 pm [facility] Medical Records Department [address] [place] [address] Anesthesia Postop Eval II 10/25/242001 MR#: [id number] Acct: [id number] Name: MAYNOR ROSEN Rep #:[id number] : 1955 69 From: Thien Grijalva MD PCP: Shanelle Rodríguez DO Status:ADM IN Y Race: C Location: [address] Anesthesia Postop Eval I Sum Postop Eval Completion status Anesthesia document: Postop Eval 1 completed: Yes Anesthesia Postop Eval I Summary Anesthesia Postop Eval I Summary: Anesthesia Postop Eval I: Assessment Summary Airway patent Yes 10/25/24 13:50 [email or web address] [email or web address] Spontaneous unlabored Yes 10/25/24 13:50 [email or web address] [email or web address] respirations Mental status Awake,Calm 10/25/24 13:50 [email or web address] nausea No 10/25/24 13:50 SAND [email or web address] Vomiting No 10/25/24 13:50 [email or web address] Anesthesia Postop Eval I: Fluid Summary Crystalloid volume administer 2,000 10/25/24 13:50 [email or web address] [email or web address] (ml) Colloids volume administered ( ml) Blood Product volume administered (ml) Total IV fluid infused 2,000 10/25/24 13:50 [email or web address] Anesthesia Postop Eval I: Summary Notes Anesthesia Complication No 10/25/24 13:50 SAND BOBBERSYBIL Anesthesia Complication Comment: Post-operative progress note Anesthesia: Postop Eval II Evaluation Mental status: Awake and Calm Pain Level: 2 nausea: No Vomiting: No Complications Anesthesia Complication: No 10/25/242001 <Electronically signed by Thien camacho MD> Date _ Thien Grijalva MD Cosigner Signature: Date CC: ~ Signed [facility] Work Phone: 1(894) 963-823704-01-2025 Progress note Author Amanda [facility] Note Date/Time October 25, 2024 7:54 pm [facility] Medical Records Department [address] [place] [address] Progress Note 10/25/24 1728 MR#: [id number] Acct: [id number] Name: MAYNOR ROSEN Rep #:[id number] : 1955 69 From: Amanda Giraldo MD PCP: Shanelle Rodríguez DO Status:ADM IN Location: [place] [address] Subjective Subjective Patient is a 69-year-old female with a past medical history as outlined including hypertension who was admitted to the service of orthopedics on 10/25/2024 for elective lumbar fusion. Hospitalist service was consulted for medical management. Patient was seen after the surgery. She had no active complaints. She said thepain was fairly well-controlled. She denied any shortness of breath, fever, chills, palpitations, dizziness, nausea or vomiting. Review of systems otherwise negative. Vitals showed blood pressure of 107/76, pulse rate of 100, respirate rate of 16 and temp of 98.9 Fahrenheit. Oxygen saturation was 100% onroom air. Objective Data Objective Data Vital Signs: Vital Signs Temp Pulse Resp BP Pulse Ox O2 Del Method O2 Flow Rate 98.6 F 92 18 116/81 H 95 Nasal Cannula 4 10/25/24 16:00 10/25/24 16:00 10/25/24 16:00 10/25/24 16:00 10/25/24 16:00 10/25/24 16:16 10/25/24 16:16 Oxygen Flow Rate (L/min) 4 Oxygen Delivery Method Nasal Cannula Weight: 149 lb 14.629 oz Body Mass Index (BMI) 26.5 Intake & Output: Intake and Output for Last 24 Hours 10/23/24 10/24/24 10/25/24 23:59 23:59 23:59 Intake Total 2406 / 2406 Output Total 825 / 825 Balance 1581 / 1581 Lab / Micro Data 10/13/24 09:42 10/13/24 09:42 Labs: Laboratory Results - last 24 hr 10/25/24 06:10: POC Glucose 140 H Micro: Microbiology 10/13/24 09:42 Swab (Method) Nasal Screen MRSA/MSSA - Final Radiography Diagnostic Testing: Radiology Impression Lumbar Spine X-Ray 10/25/24 07:30 IMPRESSION: Intraoperative imaging provided for L4-L5 and L5 S1 fusion. Reading Location: [facility] Physical Exam Const alert, oriented x3, no apparent distress and well nourished General Appearance: cooperative and well developed HEENT normocephalic, head/scalp atraumatic and moist oral mucous membranes Eyes PERRL and EOMs intact bilaterally Neck no lymphadenopathy and supple Lymph Lymphatic: no lymphadenopathy noted and no lymphedema noted Resp normal respiratory effort, normal air movement and clear to auscultation bilaterally Cardio regular rate, regular rhythm, S1 normal heart sound, S2 normal heart sound and no murmurs GI normal to inspection, nondistended, normoactive bowel sounds, soft to palpation,non-tender and non-distended Extremity normal capillary refill, no clubbing, cyanosis or edema and no calf tenderness General Extremity: no tenderness to palpation of joints or extremities Skin Skin Narrative: intact dressing over lower abdomen and lower back, at site of surgery Neuro CN's II-XII intact bilaterally, no focal motor deficits and no sensory deficits noted Motor Exam: strength 5/5 throughout and general weakness Psych thought process normal, cooperative and affect normal Appearance: appropriate Assessment & Plan Assessment/Plan (1) Lumbar scoliosis: QUALIFIERS: Scoliosis type: other secondary scoliosis Qualified Code(s): M41.56 - Other secondary scoliosis, lumbar region (2) S/P lumbar fusion: PLAN: Plan #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 * Incentive spirometry. Patient encouraged to use the incentive spirometer 10- 12 times each hour. * PT OT on board. Fall precautions. * On cyclobenzaprine for muscle spasms. #Hypertension: On lisinopril. #Depression: On duloxetine and zolpidem. DVT prophylaxis: As per primary service spine surgery Thank you for the courtesy of the consult. Hospitalist service will continue tofollow with you. Charges/Coding Visit Charges Inpatient E&M: 82704 Subs Hosp L2 10/25/241953 <Electronically signed by Amanda Giraldo MD> Amanda Giraldo MD Cosigner Signature (if applicable): CC: ~ Signed [facility] Work Phone: 1(385) 186-749204-01-2025 Consult note [facility] Medical Records Department [address] [place] [address] Anesthesia Postop Eval II 10/25/242001 MR#: [id number] Acct: [id number] Name: MAYNOR ROSEN Rep #:[id number] : 1955 69 From: Thien Grijalva MD PCP: Shanelle Rodríguez DO Status:ADM IN Y Race: C Location: [address] Anesthesia Postop Eval I Sum Postop Eval Completion status Anesthesia document: Postop Eval 1 completed: Yes Anesthesia Postop Eval I Summary Anesthesia Postop Eval I Summary: Anesthesia Postop Eval I: Assessment Summary Airway patent Yes 10/25/24 13:50 [email or web address] [email or web address] Spontaneous unlabored Yes 10/25/24 13:50 [email or web address] [email or web address] respirations Mental status Awake,Calm 10/25/24 13:50 [email or web address] nausea No 10/25/24 13:50 SAND [email or web address] Vomiting No 10/25/24 13:50 [email or web address] Anesthesia Postop Eval I: Fluid Summary Crystalloid volume administer 2,000 10/25/24 13:50 [email or web address] [email or web address] (ml) Colloids volume administered ( ml) Blood Product volume administered (ml) Total IV fluid infused 2,000 10/25/24 13:50 [email or web address] Anesthesia Postop Eval I: Summary Notes Anesthesia Complication No 10/25/24 13:50 [email or web address] Anesthesia Complication Comment: Post-operative progress note Anesthesia: Postop Eval II Evaluation Mental status: Awake and Calm Pain Level: 2 nausea: No Vomiting: No Complications Anesthesia Complication: No 10/25/242001 janice LOPEZ> Date _ Thien Grijalva MD Cosign Signature: Date CC: ~ Signed [facility]04-01-2025 Progress note [facility] Medical Records Department [address] [facility] [place] [address] Progress Note 10/25/24 1728 MR#: [id number] Acct: [id number] Name: MAYNOR ROSEN Rep #:[id number] : 1955 69 From: Amanda Giraldo MD PCP: Shanelle Rodríguez DO Status:ADM IN Location: [facility] KR589-7 Subjective Subjective Patient is a 69-year-old female with a past medical history as outlined including hypertension who was admitted to the service of orthopedics on 10/25/2024 for elective lumbar fusion. Hospitalist service was consulted for medical management. Patient was seen after the surgery. She had no active complaints. She said thepain was fairly well-controlled. She denied any shortness of breath, fever, chills, palpitations, dizziness, nausea or vomiting. Review of systems otherwise negative. Vitals showed blood pressure of 107/76, pulse rate of 100, respirate rate of 16 and temp of 98.9 Fahrenheit. Oxygen saturation was 100% onroom air. Objective Data Objective Data Vital Signs: Vital Signs Temp Pulse Resp BP Pulse Ox O2 Del Method O2 Flow Rate 98.6 F 92 18 116/81 H 95 Nasal Cannula 4 10/25/24 16:00 10/25/24 16:00 10/25/24 16:00 10/25/24 16:00 10/25/24 16:00 10/25/24 16:16 10/25/24 16:16 Oxygen Flow Rate (L/min) 4 Oxygen Delivery Method Nasal Cannula Weight: 149 lb 14.629 oz Body Mass Index (BMI) 26.5 Intake & Output: Intake and Output for Last 24 Hours 10/23/24 10/24/24 10/25/24 23:59 23:59 23:59 Intake Total 2406 / 2406 Output Total 825 / 825 Balance 1581 / 1581 Lab / Micro Data 10/13/24 09:42 10/13/24 09:42 Labs: Laboratory Results - last 24 hr 10/25/24 06:10: POC Glucose 140 H Micro: Microbiology 10/13/24 09:42 Swab (Method) Nasal Screen MRSA/MSSA - Final Radiography Diagnostic Testing: Radiology Impression Lumbar Spine X-Ray 10/25/24 07:30 IMPRESSION: Intraoperative imaging provided for L4-L5 and L5 S1 fusion. Reading Location: [facility] Physical Exam Const alert, oriented x3, no apparent distress and well nourished General Appearance: cooperative and well developed HEENT normocephalic, head/scalp atraumatic and moist oral mucous membranes Eyes PERRL and EOMs intact bilaterally Neck no lymphadenopathy and supple Lymph Lymphatic: no lymphadenopathy noted and no lymphedema noted Resp normal respiratory effort, normal air movement and clear to auscultation bilaterally Cardio regular rate, regular rhythm, S1 normal heart sound, S2 normal heart sound and no murmurs GI normal to inspection, nondistended, normoactive bowel sounds, soft to palpation,non-tender and non-distended Extremity normal capillary refill, no clubbing, cyanosis or edema and no calf tenderness General Extremity: no tenderness to palpation of joints or extremities Skin Skin Narrative: intact dressing over lower abdomen and lower back, at site of surgery Neuro CN's II-XII intact bilaterally, no focal motor deficits and no sensory deficits noted Motor Exam: strength 5/5 throughout and general weakness Psych thought process normal, cooperative and affect normal Appearance: appropriate Assessment & Plan Assessment/Plan (1) Lumbar scoliosis: QUALIFIERS: Scoliosis type: other secondary scoliosis Qualified Code(s): M41.56 - Other secondary scoliosis, lumbar region (2) S/P lumbar fusion: PLAN: Plan #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 * Incentive spirometry. Patient encouraged to use the incentive spirometer 10- 12 times each hour. * PT OT on board. Fall precautions. * On cyclobenzaprine for muscle spasms. #Hypertension: On lisinopril. #Depression: On duloxetine and zolpidem. DVT prophylaxis: As per primary service spine surgery Thank you for the courtesy of the consult. Hospitalist service will continue tofollow with you. Charges/Coding Visit Charges Inpatient E&M: 98170 Subs Hosp L2 10/25/241953 Amanda Giraldo MD Cosigner Signature (if applicable): CC: ~ Signed [facility]04-01-2025 Consult note Author Valerie Rockwell [facility] Note Date/Time October 25, 2024 1:50 pm [facility] Medical Records Department [address] [place] [address] Anesthesia Postop Eval I 10/25/24 1348 MR#: [id number] Acct: [id number] Name: MAYNOR ROSEN Rep #:[id number] : 1955 69 From: Valerie murphy CRNA PCP: Shanelle Rodríguez DO Status:ADM IN Y Race: C Location: [place] [address] Anesthesia: Postop Eval I Current Vital Signs Temperature: 97.2 F Pulse Rate: 84 Blood Pressure: 124/82 Respiratory Rate: 16 Pulse Ox: 100 Oxygen Delivery Method: Simple Mask Oxygen Flow Rate (L/min): 6 Assessment Airway patent: Yes Spontaneous unlabored respirations: Yes Mental status: Awake and Calm nausea: No Vomiting: No Anesthesia Complication: No Fluid Hydration Crystalloid volume administer (ml): 2,000 Total IV fluid infused: 2,000 Progress Note Anesthesia document: Postop Eval 1 completed: Yes 10/25/24 1350 <Electronically signed by Valerie moon CRNA> Date _ Valerie Rockwell SAND BOBBER Cosigner Signature: Date CC: ~ Signed [facility] Hospital Work Phone: [phone] Consult note [facility] Medical Records Department [address] [place] [address] Anesthesia Postop Eval I 10/25/24 1348 MR#: [id number] Acct: [id number] Name: MAYNOR ROSEN Rep #:[id number] : 1955 69 From: Valerie murphy CRNA PCP: Shanelle Rodríguez DO Status:ADM IN Y Race: C Location: [place] [address] Anesthesia: Postop Eval I Current Vital Signs Temperature: 97.2 F Pulse Rate: 84 Blood Pressure: 124/82 Respiratory Rate: 16 Pulse Ox: 100 Oxygen Delivery Method: Simple Mask Oxygen Flow Rate (L/min): 6 Assessment Airway patent: Yes Spontaneous unlabored respirations: Yes Mental status: Awake and Calm nausea: No Vomiting: No Anesthesia Complication: No Fluid Hydration Crystalloid volume administer (ml): 2,000 Total IV fluid infused: 2,000 Progress Note Anesthesia document: Postop Eval 1 completed: Yes 10/25/24 1350 red SAND BOBBER> Date _ Valerie Ruizigner Signature: Date CC: ~ Signed [facility]04-01-2025 Procedure note [facility] Medical Records Department [address] [place] [address] Operative Report 10/25/24 1328 MR#: [id number] Acct: [id number] Name: MAYNOR ROSEN Rep #:[id number] : 1955 69 From: Terry Lang MD PCP: Shanelle Rodríguez DO Status:ADM IN Location: [facility] AC-TB A-2 Procedures Musculoskeletal 20xxx-29xxx: Other Procedure See Report Operative Report (Standard) Operative Information Date of Procedure: 10/25/24 Pre-Operative Diagnosis: L5-S1 spondylolisthesis, disc herniation, radiculopathy, prior L4-5 fusion Post-Operative Diagnosis: Same Surgery/Procedure Performed: L5-S1 TLIF, removal of previous hardware, L4-S1 revision posterior fusion forestry patrolman: Yes Production Or Plant Engineer: Nelda Maravilla Tasks completed by engineer first assistant: Closing, Removing tissue, Implanting device, Hemostasis: Electrocautery and Retracting Type of Anesthesia: General RN Documented Start/Stop Times: Operation Date: 10/25/24 07:30 Case Time Into Pre-Op 10/25/24 05:44 Out of Pre-Op 10/25/24 07:38 Anesthesia Start 10/25/24 07:45 Into Room 10/25/24 07:45 Procedure Start 10/25/24 08:14 Procedure Start Time: 08:14 Procedure Stop Time: 13:20 Select all DRAINS/GRAFTS/IMPLANTS that apply: Graft Graft details: Allograft cancellous chips, DBX,[employer]tronic infuse BMP sponge and Implanted device Implanted device details: DePuy XPac TLIF cage, Viper prime pedicle screw instrumentation Estimated Blood Loss: 200 cc Specimen collected: No Description of surgery: Preoperative diagnosis: L5-S1 spondylolisthesis, disc degeneration, prior L4-5 fusion Postoperative diagnosis: Same Name of procedure: L5-S1 transforaminal lumbar interbody fusion (TLIF), minimally invasive left side approach, removal of previous hardware, percutaneous L4-S1 pedicle screw instrumentation with revision posterior fusion. . L5-S1 posterior spinal fusion and interbody fusion 09020 ? L4-S1 posterior pedicle screw instrumentation 40993 . L5-S1 insertion of cage 37047 . L4-5 removal of posterior hardware . L4-5 exploration of posterior fusion . Local autograft . Cancellous allograft with DBX Attending Surgeon: Dr. Terry Lang Estimated blood loss: 200 mL Anesthesia: GA Complications: None Implants: DePuy Synthes X-PAC TLIF cage, Viper prime screws Indications: Patient is a 69-year-old lady who has had a history of low back pain that radiates into left lower extremity. X-rays and MRI revealed L5-S1 spondylolisthesis, disc degeneration, prior L4-5 fusion. Patient was explained all options of treatment which included continued nonoperative treatment measures like rest physical therapy, epidural steroidal injections. After a prolonged period of of nonoperative treatment, patient elected to undergo surgical decompression & fusion since the symptoms severely affected her quality of life. All risks and benefits associated with the procedure were explained to the patient. The risks include but are not limited to infection, bleeding, injury to nerves and vessels, persistent paresthesia, persistent pain, dural tear, need for further procedures, adjacent segment degeneration, pseudoarthrosis, hardware failure, etc. Procedure: The patient was identified in the preoperative holding suite using unique patient identifiers. Skin was marked, consent was reviewed, and all questions were answered. The patient was then brought back to the operative room. A surgical timeout was performed to make sure correct procedure was being done on the correct patient and all operative room staff were on the same page. General endotracheal anesthesia was then given to the patient. Patient underwent an attempted L5-S1 ALIF approach but this was aborted due to significant intra-abdominal scarring preventing access to L5-S1. Decision was then made to approach posteriorly and perform TLIF. The patient was then turned prone onto a Paul table. The back was prepped and draped in usual fashion. A final timeout was then again done just before starting the procedure. C-arm AP view was then taken. C-arm was positioned in a way that S1 was centralized and superior endplate of S1 and was parallel to the beam. Spinous process was centered between the pedicles. Midline was marked with skin marker and lateral borders of the pedicles were also marked. Skin marker was also utilized to sherine longitudinally along theprevious paramedianscars Going inferiorly up to the S1 pedicle line. 2 vertical incisions about 1 inch Over the previous scar were taken about 1/2 inch lateral to the pedicle line. The fascia was also incised vertically approximately the same length. Finger dissection was utilized to palpate the previous hardware starting on the left. Sequential tubes were then docked onto the left L5 screw. Muscle tissue was removed with pituitary and hemostasis achieved with Bovie. Setscrew was exposed. Setscrew was removed using the prior instrumentation. Similarly tubular retraction of the L4 screw was performed and the cyst was removed. Therod was then removed. Left L5 screw was then removed to allow space for the L5-S1 TLIF. Sequential tubes were docked on the L5-S1 left facet joint and 70 mm length and 21 mm diameter tubular retractor was then placed and was attached to the arm attached to the OR table. Muscle tissue was removed with pituitaries and hemostasis was achieved with Bovie. L5 inferior articular process of the left and superior articular process of S1 were exposed with Bovie. Osteotome was utilized to remove a portion of the inferior articular process to expose the articular surface of L5. Some of this resected bone was used as autograft. Nishi was then utilized to remove the rest of the inferior articular process and part of the lamina of L5 up to the laminotomy defect. Superior articular processof S1 was resected with the help of a bur such that the cut was flush with the superior border of S1 pedicle. Significant epidural scarring was noticed. The traversing nerve rootwas carefully retracted to expose the disc. Hemostasis wasachieved with bipolar cautery. Blunt spreaders were utilized to enter the disc space under C-arm visualization. Pituitary was used to remove disc material. Curettes of various sizes and angulations were utilized to remove as much of the disc material as possible. End plates were curetted to remove all cartilage. Angled curettes were used to remove disc material from the other side underneath the central annulus. Shoppilot X-PAC trials were inserted into position and checked under C- arm lateral view. The disc space was then filled with cancellous bone chips mixed with DBX which were then impacted with the trials. 2 strips of collagenous sponge which had infuse BMP sprinkle on them was also placed into the disc space. An 10 x 25 mm lordotic tall X-PAC cage filled with infuse BMP and DBX was then inserted into the disc space under x-ray control. Care was taken to make sure the cage was inserted deeper to the posterior longitudinal ligament. The expandable cage was then expanded to up to approximately 13 mm anterior height with approximately 15 degrees lordosis. The cage was found to be well fixed and not easily removable. Additional DBX was placed into the expandable cage. AP and lateral views showed good positioning of the cage. Depuy Viper Prime screw tower was docked onto the transverse processes at S1 on the left. This was then slowly moved medially to reach the superior articular process of S1. This was then confirmed on C-arm and then a mallet was utilized to drive the trocar and screw into the pedicle going up to the medial wall of the pedicle on AP view. This was performed both sides. C-arm lateral view confirmed both trocars to be inside vertebral body. The screws were advanced. Similar procedure was done at S1 on the right. Cannulated pedicle screws (Depuy Viper) sizes were 7 x 45 mm bilaterally at S1. The lateral view showed good positioning of the screws and cage. Right sided L4 and L5 setscrews previous flaco and pedicle screws were then removed through a vertical incision using the prior scar through which the new S1 screw was also placed. Guidewire was then inserted into the screw holes and new Viper prime 7 oh by 45 mm screws were placed at L4 and L5 bilaterally under C-arm control. 65 mm precontoured titanium 5.5 mm lordotic flaco on both sides was then passed through the screw extensions and reduced down to the L4-S1 screws with the help of Depuy Viper Prime instrumentation system. AP and lateral views of the C-arm showed good positioning of the screws and cage. Final tightening with the torque screwdriver was then completed. Nishi was utilized to decorticate the right L5-S1 facet joint and bone graft was placed over this. Hemostasis was achieved with the help of Bovie and FloSeal. Closure was done in layers with 0 Vicryls for the fascia, 2-0 Vicryls for the subcutaneous tissue, and Monocryl for the skin. Dressings were applied covered with Tegaderm. The patient was then turned supine onto a hospital bed. The patient was extubated and taken to PACU in stable condition. The patient tolerated the procedure well and no complications occurred. Shoppilot X-PAC cage & Viper Prime minimally invasive pedicle screw instrumentation system was utilized in this case. No dural tear was identified in this case. I was present for the entirety of the case and performed the surgery myself. Surgical Findings: See operative note Complications Complications: No 10/25/24 1344 Cosigner Signature (if applicable): CC: Dr. Terry Lang MD; Shanelle Rodríguez DO~ Signed [facility]04-01-2025 Procedure note [facility] Medical Records Department [address] [place] [address] Operative Report 10/25/24 1317 MR#: [id number] Acct: [id number] Name: MAYNOR ROSEN Rep #:[id number] : 1955 69 From: Terry Lang MD PCP: Shanelle Rodríguez DO Status:ADM IN Location: [place] [address] Operative Report (Standard) Operative Information Date of Procedure: 10/25/24 Pre-Operative Diagnosis: L5-S1 disc degeneration, disc herniation, radiculopathy, prior L4-5 fusion Post-Operative Diagnosis: Same Surgery/Procedure Performed: L5-S1 attempted anterior lumbar interbody fusion forestry patrolman: Yes Production Or Plant Engineer: Alexander Fierro Tasks completed by engineer first assistant: Opening, Closing, Hemostasis: Electrocautery and Other (Co-surgeonfor anterior approach, attempted ALIF) Additional speech and language assistant?: Yes Additional Carpet Renovator #2: Nelda Maravilla Tasks completed by speech and language assistant #2: Closing, Removing tissue, Implanting device, Hemostasis: Electrocautery and Retracting Type of Anesthesia: General RN Documented Start/Stop Times: Operation Date: 10/25/24 07:30 Case Time Into Pre-Op 10/25/24 05:44 Out of Pre-Op 10/25/24 07:38 Anesthesia Start 10/25/24 07:45 Into Room 10/25/24 07:45 Procedure Start 10/25/24 08:14 Procedure Start Time: 08:14 Procedure Stop Time: 13:20 Select all DRAINS/GRAFTS/IMPLANTS that apply: None Estimated Blood Loss: 200 cc Specimen collected: No Description of surgery: Preoperative diagnosis: L5-S1 spondylolisthesis, L5-S1 disc degeneration, radiculopathy, prior L4-5fusion Postoperative diagnosis: Same Name of procedures L5-S1 attempted anterior lumbar interbody fusion (ALIF),Supine: Aborted due to significant scarring and inability to reach the spine. Attending Surgeon: Dr. Terry Lang Co-surgeon: Dr. Alexander Fierro Estimated blood loss: 200 mL Anesthesia: General Complications: None Indications: Patient is a 69-year-old pleasant lady who has had a long history of low back pain and left lower extremity ideation. Xrays & MRI revealedL5-S1 spondylolisthesis, disc degeneration, left-sided paracentral disc herniation, prior L4-5 fusion. After undergoing a prolonged period of nonoperative treatment, the patient elected to undergo surgical decompression & fusion. All surgical options were discussed with the patient including anterior and posterior approaches. All risks and benefits associated with the procedure were explained to the patient. The risks include but are not limited to infection, bleeding, injury to nerves and vessels including major vessels like IVC and aorta, persistent paresthesia, persistent pain, dural tear, need for further procedures, adjacent segment degeneration, pseudoarthrosis, hardware failure, retrograde ejaculation, paralytic ileus, etc. Procedure: The patient was identified in the preoperative holding suite using Unique patient identifiers. Skin was marked, consent was reviewed, and all questions were answered. The patient was then brought back to the operative room. A surgical timeout was performed to make sure correct procedure was being done on the correct patient and all operative room staff were on the same page. General endotracheal anesthesia was then given to the patient. Delgadillo catheter was inserted. The patient was then carefully positioned in supine position with pillows below the knees on a regular OR table. The surgical area was prepped and draped in usual fashion. 2 g of Ancef was injected IV as preoperative antibiotic. A final timeout was then again done just before starting the procedure. A 2.5 inch transverse Pfannenstiel incision was taken in the suprapubic area along the skincrease.Sharp dissection with Bovie was carried out up to the anterior rectus sheath. Anterior rectus sheath was incised vertically close to the midline. Leftrectus muscle was retracted laterally. Preperitoneal space was explored to identify inferior epigastric vessels on the left side. Sponge sticks were u tilized to move the bowel and peritoneum sbj-cr-dfj-way staying within the retroperitoneal plane. Significantanterior preperitoneal scarring was noticed with adhesions between the parietal peritoneum and the undersurface of the anterior abdominal wall. Parietal peritoneum was fairly thin and despite blunt dissection defect through the parietal peritoneum were inadvertently creating bowel loops to come out of the peritoneum. Parietal peritoneum was attempted to be repaired with 3-0 Vicryl. Further deeper dissection was attempted. [employer] retractor system was positioned and the retractor blades were applied. However,since the parietal peritoneum was extremely thin, the repair did not take and bowel loops continue to come out of the peritoneal sac. At this point a decision was made to abandonthe anterior exposureas significant scarring was anticipated and it was impossible to move the peritoneal sac towards the right to approach the L5-S1 disc space anteriorly. Parietal peritoneum defect was fairly large andwas not repaired. Closure was done in layers with a continuous strand of # 1 Vicryl in the rectus muscle and anterior rectus sheath. 2-0 Vicryl was used for subcutaneous tissue and 4-0 for Monocryl for the skin. Steri-Strips were applied and 4 x 4 gauze and Tegaderm were applied. L5-S1 pathology was then treated through posterior approach using TLIF dictated separately. Surgical Findings: See operative note Complications Complications: No 10/25/24 1328 Cosigner Signature (if applicable): CC: Dr. Terry Lang MD; Shanelle Rodríguez DO~ Signed [facility]04-01-2025 Radiology Diagnostic study note [facility] Imaging Services [address] [place] [address] [id number] Lumbar Spine 2 or 3 Views MR#: [id number] Acct: [id number] Name: MAYNOR ROSEN Rep #: [id number] : 1955 F 69 From: Carie Leon MD PCP: Shanelle Rodríguez DO Status: ADM IN Study:Lumbar Spine 2 or 3 Views Date of Exam: 10/25/24 Exam# [id number] Ordering Dr: Angela Lang MD PROCEDURE: Intraoperative fluoroscopic services. REASON FOR EXAM: ANTERIOR FUSION L5-S1, REVISION POSTERIOR FUSION L4-5 L5-S1 TECHNIQUE: Intraoperative fluoroscopy provided for intraoperative fusion at the L4-L5 level. FINDINGS: 2 minutes and 41 seconds of fluoroscopy time. 81.05 mGy. RAD/Lumbar Spine 2 or 3 Views IMPRESSION: Intraoperative imaging provided for L4-L5 and L5 S1 fusion. Reading Location: [id number] CC: Dr. Terry Lang MD; Shanelle Rodríguez DO ~ [place] Operator Surface: Signed [facility]04-01-2025 Procedure note [facility] Medical Records Department [address] [place] [address] Operative Report 10/25/24 1008 MR#: [id number] Acct: [id number] Name: MAYNOR ROSEN Rep #:[id number] : 1955 69 From: Alexander Fierro MD PCP: Shanelle Rodríguez DO Status:ADM IN Location: [place] [address] Operative Report (Standard) Operative Information Date of Procedure: 10/25/24 Pre-Operative Diagnosis: L5-S1 degenerative disc disease Post-Operative Diagnosis: Same Surgery/Procedure Performed: Aborted anterior lumbar interbody fusion 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 She is felt to be appropriate for anterior lumbar interbody fusion in addition to revision of her posterior hardware. Vascular surgery services are requested to aid in exposure. Description of procedure: Upon obtaining form consent and verification correct patient procedure site patient was taken to the operating where she was placed under general anesthesia. She was then positioned prepped and draped in usual sterile fashion time was performed. Transverse incision was made 1 fingerbreadth superior to the pubic symphysis and Bovie electrocautery was dissect down through subcutaneous tissue to level the fascia. Hand-held retractors then put in the position and the fascia incised vertically just to the left of the midline. The rectus muscle was mobilized and retracted laterally entering into the preperitoneal space. Scar tissue from her prior tubal ligation which wasdone via low midline incision was encountered adhering the peritoneum to the posterior aspect of abdominal wall. Adjacent to this areaof scar there was very thin peritoneum which unfortunately easilytore with gentle retraction and dissection. The peritoneal defect was repaired with 3-0 Vicryl in running fashion and the abdominal contents retracted superiorly allowing further blunt dissection into the preperitoneal space of the pelvis. With dissection deeper in the pelvis more significant densescar was encounteredlikely further scarring from her tubal ligation which significantly anchored theperitoneum in the pelvis. Progress mobilizing the abdominal contents was very slow but we were ableto identify the left iliac vessels and follow these cephalad toward the sacral promontory. With more retraction of the abdominal contents required there appeared to be a second peritoneal defect as there is now significant loops of small bowel in the retroperitoneal space. Self-retaining retractorswere repositioned and we are able to visualize the peritoneal defect which was large and allowed multiple loops of bowel to egress into the operative field. Efforts were made to better retract the bowel into the peritoneal sac however this was unsuccessful despite multiple retractor repositions. Wewere able to further work towards mobilizing the abdominal contents however the dense scar in the pelvis continued to deter progress. It was felt that the amount of scar was prohibitive and that we would abort to the anterior component of the surgery with plans to address the disc via the posteriorapproach. We were able to return the small bowel into the peritoneal sac and the peritoneal defect was large enough that it was felt that there was no significant risk for entrapment or obstruction winkler bsequently. Self-retaining retractors were then withdrawn and the fascia closed with 1 Vicryl in running fashion. Superficial incision was then irrigated with saline and closed with 2-0 Vicryl, 3-0 Vicryl, 4-0 Monocryl. Dry sterile dressings were then applied andthe patient repositioned for posterior approach. Surgical Findings: Scar tissue from midline abdominal incision to pelvis with peritoneum anchored in the pelvis to herprior tubal ligation site. Complications Complications: Yes Complication Details: Unable to complete procedure from anterior approach. 10/25/24 1020 Cosigner Signature (if applicable): CC: Dr. Terry Lang MD; Dr. Alexander Fierro MD; Shanelle Rodríguez DO~ Signed [facility]04-01-2025 History and physical note Author Terry Lang [facility] Note Date/Time October 25, 2024 7:23 am [facility] Medical Records Department [address] [place] [address] History & Physical Exam 10/25/24 0723 MR#: [id number] Acct: [id number] Name: JESSIKACARIEMAYNOR Rep #:[id number] : 1955 69 From: Terry Lang MD PCP: Shanelle Rodríguez DO Status:ADM IN Location: [facility] A-2 History and Physical Date of Admission: 10/25/24 MR#: [id number] Acct: [id number] Name: MAYNOR ROSEN Rep #: [id number] : 1955 Provider: Dr. Terry Lang MD Age/Sex: 69/F Location: [facility] Status: Signed Intake Vital Signs 08/19/2506:34 Height 5 ft 3 in Weight: 155 lb 6 oz BMI 27.5 Intake Visit Reasons: lumbar spine Allergies No Known Allergies Allergy (Verified 10/20/24 11:15) Medications ?Medication ?Instructions ?Recorded ?Confirmed ?Type duloxetine 30 mg capsule,delayed 30 - 60 mg PO QDAY ANTIDEPRESSENT 10/20/24 History release lisinopril 20 mg tablet 20 mg PO DAILY HTN 08/19/24 10/20/24 His tory pantoprazole 20 mg tablet,delayed 20 mg PO QDAY GERD 08/19/24 10/20/24 His tory release calcium 500 mg (as 2 tab PO DAILY SUPPLEMENT 10/11/2410/20 History carbonate)-vitamin D3 3.125 mcg (125 unit) tablet gabapentin 100 mg capsule 200 - 300 mg PO TID PRN PAIN 10/11/24 History hydrocodone-acetaminophen 5-325mg 0.5 tab PO QHS PRN pain 10/11/24 5 H istory 5mg-325mg ascorbic acid (vitamin C) 1,000 mg 1 g PO Q6H 10/20/24 10/20/24 History capsule budesonide 3 mg 9 mg PO QDAY PRN 10/20/24 10/20/24 Histo ry capsule,delayed,extended release cholecalciferol (vitamin D3) 25 25 mcg PO QDAY 10/20/24 10/20/24 History mcg (1,000 unit) capsule cyclobenzaprine 10 mg tablet 10 mg PO TID PRN muscle spasm 10/20/24 0 10/20/24 History sumatriptan succinate 100 mg tablet 100 mg PO ONCE 10/20/24 10/20/24 History zolpidem 10 mg tablet 10 mg PO QHS 10/20/24 10/20/24 History Have you fallen in the past year?: Yes PFSH Medical History Wears glasses Cancer Depression Anxiety Migraine headache GERD (gastroesophageal reflux disease) Microscopic colitis History of Mohs micrographic surgery for skin cancer (~2021) Non-smoker PONV (postoperative nausea and vomiting) Hypertension Surgical History History of colonoscopy History of right hip replacement (~01/2011) S/P lumbar fusion Status post breast reduction History of lumbar laminectomy History of lumbar fusion Family History Mother Hypertension Lung cancer Scoliosis DJD (degenerative joint disease)Father COPD (chronic obstructive pulmonary disease) Social History Smoking Status: Never smoker alcohol intake: current alcohol intake frequency: 0-2 drinks per day what type of physical activity do you participate in: other details: pilates HPI lumbar spine Details: This documentation accurately reflects the service provided and the decisions made by me, Dr. Terry Lang MD 10/20/24 1111. Part of today?s visit was documented by Niki GIBBS, acting as scribe. MAYNOR ROSEN is a 69 year old F here today for pre-op lumbar spine dos: 10/25/24. 08/19/24: MAYNOR ROSEN is a 68 year old F here today NEW patient for low back pain. She has had a prior fusion in 2021 that was done a L4-5. She had to have this surgery done after a fall that she had. Her second surgery she had a laminectomy of L5- S1 in 2022. Her surgeries was done by Dr. Sherine Juan at . Her past surgeries were done on the right side but now her pain is on the left side. She complains of low back and left leg pain that she has been having sinceright before her fusion. She has numbness and tingling over the right side of her low back, in her left ankle/foot and sometimes her lateral calf. She does also get tingling in her foot. She does see Dr. Ordaz on a regular basis and had an injection yesterday that has helped with about 50% of the tingling. Her last MRI that she had done was on 07/15/24. She has done PT after both of her surgeries but she doesn't feel that it was very helpful. She states that before her first surgery she did have foot drop of the left foot but after the surgery and with the help of rehab it has gotten much better. Ortho Exam General General: Yes no acute distress Neurologic: Yes alert and Yes oriented x3 Spine SPINE TESTING CERVICAL THORACIC LUMBAR Musculoskeletal Strength 0=absent - 5=normal Details: Exam of the lower back shows paramedian incisions bilaterally in the lower lumbar region and also midline slightly to the left vertical incision lower down. Mild left paraspinal tenderness noticed. Neurologic evaluation of lower extremity shows grade 2 left EHL, grade 4+ left ankle dorsiflexion, all other muscles are 5 of 5 strength. Passive straight leg raise test is positive on theleft. Coding Level of Care Code Off vis,est,level 4 Diagnoses S/P lumbar fusion Z98.1 Recurrent herniation of lumbar disc M51.26 Other secondary scoliosis, lumbar region M41.56 Scoliosis type: other secondary scoliosis Time Spent (min) 35 Assessment and Plan Assessment and Plan (1) S/P lumbar fusion: Status: Acute (2) Recurrent herniation of lumbar disc: Status: Acute (3) Lumbar scoliosis: Status: Acute Qualifiers: Scoliosis type: other secondary scoliosis Qualified Code(s): M41.56 - Other secondary scoliosis, lumbar region Plan Again reviewed previous imaging. These show L4-5 stable fusion. L5-S1 shows left paracentral large disc herniation causing lateral recess and foraminal stenosis. Postsurgical changes of left L5-S1 laminotomy noticed. Lumbar degenerative scoliosis with concavity to the right noticed. L3-4 shows reduced disc height with asymmetric collapse concave to the right. Mild L3-4 right foraminal stenosis noticed. X- rays show subtle anterolisthesis L5-S1 on flexionview which reduces in extension. Again explained imaging findings in detail. Patient has had initial L4-5 fusion, followed a year later with an L5-S1 possibly discectomy surgery. She continued to have significant weakness in the left foot and recently her pain has worsened over the last few months into the left lower extremity and recent MRI has shown his recurrent disc herniation at L5-S1. Discussed treatment options which include continued nonoperative treat measures versus surgery. Patient has a prolonged course with multiple numerous injections that seem to help temporarily with her left foot symptoms. She has significant paresthesia in the left L5 dermatome and significant toe drop on the left side. Recommend surgical treatment in the form of L5-S1 fusion with revision of posterior L4-S1 instrumentation. Explained that L3-4 has disc degeneration with asymmetric collapse and degenerative scoliosis which may worsen in the future, but at this time patient does not have any anterior thigh symptoms attributable to L3-4. Surgery will be L5-S1 ALIF with revision L4-S1 instrumentation. All risks benefits and alternatives were discussed in detail. The risks include but are not limited to infection, bleeding, injury to nerves and vessels, Vascular injury, visceral injury, ileus, hematoma formation, nerve root injury, foot drop, pseudoarthrosis, hardware failure, adjacent segment degeneration, DVT, pulm embolism, pneumonia, atelectasis, cardiopulmonary event. Patient understands and agrees to proceed with surgery. Consent was signed. 10/25/24 0723 <Electronically signed by Terry Lang MD> Cosigner Signature (if applicable): CC: Dr. Terry Lang MD; Shanelle Rodríguez DO~ Signed [facility] Work Phone: [phone]) 354-445204-01-2025 Consult note Author [facility] Date/Time October 25, 2024 6:40 am [facility] Medical Records Department [address] [place] [id number] Pre-Anesthesia Evaluation 10/25/24 0632 MR#: [id number] Acct: [id number] Name: MAYNOR ROSEN Rep #:[id number] : 1955 69 From: Thien Grijalva MD PCP: Shanelle Rodríguez DO Status:ADM IN Y Race: C Location: [facility] ASA Classification* ASA Classification ASA Classification: 2 Assessment & Plan Anesthesia* Anesthesia Assessment Anesthesia Assessment: Discussed sedation and/or anesthesia options, risks, benefits, and alternatives with patient/parents/legal guardian/POA. Questions invited. The patient/parents/legal guardian/POA seems to understand and agrees to proceedwith anesthesia plan. Reviewed the physical assessment, medical history, allergy history and patient home medications list prior to surgery/procedure/anesthetic and documented any changes. Performed airway and anesthesia risk assessments. Anesthesia Type Anesthesia Type: General (Consider GlideScope intubation) History Source History Obtained from:: Patient and Chart Anesthesia Focused Assessment* Temperature: 97.8 F Pulse Rate: 78 Blood Pressure: 121/77 Respiratory Rate: 16 Pulse Ox: 99 Oxygen Delivery Method: Room Air Airway Assessment Mouth opens: >3 cm Mallampati Score: IV Teeth Condition: Caps/Crowns (Patient has several crowns. They are all tight.) Neck Range of motion (ROM): Limited ROM (Somewhat decreased extension) Focused Labs Anesthesia Preop lab: CBC WBC 5.6 K/mm3 (4.4-11.0) 10/13/24 09:42 10/13/24 RBC 4.39 M/mm3 (4.2-5.4) 10/13/24 09:42 10/13/24 Hgb 13.1 g/dL (12.0-15.0) 10/13/24 09:42 10/13/24 Hct 40.1 % (37-47) 10/13/24 09:42 10/13/24 Plt Count 194 K/mm3 (150-450) 10/13/24 09:42 10/13/24 CHEMISTRY Potassium 4.4 mmol/L (3.3-5.1) 10/13/24 09:42 10/13/24 Sodium 139 mmol/L (133-145) 10/13/24 09:42 10/13/24 Magnesium 1.9 mg/dL (1.5-2.2) 10/13/24 09:42 10/13/24 BUN 16 mg/dL (4-19) 10/13/24 09:42 10/13/24 Creatinine 0.71 mg/dL (0.70-1.20) 10/13/24 09:42 10/13/24 Glucose 98 mg/dL (70-99) 10/13/24 09:42 10/13/24 TSH 1.34 uIU/mL (0.358-3.74) 02/26/22 16:54 COAG PT 11.8 SECONDS (11.7-14.9) 02/26/22 16:54 Pre-Assessment Diagnosis/Proposed Procedure Planned Operative Procedure(s): Anterior lumbar interbody fusion L5-S1, revisionposterior lumbar fusion L4-5 and L5-S1, possible removal of hardware Anesthesia History Anesthesia History - communications attendant: Anesthesia History - communications attendant Hx Hospitalization No 10/11/24 13:17 Any Problems With Anesthesia Yes 10/11/24 13:17 Cholinesterase deficiency No 10/11/24 13:17 You/Your Family Experience No 10/11/24 13:17 fever (hyperthermia) with Relationship Recent Exposure to Contagious No 10/25/24 06:05 Disease Does patient have nerve No 10/11/24 13:17 stimulator Patient instructed to have device shut off --Does patient have Pacemaker No 10/25/24 06:05 or ICD? When Was Last Pacemaker Check QUESTION #4 FULL TEXT: You/Your Family Experience fever (hyperthermia) with Anesthesia Last Oral Intake Last Oral intake: Last Oral Intake NPO since 04:45 10/25/24 06:05 Meds taken in AM with sips of Yes 10/25/24 06:05 water? Meds patient instructed to take am of surgery Any additional information?: Yes NPO since: 04:45 (Patient took her preop Ensureat 4:45 AM.) Meds taken in AM with sips of water?: Yes PONV PONV - communications attendant: PONV - communications attendant Female Yes 10/11/24 13:17 HX of Motion Sickness Yes 10/11/24 13:17 HX of N/V After Surgery Yes 10/11/24 13:17 Non-Smoker Yes 10/11/24 13:17 Duration of Surgery greater Yes 10/11/24 13:17 than 60 minutes Number of Risk Factors 5 10/11/24 13:17 PONV Score Severe Risk 10/11/24 13:17 Height & Weight Height & Weight: Anesthesia: Height & Weight Height 5 ft 3 in 10/25/24 06:05 Weight: 68 kg 10/25/24 06:05 Body Mass Index (BMI) 26.5 10/25/24 06:05 Respiratory Assessment Respiratory Assessment - communications attendant: Respiratory Tract Infection Hx - communications attendant Hx Respiratory Tract Infection No 10/11/24 13:17 STOP Sleep Apnea STOP Sleep Apnea - communications attendant: STOP Sleep Apnea - communications attendant Hx Hypertension Yes: CONTROLLED WITH MED 10/11/24 13:17 Hx Sleep Apnea No 10/11/24 13:17 CPAP BIPAP Do you snore loudly (louder No 10/11/24 13:17 than talking or can be heard Do you often feel tired/ No 10/11/24 13:17 fatigued/ sleepy during daytime? Has anyone observed you stop No 10/11/24 13:17 breathing during sleep? STOP Results Negative 10/11/24 13:17 QUESTION #5 FULL TEXT : Do you snore loudly (louder than talking or can be heard through closed doors)? 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 Specify any problems Hx of Preganancy in last 3 N/A 10/11/24 13:17 Months Nurse Filling Out Transfusion NBUCHER 10/11/24 13:17 & Questions: Date: 10/11/24 10/11/24 13:17 Time: 13:23 10/11/24 13:17 Patient unable to answer at this time (ie. confused, unrespo /Reproduction History /Reproductive History - communications attendant: /Reproductive Hx- communications attendant Hx Now Gestational Age (in weeks): EDC: Hx Hx Para Hx Section SAB Active Medications Active Medications: Current Medications Generic Name Dose Route Start Last Admin Trade Name Freq PRN Reason Stop Dose Admin Acetaminophen 1,000 mg 10/25/24 07:30 10/25/24 06:22 Acetaminophen 500 Mg Tablet PO 10/25/24 07:31 1,000 mg X1 ONE Administration Cefazolin Sodium 2 gm/ N/A 20 mls @ 400 mls/hr 10/25/24 07:30 IV 10/25/24 07:32 PREOP ONE Tranexamic Acid 1,000 mg/ 110 mls @ 440 mls/hr 10/25/24 07:30 Sodium Chloride IV 10/25/24 07:44 X1 ONE Tranexamic Acid 1,000 mg/ 110 mls @ 440 mls/hr 10/25/24 07:30 Sodium Chloride IV 10/25/24 07:44 X1 ONE Magnesium Sulfate 2 gm/ 104 mls @ 208 mls/hr 10/25/24 07:30 10/25/24 06:22 Dextrose IV 10/25/24 07:59 208 mls/hr X1 ONE Administration Sodium Chloride 1,000 mls @ 15 mls/hr 10/25/24 05:50 10/25/24 06:21 IV 10/30/24 19:09 15 mls/hr .Q48H MARY ANN Administration Insulin Human Lispro 1 - 6 unit 10/25/24 07:30 Insulin Lispro 100 Unit/Ml Insuln.Pen SC Q4H PRN PRN BG>/= 180, SEE PROTOCOL Protocol PFSH Medical History Wears glasses Cancer Depression Anxiety Migraine headache GERD (gastroesophageal reflux disease) Microscopic colitis History of Mohs micrographic surgery for skin cancer (~2021) Non-smoker PONV (postoperative nausea and vomiting) Hypertension Home Medications ?Medication ?Instructions ?Recorded ?Last Taken ?Type duloxetine 30 mg capsule,delayed 30 - 60 mg PO QDAY AN TIDEPRESSENT 08/19/24 10/25/24 04:45 History release lisinopril 20 mg tablet 20 mg PO DAILY HTN 08/19/24 10/25/24 04:45 History pantoprazole 20 mg tablet,delayed 20 mg PO QDAY GERD 0 08/19/24 10/25/24 04:45 History release calcium 500 mg (as 2 tab PO DAILY SUPPLEMENT 10/24/24 History carbonate)-vitamin D3 3.125 mcg (125 unit) tablet gabapentin 100 mg capsule 200 - 300 mg PO TID PRN PAIN 10/11/24 10/24/24 History hydrocodone-acetaminophen 5-325mg 0.5 tab PO QHS PRN p ain 10/11/24 Unknown History 5mg-325mg ascorbic acid (vitamin C) 1,000 mg 1 g PO Q6H suppleme nt 10/20/24 10/24/24 History capsule budesonide 3 mg 9 mg PO QDAY PRN colitis Unknown History capsule,delayed,extended release cholecalciferol (vitamin D3) 25 25 mcg PO QDAY supplem ent 10/20/24 10/24/24 History mcg (1,000 unit) capsule cyclobenzaprine 10 mg tablet 10 mg PO TID PRN muscle s pasm 10/20/24 Unknown History sumatriptan succinate 100 mg tablet 100 mg PO ONCE Unknown History zolpidem 10 mg tablet 10 mg PO QHS sleep 10/20/24 10/25/24 History Allergy/AdvReac Type Severity Reaction Status Date / Time No Known Allergies Allergy Verified 10/25/24 06:02 Family History Mother Hypertension Lung cancer Scoliosis DJD (degenerative joint disease) Father COPD (chronic obstructive pulmonary disease) Surgical History History of colonoscopy History of right hip replacement (~01/2011) S/P lumbar fusion Status post breast reduction History of lumbar laminectomy History of lumbar fusion Social History Smoking Status: Never smoker alcohol intake: current alcohol intake frequency: 0-2 drinks per day what type of physical activity do you participate in: other details: pilates Review of Systems (Anesthesia) ROS Narrative System reviewed and no additional complaints, except as documented. 10/25/24 0640 <Electronically signed by Thien camacho MD> Date _ Thien Grijalva MD Cosigner Signature: Date CC: ~ Signed [facility] Work Phone: [phone]) 116-240204-01-2025 History and physical note [facility] Medical Records Department [address] [place] [address] History & Physical Exam 10/25/24 0723 MR#: [id number] Acct: [id number] Name: MAYNOR ROSEN Rep #:[id number] : 1955 69 From: Terry Lang MD PCP: Shanelle Rodríguez DO Status:ADM IN Location: [facility] A History and Physical Date of Admission: 10/25/24 MR#: [id number] Acct: [id number] Name: MAYNOR ROSEN Rep #: [id number] : 1955 Provider: Dr. Terry Lang MD Age/Sex: 69/F Location: [facility] Status: Signed Intake Vital Signs 08/19/2506:34 Height 5 ft 3 in Weight: 155 lb 6 oz BMI 27.5 Intake Visit Reasons: lumbar spine Allergies No Known Allergies Allergy (Verified 10/20/24 11:15) Medications ?Medication ?Instructions ?Recorded ?Confirmed ?Type duloxetine 30 mg capsule,delayed 30 - 60 mg PO QDAY ANTIDEPRESSENT 10/20/24 History release lisinopril 20 mg tablet 20 mg PO DAILY HTN 08/19/24 10/20/24 His tory pantoprazole 20 mg tablet,delayed 20 mg PO QDAY GERD 08/19/24 10/20/24 His tory release calcium 500 mg (as 2 tab PO DAILY SUPPLEMENT 10/11/2410/20 History carbonate)-vitamin D3 3.125 mcg (125 unit) tablet gabapentin 100 mg capsule 200 - 300 mg PO TID PRN PAIN 10/11/24 History hydrocodone-acetaminophen 5-325mg 0.5 tab PO QHS PRN pain 10/11/24 5 H istory 5mg-325mg ascorbic acid (vitamin C) 1,000 mg 1 g PO Q6H 10/20/24 10/20/24 History capsule budesonide 3 mg 9 mg PO QDAY PRN 10/20/24 10/20/24 Histo ry capsule,delayed,extended release cholecalciferol (vitamin D3) 25 25 mcg PO QDAY 10/20/24 10/20/24 History mcg (1,000 unit) capsule cyclobenzaprine 10 mg tablet 10 mg PO TID PRN muscle spasm 10/20/24 0 10/20/24 History sumatriptan succinate 100 mg tablet 100 mg PO ONCE 10/20/24 10/20/24 History zolpidem 10 mg tablet 10 mg PO QHS 10/20/24 10/20/24 History Have you fallen in the past year?: Yes PFSH Medical History Wears glasses Cancer Depression Anxiety Migraine headache GERD (gastroesophageal reflux disease) Microscopic colitis History of Mohs micrographic surgery for skin cancer (~2021) Non-smoker PONV (postoperative nausea and vomiting) Hypertension Surgical History History of colonoscopy History of right hip replacement (~01/2011) S/P lumbar fusion Status post breast reduction History of lumbar laminectomy History of lumbar fusion Family History Mother Hypertension Lung cancer Scoliosis DJD (degenerative joint disease)Father COPD (chronic obstructive pulmonary disease) Social History Smoking Status: Never smoker alcohol intake: current alcohol intake frequency: 0-2 drinks per day what type of physical activity do you participate in: other details: pilates HPI lumbar spine Details: This documentation accurately reflects the service provided and the decisions made by me, Dr. Terry Lang MD 10/20/24 1111. Part of today?s visit was documented by Niki GIBBS, acting as scribe. MAYNOR ROSEN is a 69 year old F here today for pre-op lumbar spine dos: 10/25/24. 08/19/24: MAYNOR ROSEN is a 68 year old F here today NEW patient for low back pain. She has had aprior fusion in 2021 that was done a L4-5. She had to have this surgery done after a fall that she had. Her second surgery she had a laminectomy of L5-S1 in 2022. Her surgeries was done by Dr. Sherine Juan at . Her past surgeries were done on the right side but now her pain is on the left side. Shecomplains of low back and left leg pain that she has been having sinceright before her fusion. She has numbness and tingling over the right side of her low back, in her left ankle/foot and sometimes her lateral calf. She does also get tingling in her foot. She does see Dr. Ordaz on a regular basisand had an injection yesterday that has helped with about 50% of the tingling. Her last MRI that she had done was on 07/15/24. She has done PT after both of her surgeries but she doesn't feel that itwas very helpful. She states that before her first surgery she did have foot drop of the left foot but after the surgery and with the help of rehab it has gotten much better. Ortho Exam General General: Yes no acute distress Neurologic: Yes alert and Yes oriented x3 Spine SPINE TESTING CERVICAL THORACIC LUMBAR Musculoskeletal Strength 0=absent - 5=normal Details: Exam of the lower back shows paramedian incisions bilaterally in the lower lumbar region and also midline slightly to the left vertical incision lower down. Mild left paraspinal tenderness noticed. Neurologic evaluation of lower extremity shows grade 2 left EHL, grade 4+ left ankle dorsiflexion, all other muscles are 5 of 5 strength. Passive straight leg raise test is positive on theleft. Coding Level of Care Code Off vis,est,level 4 Diagnoses S/P lumbar fusion Z98.1 Recurrent herniation of lumbar disc M51.26 Other secondary scoliosis, lumbar region M41.56 Scoliosis type: other secondary scoliosis Time Spent (min) 35 Assessment and Plan Assessment and Plan (1) S/P lumbar fusion: Status: Acute (2) Recurrent herniation of lumbar disc: Status: Acute (3) Lumbar scoliosis: Status: Acute Qualifiers: Scoliosis type: other secondary scoliosis Qualified Code(s): M41.56 - Other secondary scoliosis, lumbar region Plan Again reviewed previous imaging. These show L4-5 stable fusion. L5-S1 shows left paracentral large disc herniation causing lateral recess and foraminal stenosis. Postsurgical changes of left L5-S1 laminotomy noticed. Lumbar degenerative scoliosis with concavity to the right noticed. L3-4 shows reduced disc height with asymmetric collapse concave to the right. Mild L3-4 right foraminal stenosis noticed. X-rays show subtle anterolisthesis L5-S1 on flexionview which reduces in extension. Again explained imaging findings in detail. Patient has had initial L4-5 fusion, followed a year later with an L5-S1 possibly discectomy surgery. She continued to have significant weakness in the left foot and recently her pain has worsened over the last few months into the left lower extremity andrecent MRI has shown his recurrent disc herniation at L5-S1. Discussed treatment options which inclu de continued nonoperative treat measures versus surgery. Patient has a prolonged course with multiple numerous injections that seem to help temporarily with her left foot symptoms. She has significant paresthesia in the left L5 dermatome and significant toe drop on the left side. Recommend surgicaltreatment in the form of L5-S1 fusion with revision of posterior L4-S1 instrumentation. Explained that L3-4 has disc degeneration with asymmetric collapse and degenerative scoliosis which may worsen in the future, but at this time patient does not have any anterior thigh symptoms attributable to L3-4. Surgery will be L5-S1 ALIF with revision L4-S1 instrumentation. All risks benefits and alternatives were discussed in detail. The risks include but are not limited to infection, bleeding, injury to nerves and vessels, Vascular injury, visceral injury, ileus, hematoma formation, nerve root injury, foot drop, pseudoarthrosis, hardware failure, adjacent segment degeneration, DVT, pulm embolism, pneumonia, atelectasis, cardiopulmonary event. Patient understands and agrees to proceed with surgery. Consent was signed. 10/25/24 5085 Cosigner Signature (if applicable): CC: Dr. Terry Lang MD; Shanelle Rodríguez DO~ Signed [facility]04-01-2025 [facility] Medical Records Department [address] [place] [address] History Physical Exam 10/25/24 0723 MR#: [id number] Acct: [id number] Name: MAYNOR ROSEN Rep #: [id number] : 1955 69 From: Terry Lang MD PCP: Shanelle Rodríguez DO Status:ADM IN Location: [place] [address] History and Physical Date of Admission: 10/25/24 MR#: [id number] Acct: [id number] Name: MAYNOR ROSEN Rep #: [id number] : 1955 Provider: Dr. Terry Lang MD Age/Sex: 69/F Location: [facility] [place] Status: Signed Intake Vital Signs 08/19/2506:34 Height 5 ft 3 in Weight: 155 lb 6 oz BMI 27.5 Intake Visit Reasons: lumbar spine Allergies No Known Allergies Allergy (Verified 10/20/24 11:15) Medications ???Medication ???Instructions ???Recorded ???Confirmed ???Type duloxetine 30 mg capsule,delayed 30 - 60 mg PO QDAY ANTIDEPRESSENT 08/19/24 5 History release lisinopril 20 mg tablet 20 mg PO DAILY HTN 08/19/24 10/20/24 History pantoprazole 20 mg tablet,delayed 20 mg PO QDAY GERD 08/19/24 10/20/24 History release calcium 500 mg (as 2 tab PO DAILY SUPPLEMENT 10/11/24 10/20/24 Histor y carbonate)-vitamin D3 3.125 mcg (125 unit) tablet gabapentin 100 mg capsule 200 - 300 mg PO TID PRN PAIN 10/11/24 10/20/24 His tory hydrocodone-acetaminophen 5-325mg 0.5 tab PO QHS PRN pain 10/11/24 10/11/24 History 5mg-325mg ascorbic acid (vitamin C) 1,000 mg 1 g PO Q6H 10/20/24 10/20/24 History capsule budesonide 3 mg 9 mg PO QDAY PRN 10/20/24 10/20/24 History capsule,delayed,extended release cholecalciferol (vitamin D3) 25 25 mcg PO QDAY 10/20/24 10/20/24 History mcg (1,000 unit) capsule cyclobenzaprine 10 mg tablet 10 mg PO TID PRN muscle spasm 10/20/24 10/20/24 Hi story sumatriptan succinate 100 mg tablet 100 mg PO ONCE 10/20/24 10/20/24 History zolpidem 10 mg tablet 10 mg PO QHS 10/20/24 10/20/24 History Have you fallen in the past year?: Yes PFSH Medical History Wears glasses Cancer Depression Anxiety Migraine headache GERD (gastroesophageal reflux disease) Microscopic colitis History of Mohs micrographic surgery for skin cancer ( 2021) Non-smoker PONV (postoperative nausea and vomiting) Hypertension Surgical History History of colonoscopy History of right hip replacement ( 01/2011) S/P lumbar fusion Status post breast reduction History of lumbar laminectomy History of lumbar fusion Family History Mother Hypertension Lung cancer Scoliosis DJD (degenerative joint disease)Father COPD (chronic obstructive pulmonary disease) Social History Smoking Status: Never smoker alcohol intake: current alcohol intake frequency: 0-2 drinks per day what type of physical activity do you participate in: other details: elias HPI lumbar spine Details: This documentation accurately reflects the service provided and the decisions made by me, Dr. Terry Lang MD 10/20/24 1111. Part of today???s visit was documented by Niki GIBBS, acting as scribe. MAYNOR ROSEN is a 69 year old F here today for pre-op lumbar spine dos: 10/25/24. 08/19/24: MAYNOR ROSEN is a 68 year old F here today NEW patient for low back pain. She has had a prior fusion in 2021 that was done a L4-5. She had to have this surgery done after a fall that she had. Her second surgery she had a laminectomy of L5-S1 in 2022. Her surgeries was done by Dr. Sherine Juan at . Her past surgeries were done on the right side but now her pain is on the left side. She complains of low back and left leg pain that she has been having since right before her fusion. She has numbness and tingling over the right side of her low back, in her left ankle/foot and sometimes her lateral calf. She does also get tingling in her foot. She does see Dr. Ordaz on a regular basis and had an injection yesterday that has helped with about 50% of the tingling. Her last MRI that she had done was on 07/15/24. She has done PT after both of her surgeries but she doesn't feel that it was very helpful. She states that before her first surgery she did have foot drop of the left foot but after the surgery and with the help of rehab it has gotten much better. Ortho Exam General General: Yes no acute distress Neurologic: Yes alert and Yes oriented x3 Spine SPINE TESTING CERVICAL THORACIC LUMBAR Musculoskeletal Strength 0=absent - 5=normal Details: Exam of the lower back shows paramedian incisions bilaterally in the lo (more content not included)...[facility]04-01-2025 Consult note [facility] Medical Records Department [address] [place] [address] Pre-Anesthesia Evaluation 10/25/24 0632 MR#: [id number] Acct: [id number] Name: MAYNOR ROSEN Rep #:[id number] : [id number] 69 From: Thien Grijalva MD PCP: Shanelle Rodríguez DO Status:ADM IN Y Race: C Location: [place] [address] ASA Classification* ASA Classification ASA Classification: 2 Assessment & Plan Anesthesia* Anesthesia Assessment Anesthesia Assessment: Discussed sedation and/or anesthesia options, risks, benefits, and alternatives with patient/parents/legal guardian/POA. Questions invited. The patient/parents/legal guardian/POA seems to understand and agrees to proceedwith anesthesia plan. Reviewed the physical assessment, medical history, allergy history and patient home medications list prior to surgery/procedure/anesthetic and documented any changes. Performed airway and anesthesia risk assessments. Anesthesia Type Anesthesia Type: General (Consider GlideScope intubation) History Source History Obtained from:: Patient and Chart Anesthesia Focused Assessment* Temperature: 97.8 F Pulse Rate: 78 Blood Pressure: 121/77 Respiratory Rate: 16 Pulse Ox: 99 Oxygen Delivery Method: Room Air Airway Assessment Mouth opens: >3 cm Mallampati Score: IV Teeth Condition: Caps/Crowns (Patient has several crowns. They are all tight.) Neck Range of motion (ROM): Limited ROM (Somewhat decreased extension) Focused Labs Anesthesia Preop lab: CBC WBC 5.6 K/mm3 (4.4-11.0) 10/13/24 09:42 10/13/24 RBC 4.39 M/mm3 (4.2-5.4) 10/13/24 09:42 10/13/24 Hgb 13.1 g/dL (12.0-15.0) 10/13/24 09:42 10/13/24 Hct 40.1 % (37-47) 10/13/24 09:42 10/13/24 Plt Count 194 K/mm3 (150-450) 10/13/24 09:42 10/13/24 CHEMISTRY Potassium 4.4 mmol/L (3.3-5.1) 10/13/24 09:42 10/13/24 Sodium 139 mmol/L (133-145) 10/13/24 09:42 10/13/24 Magnesium 1.9 mg/dL (1.5-2.2) 10/13/24 09:42 10/13/24 BUN 16 mg/dL (4-19) 10/13/24 09:42 10/13/24 Creatinine 0.71 mg/dL (0.70-1.20) 10/13/24 09:42 10/13/24 Glucose 98 mg/dL (70-99) 10/13/24 09:42 10/13/24 TSH 1.34 uIU/mL (0.358-3.74) 02/26/22 16:54 COAG PT 11.8 SECONDS (11.7-14.9) 02/26/22 16:54 Pre-Assessment Diagnosis/Proposed Procedure Planned Operative Procedure(s): Anterior lumbar interbody fusion L5-S1, revisionposterior lumbar fusion L4-5 and L5-S1, possible removal of hardware Anesthesia History Anesthesia History - communications attendant: Anesthesia History - communications attendant Hx Hospitalization No 10/11/24 13:17 Any Problems With Anesthesia Yes 10/11/24 13:17 Cholinesterase deficiency No 10/11/24 13:17 You/Your Family Experience No 10/11/24 13:17 fever (hyperthermia) with Relationship Recent Exposure to Contagious No 10/25/24 06:05 Disease Does patient have nerve No 10/11/24 13:17 stimulator Patient instructed to have device shut off --Does patient have Pacemaker No 10/25/24 06:05 or ICD? When Was Last Pacemaker Check QUESTION #4 FULL TEXT: You/Your Family Experience fever (hyperthermia) with Anesthesia Last Oral Intake Last Oral intake: Last Oral Intake NPO since :45 10/25/24 06:05 Meds taken in AM with sips of Yes 10/25/24 06:05 water? Meds patient instructed to take am of surgery Any additional information?: Yes NPO since: (Patient took her preop Ensureat 4:45 AM.) Meds taken in AM with sips of water?: Yes PONV PONV - communications attendant: PONV - communications attendant Female Yes 10/11/24 13:17 HX of Motion Sickness Yes 10/11/24 13:17 HX of N/V After Surgery Yes 10/11/24 13:17 Non-Smoker Yes 10/11/24 13:17 Duration of Surgery greater Yes 10/11/24 13:17 than 60 minutes Number of Risk Factors 5 10/11/24 13:17 PONV Score Severe Risk 10/11/24 13:17 Height & Weight Height & Weight: Anesthesia: Height & Weight Height 5 ft 3 in 10/25/24 06:05 Weight: 68 kg 10/25/24 06:05 Body Mass Index (BMI) 26.5 10/25/24 06:05 Respiratory Assessment Respiratory Assessment - communications attendant: Respiratory Tract Infection Hx - communications attendant Hx Respiratory Tract Infection No 10/11/24 13:17 STOP Sleep Apnea STOP Sleep Apnea - communications attendant: STOP Sleep Apnea - communications attendant Hx Hypertension Yes: CONTROLLED WITH MED 10/11/24 13:17 Hx Sleep Apnea No 10/11/24 13:17 CPAP BIPAP Do you snore loudly (louder No 10/11/24 13:17 than talking or can be heard Do you often feel tired/ No 10/11/24 13:17 fatigued/ sleepy during daytime? Has anyone observed you stop No 10/11/24 13:17 breathing during sleep? STOP Results Negative 10/11/24 13:17 QUESTION #5 FULL TEXT : Do you snore loudly (louder than talking or can be heard through closeddoors)? 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 Specify any problems Hx of Preganancy in last 3 N/A 10/11/24 13:17 Months Nurse Filling Out Transfusion NBUCHER 10/11/24 13:17 & Questions: Date: 10/11/24 10/11/24 13:17 Time: 13:23 10/11/24 13:17 Patient unable to answer at this time (ie. confused, unrespo /Reproduction History /Reproductive History - communications attendant: /Reproductive Hx- communications attendant Hx Now Gestational Age (in weeks): EDC: Hx Hx Para Hx Section SAB Active Medications Active Medications: Current Medications Generic Name Dose Route Start Last Admin Trade Name Freq PRN Reason Stop Dose Admin Acetaminophen 1,000 mg 10/25/24 07:30 10/25/24 06:22 Acetaminophen 500 Mg Tablet PO 10/25/24 07:31 1,000 mg X1 ONE Administration Cefazolin Sodium 2 gm/ N/A 20 mls @ 400 mls/hr 10/25/24 07:30 IV 10/25/24 07:32 PREOP ONE Tranexamic Acid 1,000 mg/ 110 mls @ 440 mls/hr 10/25/24 07:30 Sodium Chloride IV 10/25/24 07:44 X1 ONE Tranexamic Acid 1,000 mg/ 110 mls @ 440 mls/hr 10/25/24 07:30 Sodium Chloride IV 10/25/24 07:44 X1 ONE Magnesium Sulfate 2 gm/ 104 mls @ 208 mls/hr 10/25/24 07:30 10/25/24 06:22 Dextrose IV 10/25/24 07:59 208 mls/hr X1 ONE Administration Sodium Chloride 1,000 mls @ 15 mls/hr 10/25/24 05:50 10/25/24 06:21 IV 10/30/24 19:09 15 mls/hr .Q48H MARY ANN Administration Insulin Human Lispro 1 - 6 unit 10/25/24 07:30 Insulin Lispro 100 Unit/Ml Insuln.Pen SC Q4H PRN PRN BG>/= 180, SEE PROTOCOL Protocol PFSH Medical History Wears glasses Cancer Depression Anxiety Migraine headache GERD (gastroesophageal reflux disease) Microscopic colitis History of Mohs micrographic surgery for skin cancer (~2021) Non-smoker PONV (postoperative nausea and vomiting) Hypertension Home Medications ?Medication ?Instructions ?Recorded ?Last Taken ?Type duloxetine 30 mg capsule,delayed 30 - 60 mg PO QDAY AN TIDEPRESSENT 08/19/24 10/25/24 04:45 History release lisinopril 20 mg tablet 20 mg PO DAILY HTN 08/19/24 10/25/24 04:45 History pantoprazole 20 mg tablet,delayed 20 mg PO QDAY GERD 0 08/19/24 10/25/24 04:45 History release calcium 500 mg (as 2 tab PO DAILY SUPPLEMENT 10/24/24 History carbonate)-vitamin D3 3.125 mcg (125 unit) tablet gabapentin 100 mg capsule 200 - 300 mg PO TID PRN PAIN 10/11/24 10/24/24 History hydrocodone-acetaminophen 5-325mg 0.5 tab PO QHS PRN p ain 10/11/24 Unknown History 5mg-325mg ascorbic acid (vitamin C) 1,000 mg 1 g PO Q6H suppleme nt 10/20/24 10/24/24 History capsule budesonide 3 mg 9 mg PO QDAY PRN colitis Unknown History capsule,delayed,extended release cholecalciferol (vitamin D3) 25 25 mcg PO QDAY supplem ent 10/20/24 10/24/24 History mcg (1,000 unit) capsule cyclobenzaprine 10 mg tablet 10 mg PO TID PRN muscle s pasm 10/20/24 Unknown History sumatriptan succinate 100 mg tablet 100 mg PO ONCE Unknown History zolpidem 10 mg tablet 10 mg PO QHS sleep 10/20/24 10/25/24 History Allergy/AdvReac Type Severity Reaction Status Date / Time No Known Allergies Allergy Verified 10/25/24 06:02 Family History Mother Hypertension Lung cancer Scoliosis DJD (degenerative joint disease) Father COPD (chronic obstructive pulmonary disease) Surgical History History of colonoscopy History of right hip replacement (~01/2011) S/P lumbar fusion Status post breast reduction History of lumbar laminectomy History of lumbar fusion Social History Smoking Status: Never smoker alcohol intake: current alcohol intake frequency: 0-2 drinks per day what type of physical activity do you participate in: other details: pilates Review of Systems (Anesthesia) ROS Narrative System reviewed and no additional complaints, except as documented. 10/25/24 0640 janice LOPEZ> Date _ Thien Grijalva MD Cosigner Signature: Date CC: ~ Signed [facility]03-27-2025 Evaluation note* Diagnosis Onset Date Resolution Status Admit Date Lumbar scoliosis acute October 202024 11:02am Recurrent herniation of lumb ar disc acute October 20, 2024 11:02am S/P lumbar fusion acute September 252024 11:02am Lumbar scoliosis acute October 1:35pm S/P lumbar fusion acute October 252024 1:35pm S/P lumbar fusion acute October 252024 1:05pm S/P lumbar fusion acute November 12:32pm [facility] Work Phone: 1(381) 518-768303-27-2025 Evaluation note* Diagnosis Onset Date Resolution Status Admit Date Lumbar scoliosis acute October 202024 11:02am Recurrent herniation of lumb ar disc acute October 20, 2024 11:02am S/P lumbar fusion acute September 252024 11:02am Lumbar scoliosis acute October 1:35pm S/P lumbar fusion acute October 252024 1:35pm S/P lumbar fusion acute October 252024 1:05pm S/P lumbar fusion acute November 12:32pm S/P lumbar fusion acute January 192024 11:01am [facility] Work Phone: 1(976) 614-808501-24-2025 Evaluation note* Diagnosis Onset Date Resolution Status Admit Date Lumbar scoliosis acute August 19, 2024 7:29am Recurrent herniation of lumb ar disc acute August 19 7:29am S/P lumbar fusion acute August 19, 2024 7:29am Lumbar scoliosis acute October 202024 11:02am Recurrent herniation of lumb ar disc acute October 20, 2024 11:02am S/P lumbar fusion acute September 252024 11:02am Lumbar scoliosis acute October 1:35pm S/P lumbar fusion acute October 252024 1:35pm [facility] Work Phone: 1(941) 734-523401-24-2025 Evaluation note* Diagnosis Onset Date Resolution Status Admit Date Lumbar scoliosis acute August 19, 2024 7:29am Recurrent herniation of lumb ar disc acute August 19 7:29am S/P lumbar fusion acute August 19, 2024 7:29am Lumbar scoliosis acute October 202024 11:02am Recurrent herniation of lumb ar disc acute October 20, 2024 11:02am S/P lumbar fusion acute September 252024 11:02am Lumbar scoliosis acute October 1:35pm S/P lumbar fusion acute October 252024 1:35pm S/P lumbar fusion acute October 252024 1:05pm S/P lumbar fusion acute November 12:32pm [employer] [employer] Work Phone: 1(413) 944-891808-16-2024 NoteHNO ID: [id number] Author: DIANE HUMMEL MD Service: ? Author Type: Physician Type: Progress Notes Filed: 03/11/2024 11:17 Note Text: Maynor is a 68 year old who presents for an annual gynecologic exam with complaints, vaginal dryness. Postmenopausal: Yes HRT use: No. 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 Estate Accountant History Comments: Sexual Activity: Yes; Male Contraception: Tubal Ligation PAST MEDICAL HISTORY No date: History of migraine headachesPAST SURGICAL HISTORY No date: ENDOMETRIAL ABLTJ THERMAL W/O HYSTEROSCOPIC GUID No date: HIP SURGERY HX Comment: Right Hip replacement No date: SKIN BIOPSY HX Comment: Basel cell No date: TUBAL LIGATION HX FAMILY HISTORY Problem Relation Age of Onset Cancer Mother Lung Osteoporosis Mother COPD Father No Known Problems Sister Colon Cancer Maternal Grandmother No Known Problems Maternal Grandfather No Known Problems Paternal Grandmother No Known Problems Paternal Grandfather SOCIAL HISTORY Social History Tobacco Use Smoking status: Former Smokeless tobacco: Never Substance Use Topics Alcohol use: Yes Comment: Social Drug use: No REVIEW OF SYSTEMS Abdomen: No abdominal pain, nausea, vomiting, diarrhea, or constipation. No bloating, early satiety, indigestion, or increased flatulence. Bladder: No dysuria, gross hematuria, urinary frequency, urinary urgency, or incontinence Breast: No breast lumps, nipple d/c, overlying skin changes, redness or skin retraction Allergies and current medication updated:Yes EXAM: BP 122/81 Wt 141 lb (64.0kg) GENERAL: pleasant, female in no apparent distress HEENT: Normocephalic, atraumatic, mucus membranes moist, and no lesions NECK: Supple, full range of motion, no adenopathy, and thyroid normal DERMATOLOGY: Normal, without lesions, non-icteric, and non-hirsute BREAST: soft, non-tender, symmetric, no dominant mass, normal nipple-areolar complex, no lymphadenopathy, and no nipple discharge CHEST: Normal inspiratory effort ABDOMEN: soft, non-tender, and no masses PELVIC: external genitalia normal, normal Bartholin's glands, urethra, Farber's glands, no vulvar lesions, no cervical lesions, physiologic discharge present, normal appearing perineal body and perianal region BIMANUAL: uterus normal size, shape and consistency, midposition, no adnexal masses, and non-tender RECTOVAGINAL: rectovaginal exam negative for any masses or nodularity. NEURO: alert and oriented x3,exam grossly non-focal EXTREMITIES: normal ASSESSMENT/PLAN: 1) Health maintenance: Pap done with HPV. Mammogram up to date Colon cancer screening: patient to discuss with PCP BMD: followed by PCP Kitty pv twice weekly rx sent 2) Follow up one year or sooner as needed Diane Hummel [facility]08-16-2024 History of Present illness Narrative* Diane Hummel MD - 03/11/2024 11:03 AM EDT Maynor is a 68 year old who presents for an annual gynecologic exam with complaints, vaginal dryness. Postmenopausal: Yes HRT use: No. 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 Estate Accountant History Comments: Sexual Activity: Yes; Male Contraception: Tubal Ligation PAST MEDICAL HISTORY No date: History of migraine headachesPAST SURGICAL HISTORY No date: ENDOMETRIAL ABLTJ THERMAL W/O HYSTEROSCOPIC GUID No date: HIP SURGERY HX Comment: Right Hip replacement No date: SKIN BIOPSY HX Comment: Basel cell No date: TUBAL LIGATION HX FAMILY HISTORY Problem Relation Age of Onset Cancer Mother Lung Osteoporosis Mother COPD Father No Known Problems Sister Colon Cancer Maternal Grandmother No Known Problems Maternal Grandfather No Known Problems Paternal Grandmother No Known Problems Paternal Grandfather SOCIAL HISTORY Social History Tobacco Use Smoking status: Former Smokeless tobacco: Never Substance Use Topics Alcohol use: Yes Comment: Social Drug use: No REVIEW OF SYSTEMS Abdomen: No abdominal pain, nausea, vomiting, diarrhea, or constipation. No bloating, early satiety, indigestion, or increased flatulence. Bladder: No dysuria, gross hematuria, urinary frequency, urinary urgency, or incontinence Breast: No breast lumps, nipple d/c, overlying skin changes, redness or skin retraction Allergies and current medication updated:Yes EXAM: BP 122/81 Wt 141 lb (64.0kg) GENERAL: pleasant, female in no apparent distress HEENT: Normocephalic, atraumatic, mucus membranes moist, and no lesions NECK: Supple, full range of motion, no adenopathy, and thyroid normal DERMATOLOGY: Normal, without lesions, non-icteric, and non-hirsute BREAST: soft, non-tender, symmetric, no dominant mass, normal nipple-areolar complex, no lymphadenopathy, and no nipple discharge CHEST: Normal inspiratory effort ABDOMEN: soft, non-tender, and no masses PELVIC: external genitalia normal, normal Bartholin's glands, urethra, Farber's glands, no vulvar lesions, no cervical lesions, physiologic discharge present, normal appearing perineal body and perianal region BIMANUAL: uterus normal size, shape and consistency, midposition, no adnexal masses, and non-tender RECTOVAGINAL: rectovaginal exam negative for any masses or nodularity. NEURO: alert and oriented x3,exam grossly non-focal EXTREMITIES: normal ASSESSMENT/PLAN: 1) Health maintenance: Pap done with HPV. Mammogram up to date Colon cancer screening: patient to discuss with PCP BMD: followed by PCP Kitty london twice weekly rx sent 2) Follow up one year or sooner as needed Diane Hummel MD [facility]* Letter - Coordinator, Mammography - 11/26/2023 9:22 AM EDT [address] [address] November 26, 2023 PID: [id number] Maynor [address]ika [address] [place] [address] Dear Ms. Rosen, We are pleased to inform you that the results of your recent breast imaging exam on 11/25/2023 are normal. Early detection of cancer is very important. We also understand recommendations regarding breast cancer screening are controversial. Please discuss with your primary care provider which strategy is best for you and whether a mammogram is right for you. Your imaging studies and report will be kept on file at [facility] as part of your permanent medical record and are available for your continuing care. Thank you for allowing us to help in meeting your health care needs. Sincerely, Dr. Kitchen Interpreting Radiologist [facility] (Normal over 40) [facility]05-02-2024 Miscellaneous Notes* Letter - Coordinator, Mammography - 11/26/2023 9:22 AM EDT [address] [address] November 26, 2023 PID: [id number] Maynor Jessika [address] [place] [address] Dear Ms. Rosen, We are pleased to inform you that the results of your recent breast imaging exam on 11/25/2023 are normal. Early detection of cancer is very important. We also understand recommendations regarding breast cancer screening are controversial. Please discuss with your primary care provider which strategy is best for you and whether a mammogram is right for you. Your imaging studies and report will be kept on file at [facility] as part of your permanent medical record and are available for your continuing care. Thank you for allowing us to help in meeting your health care needs. Sincerely, Dr. Kitchen Interpreting Radiologist [facility] (Normal over 40) documented [facility] History of Present illness Narrative* Kat Albert, RT(R) - 11/25/2023 12:00 PM EDT Radiology Service Progress Note PATIENT NAME: Maynor Rosen DATE OF SERVICE: November 25, 2023 TIME: 12:01 PM PATIENT IDENTITY VERIFICATION COMPLETED USING TWO (2) IDENTIFIERS: Name and Date of confirmedby patient verbally. FALL SCREENING: Has the patient had 2 falls in the last year or 1 fall with injury or currently using an Ambulatory Assistive Device (Walker, Cane, Wheelchair, Crutches, etc.)? No PATIENT GENDER DATA: Female. status: : No status: NO. PATIENT RELEVANT IMPLANT DATA REVIEWED: Yes PATIENT PRESENTS WITH AN IMPLANTABLE OR ATTACHED MARKETING RESEARCH ANALYST: No RADIOLOGY DEPARTMENT: Mammography PERIPHERAL IV DATA: Not applicable SIGNED BY: RT Keyonna(Denise) November 25, 2023 12:01 PM documented in [facility]24 NoteHNO ID: [id number] Author: KAT ALBERT RT(R) Service: ? Author Type: Technologist Type: Progress Notes Filed: 11/25/2023 12:02 Note Text: Radiology Service Progress Note PATIENT NAME: Maynor Rosen DATE OF SERVICE: November 25, 2023 TIME: 12:01 PM PATIENT IDENTITY VERIFICATION COMPLETED USING TWO (2) IDENTIFIERS: Name and Date of confirmed by patient verbally. FALL SCREENING: Has the patient had 2 falls in the last year or 1 fall with injury or currently using an Ambulatory Assistive Device (Walker, Cane, Wheelchair, Crutches, etc.)? No PATIENT GENDER DATA: Female. status: : No status: NO. PATIENT RELEVANT IMPLANT DATA REVIEWED: Yes PATIENT PRESENTS WITH AN IMPLANTABLE OR ATTACHED MARKETING RESEARCH ANALYST: No RADIOLOGY DEPARTMENT: Mammography PERIPHERAL IV DATA: Not applicable SIGNED BY: RT Keyonna(Denise) November 25, 2023 12:01 [facility]01-07-2024 Instructions* Patient Instructions* Janet Cortes MD - 08/02/2023 11:19 AM EST Images from the original note were not included. Bowel Preparation Instructions for: Golytely, Nulytely, Trilyte or Colyte (polyethylene glycol 3350and electrolytes) IF YOU DO NOT FOLLOW THESE DIRECTIONS, YOUR COLONOSCOPY WILL BE CANCELLED. [place] Instructions: Your bowel must be empty so that your doctor can clearly view your colon. Follow all of the instructions in this handout EXACTLY as they are written. Do NOT eat any solid food the ENTIRE day before your colonoscopy. Drink only clear liquids. Buy your bowel preparation at least 5 days before your colonoscopy. TRANSPORTATION on the Day of Your Exam A responsible person MUST be present with you at Check In prior to your colonoscopy and REMAIN in the endoscopy area until you are discharged. You are NOT ALLOWED to drive, take a taxi or bus, or leave the Endoscopy Center ALONE. If you do not have a responsible street flusher driver (family member or friend) with you to take you home, your exam cannot be done with sedation and will be cancelled. Please bring a list of all of your current medications, including any Over-the Counter medications with you. Medications If you take insulin, diabetic medications or blood thinners such as Coumadin (warfarin), Plavix (clopidogrel), Ticlid (ticlopidine hydrochloride), Agrylin (anagrelide), Xarelto (Rivaroxaban), Pradaxa(Dabigatran), Eliquis (Apixaban), and Effient (Prasugrel). You MUST call the doctors who orders those medicines for instructions on altering the dosage before your colonoscopy. All other medications should be taken the day of the exam with a sip of water including ASPIRIN. Five (5) Days Before Your Colonoscopy Do NOT take medicines that stop diarrhea - such as Imodium, Kaopectate, or Pepto Bismol. Do NOT take fiber supplements - such as Metamucil, Citrucel, or Perdiem. Do NOT take products that contain iron - such as multi-vitamins (the label lists what is in the products). Do NOT take Vitamin E. Buy the prescription bowel preparation solution at your local pharmacy or drugstore pharmacy. 06/2019 Bowel Preparation Instructions for: Golytely, Nulytely, Trilyte or Colyte (polyethylene glycol 3350and electrolytes) Three (3) Days Before Your Colonoscopy Do NOT eat high-fiber foods - such as popcorn, beans, seeds (flax, sunflower, quinoa), multigrain bread, nuts, salad/vegetables, or fresh and dried fruit. One (1) Day Before Your Colonoscopy Only drink clear liquids the ENTIRE DAY before your colonoscopy. Do NOT eat any solid foods. Drink at least 8 ounces of clear liquids every hour after waking up. The clear liquids you can drink include: Clear Liquid (NO RED LIQUIDS) DO NOT DRINK Gatorade, Pedialyte or Powerade Clear broth or bouillon Coffee or tea (no milk or non-dairy creamer) Carbonated and non-carbonated soft drinks Gabriel-Aid or other fruit flavored drinks Strained fruit juices (no pulp) Jell-O, popsicles, hard candy Water Alcohol Milk or non-dairy creamers Noodles or vegetables in soup Juice with pulp Liquid you cannot see through Do not use tobacco/vaping products The bowel preparation solution will be consumed in two parts. Mix the solution the evening before your colonoscopy and refrigerate before drinking. You may add the flavor pack that came with the bowel preparation. Do NOT add ice, sugar or any other flavorings to the solution. Part 1 At 6:00 PM - Evening before your colonoscopy Drink an 8-oz glass of bowel preparation every 10 minutes for a total of 8 glasses. You may continue to drink clear liquids until midnight. Part 2 On the day of your colonoscopy you may drink clear liquids up to (three) 3 hours before your procedure. 4 1/2 hours before your colonoscopy Drink an 8-oz glass of bowel preparation every 10 minutes for a total of 8 glasses. Fifteen (15) minutes later, drink an 8-oz glass of clear liquids every 15 minutes for a total of 2 glasses. You may continue to drink clear liquids up to (three) 3 hours before your exam. 2 06/2019 [facility] History of Present illness Narrative* Carlene Rosa RT(R) - 02/02/2023 12:00 PM EDTSummary: XR LUMBAR Radiology Service Progress Note PATIENT NAME: Maynor Rosen DATE OF SERVICE: February 02, 2023 TIME: 12:19 PM PATIENT IDENTITY VERIFICATION COMPLETED USING TWO (2) IDENTIFIERS: Name and Date of confirmedby patient verbally. FALL SCREENING: Has the patient had 2 falls in the last year or 1 fall with injury or currently using an Ambulatory Assistive Device (Walker, Cane, Wheelchair, Crutches, etc.)? No PATIENT GENDER DATA: Female. status: : No status: NO. PATIENT RELEVANT IMPLANT DATA REVIEWED: Not Applicable RADIOLOGY DEPARTMENT: General X-ray: Exam(s) Completed: Spine X-Ray(s): Lumbar AP / LAT / L5-S1 PERIPHERAL IV DATA: Not applicable SIGNED BY: RT Alberta(R) February 02, 2023 12:19 PM documented in this encounterM[facility]11-12-2022 History of Present illness Narrative* RT Deb(R) - 06/07/2022 11:15 AM EST Radiology Service Progress Note PATIENT NAME: Maynor Rosen DATE OF SERVICE: June 07, 2022 TIME: 11:59 AM PATIENT IDENTITY VERIFICATION COMPLETED USING TWO (2) IDENTIFIERS: Name and Date of confirmedby patient verbally and Name and Date of confirmed by identification band. FALL SCREENING: Has the patient had 2 falls in the last year or 1 fall with injury or currently using an Ambulatory Assistive Device (Walker, Cane, Wheelchair, Crutches, etc.)? No PATIENT GENDER DATA: Female. status: : No status: NO. PATIENT RELEVANT IMPLANT DATA REVIEWED: Not Applicable RADIOLOGY DEPARTMENT: General X-ray: Exam(s) Completed: Spine X-Ray(s): Lumbar AP / LAT PERIPHERAL IV DATA: Not applicable SIGNED BY: RT Deb(R) June 07, 2022 11:59 AM documented in this encounterM[facility]08-20-[facility]22 History of Present illness Narrative* RT Brenda(R) - 03/15/2022 10:30 AM EDT Radiology Service Progress Note PATIENT NAME: Maynor Rosen DATE OF SERVICE: March 15, 2022 TIME: 10:46 AM PATIENT IDENTITY VERIFICATION COMPLETED USING TWO (2) IDENTIFIERS: Name and Date of confirmedby patient verbally and Name and Date of confirmed by identification band. FALL SCREENING: Has the patient had 2 falls in the last year or 1 fall with injury or currently using an Ambulatory Assistive Device (Walker, Cane, Wheelchair, Crutches, etc.)? No PATIENT GENDER DATA: Female. status: : No status: NO. PATIENT RELEVANT IMPLANT DATA REVIEWED: Not Applicable RADIOLOGY DEPARTMENT: General X-ray: Exam(s) Completed: Spine X-Ray(s): Lumbar AP / LAT / L5-S1 PERIPHERAL IV DATA: Not applicable SIGNED BY: RT Brenda(R) March 15, 2022 10:46 AM documented in this encounterM[facility]06-28-2022 Miscellaneous Notes* Telephone Encounter - Patt Early RN - 01/21/2022 3:22 PM EDT Aware of results of DXA and arelis screen. Aware to get arelis screen in 1 yr. States she already takes calcium and vit D3. Patt Early RN Osteopenia by WHO criteria. Patient is at increased risk for fractures. GENERAL RECOMMENDATIONS FOR PREVENTION OF BONE LOSS: 1. 1200 mg - 1500 mg calcium per day if no history of renal calculi for adults 50 years and over. 2. 800 - 1000 International Units of vitamin D3 per day if no history of renal calculi for adults 50 years and over. 3. Weight bearing exercise 4. Advise againt smoking. If currently smoking, recommend cessation. 5. Avoid excessive use of caffeine, soft drinks, and alcoholic beverages. documented in this encounterMari[facility]06-24-2022 Miscellaneous Notes* Letter - Mammography Coordinator - 01/17/2022 3:01 PM EDT [address] [address] January 17, 2022 PID: [id number] Maynor Rosen [address] [place] [address] Dear Ms. Rosen, We are pleased to inform you that the results of your recent breast imaging exam on 01/17/2022 are normal. Early detection of cancer is very important. We also understand recommendations regarding breast cancer screening are controversial. Please discuss with your primary care provider which strategy is best for you and whether a mammogram is right for you. Your imaging studies and report will be [facility] as part of your permanent medical record and are available for your continuing care. Thank you for allowing us to help in meeting your health care needs. Sincerely, Dr. Daniel Interpreting Radiologist [facility] (Normal over 40) documented in this encounterMarietta [facility]06-24-2022 History of Present illness Narrative* RT Aman(Denise) - 01/17/2022 1:30 PM EDT Radiology Service Progress Note PATIENT NAME: Maynor Rosen DATE OF SERVICE: January 17, 2022 TIME: 1:55 PM PATIENT IDENTITY VERIFICATION COMPLETED USING TWO (2) IDENTIFIERS: Name and Date of confirmedby patient verbally. FALL SCREENING: Has the patient had 2 falls in the last year or 1 fall with injury or currently using an Ambulatory Assistive Device (Walker, Cane, Wheelchair, Crutches, etc.)? No PATIENT GENDER DATA: Female. status: : No status: NO. PATIENT RELEVANT IMPLANT DATA REVIEWED: Not Applicable RADIOLOGY DEPARTMENT: Bone Density PERIPHERAL IV DATA: Not applicable SIGNED BY: RT Aman(Denise) January 17, 2022 1:55 PM documented in this encounterMarietta [facility]04-28-2022 Miscellaneous Notes* Telephone Encounter - Patt Early RN - 11/21/2021 2:49 PM EDT Refill pended. Thanks, Patt Early RN documented in this encounterMarietta [facility]04-22-2022 Instructions* Patient Instructions* Diane Hummel MD - 11/15/2021 11:08 AM EDT ACOG Screening Guidelines The following health screening schedule is recommended by the [employer] (ACOG). Some of these tests may be ordered or performed by your primary care doctor. Pap test screening The pap test looks at cells on the cervix (the opening from the vagina to the uterus) to look for cancer or pre-cancerous changes. These changes are caused by the human papillomavirus (HPV). Studies estimate that half of all women will test positive for this virus within 3 years of starting sexual activity. For young women with a normal immune system, 90% of HPV infections will resolve within 2 years. There is a vaccine available against some forms of HPV. This is recommended for girls and women age 9-45. For ages 9-14, two injections are given at 0 and 6 months. For ages 15-45, three injections are given at 0,2 and 6 months. Because this vaccine does not protect against all HPV types whichcan cause cervical cancer, women who received the vaccine still need pap tests. Pap smear screening should be started at age 21. The pap test should be done every 3 years from [id number]. From age 30-65, pap smears can be done every 5 years if HPV test is negative or every 3 years if HPV testing is not done. For women over the age of 65, ACOG recommends against screening women who have had adequate prior screening and are not otherwise at high risk for cervical cancer. Women who have had a hysterectomy also do not need routine pap smear screening unless the pap smear was done for a cervical cancer or moderate to severe dysplasia. Breast cancer screening Mammogram should be performed every 1-2 years starting at age 40 and every year starting at age 50.Screening may be started earlier depending on family history. Cholesterol screening Lipid panel (cholesterol test) should be checked every 5 years starting at age 45. Diabetes screening Fasting glucose (blood sugar) test should be performed every 3 years starting at age 45. Colorectal cancer screening Starting at age 45, women should have a screening colonoscopy at least every 10 years. Screening may be started earlier depending on family history. Thyroid screening Thyroid function test (TSH) should be checked every 5 years starting at age 50. Bone mineral density screening All postmenopausal women age 65 and over and postmenopausal women with risk factors for osteoporosis should have a bone mineral density test performed. Risk factors include race, family history of osteoporosis, personal history of fractures, poor nutrition, smoking, heavy alcohol use, early menopause, low calcium intake and low body weight. Certain medical conditions and long-term use of some medications may also increase risk. BONE MINERAL DENSITY PATIENT INSTRUCTIONS Bone mineral density testing measures the amount of calcium in certain parts of your bones. This information determines how strong your bones are. The test is used to detect osteoporosis, a disease in which the bone's mineral content and density are low, increasing a person's risk of fractures. Thelumbar spine (lower back) and the hip are the skeletal sites usually examined. For the test, remember that: 1. You cannot take this test if you are . 2. Eat a normal diet on the day of the test. 3. Take your medications as you normally would. 4. DO NOT take calcium supplements (such as Tums) for 24 hours before the test. 5. On the day of the test, leave valuables (jewelry or credit cards) at home. 6. The test should be performed prior to oral, rectal or IV contrast studies, or at least 7 days after any of these studies. For the test, you may be asked to wear a hospital gown. You will lie on your back, on a padded table, in a comfortable position. Generally, you can resume your usual activities immediately. documented in this encounterMarietta [facility]04-22-2022 History of Present illness Narrative* Diane Humeml MD - 11/15/2021 10:49 AM EDT Maynor Burks is a 66 year old who presents for an annual gynecologic exam with complaints, hot flashes. 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 LMP: LMP Unknown, Ablation Age at Menarche: Age at First : Age at Menopause: Real Estate Accountant History Comments: Sexual Activity: Yes; Male Contraception: Tubal Ligation PAST MEDICAL HISTORY Diagnosis Date History of migraine headaches PAST SURGICAL HISTORY Procedure Laterality Date ENDOMETRIAL ABLTJ THERMAL W/O HYSTEROSCOPIC GUID HIP SURGERY HX Right Hip replacement SKIN BIOPSY HX Basel cell TUBAL LIGATION HX FAMILY HISTORY Problem Relation Age of Onset Cancer Mother Lung Osteoporosis Mother COPD Father No Known Problems Sister Colon Cancer Maternal Grandmother No Known Problems Maternal Grandfather No Known Problems Paternal Grandmother No Known Problems Paternal Grandfather SOCIAL HISTORY Social History Tobacco Use Smoking status: Former Smoker Smokeless tobacco: Never Used Substance Use Topics Alcohol use: Yes Comment: Social Drug use: No REVIEW OF SYSTEMS Abdomen: No abdominal pain, nausea, vomiting, diarrhea, or constipation. No bloating, early satiety, indigestion, or increased flatulence. Bladder: No dysuria, gross hematuria, urinary frequency, urinary urgency, or incontinence Breast: No breast lumps, nipple d/c, overlying skin changes, redness or skin retraction Allergies and current medication updated:Yes EXAM: BP 108/60 Ht 5' 4 (1.63m) Wt 150 lb 12.8 oz (68.4kg) BMI 25.87 kg/(m^2). GENERAL: pleasant, female in no apparent distress HEENT: Normocephalic, atraumatic, mucus membranes moist and no lesions NECK: Supple, full range of motion, no adenopathy and thyroid normal DERMATOLOGY: Normal, without lesions, non-icteric and non-hirsute BREAST: soft, non-tender, symmetric, no dominant mass, normal nipple-areolar complex, no lymphadenopathy and no nipple discharge CHEST: Normal inspiratory effort ABDOMEN: soft, non-tender and no masses PELVIC: external genitalia normal, normal Bartholin's glands, urethra, Farber's glands, no vulvar lesions, no cervical lesions, good vaginal support, physiologic discharge present, normal appearing perineal body and perianal region BIMANUAL: uterus normal size, shape and consistency, midposition, no adnexal masses and non-tender RECTOVAGINAL: rectovaginal exam negative for any masses or nodularity. NEURO: alert and oriented x3,exam grossly non-focal EXTREMITIES: normal ASSESSMENT/PLAN: 1) Health maintenance: Pap/HPV screening no longer needed Mammogram ordered Colon cancer screening: up to date with screening TSH/lipids/glucose: ordered BMD: ordered Pt wishes to continue with hrt aware of possible cardiovascular and cancer risks 2) Follow up one year or sooner as needed Diane Hummel MD documented in this encounterMari[facility]05-25-2021 Miscellaneous Notes* Letter - Coordinator, Mammography - 12/18/2020 12:33 PM EDT [facility] [address] [place] [address] December 18, 2020 PID: [id number] Maynor Rosen [address] [place], [place] [id number] Dear Ms. Rosen, We are pleased to inform you that the results of your recent breast imaging exam on 12/18/2020 are normal. Early detection of cancer is very important. We also understand recommendations regarding breast cancer screening are controversial. Please discuss with your primary care provider which strategy is best for you and whether a mammogram is right for you. Your imaging studies and report will be [facility] as part of your permanent medical record and are available for your continuing care. Thank you for allowing us to help in meeting your health care needs. Sincerely, Dr. White Interpreting Radiologist [facility] (Normal over 40) documented in this encounterMarietta [facility] HospitalEvaluation note* Diagnosis Encounter for screening mammogram for breast cancer documented [facility] encounter [facility]* Diagnosis Well woman exam- Primary Routine general medical examination at a health care facility Encounter for gynecological examination (general) (routine) without abnormal findings Encounter for screening mammogram for breast cancer Menopausal state Symptomatic menopausal or female climacteric states Asymptomatic postmenopausal status Other general symptoms and signs Overweight [facility] Diagnosis Depression with anxiety- Primary Dysthymic disorder documented [facility]* Diagnosis Asymptomatic postmenopausal status documented in this encounter [facility] note* Diagnosis Encounter for screening mammogram for breast cancer documented in this encounter [facility] noteNo assessment information availableWDayton VA Medical Center Work Phone: Evaluation note* Diagnosis Diarrhea, unspecified type- Primary documented in this encounter [facility] note* Diagnosis Diarrhea, unspecified type- Primary documented in this encounter [facility] note* Diagnosis Infectious gastroenteritis and colitis, unspecified- Primary documented in this encounter [facility] note* Diagnosis Encounter for gynecological examination (general) (routine) without abnormal findings- Primary documented in this encounter [facility] for referral (narrative)* Diagnostic Procedure Only (Routine) - Pending Review Specialty Diagnoses / Procedures Referred By Nakita moore Referred To Contact [facility] Diagnoses Encounter for screening mammogram for breast cancer Procedures ARELIS SCREENING W GREG SCREENING DIGITAL BREAST TOMOSYNTHESIS BI SCREENING MAMMOGRAPHY BI 2-VIEW BREAST INC Diane Baker MD [address] [place] [address] [facility] [place] [address] Referral ID Status Reason Start Date Expiration Date Visits Requested Visits Authorized [id number] Pending Review Auto-Generat ed Referral 11/15/2021 12/15/2022 1 1 [facility] for referral (narrative)* Diagnostic Procedure Only (Routine) - Closed Specialty Diagnoses / Procedures Referred By Nakita moore Referred To Contact [facility] Diagnoses Encounter for screening mammogram for breast cancer Procedures ARELIS SCREENING W GREG SCREENING DIGITAL BREAST TOMOSYNTHESIS BI SCREENING MAMMOGRAPHY BI 2-VIEW BREAST INC Diane Baker MD [address] [place] [address] [facility] [address] [place] [address] Referral ID Status Reason Start Date Expiration Date V isits Requested Visits Authorized [id number] Closed Auto-Generate d Referral 11/15/2021 12/15/2022 1 1 [facility] for referral (narrative)* Outpatient Procedure (Routine) - Pending Review Specialty Diagnoses / Procedures Referred By Contac t Referred To Contact [facility] Diagnoses Diarrhea, unspecified type Procedures COLONOSCOPY DIAGNOSTIC COLONOSCOPY FLX DX W/COLLJ SPEC WHEN PFRMJanet Resendez MD [address] [facility] [place] [address] [facility] [place] [address] [place] [address] Referral ID Status Reason Start Date Expiration Date Visits Requested Visits Authorized [id number] Pending Review Auto-Generat ed Referral 08/02/2023 08/02/2024 1 1 [facility] for referral (narrative)No reason for referral information availableWDayton [facility] Medical Center Work Phone: Summary Purpose Family History No Family History Records Found Relationship Condition Age at Onset Recorded Date/T lore mother Hypertension Unknown Malignant neoplasm of lung Unknown Scoliosis Unknown Osteoarthritis Unknown father Chronic obstructive pulmonary disease Unk nown Advance Directives No Advanced Directives Records Found Advance Directive Response Recorded Date/ Time Advance Directives Yes May 11:28am Living Will Yes June 11 11:28am Power of Triage Rn Yes June 11, 2015 11:28am Advance Directive Response Recorded Date/ Time Advance Directives Yes May 10:28am Living Will Yes June 11, 015 10:28am Power of Triage Rn Yes June 11, 2015 10:28am Advance Directive Response Recorded Date/ Time Living Will Yes October 25, 2024 4:00pm Do you have a Healthcare Pow er of Triage Rn? Yes October 25, 2024 4:00pm Name of Medical Power of Triage Rn S.O. DR CORDELIA SANABRIA October 25, 2024 4:00pm Advance Directives Yes May 11:28am Instructions * Patient Instructions* Diane Hummel - 08/17/2020 2:03 PM EST ACOG Screening Guidelines The following health screening schedule is recommended by the [employer] (ACOG). Some of these tests may be ordered or performed by your primary care doctor. Pap test screening The pap test looks at cells on the cervix (the opening from the vagina to the uterus) to look for cancer or pre-cancerous changes. These changes are caused by the human papillomavirus (HPV). Studies estimate that half of all women will test positive for this virus within 3 years of starting sexual activity. For young women with a normal immune system, 90% of HPV infections will resolve within 2 years. There is a vaccine available against some forms of HPV. This is recommended for girls and women age 9-45. For ages 9-14, two injections are given at 0 and 6 months. For ages 15-45, three injections are given at 0,2 and 6 months. Because this vaccine does not protect against all HPV types whichcan cause cervical cancer, women who received the vaccine still need pap tests. Pap smear screening should be started at age 21. The pap test should be done every 3 years from [id number]. From age 30-65, pap smears can be done every 5 years if HPV test is negative or every 3 years if HPV testing is not done. For women over the age of 65, ACOG recommends against screening women who have had adequate prior screening and are not otherwise at high risk for cervical cancer. Women who have had a hysterectomy also do not need routine pap smear screening unless the pap smear was done for a cervical cancer or moderate to severe dysplasia. Breast cancer screening Mammogram should be performed every 1-2 years starting at age 40 and every year starting at age 50.Screening may be started earlier depending on family history. Cholesterol screening Lipid panel (cholesterol test) should be checked every 5 years starting at age 45. Diabetes screening Fasting glucose (blood sugar) test should be performed every 3 years starting at age 45. Colorectal cancer screening Starting at age 45, women should have a screening colonoscopy at least every 10 years. Screening may be started earlier depending on family history. Thyroid screening Thyroid function test (TSH) should be checked every 5 years starting at age 50. Bone mineral density screening All postmenopausal women age 65 and over and postmenopausal women with risk factors for osteoporosis should have a bone mineral density test performed. Risk factors include race, family history of osteoporosis, personal history of fractures, poor nutrition, smoking, heavy alcohol use, early menopause, low calcium intake and low body weight. Certain medical conditions and long-term use of some medications may also increase risk. documented in this encounter History of Present Illness * Shaheed Diane Campos - 08/17/2020 2:00 PM EST Maynor Burks is a 64 year old who presents for an annual gynecologic exam without complaints. Postmenopausal: Yes HRT use: No. Last Pap: 03/25/2018 normal HPV: 03/23/2018 negative History of abnormal pap: No Last mammogram: 2019 normal History of abnormal mammogram: No Sexually active: Yes OB History T2 L2 SAB0 TAB0 Ectopic0 Multiple0 Live Births2 PAST MEDICAL HISTORY Diagnosis Date History of migraine headaches PAST SURGICAL HISTORY Procedure Laterality Date HIP SURGERY HX Right Hip replacement SKIN BIOPSY HX Basel cell THERMAL ENDOMETRIAL ABLATION TUBAL LIGATION HX FAMILY HISTORY Problem Relation Age of Onset Cancer Mother Lung Osteoporosis Mother COPD Father No Known Problems Sister Colon Cancer Maternal Grandmother No Known Problems Maternal Grandfather No Known Problems Paternal Grandmother No Known Problems Paternal Grandfather SOCIAL HISTORY Social History Tobacco Use Smoking status: Former Smoker Smokeless tobacco: Never Used Substance Use Topics Alcohol use: Yes Comment: Social Drug use: No REVIEW OF SYSTEMS Abdomen: No abdominal pain, nausea, vomiting, diarrhea, or constipation. No bloating, early satiety, indigestion, or increased flatulence. Bladder: No dysuria, gross hematuria, urinary frequency, urinary urgency, or incontinence Breast: No breast lumps, nipple d/c, overlying skin changes, redness or skin retraction Allergies and current medication updated:Yes EXAM: BP 140/88 Ht 5' 4 (1.63m) Wt 154 lb (69.9kg) BMI 26.42 kg/(m^2). GENERAL: pleasant, female in no apparent distress HEENT: Normocephalic, atraumatic, mucus membranes moist and no lesions NECK: Supple, full range of motion, no adenopathy and thyroid normal DERMATOLOGY: Normal, without lesions, non-icteric and non-hirsute BREAST: soft, non-tender, symmetric, no dominant mass, normal nipple-areolar complex, no lymphadenopathy and no nipple discharge CHEST: Normal inspiratory effort ABDOMEN: soft, non-tender and no masses PELVIC: external genitalia normal, normal Bartholin's glands, urethra, Farber's glands, no vulvar lesions, no cervical lesions, good vaginal support, physiologic discharge present, normal appearing perineal body and perianal region BIMANUAL: uterus normal size, shape and consistency, no adnexal masses and non-tender RECTOVAGINAL: rectovaginal exam negative for any masses or nodularity. NEURO: alert and oriented x3,exam grossly non-focal EXTREMITIES: normal ASSESSMENT/PLAN: 1) Health maintenance: Pap/HPV up to date. Mammogram ordered Colon cancer screening: patient to discuss with PCP 2) Follow up one year or sooner as needed Diane Hummel MD documented in this encounter Assessments Diagnosis Encounter for gynecological examination (general) (routine) without abnormal findings Encounter for screening mammogram for breast cancer Menopausal state Symptomatic menopausal or female climacteric states Chief Complaint and Reason for Visit Chief Complaint RADICULOPATHY LUMBAR REGION Chief Complaint RADICULOPATHY LUMBAR REGION E ORDER Chief Complaint E ORDER HERNIATED DISC LUMBAR Chief Complaint HERNIATED DISC LUMBA R LUMBAR SPINAL STENOSIS Chief Complaint POSTLAMINECTOMY SYND ROSCOE Chief Complaint POSTLAMINECTOMY SYND ROSCOE M96.1 Chief Complaint Admit Date Postlaminectomy syndrome, not elsewhere classified July 15, 2024 4:22pm LUMBAR SPINE August 19, 2024 7 :29am RM 1 August 19, 2024 7 :51am S/P LUMBAR FUSION September 03, 2024 8 :19am PREOP October 13, 2024 9:3 5am lumbar spine October 20, 2024 11: 02am Anterior lumbar interbody fusion L5-S1, revision p October 25, 2024 7:23am Anterior lumbar interbody fusion L5-S1, revision p October 25, 2024 10:08am Anterior lumbar interbody fusion L5-S1, revision p October 25, 2024 1:35pm Anterior lumbar interbody fusion L5-S1, revision p October 25, 2024 5:28pm Anterior lumbar interbody fusion L5-S1, revision p October 26, 2024 10:49am Reason for Visit Admit Date Lumbar scoliosis August 19, 2024 7 :29am Recurrent herniation of lumbar disc César chen 2024 7:29am S/P lumbar fusion August 19, 2024 7 :29am Lumbar scoliosis October 20, 2024 11: 02am Recurrent herniation of lumbar disc Shane h 2024 11:02am S/P lumbar fusion October 20, 2024 11: 02am Lumbar scoliosis October 25, 2024 1:35 pm S/P lumbar fusion October 25, 2024 1:35 pm Chief Complaint Admit Date LUMBAR SPINE August 19, 2024 7 :29am RM 1 August 19, 2024 7 :51am S/P LUMBAR FUSION September 03, 2024 8 :19am PREOP October 13, 2024 9:3 5am lumbar spine October 20, 2024 11: 02am Anterior lumbar interbody fusion L5-S1, revision p October 25, 2024 7:23am Anterior lumbar interbody fusion L5-S1, revision p October 25, 2024 10:08am Anterior lumbar interbody fusion L5-S1, revision p October 25, 2024 1:35pm Anterior lumbar interbody fusion L5-S1, revision p October 25, 2024 5:28pm Anterior lumbar interbody fusion L5-S1, revision p October 26, 2024 8:26am Anterior lumbar interbody fusion L5-S1, revision p October 26, 2024 10:49am lumbar spine November 10, 2024 1:0 5pm RM 1 November 10, 2024 1:1 6pm LUMBAR FUSION. RX HERE December 08, 2024 12 :00pm lumbar spine December 08, 2024 12:32 pm Room 1 December 08, 2024 1:08p m Reason for Visit Admit Date Lumbar scoliosis August 19, 2024 7 :29am Recurrent herniation of lumbar disc César chen 2024 7:29am S/P lumbar fusion August 19, 2024 7 :29am Lumbar scoliosis October 20, 2024 11: 02am Recurrent herniation of lumbar disc Shane h 2024 11:02am S/P lumbar fusion October 20, 2024 11: 02am Lumbar scoliosis October 25, 2024 1:35 pm S/P lumbar fusion October 25, 2024 1:35 pm S/P lumbar fusion November 10, 2024 1:0 5pm S/P lumbar fusion December 08, 2024 12:32 pm Chief Complaint Admit Date S/P LUMBAR FUSION September 03, 2024 8 :19am PREOP October 13, 2024 9:3 5am lumbar spine October 20, 2024 11: 02am Anterior lumbar interbody fusion L5-S1, revision p October 25, 2024 7:23am Anterior lumbar interbody fusion L5-S1, revision p October 25, 2024 10:08am Anterior lumbar interbody fusion L5-S1, revision p October 25, 2024 1:35pm Anterior lumbar interbody fusion L5-S1, revision p October 25, 2024 5:28pm Anterior lumbar interbody fusion L5-S1, revision p October 26, 2024 8:26am Anterior lumbar interbody fusion L5-S1, revision p October 26, 2024 10:49am lumbar spine November 10, 2024 1:0 5pm RM 1 November 10, 2024 1:1 6pm lumbar spine December 08, 2024 12:32 pm Room 1 December 08, 2024 1:08p m LUMBAR FUSION. RX HERE December 13, 2024 12 :00pm Reason for Visit Admit Date Lumbar scoliosis October 20, 2024 11: 02am Recurrent herniation of lumbar disc Shane h 2024 11:02am S/P lumbar fusion October 20, 2024 11: 02am Lumbar scoliosis October 25, 2024 1:35 pm S/P lumbar fusion October 25, 2024 1:35 pm S/P lumbar fusion November 10, 2024 1:0 5pm S/P lumbar fusion December 08, 2024 12:32 pm Chief Complaint Admit Date PREOP October 13, 2024 9:3 5am lumbar spine October 20, 2024 11: 02am Anterior lumbar interbody fusion L5-S1, revision p October 25, 2024 7:23am Anterior lumbar interbody fusion L5-S1, revision p October 25, 2024 10:08am Anterior lumbar interbody fusion L5-S1, revision p October 25, 2024 1:35pm Anterior lumbar interbody fusion L5-S1, revision p October 25, 2024 5:28pm Anterior lumbar interbody fusion L5-S1, revision p October 26, 2024 8:26am Anterior lumbar interbody fusion L5-S1, revision p October 26, 2024 10:49am lumbar spine November 10, 2024 1:0 5pm RM 1 November 10, 2024 1:1 6pm lumbar spine December 08, 2024 12:32 pm Room 1 December 08, 2024 1:08p m LUMBAR FUSION. RX HERE January 12, 2025 1 2:30pm LUMBAR SPINE January 19, 2025 11:0 1am RM 2 January 19, 2025 11:1 6am Reason for Visit Admit Date Lumbar scoliosis October 20, 2024 11: 02am Recurrent herniation of lumbar disc Shane h 2024 11:02am S/P lumbar fusion October 20, 2024 11: 02am Lumbar scoliosis October 25, 2024 1:35 pm S/P lumbar fusion October 25, 2024 1:35 pm S/P lumbar fusion November 10, 2024 1:0 5pm S/P lumbar fusion December 08, 2024 12:32 pm S/P lumbar fusion January 19, 2025 11:0 1am Additional Source Comments INFORMATION SOURCE (unrecogn ized section and content) DATE CREATED AUTHOR 01/19/2018 [facility] DATE CREATED AUTHOR AUTHOR'S ORGANIZ ATION 07/29/[address] [facility] DATE CREATED AUTHOR AUTHOR'S ORGANIZ ATION 08/07/2020 [facility] DATE CREATED AUTHOR AUTHOR'S ORGANIZ ATION 03/22/2022 [facility] DATE CREATED AUTHOR AUTHOR'S ORGANIZ ATION 08/02/2023 [facility] DATE CREATED AUTHOR AUTHOR'S ORGANIZ ATION 08/11/2023 [facility] DATE CREATED AUTHOR AUTHOR'S ORGANIZ ATION 03/16/2024 [facility] DATE CREATED AUTHOR AUTHOR'S ORGANIZ ATION 02/07/2025 [facility] Source Comments (unrecognize d section and content) In the event this informatio n is protected by the Federal Confidentiality of Alcohol and Drug Abuse Patient Records regulations: The Federal rules restrict any use of the information to criminally investigate or prosecute any alcohol or drug abuse patient.[facility] the event this information is protected by the Federal Confidentiality of Alcohol and Drug Abuse Patient Records regulations: The Federal rules restrict any use of the information to criminally investigate or prosecute any alcohol or drug abuse patient.[facility] the event this information is protected by the Federal Confidentiality of Alcohol and Drug Abuse Patient Records regulations: The Federal rules restrict any use of the information to criminally investigate or prosecute any alcohol or drug abuse patient.[facility] the event this information is protected by the Federal Confidentiality of Alcohol and Drug Abuse Patient Records regulations: The Federal rules restrict any use of the information to criminally investigate or prosecute any alcohol or drug abuse patient.[facility] the event this information is protected by the Federal Confidentiality of Alcohol and Drug Abuse Patient Records regulations: The Federal rules restrict any use of the information to criminally investigate or prosecute any alcohol or drug abuse patient.[facility] the event this information is protected by the Federal Confidentiality of Alcohol and Drug Abuse Patient Records regulations: The Federal rules restrict any use of the information to criminally investigate or prosecute any alcohol or drug abuse patient.[facility] Hospital[facility] the event this information is protected by the Federal Confidentiality of Alcohol and Drug Abuse Patient Records regulations: The Federal rules restrict any use of the information to criminally investigate or prosecute any alcohol or drug abuse patient.[facility] the event this information is protected by the Federal Confidentiality of Alcohol and Drug Abuse Patient Records regulations: The Federal rules restrict any use of the information to criminally investigate or prosecute any alcohol or drug abuse patient.[facility] the event this information is protected by the Federal Confidentiality of Alcohol and Drug Abuse Patient Records regulations: The Federal rules restrict any use of the information to criminally investigate or prosecute any alcohol or drug abuse patient.[facility] the event this information is protected by the Federal Confidentiality of Alcohol and Drug Abuse Patient Records regulations: The Federal rules restrict any use of the information to criminally investigate or prosecute any alcohol or drug abuse patient.[facility] the event this information is protected by the Federal Confidentiality of Alcohol and Drug Abuse Patient Records regulations: The Federal rules restrict any use of the information to criminally investigate or prosecute any alcohol or drug abuse patient.[facility] Hospital[facility] the event this information is protected by the Federal Confidentiality of Alcohol and Drug Abuse Patient Records regulations: The Federal rules restrict any use of the information to criminally investigate or prosecute any alcohol or drug abuse patient.[facility] Hospital[facility] the event this information is protected by the Federal Confidentiality of Alcohol and Drug Abuse Patient Records regulations: The Federal rules restrict any use of the information to criminally investigate or prosecute any alcohol or drug abuse patient.[facility] HospitalIn the event this information is protected by the Federal Confidentiality of Alcohol and Drug Abuse Patient Records regulations: The Federal rules restrict any use of the information to criminally investigate or prosecute any alcohol or drug abuse patient.[facility] HospitalIn the event this information is protected by the Federal Confidentiality of Alcohol and Drug Abuse Patient Records regulations: The Federal rules restrict any use of the information to criminally investigate or prosecute any alcohol or drug abuse patient.[facility] HospitalIn the event this information is protected by the Federal Confidentiality of Alcohol and Drug Abuse Patient Records regulations: The Federal rules restrict any use of the information to criminally investigate or prosecute any alcohol or drug abuse patient.[facility] HospitalIn the event this information is protected by the Federal Confidentiality of Alcohol and Drug Abuse Patient Records regulations: The Federal rules restrict any use of the information to criminally investigate or prosecute any alcohol or drug abuse patient.[facility] HospitalIn the event this information is protected by the Federal Confidentiality of Alcohol and Drug Abuse Patient Records regulations: The Federal rules restrict any use of the information to criminally investigate or prosecute any alcohol or drug abuse patient.[facility] HospitalIn the event this information is protected by the Federal Confidentiality of Alcohol and Drug Abuse Patient Records regulations: The Federal rules restrict any use of the information to criminally investigate or prosecute any alcohol or drug abuse patient.[facility] HospitalIn the event this information is protected by the Federal Confidentiality of Alcohol and Drug Abuse Patient Records regulations: The Federal rules restrict any use of the information to criminally investigate or prosecute any alcohol or drug abuse patient.[facility] HospitalIn the event this information is protected by the Federal Confidentiality of Alcohol and Drug Abuse Patient Records regulations: The Federal rules restrict any use of the information to criminally investigate or prosecute any alcohol or drug abuse patient.[facility] Reason for Visit (unrecogniz ed section and content) Reason Comments Refill Request Reason Comments Yearly Exam Status Reason Specialty Diagnoses / Procedures Referred By Contact Referred To Contact Closed OON/Self Pay Override RADIO MAMMO REFLECTIONS [facility] Diagnoses Encounter for screening mammogram for malignant neoplasm of breast SCREENING Procedures SCREENING MAMMOGRAPHY BI 2-VIEW BREAST INC CAD MAMMOGRAM Diane Hummel [address] [place] [address] Radio Mammo Reflections [facility] [address] [place] [address] Status Reason Specialty Diagnoses / Procedures Referred By Contact Referred To Contact Closed OON/Self Pay Override RADIO MAMMO REFLECTIONS [facility] Diagnoses Encounter for screening mammogram for malignant neoplasm of breast screening for breast cancer Procedures SCREENING MAMMOGRAPHY BI 2-VIEW BREAST INC CAD mammogram screening Diane Hummel MD [address] [place] [address] Radio Mammo Reflections [facility] [address] [place] [address] Reason Comments [facility] last pap 03/19/18 nor mal Specialty Diagnoses / Procedures Referred By Contac t Referred To Contact [employer] Diagnoses annual Procedures annual Self Diane Hummel MD [address] [place] [address] Referral ID Status Reason Start Date Expiration Date Visits Requested Visits Authorized [id number] Outside PCP OON/Self Pay Override 09/20/2021 12/19/2021 1 1 Reason Comments Radiology Mammogram Specialty Diagnoses / Procedures Referred By Contac t Referred To Contact [facility] Diagnoses Encounter for screening mammogram for breast cancer Procedures ARELIS SCREENING W GREG SCREENING DIGITAL BREAST TOMOSYNTHESIS BI SCREENING MAMMOGRAPHY BI 2-VIEW BREAST INC CAD Diane Hummel MD [address] [place] [address] [facility] [address] [place] [address] Referral ID Status Reason Start Date Expiration Date V isits Requested Visits Authorized [id number] Closed Auto-Generate d Referral 11/15/2021 12/15/2022 1 1 Reason Comments Results Reason Comments Radiology Mammogram Reason Comments [facility] Telephone Encounter - Corinna Lombardo (Rn), RN - 06/06/2020 11:53 AM ESTAddendum Note - Diane Hummel - 08/17/2020 2:22 PM EST Miscellaneous Notes (unrecog nized section and content) Last AE 08/12/2019. documented in this encounter Addended by: DIANE HUMMEL MD on: 08/17/2020 02:22 PM Modules accepted: Orders documented in this encounter Goals (unrecognized section and content) Goals may be documented in a n alternate sectionGoals may be documented in an alternate sectionGoals may be documented in an alternate sectionGoals may be documented in an alternate sectionGoals may be documented in an alternate sectionGoals may be documented in an alternate sectionGoals may be documented in an alternate sectionGoals may be documented in an alternate section Care Teams (unrecognized sec tion and content) Team Status: Active Member Role Status Dates Shanelle HOWARD, DO Primary Care Provider Active Team Status: Active Member Role Status Dates Shanelle HOWARD, DO Primary Care Provider Active Start: October 13, 2024 End: October 13, 2024 Dr. Addy Kent MD Attending Provider Active S tart: October 13, 2024 End: October 13, 2024 Dr. Terry Lang MD Referring Provider Active Start: October 13, 2024 End: October 13, 2024 Team Status: Inactive Member Role Status Dates Shanelle Wicker VSC, DO Primary Care Provider Active Start: October 20, 2024 End: October 20, 2024 Shanelle Juarezanju HOWARD, DO Referring Provider Active Start: October 20, 2024 End: October 20, 2024 Dr. Terry Lang MD Attending Provider Active Start: October 20, 2024 End: October 20, 2024 Team Status: Active Member Role Status Dates Shanelle Marcosanju HOWARD, DO Primary Care Provider Active Start: October 25, 2024 Dr. Terry Lang MD Admit Provider Active Star t: October 25, 2024 Dr. Terry Lang MD Attending Provider Active Start: October 25, 2024 Dr. Terry Lang MD Referring Provider Active Start: October 25, 2024 Dr. Terry Lang MD Other Provider Active Star t: October 25, 2024 Team Status: Active Member Role Status Dates Shanelleciara HOWARD, DO Primary Care Provider Active Start: October 25, 2024 Dr. Terry Lang MD Admit Provider Active Star t: October 25, 2024 Dr. Terry Lang MD Referring Provider Active Start: October 25, 2024 Dr. Terry Lang MD Other Provider Active Star t: October 25, 2024 Dr. Alexander Fierro MD Attending Provider Active S tart: October 25, 2024 Team Status: Inactive Member Role Status Dates Shanelle Marcosanju HOWARD, DO Primary Care Provider Active Start: October 25, 2024 End: October 26, 2024 Dr. Terry Lang MD Admit Provider Active Star t: October 25, 2024 End: October 26, 2024 Dr. Terry Lang MD Attending Provider Active Start: October 25, 2024 End: October 26, 2024 Dr. Terry Lang MD Referring Provider Active Start: October 25, 2024 End: October 26, 2024 Dr. Amanda Giraldo MD Other Provider Active St art: October 25, 2024 End: October 26, 2024 Dr. Gamal Bowman MD Other Provider Active Sta rt: October 25, 2024 End: October 26, 2024 Team Status: Active Member Role Status Dates Shanelleciara HOWARD, DO Primary Care Provider Active Start: October 25, 2024 Dr. Terry Lang MD Admit Provider Active Star t: October 25, 2024 Dr. Terry Lang MD Referring Provider Active Start: October 25, 2024 Dr. Terry Lang MD Other Provider Active Star t: October 25, 2024 Dr. Amanda Giraldo MD Attending Provider Active Start: October 25, 2024 Dr. Amanda Giraldo MD Other Provider Active St art: October 25, 2024 Team Status: Active Member Role Status Dates Shanelle LIC, DO Primary Care Provider Active Start: October 26, 2024 Dr. Terry Lang MD Admit Provider Active Star t: October 26, 2024 Dr. Terry Lang MD Other Provider Active Star t: October 26, 2024 Dr. Amanda Giraldo MD Other Provider Active St art: October 26, 2024 Dr. Gamal Bowman MD Attending Provider Active Start: October 26, 2024 Dr. Gamal Bowman MD Other Provider Active Sta rt: October 26, 2024 Team Status: Active Member Role Status Dates Shanelle HOWARD, DO Primary Care Provider Active Start: October 26, 2024 Dr. Terry Lang MD Admit Provider Active Star t: October 26, 2024 Dr. Terry Lang MD Referring Provider Active Start: October 26, 2024 Dr. Terry Lang MD Other Provider Active Star t: October 26, 2024 Dr. Amanda Giraldo MD Other Provider Active St art: October 26, 2024 Dr. Gamal Bowman MD Other Provider Active Sta rt: October 26, 2024 LUCIA Menjivar Attending Provider Active Star t: October 26, 2024 Team Status: Inactive Member Role Status Dates Shanelle Rodríguez VSC, DO Primary Care Provider Active Start: November 10, 2024 End: November 10, 2024 Shanelle LIC, DO Referring Provider Active Start: November 10, 2024 End: November 10, 2024 Dr. Terry Lang MD Attending Provider Active Start: November 10, 2024 End: November 10, 2024 Team Status: Inactive Member Role Status Dates Shanelle Rodríguez VSC, DO Primary Care Provider Active Start: November 10, 2024 End: November 10, 2024 Dr. Addy Kent MD Attending Provider Active S tart: November 10, 2024 End: November 10, 2024 Team Status: Inactive Member Role Status Dates Shanelle Juareznger VSC, DO Primary Care Provider Active Start: December 08, 2024 End: December 08, 2024 Shanelle Rodríguez VSC, DO Referring Provider Active Start: December 08, 2024 End: December 08, 2024 Dr. Terry Lang MD Attending Provider Active Start: December 08, 2024 End: December 08, 2024 Team Status: Inactive Member Role Status Dates Shanelle Juareznger VSC, DO Primary Care Provider Active Start: December 08, 2024 End: December 08, 2024 Dr. Addy Kent MD Attending Provider Active S tart: December 08, 2024 End: December 08, 2024 Team Status: Inactive Member Role Status Dates Shanelle Rodríguez VSC, DO Primary Care Provider Active Start: December 13, 2024 End: December 13, 2024 Shanelle Juareznger VSC, DO Attending Provider Active Start: December 13, 2024 End: December 13, 2024 Team Status: Active Member Role Status Dates Shanelle Wicker VSC, DO Primary Care Provider Active Start: January 12, 2025 Dr. Terry Lang MD Attending Provider Active Start: January 12, 2025 Dr. Terry Lang MD Referring Provider Active Start: January 12, 2025 Team Status: Active Member Role Status Dates Shanelle Rodríguez VSC, DO Primary Care Provider Active Start: January 19, 2025 Shanelle Juareznger VSC, DO Referring Provider Active Start: January 19, 2025 Dr. Terry Lang MD Attending Provider Active Start: January 19, 2025 Team Status: Inactive Member Role Status Dates Shanelle Juareznger VSC, DO Primary Care Provider Active Start: January 19, 2025 End: January 19, 2025 Dr. Addy Kent MD Attending Provider Active S tart: January 19, 2025 End: January 19, 2025 Team Status: Active Member Role Status Dates Dr. Sherine Perla DO Family Provider Active WYATT HEAD Primary Care Provider Active Team Status: Inactive Member Role Status Dates ADILENE SCHNEIDER Primary Care Provider Active Dr. Sherine Juan MD Attending Provider, Referring Prov ider Active Team Status: Active Member Role Status Dates Dr. Sherine Perla DO Family Provider Active Team Status: Inactive Member Role Status Dates Dr. Luis Alberto Ordaz MD Attending Provider Active Team Status: Inactive Member Role Status Dates Dr. Luis Alberto Ordaz MD Attending Provider, Referring Pr ovider Active Team Status: Active Member Role Status Dates Dr. Luis Alberto Ordaz MD Attending Provider Active Team Status: Active Member Role Status Dates Dr. Sherine Perla DO Family Provider Active Ronnie Rodríguez DO Primary Care Provider Active Team Status: Inactive Member Role Status Dates Ronnie Rodríguez DO Primary Care Provider, Attending Provider Active Windows Consultant Relationship Specialty Start Date End Date MarcosRonnie bernardo [address] [facility] [address] [place] [address] PCP - General Family Medicine 07/29/23 Windows Consultant Relationship Specialty Start Date End Date Jerrell Rodríguezistin Bertha [address] [facility] [address] [place] [address] PCP - General Family Medicine 08/06/23 Windows Consultant Relationship Specialty Start Date End Date Marcos, Ronnie BerthaDO [address] [facility] [address] [place] [address] PCP - General Family Medicine 08/06/23 Windows Consultant Relationship Specialty Start Date End Date MarcosRonnie BerthaDO [address] [facility] [address] [place] [address] PCP - General Family Medicine 08/06/23 Team Status: Inactive Member Role Status Dates Dr. Luis Alberto Ordaz MD Attending Provider Active Start: July 15, 2024 End: July 15, 2024 Dr. Luis Alberto Ordaz MD Referring Provider Active Start: July 15, 2024 End: July 15, 2024 Shanelle Rodríguez [facility], DO Primary Care Provider Active Start: July 15, 2024 End: July 15, 2024 Team Status: Inactive Member Role Status Dates Shanelle Marcos VSC, DO Primary Care Provider Active Start: August 19, 2024 End: August 19, 2024 Shanelle Juareznger VSC, DO Referring Provider Active Start: August 19, 2024 End: August 19, 2024 Dr. Terry Lang MD Attending Provider Active Start: August 19, 2024 End: August 19, 2024 Team Status: Inactive Member Role Status Dates Shanelle Marcos VSC, DO Primary Care Provider Active Start: August 19, 2024 End: August 19, 2024 Dr. Addy Kent MD Attending Provider Active S tart: August 19, 2024 End: August 19, 2024 Team Status: Inactive Member Role Status Dates Shanelle Marcos VSC, DO Primary Care Provider Active Start: September 03, 2024 End: September 03, 2024 Dr. Terry Lang MD Attending Provider Active Start: September 03, 2024 End: September 03, 2024 Dr. Terry Lang MD Referring Provider Active Start: September 03, 2024 End: September 03, 2024 Team Status: Active Member Role Status Dates Shanelle Marcos VSC, DO Primary Care Provider Active Start: December 08, 2024 Dr. Terry Lang MD Attending Provider Active Start: December 08, 2024 Dr. Terry Lang MD Referring Provider Active Start: December 08, 2024 Team Status: Active Member Role Status Dates Shanelle Juareznger VSC, DO Primary Care Provider Active Start: December 08, 2024 Shanelle Rodríguez VSC, DO Referring Provider Active Start: December 08, 2024 Dr. Terry Lang MD Attending Provider Active Start: December 08, 2024 Team Status: Active Member Role Status Dates Shanelle Marcos VSC, DO Primary Care Provider Active Start: December 13, 2024 Dr. Terry Lang MD Attending Provider Active Start: December 13, 2024 Dr. Terry Lang MD Referring Provider Active Start: December 13, 2024 Team Status: Inactive Member Role Status Dates Shanelle Juareznger VSC, DO Primary Care Provider Active Start: January 19, 2025 End: January 19, 2025 Shanelle Rodríguez VSC, DO Referring Provider Active Start: January 19, 2025 End: January 19, 2025 Dr. Terry Lang MD Attending Provider Active Start: January 19, 2025 End: January 19, 2025 FOR RECORDS PERTAINING TO PATIENTS WHO ARE OR HAVE BEEN ENROLLED IN A CHEMICAL DEPENDENCY/SUBSTANCEABUSE PROGRAM, SOME INFORMATION MAY BE OMITTED. This clinical summary was aggregated from multiple sources. Caution should be exercised in using it in the provision of clinical care. This summary normalizes information from multiple sources, and as a consequence, information in this document may materially change the coding, format and clinical context of patient data. In addition, data may be omitted in some cases. CLINICAL DECISIONS SHOULD BE BASED ON THE PRIMARY CLINICAL RECORDS. [employer] [facility]. provides no warranty or guarantee of the accuracy or completeness of information in this document.
== END | disposition home or self-care (01) ==
LOC: MRI 17:10
PROVIDERS: PCP Family Medicine; Referring Provider Anesthesiology Pain Medicine; Visit Provider Anesthesiology Pain Medicine
DX: M54.12 Radiculopathy, cervical region (principal)
CPT/HCPCS: 72141

== ENCOUNTER → 2025-04-21 | Outpatient (CLI) | payer MEDICARE, OTHER, SELFPAY ==
[2025-04-21 11:02] LABS: Hematocrit 42.9 % (37-47); Hemoglobin 14.3 g/dL (12.0-15.0); Immature Granulocytes Count 0.010 X10^3/uL (0.0-0.0); Mean Corp Hgb Conc 33.3 g/dL (32-36); Mean Corpuscular Volume 87.9 fL (81-99); Mean Platelet Vol. 11.8 fl (6.2-12.0); NRBC Flagged by Analyzer 0 % (0-5); Platelet Count 228 K/mm3 (150-450); RBC Distribution Width CV 16.8 % (11.6-14.6); RBC Distribution Width SD 54.5 fl (35.1-43.9); Red Blood Count 4.88 M/mm3 (4.2-5.4); White Blood Count 6.3 K/mm3 (4.4-11.0)
[2025-04-21 11:20] LABS: AST(SGOT) 31 U/L (<=31); Alanine Aminotransfer ALT/SGPT 19 U/L (<=34); Albumin, Serum 4.4 g/dL (3.4-4.8); Alkaline Phosphatase 82 U/L (35-104); Anion Gap 12 (5-15); BUN 20 mg/dL (4-19); BUN/Creat Ratio 25.5 RATIO (10-20); CRP < 3.00 mg/L (0.0-3.0); Calcium,Total 10.1 mg/dL (7.6-11.0); Carbon Dioxide 24.7 mmol/L (21.0-32.0); Chloride 103 mmol/L (98-108); Globulin 1.9 g/dL (2.2-4.2); Glucose 91 mg/dL (70-99); Potassium 4.3 mmol/L (3.3-5.1); Uric Acid 4.1 mg/dL (2.6-6.0)
[2025-04-24 15:08] LABS: Anti-Chromatin <0.2 AI (0.0-0.9); Anti-Jo <0.2 AI (0.0-0.9); Anti-dsDNA Ab <1 IU/mL (0-9); SJOGREN'S Anti-SS-A test < 0.2 AI (0.0-0.9); SJOGREN'S Anti-SS-B test < 0.2 AI (0.0-0.9)
== END | disposition home or self-care (01) ==
LOC: LAB 10:14
PROVIDERS: PCP Family Medicine; Referring Provider Nurse Practitioner Family; Visit Provider Nurse Practitioner Family
DX: I10 Essential (primary) hypertension (principal); M25.50 Pain in unspecified joint
CPT/HCPCS: 36415; 80053; 84550; 85025; 85652; 86140; 86225; 86235; 86431

== ENCOUNTER 2025-07-05 13:00 | Outpatient (RCR) | payer MEDICARE, OTHER, SELFPAY ==
--- NOTE | 2025-06-05 13:48 | HP.PTEVAL_ITS ---
Patient's Visit Information Visit Information Visit Information: IWONA ROSEN is a 69 year old F referred to Physical Therapy by Dr. Terry Lang MD with a diagnosis of Spondylolisthesis, cervical region, Spinal stenosis, cervical , DDD. Date of Evaluation: 06/05/25 Physical Therapist: Andrea Garcia, PT, Cert MDT, OCS Visit Plan Frequency: 2x /Week Duration: 4 Weeks Plan: PT INTERVIONS POSTURAL EX'S ,STRENGTHENING ,MANUAL THERAPY STM /CERVICAL MANUAL TRACTION ,ACTIVITY MODIFICATION AND US PEN Subjective Subjective: This 69 y/o female presents to physical therapy with cervical pain with radicular symptoms in hands. Patient has cervical pain since summer which has worsen over time. Patient seen DR Lang had MRI : Multilevel degenerate rosenthal ges predominantly at C3-C4 and C6-C7 where there is disc space narrowing, scleroticendplates and marginal osteophytes.Alignment: Anterolisthesis C2 on C3 by 2 mm. Anterolisthesis C3 on C4 by 1 mm. Anterolisthesis C4 on C5 by 2 mm. x-rays inal stenosis.. Ebxv-ou-vjzgksmy spinal stenosis at C6- Severe jjey-dhkalhe-fkzv-right foraminal stenosis with potential nerve root Plan to have EMG test. Patient has seen pain management cervical spine with epidural 6 weeks ag which helped. Pain located to neck . Symptoms worse in night on hands with burning and tingling soon as I lay down but better. Aggravating bending ,lifting and extension .Pain worse with at night .Pain is always been in right UT and scapular. Patient has h/o DERAS . Medication neurontin . Denies nausea/tinnitus. No balance ,and no dropping things on regular basis. Patient has had 3 lumbar surgery and laminectomy and 2 fusion lumbar ,last October [address]. Patient condition affects QOL and function/ADLS. Patient goals to manage pain. SOCIAL: VOCATION: retired Pain Bilateral Neck: Pain Intensity (Out of 10): 4 Pain Intensity Range: 7 Objective Objective: POSTURE: rounded shoulders head forward PALAPTION: tender UT/levator ,paraspinals AROM: BUR WFL MMT: BUE grossly 4/5 ,shoulders 4-/5 CERVICAL ROM: flexion min loss ,rotation /lateral flexion mod loss extension mod loss pain in hands Special Tests C/S Radiculapathy - Left Upper limb tension test: Negative C/S Radiculapathy - Right Upper limb tension test: Negative C/S Radiculapathy - Left Spurlings: Positive C/S Radiculapathy - Right Spurlings: Negative C/S Radiculapathy - Left Cervical distraction: Negative C/S Radiculapathy - Right Cervical distraction: Negative C/S Radiculapathy - Left Relief test: Negative C/S Radiculapathy - Right Relief test: Negative Sharp Luisa: Negative Vertebral Artery Test: Negative Alar Ligament Test: Negative Balance/Special Test Scores Oswestry Neck Score: 28 Goals Goal 1:: Patient to be I with HEP for cervical spine Goal Time Frame: 4-6 Weeks Goal 2:: Patient to improve cervical ROM for function of recovery for ADL's and driving Goal Time Frame: 4-6 Weeks Goal 3:: Patient to improve neck oswestry score by 5 points to improve QOL Goal Time Frame: 4-6 Weeks Goal 4:: Patient to demonstrate 50% improvement with less pain and improved function Goal Time Frame: 4-6 Weeks Rehabilitation Potential Physical Therapy Diagnosis: This patient has cervical stenosis with with pain with positioning and motion extension will produces symptoms in hands thus benefit from skilled PT Rehabilitation Potential: Fair Anticipated Interventions Patient/Client Instruction: Educate patient on: Condition and Plan of Care For the Purpose of:: To decrease pain, To increase ROM, To improve ability to perform ADL's, To increase tolerance to activity/condition/position, To improve performance and independence with ADL's, To improve ability of physical actions for home/community/work/leisure, To improve health of tissue, To decrease soft tissue restriction, To increase flexibility/ROM and To improve tolerance to ADL's Therapeutic Exercise to Include: Strength training, Postural training, Flexibilty training, Active ROM and Scapular Strength/Stabilization For the Purpose of:: To decrease pain, To increase ROM, To improve muscle performance and motor function, To improve ability to perform ADL's, To increase tolerance to activity/condition/position, To improve ability of physical actions for home/community/work/leisure, To improve health of tissue, To decrease soft tissue restriction and To increase flexibility/ROM Manual Therapy Techniques to Include: Soft tissue mobilization Comment: CERVICAL TRACTION For the Purpose of:: To decrease pain, To increase ROM, To improve muscle performance and motor function, To improve ability to perform ADL's, To increase tolerance to activity/condition/position, To improve health of tissue, To decrease soft tissue restriction and To increase flexibility/ROM TENS: Yes IF ES: Yes Cryotherapy (ice pack, ice massage): Yes Thermo therapy (hot pack): Yes Ultrasound (thermal/non thermal): Yes For the Purpose of:: To decrease pain, To increase ROM, To improve nutrient delivery to tissue, To increase oxygenation perfusion, To improve health of tissue and To decrease soft tissue restriction Text: Thank you for the opportunity to evaluate your patient. For Medicare and Medicare HMO plans, please review the plan of care and approve it. It will need to be FAXED BACK to us at [phone] for Medicare purposes. For Medicare only, by signing this I certify the plan of care. Please let me know if there are questions or concerns regarding this plan of care. Physician Signature: Date:
--- NOTE | 2025-07-05 13:50 | HP.PTDCSUM ---
Discharge Summary D/C summary: It has been my pleasure to treat IWONA ROSEN referred by Dr. Terry Lang MD, with the diagnosis of Spondylolisthesis, cervical region, Spinal stenosis, cervical , DDD for a total of 7 visit(s). Discharge Date: Please see the following information for a summary of their discharge status. Subjective Subjective: Doing better No pain ,occasional paresthesia/tingling in hands Pain Bilateral Neck: Pain Intensity (Out of 10): 0 Overall Improvement % Improvement: 100 Objective Objective/Function: POSTURE: rounded shoulders head forward PALAPTION: tender UT/levator ,paraspinals AROM: BUR WFL MMT: BUE grossly 4/5 ,shoulders 4/5 CERVICAL ROM: flexion WFL ,rotation /lateral flexion min loss extension min/mod Goals Goal 1:: Patient to be I with HEP for cervical spine Goal 2:: Patient to improve cervical ROM for function of recovery for ADL's and driving Goal 3:: Patient to improve neck oswestry score by 5 points to improve QOL Goal 4:: Patient to demonstrate 50% improvement with less pain and improved function Plan Plan: D/C D/C Information d/c sentence: If there are questions or concerns regarding this patient's physical therapy, please feel free to call me at [phone]. Thank you for the referral of this patient. Sincerely, Andrea Garcia, PT, Cert MDT, OCS Balance/Gait/Functional tests Balance/Special Test Scores Oswestry Neck Score: 0 Improvement % Improvement: 100
== END 2025-07-05 19:00 | disposition home or self-care (01) ==
LOC: PT 13:00
PROVIDERS: PCP Family Medicine; Visit Provider Orthopaedic Surgery Orthopaedic Surgery of the Spine
DX: M48.02 Spinal stenosis, cervical region (principal); M50.30 Other cervical disc degeneration, unspecified cervical region; M43.12 Spondylolisthesis, cervical region; Z98.1 Arthrodesis status
CPT/HCPCS: 97110; 97140; 97162; 97530